=== PATIENT | male | born 1930 | race Caucasian/White ===

== ENCOUNTER 2017-05-14 19:33 | Inpatient (IN) | payer MEDICARE, MEDICAID, BC ==
[~2017-05-14] VITALS: Ht 185.4 cm; Wt 92.5 kg
[2017-05-14 19:35] VITALS: BP 112/64
[2017-05-14 20:52] LABS: MEAN CORPUSCULAR HEMOGLOBIN 31.6 PG (27.0-31.0); MEAN CORPUSCULAR HGB CONC 31.2 G/DL (32.0-36.0); MEAN CORPUSCULAR VOLUME 101 FL (80-99); MEAN PLATELET VOLUME 7.3 FL (6.5-10.1); PLATELET COUNT 164 K/UL (150-450); RED BLOOD COUNT 3.34 M/UL (4.70-6.10); RED CELL DISTRIBUTION WIDTH 13.7 % (11.6-14.8); WHITE BLOOD COUNT 14.2 K/UL (4.8-10.8)
[2017-05-14 21:07] LABS: ALANINE AMINOTRANSFERASE 5 U/L (3-41); ALBUMIN/GLOBULIN RATIO 0.8 (1.0-2.7); ANION GAP 12 (5-15); ASPARTATE AMINO TRANSFERASE 19 U/L (5-40); CALCIUM 9.2 mg/dL (8.6-10.2); CARBON DIOXIDE 26 mEQ/L (20-30); CHLORIDE 98 mEQ/L (98-107); CREATININE 0.9 mg/dL (0.7-1.2); HEMOLYSIS 47; POTASSIUM 4.9 mEQ/L (3.4-4.9); SODIUM 136 mEQ/L (135-145); TOTAL PROTEIN 7.5 g/dL (6.6-8.7); TROPONIN I < 0.30 ng/mL (<=0.30)
[2017-05-14 21:09] LABS: REFLEX LACTIC ACID YES OR NO YES
[2017-05-14 21:17] LABS: CKMB 1.7 ng/mL (< 6.7)
[2017-05-14 21:30] VITALS: BP 121/62
[2017-05-14] MEDS ORDERED: Azithromycin 500 MG in NS 275 ML IV ONE (21:30)
[2017-05-14] MEDS ORDERED: Piperacillin/Tazobactam 3.375 GM in NS 110 ML IVPB ONE (21:30)
[2017-05-14] MEDS ORDERED: Albuterol/Ipratropium 3ml neb HHN PRN (21:45)
[2017-05-14] MEDS ORDERED: Miralax 17gm pkt ORAL PRN (21:45)
[2017-05-14] MEDS ORDERED: Azithromycin 500mg Inj IV ONE (22:11)
[2017-05-14] MEDS ORDERED: Zosyn 3.375gm inj ONE (22:12)
[2017-05-14] MEDS ORDERED: NS 1000ml 3,300 ML IVLG ONE (22:15)
--- NOTE | 2017-05-14 22:15 | Emergency Room Report ---
History of Present Illness General Chief Complaint: Dyspnea/Respdistress Present Illness HPI 87-year-old male presents to ED for evaluation. Patient resides in intermediate. Is on ventilator with trach. Per EMS patient's more short of breath today. With retractions. Patient at bedside stating that patient was recently discharged from hospital for treatment of pneumonia. Patient is unable to put any additional history at this time. It is also concerned that patient appears more distended and abdomen usual. Patient has a J-G tube recently placed. Currently being used for feedings. No other aggravating relieving factors. No other associated symptom Allergies: Coded Allergies: CODEINE (Verified Allergy, Unknown, 05/14/17) Patient History Past Medical History: none Past Surgical History: none Pertinent Family History: none Social History: Denies: smoking, alcohol use, drug use Immunizations: UTD Reviewed Nursing Documentation: PMH: Agreed, PSxH: Agreed Nursing Documentation-PMH Hx Hypertension: Yes - heart failure Review of Systems All Other Systems: limited Physical Exam Vital Signs Date Time Temp Pulse Resp B/P (MAP) Pulse Ox O2 Delivery O2 Flow Rate FiO2 05/14/17 19:28 97.5 102 22 112/64 100 Mechanical Ventilator 05/14/17 19:54 40 Sp02 EP Interpretation: reviewed, normal General Appearance: other - nonresponsive Head: normocephalic, other Eyes: bilateral eye normal inspection, bilateral eye PERRL ENT: hearing grossly normal, normal pharynx, no angioedema, normal voice Neck: tracheotomy Respiratory: chest non-tender, lungs clear, normal breath sounds, speaking full sentences Cardiovascular #1: regular rate, rhythm, no edema Gastrointestinal: distended, other - Gtube Rectal: deferred Genitourinary: no CVA tenderness Musculoskeletal: normal inspection Neurologic: other - nonverbal Psychiatric: other - nonverbal Skin: normal inspection Lymphatic: normal inspection Medical Decision Making Diagnostic Impression: Primary Impression: Pneumonia Qualified Codes: J18.9 - Pneumonia, unspecified organism Additional Impressions: Respiratory distress Sepsis Qualified Codes: A41.9 - Sepsis, unspecified organism ER Course Hospital Course 87-year-old M presenting to ED with respiratory distress Differential diagnoses include: Pneumonia, CHF exacerbation, pneumothorax, fluid overload Clinical course Patient placed on stretcher. 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 Patient connected to a ventilator. After initial history and physical, I I ordered labs, IV fluids, EKG , chest x-ray, blood cultures, UA. Labs -leukocytosis noted, hemoglobin/hematocrit stable, electrolytes okay, lactate >2, troponins negative CXR - pneumonia EKG - NSR, no acute changes interpreted by me Family is concerned about distended abdomen. CT ordered Antibiotics given. 30 mL per KG fluid bolus given. Case discussed with Dr. Castillo and he agreed to the patient to his service for further care and support I feel this is a highly complex case requiring extensive working including EKG/ Rhythm strip, Xray/CT/US, Blood/urine lab work, repeat exams while in ED, and administration of strong opiates/narcotics for pain control, admission to hospital or close patient follow up. Diagnosis - pneumonia, resp distress, sepsis Patient admitted to [facility] in serious condition Labs Test 05/14/17 20:30 White Blood Count 14.2 K/UL (4.8-10.8) Red Blood Count 3.34 M/UL (4.70-6.10) Hemoglobin 10.5 G/DL (14.2-18.0) Hematocrit 33.7 % (42.0-52.0) Mean Corpuscular Volume 101 FL (80-99) Mean Corpuscular Hemoglobin 31.6 PG (27.0-31.0) Mean Corpuscular Hemoglobin Concent 31.2 G/DL (32.0-36.0) Red Cell Distribution Width 13.7 % (11.6-14.8) Platelet Count 164 K/UL (150-450) Mean Platelet Volume 7.3 FL (6.5-10.1) Neutrophils (%) (Auto) % (45.0-75.0) Lymphocytes (%) (Auto) % (20.0-45.0) Monocytes (%) (Auto) % (1.0-10.0) Eosinophils (%) (Auto) % (0.0-3.0) Basophils (%) (Auto) % (0.0-2.0) Sodium Level 136 mEQ/L (135-145) Potassium Level 4.9 mEQ/L (3.4-4.9) Chloride Level 98 mEQ/L (98-107) Carbon Dioxide Level 26 mEQ/L (20-30) Anion Gap 12 (5-15) Blood Urea Nitrogen 41 mg/dL (7-23) Creatinine 0.9 mg/dL (0.7-1.2) Estimat Glomerular Filtration Rate mL/min (>60) Glucose Level 111 mg/dL (74-106) Lactic Acid Level 2.20 mmol/L (0.66-2.22) Calcium Level 9.2 mg/dL (8.6-10.2) Total Bilirubin 0.5 mg/dL (0.0-1.2) Aspartate Amino Transf (AST/SGOT) 19 U/L (5-40) Alanine Aminotransferase (ALT/SGPT) 5 U/L (3-41) Alkaline Phosphatase 97 U/L (40-129) Total Creatine Kinase 49 U/L (38-174) Creatine Kinase MB 1.7 ng/mL (< 6.7) Creatine Kinase MB Relative Index 3.4 Troponin I < 0.30 ng/mL (<=0.30) Pro-B-Type Natriuretic Peptide 411 pg/mL (0-450) Total Protein 7.5 g/dL (6.6-8.7) Albumin 3.5 g/dL (3.5-5.2) Globulin 4.0 g/dL Albumin/Globulin Ratio 0.8 (1.0-2.7) EKG Diagnostic Results Rate: normal Rhythm: NSR ST Segments: no acute changes ASA given to the pt in ED: No Rhythm Strip Diag. Results EP Interpretation: yes Rhythm: NSR, no PVC's, no ectopy Chest X-Ray Diagnostic Results Chest X-Ray Diagnostic Results : Chest X-Ray Ordered: Yes # of Views/Limited/Complete: 1 View Indication: Shortness of Breath EP Interpretation: Yes Interpretation: no pneumothorax, no acute cardiopulmonary disease, other - pneumonii Impression: Other - pneumonia\ Electronically Signed by: Electronically signed by Jorge Thomas MD Last Vital Signs Date Time Temp Pulse Resp B/P (MAP) Pulse Ox O2 Delivery O2 Flow Rate FiO2 05/14/17 20:44 96 30 40 05/14/17 19:58 Mechanical Ventilator 05/14/17 19:28 97.5 112/64 100 Status: improved Disposition: ADMITTED INPATIENT Condition: Serious Referrals: YAJAIRA ASHLEY (PCP) JORGE THOMAS M.D. May 14, 2017 22:15
[2017-05-14 22:24] LABS: BAND NEUTROPHILS % (MANUAL) 2 % (0-8); EOSINOPHILS % (MANUAL) 2 % (0-3); LYMPHOCYTES % (MANUAL) 5 % (20-45); NEUTROPHILS % (MANUAL) 85 % (45-75); TOTAL CELLS COUNTED 100
[2017-05-14 22:25] LABS: ANISOCYTOSIS 1+; BASOPHILS % (MANUAL) 0 % (0-2); HYPOCHROMASIA 1+; PLATELET ESTIMATE ADEQUATE; PLATELET MORPHOLOGY NORMAL
[2017-05-14 23:30] VITALS: BP 125/72
[2017-05-15] MEDS ORDERED: AMLODIPINE BESY10 MG GT (00:30)
[2017-05-15] MEDS ORDERED: POLYVINYL ALCOH15 ML OP (00:30)
[2017-05-15] MEDS ORDERED: SENOKOT8.6 MG GT (00:30)
[2017-05-15] MEDS ORDERED: CATAPRES0.1 MG GT (00:30)
[2017-05-15] MEDS ORDERED: VITAMIN C500 M1 GT (00:30)
[2017-05-15] MEDS ORDERED: PEPCID AC20 M2 GT (00:30)
[2017-05-15] MEDS ORDERED: ALBUTEROL2.5 MG/3 M INH (00:30)
[2017-05-15] MEDS ORDERED: MIRALAX17 G2 GT (00:30)
[2017-05-15] MEDS ORDERED: SINEMET 25-1001 EAC1 GT (00:30)
[2017-05-15] MEDS ORDERED: LIQUITEARS15 ML OP ×2 (00:30→02:14)
[2017-05-15] MEDS ORDERED: ASPIR 8181 MG ORAL (00:30)
[2017-05-15] MEDS ORDERED: ROBINUL1 MG GT (00:30)
[2017-05-15] MEDS ORDERED: MULTIVITAMINS1 EAC2 GT (00:30)
[2017-05-15] MEDS ORDERED: FERROUS SU220 MG/53 GT (00:30)
[2017-05-15] MEDS ORDERED: COZAAR25 MG GT (00:30)
[2017-05-15] MEDS ORDERED: IPRATROPIU0.2 MG/1 M HHN ×3 (00:30→02:18)
[2017-05-15] MEDS ORDERED: CRANBERRY JUIC425 MG GT (00:30)
[2017-05-15 00:40] VITALS: BP 119/73
[2017-05-15] MEDS: Vancomycin 1500mg IVPB SCH ×2 (02:31→14:00)
[2017-05-15 04:00] VITALS: BP 124/64
[2017-05-15 05:38] LABS: BASOPHILS % (AUTO) 0.6 % (0.0-2.0); EOSINOPHILS % (AUTO) 0.7 % (0.0-3.0); LYMPHOCYTES % (AUTO) 7.3 % (20.0-45.0); MEAN CORPUSCULAR HEMOGLOBIN 31.8 PG (27.0-31.0); MEAN CORPUSCULAR HGB CONC 31.6 G/DL (32.0-36.0); MEAN CORPUSCULAR VOLUME 101 FL (80-99); MEAN PLATELET VOLUME 8.5 FL (6.5-10.1); MONOCYTES % (AUTO) 9.3 % (1.0-10.0); NEUTROPHILS % (AUTO) 82.2 % (45.0-75.0); PLATELET COUNT 157 K/UL (150-450); RED BLOOD COUNT 3.23 M/UL (4.70-6.10); RED CELL DISTRIBUTION WIDTH 13.7 % (11.6-14.8); WHITE BLOOD COUNT 13.5 K/UL (4.8-10.8)
[2017-05-15] MEDS ORDERED: Zosyn 3.375gm inj ONE (05:39)
[2017-05-15] MEDS: Piperacillin/Tazobactam 3.375 GM in NS 110 ML IVPB SCH ×3 (06:34→17:11)
[2017-05-15 07:06] LABS: ANION GAP 11 (5-15); CALCIUM 8.8 mg/dL (8.6-10.2); CARBON DIOXIDE 24 mEQ/L (20-30); CHLORIDE 103 mEQ/L (98-107); HEMOLYSIS 17; PHOSPHORUS 3.7 mg/dL (2.5-4.8); POTASSIUM 4.5 mEQ/L (3.4-4.9); SODIUM 138 mEQ/L (135-145)
[2017-05-15 08:00] VITALS: BP 117/58
[2017-05-15] MEDS: Heparin 5000 units/ml inj SUBQ SCH ×2 (08:37→21:26)
[2017-05-15] MEDS: Pantoprazole Inj IV SCH (08:37)
--- NOTE | 2017-05-15 08:38 | Diagnostic Imaging Report ---
Indication: Abdominal pain Technique: Continuous helical transaxial imaging of the abdomen and pelvis was obtained from the lung bases to the pubic symphysis during intravenous contrast administration. Coronal 2-D reformats were also obtained. Study obtained in a Siemens sensation [address] Total Dose length Product (DLP): [address] Dose Index Volume (CTDIvol): 19.28, 0.15 mGy Comparison: None Findings: There is a several centimeter long stent is noted within the distal esophagus. There is fluid and air within the stented segment. This is presumably for mass or stricture. The esophagus is not well violated on this examination. Reticular densities are present at both lung bases likely atelectasis or scarring. In addition there is streaky airspace opacification in the right infrahilar and right posterior basilar aspect of the lower lobe which may be due to pneumonia. Please correlate clinically. This there is a hiatal hernia. There is a GJ tube present. The tip of the catheter is within the proximal jejunum. The balloon is inflated within the stomach. There is breathing motion which limits evaluation. Gallbladder is grossly unremarkable. Suggestion of a few low density lesions within the liver. These are not evaluated well but probably cystic. Accessory spleen noted. Spleen size is normal. Parapelvic and cortical cysts are present within both kidneys. No obvious hydronephrosis demonstrated. Diverticula noted within the colon. There is moderate retention of fecal material within the rectum. There is a suprapubic catheter which appears to be in good position. Bilateral hernias containing fat demonstrated. Calcifications are present within the prostate gland. Bones are diffusely osteopenic. Compression fracture deformity of the L1 vertebra noted probably old. Loss of height of several thoracic vertebral also noted on this study. Impression: Distal esophageal stent presumably for esophageal CA or stricture. The esophagus is not evaluated well on this study. The EGD should be obtained as warranted clinically. Right basilar infiltrate may be present. Please correlate clinically for pneumonia. Multiple low-density lesions within the liver likely cysts. G-J tube. Tiny possible gallstone Bilateral renal cysts. Atherosclerotic vascular disease. Moderate fecal retention Bilateral inguinal hernias containing fat. West catheter in good position. Prostate hypertrophy and calcification. L1 vertebral compression fracture probably old. Osteoporosis. The CT scanner at [facility] is accredited by the [employer] [place] [employer] [employer] and the scans are performed using dose optimization techniques as appropriate to a performed exam including Automatic Exposure control.
--- NOTE | 2017-05-15 10:22 | Diagnostic Imaging Report ---
Indication: Dyspnea Comparison: None A single view chest radiograph was obtained. Findings: There is right basal atelectasis and volume loss. Hiatal hernia is present. Heart size is normal. Bones are osteopenic. Tracheostomy is present. Impression: Right basal atelectasis
[2017-05-15 12:00] VITALS: BP 126/75
--- NOTE | 2017-05-15 12:43 | Consultation ---
History of Present Illness General Date patient seen: May 15, 2017 Chief Complaint: Dyspnea/Respdistress Present Illness HPI 87-year-old male with chronic respiratory failure, vent, trach, peg, [facility] resident presented to ED for evaluation shortness of breath. Patient at bedside stating that patient was recently discharged from hospital for treatment of pneumonia. Patient's abdomen appeared more distended. Patient has a J-G tube recently placed. He was febrile in ER as well and admitted to [facility] for further treatment. Allergies: Coded Allergies: CODEINE (Verified Allergy, Unknown, 05/14/17) Medication History Scheduled Amlodipine Besylate* (Amlodipine Besylate*), 10 MG GT DAILY, (Reported) Ascorbic Acid* (Vitamin C*), 500 MG GT DAILY, (Reported) Aspirin* (Aspir 81*), 81 MG ORAL DAILY, (Reported) Carbidopa/Levodopa 25-100 Mg* (Sinemet 25-100 Mg Tablet*), 1 TAB GT BID, ( Reported) Cranberry Extract (Cranberry Juice Powder), 425 MG GT BID, (Reported) Famotidine (Pepcid Ac), 20 MG GT EVERY 12 HOURS, (Reported) Ferrous Sulfate (Ferrous Sulfate), 220 MG GT DAILY, (Reported) Glycopyrrolate (Robinul), 1 MG GT TID, (Reported) Ipratropium Douglas 0.5MG/2.5ML (Ipratropium Douglas 0.5MG/2.5ML), 0.5 MG HHN Q6H, (Reported) Losartan Potassium* (Cozaar*), 25 MG GT DAILY, (Reported) Multivitamins* (Multivitamins*), 1 TAB GT DAILY, (Reported) Polyethylene Glycol 3350* (Miralax*), 17 GM GT DAILY, (Reported) Polyvinyl Alcohol (Liquitears), 15 ML OP BID, (Reported) Sennosides (Senokot), 8.6 MG GT HS, (Reported) Scheduled PRN Albuterol Sulfate* (Albuterol Sulfate Hhn*), 3 ML INH EVERY 2 HOURS PRN for Bronchospasm, (Reported) Clonidine Hcl* (Catapres*), 0.1 MG GT EVERY 6 HOURS PRN for For High Blood Pressure, (Reported) Ipratropium Douglas 0.5MG/2.5ML (Ipratropium Douglas 0.5MG/2.5ML), 0.5 MG HHN EVERY 2 HOURS PRN for Shortness of Breath, (Reported) Ipratropium Douglas 0.5MG/2.5ML (Ipratropium Douglas 0.5MG/2.5ML), 0.5 MG HHN EVERY 2 HOURS PRN for Shortness of Breath, (Reported) Polyvinyl Alcohol (Liquitears), 1 DROP OP Q12HR PRN for Dry Eyes, (Reported) Patient History Healthcare decision maker ROSA COVINGTON Resuscitation status Full Code Advanced Directive on File No Past Medical/Surgical History Past Medical/Surgical History: (1) Tracheostomy care (2) Tracheostomy status (3) Feeding by G-tube Review of Systems All Other Systems: negative except mentioned in HPI Physical Exam General Appearance: WD/WN, no apparent distress Lines, tubes and drains: peripheral HEENT: normocephalic, atraumatic Neck: non-tender, normal alignment Respiratory/Chest: chest wall non-tender, lungs clear, normal breath sounds Cardiovascular/Chest: normal peripheral pulses, normal rate Abdomen: normal bowel sounds, non tender Genitourinary/Rectal: normal genital exam, normal rectal exam Extremities: normal range of motion, non-tender Skin Exam: normal pigmentation Last 24 Hour Vital Signs Date Time Temp Pulse Resp B/P (MAP) Pulse Ox O2 Delivery O2 Flow Rate FiO2 05/15/17 12:00 50 05/15/17 12:00 71 05/15/17 11:56 74 16 50 05/15/17 10:09 82 17 50 05/15/17 09:35 98.4 05/15/17 08:00 101.0 85 18 117/58 98 Mechanical Ventilator 50 05/15/17 08:00 50 05/15/17 08:00 83 05/15/17 07:30 79 16 50 05/15/17 05:30 85 16 50 05/15/17 04:00 98.1 79 16 124/64 99 Mechanical Ventilator 50 05/15/17 04:00 40 05/15/17 03:35 84 05/15/17 02:47 84 17 40 05/15/17 01:30 40 05/15/17 01:04 94 05/15/17 01:02 90 23 40 05/15/17 00:50 96 27 111/82 97 Mechanical Ventilator 05/15/17 00:40 93 21 119/73 99 Mechanical Ventilator 40 05/14/17 23:30 98.7 98 33 125/72 99 Mechanical Ventilator 40 05/14/17 22:34 103 35 40 05/14/17 21:30 98.7 89 20 121/62 99 Mechanical Ventilator 40 05/14/17 20:44 96 30 40 05/14/17 19:58 98 18 Mechanical Ventilator 40 05/14/17 19:54 98 29 40 05/14/17 19:35 102 22 Mechanical Ventilator 05/14/17 19:35 97.5 22 112/64 100 Mechanical Ventilator 05/14/17 19:28 97.5 102 22 112/64 100 Mechanical Ventilator Intake and Output 05/15/17 05/16/17 19:00 07:00 Intake Total 82.5 ml Balance 82.5 ml IV Total 82.5 ml Laboratory Tests Test 05/14/17 20:30 05/15/17 04:20 White Blood Count 14.2 K/UL (4.8-10.8) H 13.5 K/UL (4.8-10.8) H Red Blood Count 3.34 M/UL (4.70-6.10) L 3.23 M/UL (4.70-6.10) L Hemoglobin 10.5 G/DL (14.2-18.0) L 10.3 G/DL (14.2-18.0) L Hematocrit 33.7 % (42.0-52.0) L 32.5 % (42.0-52.0) L Mean Corpuscular Volume 101 FL (80-99) H 101 FL (80-99) H Mean Corpuscular Hemoglobin 31.6 PG (27.0-31.0) H 31.8 PG (27.0-31.0) H Mean Corpuscular Hemoglobin Concent 31.2 G/DL (32.0-36.0) L 31.6 G/DL (32.0-36.0) L Red Cell Distribution Width 13.7 % (11.6-14.8) 13.7 % (11.6-14.8) Platelet Count 164 K/UL (150-450) 157 K/UL (150-450) Mean Platelet Volume 7.3 FL (6.5-10.1) 8.5 FL (6.5-10.1) Neutrophils (%) (Auto) % (45.0-75.0) 82.2 % (45.0-75.0) H Lymphocytes (%) (Auto) % (20.0-45.0) 7.3 % (20.0-45.0) L Monocytes (%) (Auto) % (1.0-10.0) 9.3 % (1.0-10.0) Eosinophils (%) (Auto) % (0.0-3.0) 0.7 % (0.0-3.0) Basophils (%) (Auto) % (0.0-2.0) 0.6 % (0.0-2.0) Differential Total Cells Counted 100 Neutrophils % (Manual) 85 % (45-75) H Lymphocytes % (Manual) 5 % (20-45) L Monocytes % (Manual) 6 % (1-10) Eosinophils % (Manual) 2 % (0-3) Basophils % (Manual) 0 % (0-2) Band Neutrophils 2 % (0-8) Platelet Estimate Adequate Platelet Morphology Normal Hypochromasia 1+ Anisocytosis 1+ Sodium Level 136 mEQ/L (135-145) 138 mEQ/L (135-145) Potassium Level 4.9 mEQ/L (3.4-4.9) 4.5 mEQ/L (3.4-4.9) Chloride Level 98 mEQ/L (98-107) 103 mEQ/L (98-107) Carbon Dioxide Level 26 mEQ/L (20-30) 24 mEQ/L (20-30) Anion Gap 12 (5-15) 11 (5-15) Blood Urea Nitrogen 41 mg/dL (7-23) H 40 mg/dL (7-23) H Creatinine 0.9 mg/dL (0.7-1.2) 1.0 mg/dL (0.7-1.2) Estimat Glomerular Filtration Rate mL/min (>60) mL/min (>60) Glucose Level 111 mg/dL (74-106) H 139 mg/dL (74-106) H Lactic Acid Level 2.20 mmol/L (0.66-2.22) 2.00 mmol/L (0.66-2.22) Calcium Level 9.2 mg/dL (8.6-10.2) 8.8 mg/dL (8.6-10.2) Total Bilirubin 0.5 mg/dL (0.0-1.2) Aspartate Amino Transf (AST/SGOT) 19 U/L (5-40) Alanine Aminotransferase (ALT/SGPT) 5 U/L (3-41) Alkaline Phosphatase 97 U/L (40-129) Total Creatine Kinase 49 U/L (38-174) Creatine Kinase MB 1.7 ng/mL (< 6.7) Creatine Kinase MB Relative Index 3.4 Troponin I < 0.30 ng/mL (<=0.30) Pro-B-Type Natriuretic Peptide 411 pg/mL (0-450) Total Protein 7.5 g/dL (6.6-8.7) Albumin 3.5 g/dL (3.5-5.2) 3.0 g/dL (3.5-5.2) L Globulin 4.0 g/dL Albumin/Globulin Ratio 0.8 (1.0-2.7) L Phosphorus Level 3.7 mg/dL (2.5-4.8) Height (Feet): 6 Height (Inches): 1.00 Weight (Pounds): 204 Medications Current Medications Medications (Trade) Dose Ordered Sig/Polo Route PRN Reason Start Time Stop Time Status Last Admin Dose Admin Acetaminophen (Tylenol) 650 mg Q4H PRN ORAL FEVER 05/14/17 21:45 06/13/17 21:44 05/15/17 08:36 Albuterol/ Ipratropium (DuoNeb 0.5-3(2.5)mg/3ml) 3 ml EVERY 4 HOURS PRN HHN Shortness of Breath 05/14/17 21:45 05/19/17 21:44 Dextrose (Dextrose 50%) STAT PRN IV Hypoglycemia 05/14/17 21:45 06/13/17 21:44 Heparin Sodium (Porcine) (Heparin 5000 units/ml) 5,000 units EVERY 12 HOURS SUBQ 05/15/17 09:00 06/14/17 08:59 05/15/17 08:37 Lorazepam (Ativan 2mg/ml 1ml) 2 mg EVERY 2 HOURS PRN IV For Anxiety 05/14/17 21:45 05/21/17 21:44 Ondansetron HCl (Zofran) 4 mg Q6H PRN IVP Nausea & Vomiting 05/14/17 21:45 06/13/17 21:44 Pantoprazole (Protonix) 40 mg DAILY IV 05/15/17 09:00 06/14/17 08:59 05/15/17 08:37 Piperacillin Sod/ Tazobactam Sod 3.375 gm/Sodium Chloride 110 ml @ 27.5 mls/hr EVERY 6 HOURS IVPB 05/15/17 06:00 05/22/17 05:59 05/15/17 11:49 Polyethylene Glycol (Miralax) 17 gm DAILYPRN PRN ORAL Constipation 05/14/17 21:45 06/13/17 21:44 Vancomycin HCl/ Dextrose 250 ml @ 125 mls/hr Q12H IVPB 05/15/17 01:00 05/20/17 00:59 05/15/17 02:31 Assessment/Plan Problem List: (1) Respiratory distress ICD Codes: R06.00 - Dyspnea, unspecified SNOMED: 224353628 (2) Sepsis ICD Codes: A41.9 - Sepsis, unspecified organism SNOMED: 40012038 Qualifiers: Qualified Codes: A41.9 - Sepsis, unspecified organism (3) Pneumonia ICD Codes: J18.9 - Pneumonia, unspecified organism SNOMED: 892741187 Qualifiers: Qualified Codes: J18.9 - Pneumonia, unspecified organism (4) Tracheostomy status ICD Codes: Z93.0 - Tracheostomy status SNOMED: 19131245, 093863698 (5) Feeding by G-tube ICD Codes: Z93.1 - Gastrostomy status SNOMED: 593383770, 045578256 (6) Tracheostomy care ICD Codes: Z43.0 - Encounter for attention to tracheostomy SNOMED: 117143920 (7) Jejunostomy tube leak ICD Codes: K94.13 - Enterostomy malfunction SNOMED: 408040773 Respiratory: adjust tidal volume, monitor respiratory rate, adjust FIO2 Cardiac: continue to monitor HR/BP Renal: F/U I&O, keep IV fluid Infectious Disease: check cultures, continue antibiotics Gastrointestinal: hold feedings, other - GI to see the patient Endocrine: monitor blood sugar Hematologic: monitor H/H, transfuse if hgb<8.5 Neurologic: PRN Ativan, PRN Morphine, keep patient comfortable Affect: PRN ativan Notes Reviewed: sinker winder, cardio, renal Discussed with: nurses, consultants, embedded case manager TEMI MELENDEZ May 15, 2017 12:43
[2017-05-15 12:50] LABS: APPEARANCE,URINE CLEAR; KETONES,URINE NEGATIVE (NEGATIVE); LEUKOCYTE ESTERASE ,URINE 2+ (NEGATIVE); NITRITE,URINE NEGATIVE (NEGATIVE); PH,URINE 5 (4.5-8.0); PROTEIN,URINE 2+ (NEGATIVE); UROBILINOGEN,URINE NORMAL MG/DL (0.0-1.0)
[2017-05-15 12:59] LABS: RBC,URINE 0-2 /HPF (0 - 0)
[2017-05-15 13:00] LABS: BACTERIA,URINE FEW /HPF; SQUAMOUS EPITHELIAL CELL,UR OCCASIONAL /LPF (NONE/OCC); YEAST,URINE OCCASIONAL /HPF
[2017-05-15] MEDS: D5 1/2NS 1,000 ML IV SCH (13:12)
--- NOTE | 2017-05-15 13:39 | GI Initial Consult Note ---
Emma Ortiz N.PDavin 05/15/17 1339: History of Present Illness General Date patient seen: May 15, 2017 Time patient seen: 13:28 Reason for Hospitalization: Dyspnea/Respdistress Referring physician: TEMI SHERWOOD Reason for Consultation: ABDOMINAL DISTENTION Present Illness HPI 87-year-old male presents to ED for evaluation. Patient resides in half-way. Is on ventilator with trach. Per EMS patient's more short of breath today. With retractions. Patient at bedside stating that patient was recently discharged from hospital for treatment of pneumonia. Patient is unable to put any additional history at this time. It is also concerned that patient appears more distended and abdomen usual. Patient has a J-G tube recently placed. Currently being used for feedings. No other aggravating relieving factors. No other associated symptoms. GI consulted for abdominal distention. HPI as noted above. ROS limited, caregiver at bedside. Pt seen on floor, trach to vent NAD with no active s/sx of N/V/D. The patient recently had a GJ replaced at [facility] and discharged 2 weeks ago. Osmolite 1.5 was started and over the period of time, the patients abdomen became more and more distended. Abdominal distention noted , tympanic with active sounds all quad. Pt also has history of esophageal stricture with stent placement approximately one year ago. Labs show hyperchromic, macrocytic anemia, leukocytosis and hypoalbuminemia. Home Meds Reported Medications Ipratropium [place] 0.5MG/2.5ML (IPRATROPIUM BROMIDE 0.5MG/2.5ML) 0.2 Mg/1 Ml Solution, 0.5 MG HHN EVERY 2 HOURS Y for Shortness of Breath, #28 EA 05/15/17 Ipratropium [place] 0.5MG/2.5ML (IPRATROPIUM BROMIDE 0.5MG/2.5ML) 0.2 Mg/1 Ml Solution, 0.5 MG HHN Q6H, #28 EA 05/15/17 Polyvinyl Alcohol (LIQUITEARS) 15 Ml Drops, 1 DROP OP Q12HR Y for Dry Eyes, ML 05/15/17 Ascorbic Acid* (VITAMIN C*) 500 Mg Tablet, 500 MG GT DAILY, #30 TAB 0 Refills 05/15/17 Carbidopa/Levodopa 25-100 Mg* (SINEMET 25-100 MG TABLET*) 1 Each Tablet, 1 TAB GT BID, TAB 05/15/17 Sennosides (Senokot) 8.6 Mg Tablet, 8.6 MG GT HS, TAB 05/15/17 Glycopyrrolate (ROBINUL) 1 Mg Tablet, 1 MG GT TID, TAB 05/15/17 Famotidine (PEPCID AC) 20 Mg Tablet, 20 MG GT EVERY 12 HOURS, TAB 05/15/17 Multivitamins* (MULTIVITAMINS*) 1 Each Tablet, 1 TAB GT DAILY, TAB 0 Refills 05/15/17 Polyethylene Glycol 3350* (MIRALAX*) 17 Gm Powd.pack, 17 GM GT DAILY, PACKET 05/15/17 Polyvinyl Alcohol (LIQUITEARS) 15 Ml Drops, 15 ML OP BID, ML 05/15/17 Ipratropium [place] 0.5MG/2.5ML (IPRATROPIUM BROMIDE 0.5MG/2.5ML) 0.2 Mg/1 Ml Solution, 0.5 MG HHN EVERY 2 HOURS Y for Shortness of Breath, #28 EA 05/15/17 Ferrous Sulfate (Ferrous Sulfate) 220 Mg/5 Ml Elixir, 220 MG GT DAILY, ML 05/15/17 Cranberry Extract (CRANBERRY JUICE POWDER) 425 Mg Capsule, 425 MG GT BID, CAP 05/15/17 Losartan Potassium* (COZAAR*) 25 Mg Tablet, 25 MG GT DAILY, TAB 05/15/17 Clonidine Hcl* (CATAPRES*) 0.1 Mg Tablet, 0.1 MG GT EVERY 6 HOURS Y for For High Blood Pressure, TAB 05/15/17 Aspirin* (ASPIR 81*) 81 Mg Tablet.dr, 81 MG ORAL DAILY, TAB 05/15/17 Amlodipine Besylate* (AMLODIPINE BESYLATE*) 10 Mg Tablet, 10 MG GT DAILY, TAB 05/15/17 Albuterol Sulfate* (ALBUTEROL SULFATE HHN*) 2.5 Mg/3 Ml Vial.neb, 3 ML INH EVERY 2 HOURS Y for Bronchospasm, EA 05/15/17 Med list reviewed/reconciled: Yes Allergies: Coded Allergies: CODEINE (Verified Allergy, Unknown, 05/14/17) Patient History Limited by: medical condition History Provided By: Medical Record [facility] Narrative Past Medical History: none Past Surgical History: none Pertinent Family History: none Social History: Denies: smoking, alcohol use, drug use Immunizations: UTD Reviewed Nursing Documentation: PMH: Agreed, PSxH: Agreed Nursing Documentation-PMH Hx Hypertension: Yes - heart failure Review of Systems All Other Systems: limited Physical Exam Vital Signs Date Time Temp Pulse Resp B/P (MAP) Pulse Ox O2 Delivery O2 Flow Rate FiO2 05/14/17 19:28 97.5 102 22 112/64 100 Mechanical Ventilator 05/14/17 19:54 40 Sp02 EP Interpretation: reviewed Labs Laboratory Tests Test 05/14/17 20:30 05/15/17 04:20 05/15/17 12:18 White Blood Count 14.2 K/UL (4.8-10.8) H 13.5 K/UL (4.8-10.8) H Red Blood Count 3.34 M/UL (4.70-6.10) L 3.23 M/UL (4.70-6.10) L Hemoglobin 10.5 G/DL (14.2-18.0) L 10.3 G/DL (14.2-18.0) L Hematocrit 33.7 % (42.0-52.0) L 32.5 % (42.0-52.0) L Mean Corpuscular Volume 101 FL (80-99) H 101 FL (80-99) H Mean Corpuscular Hemoglobin 31.6 PG (27.0-31.0) H 31.8 PG (27.0-31.0) H Mean Corpuscular Hemoglobin Concent 31.2 G/DL (32.0-36.0) L 31.6 G/DL (32.0-36.0) L Red Cell Distribution Width 13.7 % (11.6-14.8) 13.7 % (11.6-14.8) Platelet Count 164 K/UL (150-450) 157 K/UL (150-450) Mean Platelet Volume 7.3 FL (6.5-10.1) 8.5 FL (6.5-10.1) Neutrophils (%) (Auto) % (45.0-75.0) 82.2 % (45.0-75.0) H Lymphocytes (%) (Auto) % (20.0-45.0) 7.3 % (20.0-45.0) L Monocytes (%) (Auto) % (1.0-10.0) 9.3 % (1.0-10.0) Eosinophils (%) (Auto) % (0.0-3.0) 0.7 % (0.0-3.0) Basophils (%) (Auto) % (0.0-2.0) 0.6 % (0.0-2.0) Differential Total Cells Counted 100 Neutrophils % (Manual) 85 % (45-75) H Lymphocytes % (Manual) 5 % (20-45) L Monocytes % (Manual) 6 % (1-10) Eosinophils % (Manual) 2 % (0-3) Basophils % (Manual) 0 % (0-2) Band Neutrophils 2 % (0-8) Platelet Estimate Adequate Platelet Morphology Normal Hypochromasia 1+ Anisocytosis 1+ Sodium Level 136 mEQ/L (135-145) 138 mEQ/L (135-145) Potassium Level 4.9 mEQ/L (3.4-4.9) 4.5 mEQ/L (3.4-4.9) Chloride Level 98 mEQ/L (98-107) 103 mEQ/L (98-107) Carbon Dioxide Level 26 mEQ/L (20-30) 24 mEQ/L (20-30) Anion Gap 12 (5-15) 11 (5-15) Blood Urea Nitrogen 41 mg/dL (7-23) H 40 mg/dL (7-23) H Creatinine 0.9 mg/dL (0.7-1.2) 1.0 mg/dL (0.7-1.2) Estimat Glomerular Filtration Rate mL/min (>60) mL/min (>60) Glucose Level 111 mg/dL (74-106) H 139 mg/dL (74-106) H Lactic Acid Level 2.20 mmol/L (0.66-2.22) 2.00 mmol/L (0.66-2.22) Calcium Level 9.2 mg/dL (8.6-10.2) 8.8 mg/dL (8.6-10.2) Total Bilirubin 0.5 mg/dL (0.0-1.2) Aspartate Amino Transf (AST/SGOT) 19 U/L (5-40) Alanine Aminotransferase (ALT/SGPT) 5 U/L (3-41) Alkaline Phosphatase 97 U/L (40-129) Total Creatine Kinase 49 U/L (38-174) Creatine Kinase MB 1.7 ng/mL (< 6.7) Creatine Kinase MB Relative Index 3.4 Troponin I < 0.30 ng/mL (<=0.30) Pro-B-Type Natriuretic Peptide 411 pg/mL (0-450) Total Protein 7.5 g/dL (6.6-8.7) Albumin 3.5 g/dL (3.5-5.2) 3.0 g/dL (3.5-5.2) L Globulin 4.0 g/dL Albumin/Globulin Ratio 0.8 (1.0-2.7) L Phosphorus Level 3.7 mg/dL (2.5-4.8) Urine Color Pale yellow Urine Appearance Clear Urine pH 5 (4.5-8.0) Urine Specific [place] 1.010 (1.005-1.035) Urine Protein 2+ (NEGATIVE) H Urine Glucose (UA) Negative (NEGATIVE) Urine Ketones Negative (NEGATIVE) Urine Occult Blood 1+ (NEGATIVE) H Urine Nitrite Negative (NEGATIVE) Urine Bilirubin Negative (NEGATIVE) Urine Urobilinogen Normal MG/DL (0.0-1.0) Urine Leukocyte Esterase 2+ (NEGATIVE) H Urine RBC 0-2 /HPF (0 - 0) H Urine WBC 5-10 /HPF (0 - 0) H Urine Squamous Epithelial Cells Occasional /LPF Urine Bacteria Few /HPF (NONE) Urine Yeast Occasional /HPF (NONE) H General Appearance: no apparent distress Head: normocephalic Neck: supple Respiratory: other - mech vent Cardiovascular: normal rate Gastrointestinal: gjt - c/d/i Rectal: deferred Genitourinary: no CVA tenderness Musculoskeletal: back normal Skin: no rash Lymphatic: normal inspection, no adenopathy Current Medications Current Medications Medications (Trade) Dose Ordered Sig/Polo Route PRN Reason Start Time Stop Time Status Last Admin Dose Admin Acetaminophen (Tylenol) 650 mg Q4H PRN ORAL FEVER 05/14/17 21:45 06/13/17 21:44 05/15/17 08:36 Albuterol/ Ipratropium (DuoNeb 0.5-3(2.5)mg/3ml) 3 ml EVERY 4 HOURS PRN HHN Shortness of Breath 05/14/17 21:45 05/19/17 21:44 Dextrose (Dextrose 50%) STAT PRN IV Hypoglycemia 05/14/17 21:45 06/13/17 21:44 Dextrose/Sodium Chloride 1,000 ml @ 50 mls/hr Q20H IV 05/15/17 13:00 06/14/17 12:59 05/15/17 13:12 Heparin Sodium (Porcine) (Heparin 5000 units/ml) 5,000 units EVERY 12 HOURS SUBQ 05/15/17 09:00 06/14/17 08:59 05/15/17 08:37 Lorazepam (Ativan 2mg/ml 1ml) 2 mg EVERY 2 HOURS PRN IV For Anxiety 05/14/17 21:45 05/21/17 21:44 Ondansetron HCl (Zofran) 4 mg Q6H PRN IVP Nausea & Vomiting 05/14/17 21:45 06/13/17 21:44 Pantoprazole (Protonix) 40 mg DAILY IV 05/15/17 09:00 06/14/17 08:59 05/15/17 08:37 Piperacillin Sod/ Tazobactam Sod 3.375 gm/Sodium Chloride 110 ml @ 27.5 mls/hr EVERY 6 HOURS IVPB 05/15/17 06:00 05/22/17 05:59 05/15/17 11:49 Polyethylene Glycol (Miralax) 17 gm DAILYPRN PRN ORAL Constipation 05/14/17 21:45 06/13/17 21:44 Vancomycin HCl/ Dextrose 250 ml @ 125 mls/hr Q12H IVPB 05/15/17 01:00 05/20/17 00:59 05/15/17 02:31 GI: Plan Problems: (1) Abdominal distension (gaseous) (2) Anemia (3) Fecal impaction (4) Hypoalbuminemia (5) Feeding by G-tube Plan CT AP reviewed >> see full report. 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 - Right basilar infiltrate may be present. Please correlate clinically for pneumonia. - Moderate fecal retention Macrocytic, Hyperchromic anemia >> fu B12/folate maintain NPO bowel decompression >> GT to LIS (not JT) turn q2 hours monitor H&H, prn transfusions IV hydration + electrolyte correction fleets x 1 repeat imaging studies prn ppi fu labs Discussed with Dr. Herbert. Thank you for this patient referral, we will follow. DAVION HERBERT 05/18/17 1100: History of Present Illness General Reason for Hospitalization: Dyspnea/Respdistress Present Illness Home Meds Reported Medications Ipratropium [place] 0.5MG/2.5ML (IPRATROPIUM BROMIDE 0.5MG/2.5ML) 0.2 Mg/1 Ml Solution, 0.5 MG HHN EVERY 2 HOURS Y for Shortness of Breath, #28 EA 05/15/17 Ipratropium [place] 0.5MG/2.5ML (IPRATROPIUM BROMIDE 0.5MG/2.5ML) 0.2 Mg/1 Ml Solution, 0.5 MG HHN Q6H, #28 EA 05/15/17 Polyvinyl Alcohol (LIQUITEARS) 15 Ml Drops, 1 DROP OP Q12HR Y for Dry Eyes, ML 05/15/17 Ascorbic Acid* (VITAMIN C*) 500 Mg Tablet, 500 MG GT DAILY, #30 TAB 0 Refills 05/15/17 Carbidopa/Levodopa 25-100 Mg* (SINEMET 25-100 MG TABLET*) 1 Each Tablet, 1 TAB GT BID, TAB 05/15/17 Sennosides (Senokot) 8.6 Mg Tablet, 8.6 MG GT HS, TAB 05/15/17 Glycopyrrolate (ROBINUL) 1 Mg Tablet, 1 MG GT TID, TAB 05/15/17 Famotidine (PEPCID AC) 20 Mg Tablet, 20 MG GT EVERY 12 HOURS, TAB 05/15/17 Multivitamins* (MULTIVITAMINS*) 1 Each Tablet, 1 TAB GT DAILY, TAB 0 Refills 05/15/17 Polyethylene Glycol 3350* (MIRALAX*) 17 Gm Powd.pack, 17 GM GT DAILY, PACKET 05/15/17 Polyvinyl Alcohol (LIQUITEARS) 15 Ml Drops, 15 ML OP BID, ML 05/15/17 Ipratropium [place] 0.5MG/2.5ML (IPRATROPIUM BROMIDE 0.5MG/2.5ML) 0.2 Mg/1 Ml Solution, 0.5 MG HHN EVERY 2 HOURS Y for Shortness of Breath, #28 EA 05/15/17 Ferrous Sulfate (Ferrous Sulfate) 220 Mg/5 Ml Elixir, 220 MG GT DAILY, ML 05/15/17 Cranberry Extract (CRANBERRY JUICE POWDER) 425 Mg Capsule, 425 MG GT BID, CAP 05/15/17 Losartan Potassium* (COZAAR*) 25 Mg Tablet, 25 MG GT DAILY, TAB 05/15/17 Clonidine Hcl* (CATAPRES*) 0.1 Mg Tablet, 0.1 MG GT EVERY 6 HOURS Y for For High Blood Pressure, TAB 05/15/17 Aspirin* (ASPIR 81*) 81 Mg Tablet.dr, 81 MG ORAL DAILY, TAB 05/15/17 Amlodipine Besylate* (AMLODIPINE BESYLATE*) 10 Mg Tablet, 10 MG GT DAILY, TAB 05/15/17 Albuterol Sulfate* (ALBUTEROL SULFATE HHN*) 2.5 Mg/3 Ml Vial.neb, 3 ML INH EVERY 2 HOURS Y for Bronchospasm, EA 05/15/17 Allergies: Coded Allergies: CODEINE (Verified Allergy, Unknown, 05/14/17) GI: Plan Plan The patient was seen and examined at bedside and all new and available data was reviewed in the patients chart. I agree with the above findings, impression and plan. (Patient seen earlier today. Signature stamp does not reflect patient encounter time.). -[facility]ion [facility] Vernon N.PDavin May 15, 2017 13:39 DAVION HERBERT May 18, 2017 11:00
[2017-05-15] MEDS ORDERED: Fleet's Enema 133ml RECTAL ONE (14:00)
[2017-05-15] MEDS ORDERED: Tubing IV Secondary IV ONE (14:09)
[2017-05-15] MEDS ORDERED: NS 275ml ONE (14:09)
[2017-05-15] MEDS ORDERED: Ipratropium 0.02% Inh Soln 2.5ml UD HHN PRN ×2 (15:45)
[2017-05-15] MEDS ORDERED: Albuterol ud Inhalation HHN PRN (15:45)
[2017-05-15] MEDS ORDERED: Artificial Tears 1.4% Op Soln BOTH EYES PRN (15:45)
[2017-05-15 16:00] VITALS: BP 133/59
[2017-05-15] MEDS ORDERED: Albuterol/Ipratropium 3ml neb HHN PRN (16:00)
[2017-05-15] MEDS ORDERED: Losartan 25mg tab GT SCH (16:00)
--- NOTE | 2017-05-15 16:09 | History & Physical ---
History and Physical History & Physicial Sunil Castillo MD May 15, 2017 16:09
[2017-05-15 16:42] LABS: PROTHROMBIN TIME 10.7 SEC (9.30-11.50)
[2017-05-15 17:06] LABS: BAND NEUTROPHILS % (MANUAL) 1 % (0-8); EOSINOPHILS % (MANUAL) 1 % (0-3); LYMPHOCYTES % (MANUAL) 9 % (20-45); NEUTROPHILS % (MANUAL) 79 % (45-75); NUCLEATED RED BLOOD CELLS 1 /100 WBC; TOTAL CELLS COUNTED 100
[2017-05-15 17:07] LABS: BASOPHILS % (MANUAL) 0 % (0-2); PLATELET ESTIMATE ADEQUATE; PLATELET MORPHOLOGY NORMAL
[2017-05-15 17:08] LABS: PATH BLOOD SMEAR/OMC SENT TO PATHOLOGIST
[2017-05-15] MEDS: Sinemet 25/100 tab GT SCH (17:11)
[2017-05-15 17:39] LABS: RETICULOCYTE COUNT 0.4 % (0.0-2.0)
--- NOTE | 2017-05-15 19:05 | Consultation ---
History of Present Illness General Date patient seen: May 15, 2017 Time patient seen: 20:40 Chief Complaint: Dyspnea/Respdistress Referring physician: TEMI SHERWOOD Reason for Consultation: ABDOMINAL DISTENTION Present Illness HPI 87 y/o M with hx of Chronic resp failure- vent/trach dependant, CHF, hx of esophageal stricture s/p sent placement ~1yr ago, s/p recent placement of [place] [facility] [place], snf resident presents to ED no 05/14 with SOB and abd distention Of note, Patient has recently been admitted to another facility because of PNA Febrile up to 101. Leukocytos to 14.2, now improving. CXR wiht R basal atelectasis. Started on IV Vanco and Zosyn. Allergies: Coded Allergies: CODEINE (Verified Allergy, Unknown, 05/14/17) Medication History Scheduled Amlodipine Besylate* (Amlodipine Besylate*), 10 MG GT DAILY, (Reported) Ascorbic Acid* (Vitamin C*), 500 MG GT DAILY, (Reported) Aspirin* (Aspir 81*), 81 MG ORAL DAILY, (Reported) Carbidopa/Levodopa 25-100 Mg* (Sinemet 25-100 Mg Tablet*), 1 TAB GT BID, ( Reported) Cranberry Extract (Cranberry Juice Powder), 425 MG GT BID, (Reported) Famotidine (Pepcid Ac), 20 MG GT EVERY 12 HOURS, (Reported) Ferrous Sulfate (Ferrous Sulfate), 220 MG GT DAILY, (Reported) Glycopyrrolate (Robinul), 1 MG GT TID, (Reported) Ipratropium [place] 0.5MG/2.5ML (Ipratropium [place] 0.5MG/2.5ML), 0.5 MG HHN Q6H, (Reported) Losartan Potassium* (Cozaar*), 25 MG GT DAILY, (Reported) Multivitamins* (Multivitamins*), 1 TAB GT DAILY, (Reported) Polyethylene Glycol 3350* (Miralax*), 17 GM GT DAILY, (Reported) Polyvinyl Alcohol (Liquitears), 15 ML OP BID, (Reported) Sennosides (Senokot), 8.6 MG GT HS, (Reported) Scheduled PRN Albuterol Sulfate* (Albuterol Sulfate Hhn*), 3 ML INH EVERY 2 HOURS PRN for Bronchospasm, (Reported) Clonidine Hcl* (Catapres*), 0.1 MG GT EVERY 6 HOURS PRN for For High Blood Pressure, (Reported) Ipratropium [place] 0.5MG/2.5ML (Ipratropium [place] 0.5MG/2.5ML), 0.5 MG HHN EVERY 2 HOURS PRN for Shortness of Breath, (Reported) Ipratropium [place] 0.5MG/2.5ML (Ipratropium [place] 0.5MG/2.5ML), 0.5 MG HHN EVERY 2 HOURS PRN for Shortness of Breath, (Reported) Polyvinyl Alcohol (Liquitears), 1 DROP OP Q12HR PRN for Dry Eyes, (Reported) Patient History Healthcare decision maker Y Resuscitation status Full Code Advanced Directive on File No Patient History Narrative PMHx: Above FHx: non pertinent from ID Social Hx: unable to obtain given dementia Review of Systems ROS Narrative unable to obtain given dementia Physical Exam Physical Exam Narrative General Appearance: other - nonresponsive HEENT: PERRL, no oral lesions Neck: tracheotomy with tick secretions Respiratory: chest non-tender,corase breath sounds Cardiovascular: regular rate, rhythm, no edema Gastrointestinal: distended, other - Gtube Musculoskeletal: normal inspection Neurologic: other - nonverbal Skin: normal inspection Last 24 Hour Vital Signs Date Time Temp Pulse Resp B/P (MAP) Pulse Ox O2 Delivery O2 Flow Rate FiO2 05/15/17 17:08 83 31 50 05/15/17 16:00 99.0 73 27 133/59 98 Mechanical Ventilator 50 05/15/17 16:00 73 05/15/17 16:00 50 05/15/17 15:04 68 16 50 05/15/17 13:01 63 15 50 05/15/17 12:00 99.4 74 17 126/75 99 Mechanical Ventilator 50 05/15/17 12:00 50 05/15/17 12:00 71 05/15/17 11:56 74 16 50 05/15/17 10:09 82 17 50 05/15/17 09:35 98.4 05/15/17 08:00 101.0 85 18 117/58 98 Mechanical Ventilator 50 05/15/17 08:00 50 05/15/17 08:00 83 05/15/17 07:30 79 16 50 05/15/17 05:30 85 16 50 05/15/17 04:00 98.1 79 16 124/64 99 Mechanical Ventilator 50 05/15/17 04:00 40 05/15/17 03:35 84 05/15/17 02:47 84 17 40 05/15/17 01:30 40 05/15/17 01:04 94 05/15/17 01:02 90 23 40 05/15/17 00:50 96 27 111/82 97 Mechanical Ventilator 05/15/17 00:40 93 21 119/73 99 Mechanical Ventilator 40 05/14/17 23:30 98.7 98 33 125/72 99 Mechanical Ventilator 40 05/14/17 22:34 103 35 40 05/14/17 21:30 98.7 89 20 121/62 99 Mechanical Ventilator 40 05/14/17 20:44 96 30 40 05/14/17 19:58 98 18 Mechanical Ventilator 40 05/14/17 19:54 98 29 40 05/14/17 19:35 102 22 Mechanical Ventilator 05/14/17 19:35 97.5 22 112/64 100 Mechanical Ventilator 05/14/17 19:28 97.5 102 22 112/64 100 Mechanical Ventilator Intake and Output 05/15/17 05/16/17 19:00 07:00 Intake Total 665.5 ml Output Total 450 ml Balance 215.5 ml Intake Oral 0 ml Free Water 30 ml IV Total 635.5 ml Output Urine Total 450 ml # Bowel Movements 2 Laboratory Tests Test 05/14/17 20:30 05/15/17 04:20 05/15/17 12:18 05/15/17 14:25 White Blood Count 14.2 K/UL (4.8-10.8) H 13.5 K/UL (4.8-10.8) H Red Blood Count 3.34 M/UL (4.70-6.10) L 3.23 M/UL (4.70-6.10) L Hemoglobin 10.5 G/DL (14.2-18.0) L 10.3 G/DL (14.2-18.0) L Hematocrit 33.7 % (42.0-52.0) L 32.5 % (42.0-52.0) L Mean Corpuscular Volume 101 FL (80-99) H 101 FL (80-99) H Mean Corpuscular Hemoglobin 31.6 PG (27.0-31.0) H 31.8 PG (27.0-31.0) H Mean Corpuscular Hemoglobin Concent 31.2 G/DL (32.0-36.0) L 31.6 G/DL (32.0-36.0) L Red Cell Distribution Width 13.7 % (11.6-14.8) 13.7 % (11.6-14.8) Platelet Count 164 K/UL (150-450) 157 K/UL (150-450) Mean Platelet Volume 7.3 FL (6.5-10.1) 8.5 FL (6.5-10.1) Neutrophils (%) (Auto) % (45.0-75.0) 82.2 % (45.0-75.0) H Lymphocytes (%) (Auto) % (20.0-45.0) 7.3 % (20.0-45.0) L Monocytes (%) (Auto) % (1.0-10.0) 9.3 % (1.0-10.0) Eosinophils (%) (Auto) % (0.0-3.0) 0.7 % (0.0-3.0) Basophils (%) (Auto) % (0.0-2.0) 0.6 % (0.0-2.0) Differential Total Cells Counted 100 100 Neutrophils % (Manual) 85 % (45-75) H 79 % (45-75) H Lymphocytes % (Manual) 5 % (20-45) L 9 % (20-45) L Monocytes % (Manual) 6 % (1-10) 10 % (1-10) Eosinophils % (Manual) 2 % (0-3) 1 % (0-3) Basophils % (Manual) 0 % (0-2) 0 % (0-2) Band Neutrophils 2 % (0-8) 1 % (0-8) Platelet Estimate Adequate Adequate Platelet Morphology Normal Normal Hypochromasia 1+ Anisocytosis 1+ Sodium Level 136 mEQ/L (135-145) 138 mEQ/L (135-145) Potassium Level 4.9 mEQ/L (3.4-4.9) 4.5 mEQ/L (3.4-4.9) Chloride Level 98 mEQ/L (98-107) 103 mEQ/L (98-107) Carbon Dioxide Level 26 mEQ/L (20-30) 24 mEQ/L (20-30) Anion Gap 12 (5-15) 11 (5-15) Blood Urea Nitrogen 41 mg/dL (7-23) H 40 mg/dL (7-23) H Creatinine 0.9 mg/dL (0.7-1.2) 1.0 mg/dL (0.7-1.2) Estimat Glomerular Filtration Rate mL/min (>60) mL/min (>60) Glucose Level 111 mg/dL (74-106) H 139 mg/dL (74-106) H Lactic Acid Level 2.20 mmol/L (0.66-2.22) 2.00 mmol/L (0.66-2.22) Calcium Level 9.2 mg/dL (8.6-10.2) 8.8 mg/dL (8.6-10.2) Total Bilirubin 0.5 mg/dL (0.0-1.2) Aspartate Amino Transf (AST/SGOT) 19 U/L (5-40) Alanine Aminotransferase (ALT/SGPT) 5 U/L (3-41) Alkaline Phosphatase 97 U/L (40-129) Total Creatine Kinase 49 U/L (38-174) Creatine Kinase MB 1.7 ng/mL (< 6.7) Creatine Kinase MB Relative Index 3.4 Troponin I < 0.30 ng/mL (<=0.30) Pro-B-Type Natriuretic Peptide 411 pg/mL (0-450) Total Protein 7.5 g/dL (6.6-8.7) Albumin 3.5 g/dL (3.5-5.2) 3.0 g/dL (3.5-5.2) L Globulin 4.0 g/dL Albumin/Globulin Ratio 0.8 (1.0-2.7) L Nucleated Red Blood Cells 1 /100 WBC Red Blood Cell Morphology Normal Phosphorus Level 3.7 mg/dL (2.5-4.8) Urine Color Pale yellow Urine Appearance Clear Urine pH 5 (4.5-8.0) Urine Specific [place] 1.010 (1.005-1.035) Urine Protein 2+ (NEGATIVE) H Urine Glucose (UA) Negative (NEGATIVE) Urine Ketones Negative (NEGATIVE) Urine Occult Blood 1+ (NEGATIVE) H Urine Nitrite Negative (NEGATIVE) Urine Bilirubin Negative (NEGATIVE) Urine Urobilinogen Normal MG/DL (0.0-1.0) Urine Leukocyte Esterase 2+ (NEGATIVE) H Urine RBC 0-2 /HPF (0 - 0) H Urine WBC 5-10 /HPF (0 - 0) H Urine Squamous Epithelial Cells Occasional /LPF Urine Bacteria Few /HPF (NONE) Urine Yeast Occasional /HPF (NONE) H Stool Occult Blood Pending Test 05/15/17 16:00 Erythrocyte Sedimentation Rate 118 MM/HR (0-30) H Reticulocyte Count 0.4 % (0.0-2.0) Prothrombin Time 10.7 SEC (9.30-11.50) Prothromb Time International Ratio 1.0 (0.9-1.1) Activated Partial Thromboplast Time 30 SEC (23-33) Iron Level 24 ug/dL (59-158) L Total Iron Binding Capacity 325 ug/dL (250-400) Percent Iron Saturation 7 % (15-50) L Unsaturated Iron Binding 301 ug/dL (112-346) Lactate Dehydrogenase 193 U/L (135-230) Carcinoembryonic Antigen 3.8 ng/mL H Vitamin B12 Level 471 pg/mL (211-946) Folate Pending Height (Feet): 6 Height (Inches): 1.00 Weight (Pounds): 204 Medications Current Medications Medications (Trade) Dose Ordered Sig/Polo Route PRN Reason Start Time Stop Time Status Last Admin Dose Admin Acetaminophen (Tylenol) 650 mg Q4H PRN ORAL FEVER 05/14/17 21:45 06/13/17 21:44 05/15/17 08:36 Albuterol/ Ipratropium (DuoNeb 0.5-3(2.5)mg/3ml) 3 ml Q2H PRN HHN Shortness of Breath 05/15/17 16:00 05/19/17 21:44 Artificial Tears ([place]-Tears) 1 drop Q12H PRN BOTH EYES Dry Eyes 05/15/17 15:45 06/14/17 15:44 Ascorbic Acid (Vitamin C) 500 mg DAILY GT 05/16/17 09:00 06/15/17 08:59 Aspirin (Ecotrin) 81 mg DAILY ORAL 05/16/17 09:00 06/15/17 08:59 Carbidopa/Levodopa (Sinemet 25/100) 1 ea BID GT 05/15/17 18:00 06/14/17 17:59 05/15/17 17:11 Clonidine HCl (Catapres) 0.1 mg Q6H PRN GT FOR SBP>160 05/15/17 21:45 06/14/17 21:44 Dextrose (Dextrose 50%) STAT PRN IV Hypoglycemia 05/14/17 21:45 06/13/17 21:44 Dextrose/Sodium Chloride 1,000 ml @ 50 mls/hr Q20H IV 05/15/17 13:00 06/14/17 12:59 05/15/17 13:12 Heparin Sodium (Porcine) (Heparin 5000 units/ml) 5,000 units EVERY 12 HOURS SUBQ 05/15/17 09:00 06/14/17 08:59 05/15/17 08:37 Ipratropium [place] (Atrovent) 500 mcg Q6HRT HHN 05/15/17 19:00 05/20/17 18:59 Lorazepam (Ativan 2mg/ml 1ml) 2 mg EVERY 2 HOURS PRN IV For Anxiety 05/14/17 21:45 05/21/17 21:44 Losartan Potassium (Cozaar) 25 mg DAILY GT 05/16/17 16:15 06/15/17 16:14 Multivitamins (Multivitamins) 1 tab DAILY ORAL 05/16/17 09:00 06/15/17 08:59 Ondansetron HCl (Zofran) 4 mg Q6H PRN IVP Nausea & Vomiting 05/14/17 21:45 06/13/17 21:44 Pantoprazole (Protonix) 40 mg DAILY IV 05/15/17 09:00 06/14/17 08:59 05/15/17 08:37 Piperacillin Sod/ Tazobactam Sod 3.375 gm/Sodium Chloride 110 ml @ 27.5 mls/hr EVERY 6 HOURS IVPB 05/15/17 06:00 05/22/17 05:59 05/15/17 17:11 Polyethylene Glycol (Miralax) 17 gm DAILY GT 05/16/17 09:00 06/15/17 08:59 Polyethylene Glycol (Miralax) 17 gm DAILYPRN PRN ORAL Constipation 05/14/17 21:45 06/13/17 21:44 Sennosides (Senokot) 8.6 mg QHS GT 05/15/17 21:00 06/14/17 20:59 Vancomycin HCl/ Dextrose 250 ml @ 125 mls/hr Q12H IVPB 05/15/17 01:00 05/20/17 00:59 05/15/17 14:00 Assessment/Plan Assessment/Plan Abx: IV Vanco 05/15- IV Zosyn 05/14- Azithromycin x1 05/14 Assesment: SOB- possible PNA (? R base infiltrate no CT abd/p) CXR: Right basal atelectasis -sp cx pending Fever/Leukocytosis -u/a WBC 5-10, nit neg, leuk +3, ucx pending -Bcx pending Abd distention -CT abd/p: Distal esophageal stent presumably for esophageal CA or stricture. The esophagus is not evaluated well on this study. Right basilar infiltrate may be present. Please correlate clinically for pneumonia. Multiple low-density lesions within the liver likely cysts. G-J tube. Tiny possible gallstone. Bilateral renal cysts. Atherosclerotic vascular disease. Moderate fecal retention. Bilateral inguinal hernias containing fat. Prostate hypertrophy and calcification.L1 vertebral compression fracture probably old. Osteoporosis. Recent G-J tube placement Chronic resp failure- vent/trach dependant CHF hx of esophageal stricture s/p sent placement ~1yr ago snf resident Plan: -Continue IV Vano and Zosyn pending cx -check Influenza a/b -f/u cx -Monitor CBC/BMP, temperatures Thank you for this consultation. Will continue to follow along with you. Discussed with Valery Brown M.D. May 15, 2017 19:05
[2017-05-15] MEDS: Ipratropium 0.02% Inh Soln 2.5ml UD HHN SCH (19:23)
[2017-05-15 20:00] VITALS: BP 122/86
[2017-05-15] MEDS: Sennosides 8.6mg GT SCH (21:25)
[2017-05-15] MEDS ORDERED: Vancomycin 1 GM in D5W 275 ML IV SCH (23:00)
[2017-05-16] VITALS: BP 149/60
[2017-05-16] MEDS: Piperacillin/Tazobactam 3.375 GM in NS 110 ML IVPB SCH ×4 (00:30→22:20)
[2017-05-16] MEDS: Ipratropium 0.02% Inh Soln 2.5ml UD HHN SCH ×4 (01:15→18:48)
[2017-05-16] MEDS: Vancomycin 1500mg IVPB SCH (01:42)
[2017-05-16 04:00] VITALS: BP 118/68
[2017-05-16 05:02] LABS: BASOPHILS % (AUTO) 0.5 % (0.0-2.0); EOSINOPHILS % (AUTO) 0.2 % (0.0-3.0); LYMPHOCYTES % (AUTO) 5.5 % (20.0-45.0); MEAN CORPUSCULAR HGB CONC 32.2 G/DL (32.0-36.0); MEAN CORPUSCULAR VOLUME 103 FL (80-99); MEAN PLATELET VOLUME 7.9 FL (6.5-10.1); MONOCYTES % (AUTO) 10.6 % (1.0-10.0); NEUTROPHILS % (AUTO) 83.2 % (45.0-75.0); PLATELET COUNT 123 K/UL (150-450); RED BLOOD COUNT 2.64 M/UL (4.70-6.10); RED CELL DISTRIBUTION WIDTH 13.5 % (11.6-14.8); WHITE BLOOD COUNT 13.1 K/UL (4.8-10.8)
[2017-05-16 05:29] LABS: MAGNESIUM 2.2 mg/dL (1.7-2.5); PHOSPHORUS 2.8 mg/dL (2.5-4.8)
[2017-05-16 05:34] LABS: ALANINE AMINOTRANSFERASE 5 U/L (3-41); ALBUMIN/GLOBULIN RATIO 0.8 (1.0-2.7); ANION GAP 15 (5-15); ASPARTATE AMINO TRANSFERASE 14 U/L (5-40); CALCIUM 8.3 mg/dL (8.6-10.2); CARBON DIOXIDE 22 mEQ/L (20-30); CHLORIDE 97 mEQ/L (98-107); CREATININE 0.9 mg/dL (0.7-1.2); HEMOLYSIS 1; POTASSIUM 3.5 mEQ/L (3.4-4.9); SODIUM 134 mEQ/L (135-145); TOTAL PROTEIN 6.4 g/dL (6.6-8.7)
[2017-05-16 08:00] VITALS: BP 108/43
[2017-05-16] MEDS: Miralax 17gm pkt GT SCH (08:08)
[2017-05-16] MEDS: Sinemet 25/100 tab GT SCH ×2 (08:08→17:04)
[2017-05-16] MEDS: Ascorbic Acid 500mg tab GT SCH (08:08)
[2017-05-16] MEDS: Heparin 5000 units/ml inj SUBQ SCH ×2 (08:09→21:21)
[2017-05-16] MEDS: Pantoprazole Inj IV SCH (08:09)
[2017-05-16] MEDS: D5 1/2NS 1,000 ML IV SCH (08:10)
[2017-05-16] MEDS ORDERED: Aspirin EC 81mg tab ORAL SCH (09:00)
--- NOTE | 2017-05-16 09:48 | Infectious Diseases Prog Note ---
Assessment/Plan Assessment/Plan Abx: IV Vanco 05/15- IV Zosyn 05/14- Azithromycin x1 05/14 Assesment: SOB- possible PNA (? R base infiltrate no CT abd/p) CXR: Right basal atelectasis -sp cx pending -influenza neg Fever/Leukocytosis- improving -u/a WBC 5-10, nit neg, leuk +3, ucx NTD -Bcx NTD Abd distention -CT abd/p: Distal esophageal stent presumably for esophageal CA or stricture. The esophagus is not evaluated well on this study. Right basilar infiltrate may be present. Please correlate clinically for pneumonia. Multiple low-density lesions within the liver likely cysts. G-J tube. Tiny possible gallstone. Bilateral renal cysts. Atherosclerotic vascular disease. Moderate fecal retention. Bilateral inguinal hernias containing fat. Prostate hypertrophy and calcification.L1 vertebral compression fracture probably old. Osteoporosis. Recent G-J tube placement Chronic resp failure- vent/trach dependant CHF hx of esophageal stricture s/p sent placement ~1yr ago [facility] Plan: -Continue IV Vanco #2 and Zosyn #3 pending cx -f/u cx -Monitor CBC/BMP, temperatures Thank you for this consultation. Will continue to follow along with you. Discussed with RN. Subjective Allergies: Coded Allergies: CODEINE (Verified Allergy, Unknown, 05/14/17) Subjective afebrile in 24hrs leukocytosis mildly improved Bcx NTD sp cx pending Objective Vital Signs Last 24 Hour Vital Signs Date Time Temp Pulse Resp B/P (MAP) Pulse Ox O2 Delivery O2 Flow Rate FiO2 05/16/17 08:00 40 05/16/17 08:00 98.9 71 17 108/43 98 Mechanical Ventilator 40 05/16/17 08:00 76 05/16/17 07:15 76 16 100 Mechanical Ventilator 50 05/16/17 07:10 50 05/16/17 07:10 70 17 Mechanical Ventilator 50 05/16/17 07:10 70 17 98 Mechanical Ventilator 50 05/16/17 07:10 70 17 50 05/16/17 07:03 98.9 05/16/17 04:59 87 32 50 05/16/17 04:00 99.9 84 27 118/68 98 Mechanical Ventilator 50 05/16/17 04:00 83 05/16/17 04:00 50 05/16/17 02:40 90 14 50 05/16/17 01:10 89 32 100 Mechanical Ventilator 50 05/16/17 01:00 50 05/16/17 01:00 86 16 50 05/16/17 01:00 87 16 Mechanical Ventilator 50 05/16/17 01:00 89 16 100 Mechanical Ventilator 50 05/16/17 00:00 98.2 84 27 149/60 98 Mechanical Ventilator 50 05/15/17 23:30 93 05/15/17 22:38 75 28 50 05/15/17 21:10 96 32 50 05/15/17 20:00 98.6 100 27 122/86 98 Mechanical Ventilator 50 05/15/17 20:00 94 05/15/17 20:00 50 05/15/17 19:29 50 05/15/17 19:29 93 28 98 Mechanical Ventilator 50 05/15/17 19:15 83 31 Mechanical Ventilator 50 05/15/17 19:15 91 34 100 Mechanical Ventilator 50 05/15/17 19:15 89 31 50 05/15/17 17:08 83 31 50 05/15/17 16:00 99.0 73 27 133/59 98 Mechanical Ventilator 50 05/15/17 16:00 73 05/15/17 16:00 50 05/15/17 15:04 68 16 50 05/15/17 13:01 63 15 50 05/15/17 12:00 99.4 74 17 126/75 99 Mechanical Ventilator 50 05/15/17 12:00 50 05/15/17 12:00 71 05/15/17 11:56 74 16 50 05/15/17 10:09 82 17 50 Height (Feet): 6 Height (Inches): 1.00 Weight (Pounds): 204 Microbiology Date/Time Source Procedure Growth Status 05/14/17 20:40 Blood Blood Culture - Preliminary NO GROWTH AFTER 24 HOURS Resulted 05/14/17 20:30 Blood Blood Culture - Preliminary NO GROWTH AFTER 24 HOURS Resulted 05/16/17 04:30 Nose Influenza Types A,B Antigen (UMESH) - Final Complete 05/15/17 05:30 Sputum Gram Stain - Final Resulted 05/15/17 05:30 Sputum Sputum Culture Pending Resulted 05/15/17 00:35 Nasal Nares MRSA Culture - Final NO METHICILLIN RESISTANT STAPH AUREUS... Complete 05/15/17 12:18 Urine,Clean Catch Urine Culture - Preliminary NO GROWTH AFTER 24 HOURS Resulted Laboratory Tests Test 05/15/17 12:18 05/15/17 14:25 05/15/17 16:00 05/16/17 04:05 Urine Color Pale yellow Urine Appearance Clear Urine pH 5 (4.5-8.0) Urine Specific [place] 1.010 (1.005-1.035) Urine Protein 2+ (NEGATIVE) H Urine Glucose (UA) Negative (NEGATIVE) Urine Ketones Negative (NEGATIVE) Urine Occult Blood 1+ (NEGATIVE) H Urine Nitrite Negative (NEGATIVE) Urine Bilirubin Negative (NEGATIVE) Urine Urobilinogen Normal MG/DL (0.0-1.0) Urine Leukocyte Esterase 2+ (NEGATIVE) H Urine RBC 0-2 /HPF (0 - 0) H Urine WBC 5-10 /HPF (0 - 0) H Urine Squamous Epithelial Cells Occasional /LPF Urine Bacteria Few /HPF (NONE) Urine Yeast Occasional /HPF (NONE) H Stool Occult Blood Pending Erythrocyte Sedimentation Rate 118 MM/HR (0-30) H Reticulocyte Count 0.4 % (0.0-2.0) Prothrombin Time 10.7 SEC (9.30-11.50) Prothromb Time International Ratio 1.0 (0.9-1.1) Activated Partial Thromboplast Time 30 SEC (23-33) Iron Level 24 ug/dL (59-158) L Total Iron Binding Capacity 325 ug/dL (250-400) Percent Iron Saturation 7 % (15-50) L Unsaturated Iron Binding 301 ug/dL (112-346) Lactate Dehydrogenase 193 U/L (135-230) Carcinoembryonic Antigen 3.8 ng/mL H Vitamin B12 Level 471 pg/mL (211-946) Folate Pending White Blood Count 13.1 K/UL (4.8-10.8) H Red Blood Count 2.64 M/UL (4.70-6.10) L Hemoglobin 8.7 G/DL (14.2-18.0) L Hematocrit 27.1 % (42.0-52.0) L Mean Corpuscular Volume 103 FL (80-99) H Mean Corpuscular Hemoglobin 33.0 PG (27.0-31.0) H Mean Corpuscular Hemoglobin Concent 32.2 G/DL (32.0-36.0) Red Cell Distribution Width 13.5 % (11.6-14.8) Platelet Count 123 K/UL (150-450) L Mean Platelet Volume 7.9 FL (6.5-10.1) Neutrophils (%) (Auto) 83.2 % (45.0-75.0) H Lymphocytes (%) (Auto) 5.5 % (20.0-45.0) L Monocytes (%) (Auto) 10.6 % (1.0-10.0) H Eosinophils (%) (Auto) 0.2 % (0.0-3.0) Basophils (%) (Auto) 0.5 % (0.0-2.0) Sodium Level 134 mEQ/L (135-145) L Potassium Level 3.5 mEQ/L (3.4-4.9) Chloride Level 97 mEQ/L (98-107) L Carbon Dioxide Level 22 mEQ/L (20-30) Anion Gap 15 (5-15) Blood Urea Nitrogen 35 mg/dL (7-23) H Creatinine 0.9 mg/dL (0.7-1.2) Estimat Glomerular Filtration Rate mL/min (>60) Glucose Level 392 mg/dL (74-106) #H Calcium Level 8.3 mg/dL (8.6-10.2) L Phosphorus Level 2.8 mg/dL (2.5-4.8) Magnesium Level 2.2 mg/dL (1.7-2.5) Total Bilirubin 0.9 mg/dL (0.0-1.2) Aspartate Amino Transf (AST/SGOT) 14 U/L (5-40) Alanine Aminotransferase (ALT/SGPT) 5 U/L (3-41) Alkaline Phosphatase 85 U/L (40-129) Pro-B-Type Natriuretic Peptide 542 pg/mL (0-450) H Total Protein 6.4 g/dL (6.6-8.7) L Albumin 2.9 g/dL (3.5-5.2) L Globulin 3.5 g/dL Albumin/Globulin Ratio 0.8 (1.0-2.7) L Current Medications Medications (Trade) Dose Ordered Sig/Polo Route PRN Reason Start Time Stop Time Status Last Admin Dose Admin Acetaminophen (Tylenol) 650 mg Q4H PRN ORAL FEVER 05/14/17 21:45 06/13/17 21:44 05/16/17 06:04 Albuterol/ Ipratropium (DuoNeb 0.5-3(2.5)mg/3ml) 3 ml Q2H PRN HHN Shortness of Breath 05/15/17 16:00 05/19/17 21:44 05/15/17 19:22 Artificial Tears (Akwa-Tears) 1 drop Q12H PRN BOTH EYES Dry Eyes 05/15/17 15:45 06/14/17 15:44 Ascorbic Acid (Vitamin C) 500 mg DAILY GT 05/16/17 09:00 06/15/17 08:59 05/16/17 08:08 Aspirin (Ecotrin) 81 mg DAILY ORAL 05/16/17 09:00 06/15/17 08:59 05/16/17 08:08 Carbidopa/Levodopa (Sinemet 25/100) 1 ea BID GT 05/15/17 18:00 06/14/17 17:59 05/16/17 08:08 Clonidine HCl (Catapres) 0.1 mg Q6H PRN GT FOR SBP>160 05/15/17 21:45 06/14/17 21:44 Dextrose (Dextrose 50%) STAT PRN IV Hypoglycemia 05/14/17 21:45 06/13/17 21:44 Dextrose/Sodium Chloride 1,000 ml @ 50 mls/hr Q20H IV 05/15/17 13:00 06/14/17 12:59 05/16/17 08:10 Heparin Sodium (Porcine) (Heparin 5000 units/ml) 5,000 units EVERY 12 HOURS SUBQ 05/15/17 09:00 06/14/17 08:59 05/15/17 21:26 Ipratropium [place] (Atrovent) 500 mcg Q6HRT HHN 05/15/17 19:00 05/20/17 18:59 05/16/17 07:23 Lorazepam (Ativan 2mg/ml 1ml) 2 mg EVERY 2 HOURS PRN IV For Anxiety 05/14/17 21:45 05/21/17 21:44 Losartan Potassium (Cozaar) 25 mg DAILY GT 05/16/17 16:15 06/15/17 16:14 Multivitamins (Multivitamins) 1 tab DAILY ORAL 05/16/17 09:00 06/15/17 08:59 05/16/17 08:08 Ondansetron HCl (Zofran) 4 mg Q6H PRN IVP Nausea & Vomiting 05/14/17 21:45 06/13/17 21:44 Pantoprazole (Protonix) 40 mg DAILY IV 05/15/17 09:00 06/14/17 08:59 05/16/17 08:09 Piperacillin Sod/ Tazobactam Sod 3.375 gm/Sodium Chloride 110 ml @ 27.5 mls/hr EVERY 6 HOURS IVPB 05/15/17 06:00 05/22/17 05:59 05/16/17 06:04 Polyethylene Glycol (Miralax) 17 gm DAILY GT 05/16/17 09:00 06/15/17 08:59 05/16/17 08:08 Polyethylene Glycol (Miralax) 17 gm DAILYPRN PRN ORAL Constipation 05/14/17 21:45 06/13/17 21:44 Sennosides (Senokot) 8.6 mg QHS GT 05/15/17 21:00 06/14/17 20:59 05/15/17 21:25 Vancomycin HCl/ Dextrose 250 ml @ 125 mls/hr Q12H IVPB 05/15/17 01:00 05/20/17 00:59 05/16/17 01:42 Valery Chang M.D. May 16, 2017 09:48
--- NOTE | 2017-05-16 11:15 | Diagnostic Imaging Report ---
Indication: Dyspnea Technique: XRAY CHEST 1 V Comparison: 05/14/17 Findings: Tracheostomy is present. The cardiomediastinal silhouette is stable. Atelectasis/infiltrates are again noted in the lung bases. Osseous structures are stable. Impression: Slightly increased atelectasis or infiltrates in the lung bases.
--- NOTE | 2017-05-16 11:15 | Diagnostic Imaging Report ---
Indication: Abdominal distention Technique: Supine views of the abdomen Comparison: CT abdomen and pelvis 05/14/17 Findings: Esophageal stent is again noted. Gastrojejunostomy is again noted. Bowel gas pattern is nonobstructive. Catheter is seen within the bladder. Degenerative changes of the spine are present. There is compression of L1. Impression: Nonobstructive bowel gas pattern.
--- NOTE | 2017-05-16 11:35 | Pulmonology Progress Note ---
Assessment/Plan Problems: (1) Respiratory distress (2) Sepsis (3) Pneumonia (4) Tracheostomy status (5) Feeding by G-tube (6) Tracheostomy care (7) Jejunostomy tube leak Respiratory: monitor respiratory rate, CXR Cardiac: start pressors, continue to monitor HR/BP Renal: F/U I&O, keep IV fluid, check electrolytes Infectious Disease: check cultures Gastrointestinal: continue feedings/current rate, hold feedings Endocrine: monitor blood sugar, check HgA1C, continue sliding scale insulin Hematologic: monitor H/H, transfuse if hgb<8.5 Neurologic: PRN Morphine, keep patient comfortable Affect: PRN ativan Prophylaxis: Protonix Subjective ROS Limited/Unobtainable: No Constitutional: Reports: no symptoms HEENT: Repors: no symptoms Respiratory: Reports: no symptoms Allergies: Coded Allergies: CODEINE (Verified Allergy, Unknown, 05/14/17) Objective Last 24 Hour Vital Signs Date Time Temp Pulse Resp B/P (MAP) Pulse Ox O2 Delivery O2 Flow Rate FiO2 05/16/17 08:00 40 05/16/17 08:00 98.9 71 17 108/43 98 Mechanical Ventilator 40 05/16/17 08:00 76 05/16/17 07:15 76 16 100 Mechanical Ventilator 50 05/16/17 07:10 50 05/16/17 07:10 70 17 Mechanical Ventilator 50 05/16/17 07:10 70 17 98 Mechanical Ventilator 50 05/16/17 07:10 70 17 50 05/16/17 07:03 98.9 05/16/17 04:59 87 32 50 05/16/17 04:00 99.9 84 27 118/68 98 Mechanical Ventilator 50 05/16/17 04:00 83 05/16/17 04:00 50 05/16/17 02:40 90 14 50 05/16/17 01:10 89 32 100 Mechanical Ventilator 50 05/16/17 01:00 50 05/16/17 01:00 86 16 50 05/16/17 01:00 87 16 Mechanical Ventilator 50 05/16/17 01:00 89 16 100 Mechanical Ventilator 50 05/16/17 00:00 98.2 84 27 149/60 98 Mechanical Ventilator 50 05/15/17 23:30 93 05/15/17 22:38 75 28 50 05/15/17 21:10 96 32 50 05/15/17 20:00 98.6 100 27 122/86 98 Mechanical Ventilator 50 05/15/17 20:00 94 05/15/17 20:00 50 05/15/17 19:29 50 05/15/17 19:29 93 28 98 Mechanical Ventilator 50 05/15/17 19:15 83 31 Mechanical Ventilator 50 05/15/17 19:15 91 34 100 Mechanical Ventilator 50 05/15/17 19:15 89 31 50 05/15/17 17:08 83 31 50 05/15/17 16:00 99.0 73 27 133/59 98 Mechanical Ventilator 50 05/15/17 16:00 73 05/15/17 16:00 50 05/15/17 15:04 68 16 50 05/15/17 13:01 63 15 50 05/15/17 12:00 99.4 74 17 126/75 99 Mechanical Ventilator 50 05/15/17 12:00 50 05/15/17 12:00 71 05/15/17 11:56 74 16 50 Intake and Output 05/16/17 05/17/17 19:00 07:00 Intake Total 210.0 ml Balance 210.0 ml IV Total 210.0 ml General Appearance: WD/WN HEENT: atraumatic Cardiovascular: normal peripheral pulses, normal rate Abdomen: soft, non tender, no scars Skin: no rash, no lesions Microbiology Date/Time Source Procedure Growth Status 05/14/17 20:40 Blood Blood Culture - Preliminary NO GROWTH AFTER 24 HOURS Resulted 05/14/17 20:30 Blood Blood Culture - Preliminary NO GROWTH AFTER 24 HOURS Resulted 05/16/17 04:30 Nose Influenza Types A,B Antigen (UMESH) - Final Complete 05/15/17 05:30 Sputum Gram Stain - Final Resulted 05/15/17 05:30 Sputum Sputum Culture Pending Resulted 05/15/17 00:35 Nasal Nares MRSA Culture - Final NO METHICILLIN RESISTANT STAPH AUREUS... Complete 05/15/17 12:18 Urine,Clean Catch Urine Culture - Preliminary NO GROWTH AFTER 24 HOURS Resulted Laboratory Tests 05/15/17 12:18: Urine Color Pale yellow, Urine Appearance Clear, Urine pH 5, Urine Specific [place] 1.010, Urine Protein 2+H, Urine Glucose (UA) Negative, Urine Ketones Negative, Urine Occult Blood 1+H, Urine Nitrite Negative, Urine Bilirubin Negative, Urine Urobilinogen Normal, Urine Leukocyte Esterase 2+H, Urine RBC 0- 2H, Urine WBC 5-10H, Urine Squamous Epithelial Cells Occasional, Urine Bacteria Few, Urine Yeast OccasionalH 05/15/17 14:25: Stool Occult Blood Negative 05/15/17 16:00: Erythrocyte Sedimentation Rate 118H, Reticulocyte Count 0.4, Prothrombin Time 10.7, Prothromb Time International Ratio 1.0, Activated Partial Thromboplast Time 30, Iron Level 24L, Total Iron Binding Capacity 325, Percent Iron Saturation 7L, Unsaturated Iron Binding 301, Lactate Dehydrogenase 193, Carcinoembryonic Antigen 3.8H, Vitamin B12 Level 471, Folate [Pending] 05/16/17 04:05: White Blood Count 13.1H, Red Blood Count 2.64L, Hemoglobin 8.7L, Hematocrit 27.1L, Mean Corpuscular Volume 103H, Mean Corpuscular Hemoglobin 33.0H, Mean Corpuscular Hemoglobin Concent 32.2, Red Cell Distribution Width 13.5, Platelet Count 123L, Mean Platelet Volume 7.9, Neutrophils (%) (Auto) 83.2H, Lymphocytes (%) (Auto) 5.5L, Monocytes (%) (Auto) 10.6H, Eosinophils (%) (Auto) 0.2, Basophils (%) (Auto) 0.5, Sodium Level 134L, Potassium Level 3.5, Chloride Level 97L, Carbon Dioxide Level 22, Anion Gap 15, Blood Urea Nitrogen 35H, Creatinine 0.9, Estimat Glomerular Filtration Rate , Glucose Level 392#H, Calcium Level 8.3L, Phosphorus Level 2.8, Magnesium Level 2.2, Total Bilirubin 0.9, Aspartate Amino Transf (AST/SGOT) 14, Alanine Aminotransferase (ALT/SGPT) 5 , Alkaline Phosphatase 85, Pro-B-Type Natriuretic Peptide 542H, Total Protein 6.4L, Albumin 2.9L, Globulin 3.5, Albumin/Globulin Ratio 0.8L Current Medications Medications (Trade) Dose Ordered Sig/Polo Route PRN Reason Start Time Stop Time Status Last Admin Dose Admin Acetaminophen (Tylenol) 650 mg Q4H PRN ORAL FEVER 05/14/17 21:45 06/13/17 21:44 05/16/17 06:04 Albuterol/ Ipratropium (DuoNeb 0.5-3(2.5)mg/3ml) 3 ml Q2H PRN HHN Shortness of Breath 05/15/17 16:00 05/19/17 21:44 05/15/17 19:22 Artificial Tears (Akwa-Tears) 1 drop Q12H PRN BOTH EYES Dry Eyes 05/15/17 15:45 06/14/17 15:44 Ascorbic Acid (Vitamin C) 500 mg DAILY GT 05/16/17 09:00 06/15/17 08:59 05/16/17 08:08 Aspirin (Ecotrin) 81 mg DAILY ORAL 05/16/17 09:00 06/15/17 08:59 05/16/17 08:08 Carbidopa/Levodopa (Sinemet 25/100) 1 ea BID GT 05/15/17 18:00 06/14/17 17:59 05/16/17 08:08 Clonidine HCl (Catapres) 0.1 mg Q6H PRN GT FOR SBP>160 05/15/17 21:45 06/14/17 21:44 Dextrose (Dextrose 50%) STAT PRN IV Hypoglycemia 05/14/17 21:45 06/13/17 21:44 Dextrose/Sodium Chloride 1,000 ml @ 50 mls/hr Q20H IV 05/15/17 13:00 06/14/17 12:59 05/16/17 08:10 Heparin Sodium (Porcine) (Heparin 5000 units/ml) 5,000 units EVERY 12 HOURS SUBQ 05/15/17 09:00 06/14/17 08:59 05/15/17 21:26 Ipratropium [place] (Atrovent) 500 mcg Q6HRT HHN 05/15/17 19:00 05/20/17 18:59 05/16/17 07:23 Lorazepam (Ativan 2mg/ml 1ml) 2 mg EVERY 2 HOURS PRN IV For Anxiety 05/14/17 21:45 05/21/17 21:44 Losartan Potassium (Cozaar) 25 mg DAILY GT 05/16/17 16:15 06/15/17 16:14 Multivitamins (Multivitamins) 1 tab DAILY ORAL 05/16/17 09:00 06/15/17 08:59 05/16/17 08:08 Ondansetron HCl (Zofran) 4 mg Q6H PRN IVP Nausea & Vomiting 10/5/17 21:45 06/13/17 21:44 Pantoprazole (Protonix) 40 mg DAILY IV 05/15/17 09:00 06/14/17 08:59 05/16/17 08:09 Piperacillin Sod/ Tazobactam Sod 3.375 gm/Sodium Chloride 110 ml @ 27.5 mls/hr EVERY 6 HOURS IVPB 05/15/17 06:00 05/22/17 05:59 05/16/17 06:04 Polyethylene Glycol (Miralax) 17 gm DAILY GT 05/16/17 09:00 06/15/17 08:59 05/16/17 08:08 Polyethylene Glycol (Miralax) 17 gm DAILYPRN PRN ORAL Constipation 05/14/17 21:45 06/13/17 21:44 Sennosides (Senokot) 8.6 mg QHS GT 05/15/17 21:00 06/14/17 20:59 05/15/17 21:25 Vancomycin HCl/ Dextrose 250 ml @ 125 mls/hr Q12H IVPB 05/15/17 01:00 05/20/17 00:59 05/16/17 01:42 TEMI MELENDEZ May 16, 2017 11:35
[2017-05-16 12:00] VITALS: BP 116/56
--- NOTE | 2017-05-16 12:19 | Internal Med Progress Note ---
Subjective Date of Service: May 16, 2017 Physician Name Chris Yadav Attending Physician Sunil Castillo MD Current Medications Medications (Trade) Dose Ordered Sig/Polo Route PRN Reason Start Time Stop Time Status Last Admin Dose Admin Acetaminophen (Tylenol) 650 mg Q4H PRN ORAL FEVER 05/14/17 21:45 06/13/17 21:44 05/16/17 06:04 Albuterol/ Ipratropium (DuoNeb 0.5-3(2.5)mg/3ml) 3 ml Q2H PRN HHN Shortness of Breath 05/15/17 16:00 05/19/17 21:44 05/15/17 19:22 Artificial Tears (Akwa-Tears) 1 drop Q12H PRN BOTH EYES Dry Eyes 05/15/17 15:45 06/14/17 15:44 Ascorbic Acid (Vitamin C) 500 mg DAILY GT 05/16/17 09:00 06/15/17 08:59 05/16/17 08:08 Aspirin (Ecotrin) 81 mg DAILY ORAL 05/16/17 09:00 06/15/17 08:59 05/16/17 08:08 Carbidopa/Levodopa (Sinemet 25/100) 1 ea BID GT 05/15/17 18:00 06/14/17 17:59 05/16/17 08:08 Clonidine HCl (Catapres) 0.1 mg Q6H PRN GT FOR SBP>160 05/15/17 21:45 06/14/17 21:44 Dextrose (Dextrose 50%) STAT PRN IV Hypoglycemia 05/14/17 21:45 06/13/17 21:44 Dextrose/Sodium Chloride 1,000 ml @ 50 mls/hr Q20H IV 05/15/17 13:00 06/14/17 12:59 05/16/17 08:10 Heparin Sodium (Porcine) (Heparin 5000 units/ml) 5,000 units EVERY 12 HOURS SUBQ 05/15/17 09:00 06/14/17 08:59 05/15/17 21:26 Ipratropium [place] (Atrovent) 500 mcg Q6HRT HHN 05/15/17 19:00 05/20/17 18:59 05/16/17 07:23 Lorazepam (Ativan 2mg/ml 1ml) 2 mg EVERY 2 HOURS PRN IV For Anxiety 05/14/17 21:45 05/21/17 21:44 Losartan Potassium (Cozaar) 25 mg DAILY GT 05/16/17 16:15 06/15/17 16:14 Multivitamins (Multivitamins) 1 tab DAILY ORAL 05/16/17 09:00 06/15/17 08:59 05/16/17 08:08 Ondansetron HCl (Zofran) 4 mg Q6H PRN IVP Nausea & Vomiting 05/14/17 21:45 06/13/17 21:44 Pantoprazole (Protonix) 40 mg DAILY IV 05/15/17 09:00 06/14/17 08:59 05/16/17 08:09 Piperacillin Sod/ Tazobactam Sod 3.375 gm/Sodium Chloride 110 ml @ 27.5 mls/hr EVERY 6 HOURS IVPB 05/15/17 06:00 05/22/17 05:59 05/16/17 06:04 Polyethylene Glycol (Miralax) 17 gm DAILY GT 05/16/17 09:00 06/15/17 08:59 05/16/17 08:08 Polyethylene Glycol (Miralax) 17 gm DAILYPRN PRN ORAL Constipation 05/14/17 21:45 06/13/17 21:44 Sennosides (Senokot) 8.6 mg QHS GT 05/15/17 21:00 06/14/17 20:59 05/15/17 21:25 Vancomycin HCl/ Dextrose 250 ml @ 125 mls/hr Q12H IVPB 05/15/17 01:00 05/20/17 00:59 05/16/17 01:42 Allergies: Coded Allergies: CODEINE (Verified Allergy, Unknown, 05/14/17) ROS Limited/Unobtainable: Yes Subjective 87 YO M admitted with respiratory failure. Cover for Int Dario-Dr Castillo. SHILPI. Objective Last Vital Signs Date Time Temp Pulse Resp B/P (MAP) Pulse Ox O2 Delivery O2 Flow Rate FiO2 05/16/17 11:10 68 16 40 05/16/17 08:00 98.9 108/43 98 Mechanical Ventilator General Appearance: WD/WN, moderate distress, lethargic EENT: normal ENT inspection Neck: non-tender, normal alignment, supple, other - tracheostomy Cardiovascular: normal peripheral pulses, normal rate, regular rhythm, no gallop/murmur, no JVD Respiratory/Chest: respiratory distress, crackles/rales, rhonchi - bilaterally , expiratory wheezing Abdomen: normal bowel sounds, non tender, soft, no organomegaly, no mass, distended Skin: normal pigmentation, warm/dry Laboratory Tests Test 05/15/17 12:18 05/15/17 14:25 05/15/17 16:00 05/16/17 04:05 Urine Color Pale yellow Urine Appearance Clear Urine pH 5 (4.5-8.0) Urine Specific [place] 1.010 (1.005-1.035) Urine Protein 2+ (NEGATIVE) H Urine Glucose (UA) Negative (NEGATIVE) Urine Ketones Negative (NEGATIVE) Urine Occult Blood 1+ (NEGATIVE) H Urine Nitrite Negative (NEGATIVE) Urine Bilirubin Negative (NEGATIVE) Urine Urobilinogen Normal MG/DL (0.0-1.0) Urine Leukocyte Esterase 2+ (NEGATIVE) H Urine RBC 0-2 /HPF (0 - 0) H Urine WBC 5-10 /HPF (0 - 0) H Urine Squamous Epithelial Cells Occasional /LPF Urine Bacteria Few /HPF (NONE) Urine Yeast Occasional /HPF (NONE) H Stool Occult Blood Negative (NEGATIVE) Erythrocyte Sedimentation Rate 118 MM/HR (0-30) H Reticulocyte Count 0.4 % (0.0-2.0) Prothrombin Time 10.7 SEC (9.30-11.50) Prothromb Time International Ratio 1.0 (0.9-1.1) Activated Partial Thromboplast Time 30 SEC (23-33) Iron Level 24 ug/dL (59-158) L Total Iron Binding Capacity 325 ug/dL (250-400) Percent Iron Saturation 7 % (15-50) L Unsaturated Iron Binding 301 ug/dL (112-346) Lactate Dehydrogenase 193 U/L (135-230) Carcinoembryonic Antigen 3.8 ng/mL H Vitamin B12 Level 471 pg/mL (211-946) Folate Pending White Blood Count 13.1 K/UL (4.8-10.8) H Red Blood Count 2.64 M/UL (4.70-6.10) L Hemoglobin 8.7 G/DL (14.2-18.0) L Hematocrit 27.1 % (42.0-52.0) L Mean Corpuscular Volume 103 FL (80-99) H Mean Corpuscular Hemoglobin 33.0 PG (27.0-31.0) H Mean Corpuscular Hemoglobin Concent 32.2 G/DL (32.0-36.0) Red Cell Distribution Width 13.5 % (11.6-14.8) Platelet Count 123 K/UL (150-450) L Mean Platelet Volume 7.9 FL (6.5-10.1) Neutrophils (%) (Auto) 83.2 % (45.0-75.0) H Lymphocytes (%) (Auto) 5.5 % (20.0-45.0) L Monocytes (%) (Auto) 10.6 % (1.0-10.0) H Eosinophils (%) (Auto) 0.2 % (0.0-3.0) Basophils (%) (Auto) 0.5 % (0.0-2.0) Sodium Level 134 mEQ/L (135-145) L Potassium Level 3.5 mEQ/L (3.4-4.9) Chloride Level 97 mEQ/L (98-107) L Carbon Dioxide Level 22 mEQ/L (20-30) Anion Gap 15 (5-15) Blood Urea Nitrogen 35 mg/dL (7-23) H Creatinine 0.9 mg/dL (0.7-1.2) Estimat Glomerular Filtration Rate mL/min (>60) Glucose Level 392 mg/dL (74-106) #H Calcium Level 8.3 mg/dL (8.6-10.2) L Phosphorus Level 2.8 mg/dL (2.5-4.8) Magnesium Level 2.2 mg/dL (1.7-2.5) Total Bilirubin 0.9 mg/dL (0.0-1.2) Aspartate Amino Transf (AST/SGOT) 14 U/L (5-40) Alanine Aminotransferase (ALT/SGPT) 5 U/L (3-41) Alkaline Phosphatase 85 U/L (40-129) Pro-B-Type Natriuretic Peptide 542 pg/mL (0-450) H Total Protein 6.4 g/dL (6.6-8.7) L Albumin 2.9 g/dL (3.5-5.2) L Globulin 3.5 g/dL Albumin/Globulin Ratio 0.8 (1.0-2.7) L Microbiology Date/Time Source Procedure Growth Status 05/14/17 20:40 Blood Blood Culture - Preliminary NO GROWTH AFTER 24 HOURS Resulted 05/14/17 20:30 Blood Blood Culture - Preliminary NO GROWTH AFTER 24 HOURS Resulted 05/16/17 04:30 Nose Influenza Types A,B Antigen (UMESH) - Final Complete 05/15/17 05:30 Sputum Gram Stain - Final Resulted 05/15/17 05:30 Sputum Sputum Culture Pending Resulted 05/15/17 00:35 Nasal Nares MRSA Culture - Final NO METHICILLIN RESISTANT STAPH AUREUS... Complete 05/15/17 12:18 Urine,Clean Catch Urine Culture - Preliminary NO GROWTH AFTER 24 HOURS Resulted Intake and Output 05/16/17 05/17/17 19:00 07:00 Intake Total 210.0 ml Balance 210.0 ml IV Total 210.0 ml Assessment/Plan Problem List: (1) Respiratory failure Assessment & Plan: See pulmonary note. Cont mech vent per pulmonary (2) CHF (congestive heart failure) (3) Esophageal stenosis Assessment & Plan: S/P stent. (4) Jejunostomy present Assessment & Plan: Continue tube feeds (5) Abdominal distension (gaseous) Assessment & Plan: CT=neg obstruction. (6) Tracheostomy care (7) Pneumonia Assessment & Plan: See ID note. Viral vs bacterial? Await cultures. See ID note. Continue zosyn and vanco for now. Status: not improved CHRIS YADAV May 16, 2017 12:19
[2017-05-16] MEDS ORDERED: Miralax 17gm pkt GT PRN (15:45)
[2017-05-16 16:00] VITALS: BP 136/70
[2017-05-16] MEDS: Losartan 25mg tab GT SCH (17:04)
[2017-05-16] MEDS ORDERED: NS 275ml ONE (18:09)
[2017-05-16] MEDS ORDERED: D5 1/2NS 1000ml IV ONE (18:09)
--- NOTE | 2017-05-16 19:44 | General Progress Note ---
Assessment/Plan Problem List: (1) Tracheostomy status ICD Codes: Z93.0 - Tracheostomy status SNOMED: 17314501, 091653203 (2) CHF (congestive heart failure) ICD Codes: I50.9 - Heart failure, unspecified SNOMED: 19856225 (3) Esophageal stenosis ICD Codes: K22.2 - Esophageal obstruction SNOMED: 88718104 (4) Abdominal distension (gaseous) ICD Codes: R14.0 - Abdominal distension (gaseous) SNOMED: 141587789 (5) Fecal impaction ICD Codes: K56.41 - Fecal impaction SNOMED: 88268678 (6) Anemia ICD Codes: D64.9 - Anemia, unspecified SNOMED: 425470647 (7) Feeding by G-tube ICD Codes: Z93.1 - Gastrostomy status SNOMED: 758389926, 865743133 Assessment/Plan start GTF add colace venofer repeat stool ob ppi BID DM control Subjective ROS Limited/Unobtainable: No Allergies: Coded Allergies: CODEINE (Verified Allergy, Unknown, 05/14/17) Objective Last 24 Hour Vital Signs Date Time Temp Pulse Resp B/P (MAP) Pulse Ox O2 Delivery O2 Flow Rate FiO2 05/16/17 18:57 81 28 99 Mechanical Ventilator 50 05/16/17 18:57 81 20 97 Mechanical Ventilator 40 05/16/17 18:57 50 05/16/17 18:51 81 20 40 05/16/17 17:04 136/70 05/16/17 17:02 60 16 40 05/16/17 16:00 40 05/16/17 16:00 98.7 73 18 136/70 98 Mechanical Ventilator 40 05/16/17 16:00 70 05/16/17 13:10 66 16 40 05/16/17 13:10 Mechanical Ventilator 40 05/16/17 13:10 Mechanical Ventilator 40 05/16/17 12:00 40 05/16/17 12:00 73 05/16/17 12:00 97.1 72 18 116/56 100 Mechanical Ventilator 40 05/16/17 11:10 68 16 40 05/16/17 08:00 40 05/16/17 08:00 98.9 71 17 108/43 98 Mechanical Ventilator 40 05/16/17 08:00 76 05/16/17 07:15 76 16 100 Mechanical Ventilator 50 05/16/17 07:10 50 05/16/17 07:10 70 17 Mechanical Ventilator 50 05/16/17 07:10 70 17 98 Mechanical Ventilator 50 05/16/17 07:10 70 17 50 05/16/17 07:03 98.9 05/16/17 04:59 87 32 50 05/16/17 04:00 99.9 84 27 118/68 98 Mechanical Ventilator 50 05/16/17 04:00 83 05/16/17 04:00 50 05/16/17 02:40 90 14 50 05/16/17 01:10 89 32 100 Mechanical Ventilator 50 05/16/17 01:00 50 05/16/17 01:00 86 16 50 05/16/17 01:00 87 16 Mechanical Ventilator 50 05/16/17 01:00 89 16 100 Mechanical Ventilator 50 05/16/17 00:00 98.2 84 27 149/60 98 Mechanical Ventilator 50 05/15/17 23:30 93 05/15/17 22:38 75 28 50 05/15/17 21:10 96 32 50 05/15/17 20:00 98.6 100 27 122/86 98 Mechanical Ventilator 50 05/15/17 20:00 94 05/15/17 20:00 50 Intake and Output 05/16/17 05/17/17 19:00 07:00 Intake Total 870.0 ml Output Total 550 ml Balance 320.0 ml Free Water 100 ml IV Total 770.0 ml Output Urine Total 550 ml # Bowel Movements 1 Laboratory Tests 05/16/17 04:05: White Blood Count 13.1H, Red Blood Count 2.64L, Hemoglobin 8.7L, Hematocrit 27.1L, Mean Corpuscular Volume 103H, Mean Corpuscular Hemoglobin 33.0H, Mean Corpuscular Hemoglobin Concent 32.2, Red Cell Distribution Width 13.5, Platelet Count 123L, Mean Platelet Volume 7.9, Neutrophils (%) (Auto) 83.2H, Lymphocytes (%) (Auto) 5.5L, Monocytes (%) (Auto) 10.6H, Eosinophils (%) (Auto) 0.2, Basophils (%) (Auto) 0.5, Sodium Level 134L, Potassium Level 3.5, Chloride Level 97L, Carbon Dioxide Level 22, Anion Gap 15, Blood Urea Nitrogen 35H, Creatinine 0.9, Estimat Glomerular Filtration Rate , Glucose Level 392#H, Calcium Level 8.3L, Phosphorus Level 2.8, Magnesium Level 2.2, Total Bilirubin 0.9, Aspartate Amino Transf (AST/SGOT) 14, Alanine Aminotransferase (ALT/SGPT) 5 , Alkaline Phosphatase 85, Pro-B-Type Natriuretic Peptide 542H, Total Protein 6.4L, Albumin 2.9L, Globulin 3.5, Albumin/Globulin Ratio 0.8L 05/16/17 12:30: Vancomycin Level Trough 27.6H Height (Feet): 6 Height (Inches): 1.00 Weight (Pounds): 204 General Appearance: no apparent distress EENT: normal ENT inspection Neck: supple Cardiovascular: normal rate Respiratory/Chest: decreased breath sounds Abdomen: soft, decreased bowel sounds, distended Extremities: non-tender MALOU CASTANO May 16, 2017 19:44
[2017-05-16] MEDS ORDERED: KCl 10% 20 mEq/15ml liquid NG ONE (19:45)
[2017-05-16 20:00] VITALS: BP 138/114
[2017-05-16] MEDS: Iron Sucrose 100 MG in NS 55 ML IVPB SCH (21:20)
[2017-05-16] MEDS: Sennosides 8.6mg GT SCH (21:21)
[2017-05-17] VITALS: BP 143/85
[2017-05-17] MEDS: LORazepam Inj 2mg/ml 1ml IV PRN (01:00)
[2017-05-17] MEDS: Ipratropium 0.02% Inh Soln 2.5ml UD HHN SCH ×4 (01:12→19:32)
[2017-05-17] MEDS: D5 1/2NS 1,000 ML IV SCH (02:40)
[2017-05-17 04:00] VITALS: BP 134/95
[2017-05-17 05:41] LABS: ALANINE AMINOTRANSFERASE 6 U/L (3-41); ALBUMIN/GLOBULIN RATIO 0.5 (1.0-2.7); ANION GAP 18 (5-15); ASPARTATE AMINO TRANSFERASE 17 U/L (5-40); CALCIUM 8.6 mg/dL (8.6-10.2); CARBON DIOXIDE 20 mEQ/L (20-30); CHLORIDE 101 mEQ/L (98-107); HEMOLYSIS 12; POTASSIUM 3.7 mEQ/L (3.4-4.9); SODIUM 139 mEQ/L (135-145); TOTAL PROTEIN 8.3 g/dL (6.6-8.7)
[2017-05-17 06:30] LABS: BASOPHILS % (AUTO) 0.8 % (0.0-2.0); EOSINOPHILS % (AUTO) 0.9 % (0.0-3.0); LYMPHOCYTES % (AUTO) 11.8 % (20.0-45.0); MEAN CORPUSCULAR HEMOGLOBIN 32.9 PG (27.0-31.0); MEAN CORPUSCULAR HGB CONC 32.8 G/DL (32.0-36.0); MEAN CORPUSCULAR VOLUME 100 FL (80-99); MEAN PLATELET VOLUME 7.9 FL (6.5-10.1); MONOCYTES % (AUTO) 11.6 % (1.0-10.0); PLATELET COUNT 137 K/UL (150-450); RED BLOOD COUNT 2.87 M/UL (4.70-6.10); RED CELL DISTRIBUTION WIDTH 12.8 % (11.6-14.8); WHITE BLOOD COUNT 8.8 K/UL (4.8-10.8)
[2017-05-17] MEDS: Piperacillin/Tazobactam 3.375 GM in NS 110 ML IVPB SCH ×3 (06:47→21:35)
[2017-05-17 08:00] VITALS: BP 116/58
[2017-05-17] MEDS: Heparin 5000 units/ml inj SUBQ SCH ×2 (09:00→20:38)
[2017-05-17] MEDS: Sinemet 25/100 tab GT SCH ×2 (09:14→17:55)
[2017-05-17] MEDS: Losartan 25mg tab GT SCH (09:15)
[2017-05-17] MEDS: Ascorbic Acid 500mg tab GT SCH (09:15)
[2017-05-17] MEDS: Pantoprazole Inj IV SCH (09:15)
[2017-05-17] MEDS: Miralax 17gm pkt GT SCH (09:15)
[2017-05-17] MEDS: Docusate 100mg/10ml Liq NG SCH ×2 (09:15→17:55)
[2017-05-17] MEDS: Aspirin Baby 81mg GT SCH (09:15)
--- NOTE | 2017-05-17 09:48 | Infectious Diseases Prog Note ---
Assessment/Plan Assessment/Plan A; Pneumonia VRE colonization VDRF Anemia Esophageal stenosis P; Continue Zosyn Discontinue Vancomycin Subjective ROS Limited/Unobtainable: Yes Allergies: Coded Allergies: CODEINE (Verified Allergy, Unknown, 05/14/17) Objective Vital Signs Last 24 Hour Vital Signs Date Time Temp Pulse Resp B/P (MAP) Pulse Ox O2 Delivery O2 Flow Rate FiO2 05/17/17 09:20 87 25 40 05/17/17 09:15 116/58 05/17/17 08:00 40 05/17/17 08:00 98.2 102 17 116/58 98 Mechanical Ventilator 40 05/17/17 06:50 107 12 98 Mechanical Ventilator 40 05/17/17 06:46 119 17 40 05/17/17 06:45 106 17 96 Mechanical Ventilator 40 05/17/17 06:45 50 05/17/17 06:38 99.1 05/17/17 05:13 113 20 40 05/17/17 04:00 115 05/17/17 04:00 40 05/17/17 04:00 99.6 105 22 134/95 97 Mechanical Ventilator 40 05/17/17 03:29 93 20 40 05/17/17 01:20 86 20 96 Mechanical Ventilator 40 05/17/17 01:20 81 16 99 Mechanical Ventilator 50 05/17/17 01:20 50 05/17/17 01:13 88 20 40 05/17/17 00:00 99.0 87 26 143/85 98 Room Air 05/17/17 00:00 40 05/17/17 00:00 86 05/16/17 22:44 86 20 40 05/16/17 20:55 83 20 40 05/16/17 20:00 40 05/16/17 20:00 98.2 80 26 138/114 97 Room Air 05/16/17 18:57 81 28 99 Mechanical Ventilator 50 05/16/17 18:57 81 20 97 Mechanical Ventilator 40 05/16/17 18:57 50 05/16/17 18:51 81 20 40 05/16/17 17:04 136/70 05/16/17 17:02 60 16 40 05/16/17 16:00 40 05/16/17 16:00 98.7 73 18 136/70 98 Mechanical Ventilator 40 05/16/17 16:00 70 05/16/17 13:10 66 16 40 05/16/17 13:10 Mechanical Ventilator 40 05/16/17 13:10 Mechanical Ventilator 40 05/16/17 12:00 40 05/16/17 12:00 73 05/16/17 12:00 97.1 72 18 116/56 100 Mechanical Ventilator 40 05/16/17 11:10 68 16 40 Height (Feet): 6 Height (Inches): 1.00 Weight (Pounds): 204 General Appearance: no acute distress HEENT: status post trach Respiratory/Chest: lungs clear, other - on ventilator Cardiovascular: normal rate Abdomen: soft, non tender, other - GT feeding Extremities: no edema Neurologic/Psychiatric: unresponsiveness Microbiology Date/Time Source Procedure Growth Status 05/14/17 20:40 Blood Blood Culture - Preliminary NO GROWTH AFTER 48 HOURS Resulted 05/14/17 20:30 Blood Blood Culture - Preliminary NO GROWTH AFTER 48 HOURS Resulted 05/16/17 04:30 Nose Influenza Types A,B Antigen (UMESH) - Final Complete 05/15/17 05:30 Sputum Gram Stain - Final Complete 05/15/17 05:30 Sputum Sputum Culture - Final NORMAL UPPER RESPIRATORY WILD PRESENT Complete 05/15/17 00:35 Nasal Nares MRSA Culture - Final NO METHICILLIN RESISTANT STAPH AUREUS... Complete 05/15/17 12:18 Urine,Clean Catch Urine Culture - Preliminary YEAST Resulted 05/15/17 00:35 Rectum VRE Culture - Final Enterococcus Faecalis - Vre Complete Laboratory Tests Test 05/16/17 12:30 05/17/17 03:30 05/17/17 05:50 Vancomycin Level Trough 27.6 ug/mL (5.0-12.0) H Sodium Level 139 mEQ/L (135-145) Potassium Level 3.7 mEQ/L (3.4-4.9) Chloride Level 101 mEQ/L (98-107) Carbon Dioxide Level 20 mEQ/L (20-30) Anion Gap 18 (5-15) H Blood Urea Nitrogen 28 mg/dL (7-23) H Creatinine 1.0 mg/dL (0.7-1.2) Estimat Glomerular Filtration Rate mL/min (>60) Glucose Level 227 mg/dL (74-106) #H Calcium Level 8.6 mg/dL (8.6-10.2) Total Bilirubin 0.9 mg/dL (0.0-1.2) Aspartate Amino Transf (AST/SGOT) 17 U/L (5-40) Alanine Aminotransferase (ALT/SGPT) 6 U/L (3-41) Alkaline Phosphatase 79 U/L (40-129) Total Protein 8.3 g/dL (6.6-8.7) Albumin 2.8 g/dL (3.5-5.2) L Globulin 5.5 g/dL Albumin/Globulin Ratio 0.5 (1.0-2.7) L White Blood Count 8.8 K/UL (4.8-10.8) Red Blood Count 2.87 M/UL (4.70-6.10) L Hemoglobin 9.4 G/DL (14.2-18.0) L Hematocrit 28.8 % (42.0-52.0) L Mean Corpuscular Volume 100 FL (80-99) H Mean Corpuscular Hemoglobin 32.9 PG (27.0-31.0) H Mean Corpuscular Hemoglobin Concent 32.8 G/DL (32.0-36.0) Red Cell Distribution Width 12.8 % (11.6-14.8) Platelet Count 137 K/UL (150-450) L Mean Platelet Volume 7.9 FL (6.5-10.1) Neutrophils (%) (Auto) 75.0 % (45.0-75.0) Lymphocytes (%) (Auto) 11.8 % (20.0-45.0) L Monocytes (%) (Auto) 11.6 % (1.0-10.0) H Eosinophils (%) (Auto) 0.9 % (0.0-3.0) Basophils (%) (Auto) 0.8 % (0.0-2.0) Current Medications Medications (Trade) Dose Ordered Sig/Polo Route PRN Reason Start Time Stop Time Status Last Admin Dose Admin Acetaminophen (Tylenol) 650 mg Q4H PRN ORAL FEVER 05/14/17 21:45 06/13/17 21:44 05/17/17 05:39 Albuterol/ Ipratropium (DuoNeb 0.5-3(2.5)mg/3ml) 3 ml Q2H PRN HHN Shortness of Breath 05/15/17 16:00 05/19/17 21:44 05/15/17 19:22 Artificial Tears (Akwa-Tears) 1 drop Q12H PRN BOTH EYES Dry Eyes 05/15/17 15:45 06/14/17 15:44 Ascorbic Acid (Vitamin C) 500 mg DAILY GT 05/16/17 09:00 06/15/17 08:59 05/17/17 09:15 Aspirin (ASA) 81 mg DAILY GT 05/17/17 09:00 06/16/17 08:59 05/17/17 09:15 Carbidopa/Levodopa (Sinemet 25/100) 1 ea BID GT 05/15/17 18:00 06/14/17 17:59 05/17/17 09:14 Clonidine HCl (Catapres) 0.1 mg Q6H PRN GT FOR SBP>160 05/15/17 21:45 06/14/17 21:44 Dextrose (Dextrose 50%) STAT PRN IV Hypoglycemia 05/14/17 21:45 06/13/17 21:44 Docusate Sodium (Colace) 100 mg TWICE A DAY NG 05/17/17 09:00 06/16/17 08:59 05/17/17 09:15 Heparin Sodium (Porcine) (Heparin 5000 units/ml) 5,000 units EVERY 12 HOURS SUBQ 05/15/17 09:00 06/14/17 08:59 05/16/17 21:21 Ipratropium [place] (Atrovent) 500 mcg Q6HRT HHN 05/15/17 19:00 05/20/17 18:59 05/17/17 06:45 Iron Sucrose 100 mg/Sodium Chloride 60 ml @ 240 mls/hr BEDTIME IVPB 05/16/17 21:00 05/20/17 21:14 05/16/17 21:20 Lorazepam (Ativan 2mg/ml 1ml) 2 mg EVERY 2 HOURS PRN IV For Anxiety 05/14/17 21:45 05/21/17 21:44 05/17/17 01:00 Losartan Potassium (Cozaar) 25 mg DAILY GT 05/16/17 16:15 06/15/17 16:14 05/17/17 09:15 Multivitamins (Multivitamins) 1 tab DAILY ORAL 05/16/17 09:00 06/15/17 08:59 05/17/17 09:14 Ondansetron HCl (Zofran) 4 mg Q6H PRN IVP Nausea & Vomiting 05/14/17 21:45 06/13/17 21:44 Pantoprazole (Protonix) 40 mg DAILY IV 05/15/17 09:00 06/14/17 08:59 05/17/17 09:15 Piperacillin Sod/ Tazobactam Sod 3.375 gm/Sodium Chloride 110 ml @ 27.5 mls/hr Q8HR IVPB 05/16/17 22:00 05/23/17 21:59 05/17/17 06:47 Polyethylene Glycol (Miralax) 17 gm DAILY GT 05/16/17 09:00 06/15/17 08:59 05/17/17 09:15 Polyethylene Glycol (Miralax) 17 gm DAILYPRN PRN GT Constipation 05/16/17 15:45 06/13/17 21:44 Sennosides (Senokot) 8.6 mg QHS GT 05/15/17 21:00 06/14/17 20:59 05/16/17 21:21 Vancomycin HCl (Vanco rx to dose) 1 ea DAILY PRN MISC PRN RX PROTOCOL 05/16/17 15:45 06/15/17 15:44 CLAUDIA BARBOUR May 17, 2017 09:48
--- NOTE | 2017-05-17 11:00 | Pulmonology Progress Note ---
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, 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 Discussed with: nurses, consultants, case specialist Subjective Constitutional: Reports: no symptoms HEENT: Repors: no symptoms Respiratory: Reports: no symptoms Allergies: Coded Allergies: CODEINE (Verified Allergy, Unknown, 05/14/17) Objective Last 24 Hour Vital Signs Date Time Temp Pulse Resp B/P (MAP) Pulse Ox O2 Delivery O2 Flow Rate FiO2 05/17/17 09:20 87 25 40 05/17/17 09:15 116/58 05/17/17 08:00 93 05/17/17 08:00 40 05/17/17 08:00 98.2 102 17 116/58 98 Mechanical Ventilator 40 05/17/17 06:50 107 12 98 Mechanical Ventilator 40 05/17/17 06:46 119 17 40 05/17/17 06:45 106 17 96 Mechanical Ventilator 40 05/17/17 06:45 50 05/17/17 06:38 99.1 05/17/17 05:13 113 20 40 05/17/17 04:00 115 05/17/17 04:00 40 05/17/17 04:00 99.6 105 22 134/95 97 Mechanical Ventilator 40 05/17/17 03:29 93 20 40 05/17/17 01:20 86 20 96 Mechanical Ventilator 40 05/17/17 01:20 81 16 99 Mechanical Ventilator 50 05/17/17 01:20 50 05/17/17 01:13 88 20 40 05/17/17 00:00 99.0 87 26 143/85 98 Room Air 05/17/17 00:00 40 05/17/17 00:00 86 05/16/17 22:44 86 20 40 05/16/17 20:55 83 20 40 05/16/17 20:00 40 05/16/17 20:00 98.2 80 26 138/114 97 Room Air 05/16/17 18:57 81 28 99 Mechanical Ventilator 50 05/16/17 18:57 81 20 97 Mechanical Ventilator 40 05/16/17 18:57 50 05/16/17 18:51 81 20 40 05/16/17 17:04 136/70 05/16/17 17:02 60 16 40 05/16/17 16:00 40 05/16/17 16:00 98.7 73 18 136/70 98 Mechanical Ventilator 40 05/16/17 16:00 70 05/16/17 13:10 66 16 40 05/16/17 13:10 Mechanical Ventilator 40 05/16/17 13:10 Mechanical Ventilator 40 05/16/17 12:00 40 05/16/17 12:00 73 05/16/17 12:00 97.1 72 18 116/56 100 Mechanical Ventilator 40 05/16/17 11:10 68 16 40 General Appearance: WD/WN Respiratory/Chest: chest wall non-tender, decreased breath sounds, crackles/ rales Cardiovascular: normal peripheral pulses, normal rate Abdomen: normal bowel sounds, no organomegaly Genitourinary: normal external genitalia Extremities: no clubbing Skin: no lesions Microbiology Date/Time Source Procedure Growth Status 05/14/17 20:40 Blood Blood Culture - Preliminary NO GROWTH AFTER 48 HOURS Resulted 05/14/17 20:30 Blood Blood Culture - Preliminary NO GROWTH AFTER 48 HOURS Resulted 05/16/17 04:30 Nose Influenza Types A,B Antigen (UMESH) - Final Complete 05/15/17 05:30 Sputum Gram Stain - Final Complete 05/15/17 05:30 Sputum Sputum Culture - Final NORMAL UPPER RESPIRATORY WILD PRESENT Complete 05/15/17 00:35 Nasal Nares MRSA Culture - Final NO METHICILLIN RESISTANT STAPH AUREUS... Complete 05/15/17 12:18 Urine,Clean Catch Urine Culture - Preliminary YEAST Resulted 05/15/17 00:35 Rectum VRE Culture - Final Enterococcus Faecalis - Vre Complete Laboratory Tests 05/16/17 12:30: Vancomycin Level Trough 27.6H 05/17/17 03:30: Sodium Level 139, Potassium Level 3.7, Chloride Level 101, Carbon Dioxide Level 20, Anion Gap 18H, Blood Urea Nitrogen 28H, Creatinine 1.0, Estimat Glomerular Filtration Rate , Glucose Level 227#H, Calcium Level 8.6, Total Bilirubin 0.9, Aspartate Amino Transf (AST/SGOT) 17, Alanine Aminotransferase (ALT/SGPT) 6, Alkaline Phosphatase 79, Total Protein 8.3, Albumin 2.8L, Globulin 5.5, Albumin/ Globulin Ratio 0.5L 05/17/17 05:50: White Blood Count 8.8, Red Blood Count 2.87L, Hemoglobin 9.4L, Hematocrit 28.8L , Mean Corpuscular Volume 100H, Mean Corpuscular Hemoglobin 32.9H, Mean Corpuscular Hemoglobin Concent 32.8, Red Cell Distribution Width 12.8, Platelet Count 137L, Mean Platelet Volume 7.9, Neutrophils (%) (Auto) 75.0, Lymphocytes ( %) (Auto) 11.8L, Monocytes (%) (Auto) 11.6H, Eosinophils (%) (Auto) 0.9, Basophils (%) (Auto) 0.8 Current Medications Medications (Trade) Dose Ordered Sig/Polo Route PRN Reason Start Time Stop Time Status Last Admin Dose Admin Acetaminophen (Tylenol) 650 mg Q4H PRN ORAL FEVER 05/14/17 21:45 06/13/17 21:44 05/17/17 05:39 Albuterol/ Ipratropium (DuoNeb 0.5-3(2.5)mg/3ml) 3 ml Q2H PRN HHN Shortness of Breath 05/15/17 16:00 05/19/17 21:44 05/15/17 19:22 Artificial Tears (Akwa-Tears) 1 drop Q12H PRN BOTH EYES Dry Eyes 05/15/17 15:45 06/14/17 15:44 Ascorbic Acid (Vitamin C) 500 mg DAILY GT 05/16/17 09:00 06/15/17 08:59 05/17/17 09:15 Aspirin (ASA) 81 mg DAILY GT 05/17/17 09:00 06/16/17 08:59 05/17/17 09:15 Carbidopa/Levodopa (Sinemet 25/100) 1 ea BID GT 05/15/17 18:00 06/14/17 17:59 05/17/17 09:14 Clonidine HCl (Catapres) 0.1 mg Q6H PRN GT FOR SBP>160 05/15/17 21:45 06/14/17 21:44 Dextrose (Dextrose 50%) STAT PRN IV Hypoglycemia 05/14/17 21:45 06/13/17 21:44 Docusate Sodium (Colace) 100 mg TWICE A DAY NG 05/17/17 09:00 06/16/17 08:59 05/17/17 09:15 Heparin Sodium (Porcine) (Heparin 5000 units/ml) 5,000 units EVERY 12 HOURS SUBQ 05/15/17 09:00 06/14/17 08:59 05/16/17 21:21 Ipratropium [place] (Atrovent) 500 mcg Q6HRT HHN 05/15/17 19:00 05/20/17 18:59 05/17/17 06:45 Iron Sucrose 100 mg/Sodium Chloride 60 ml @ 240 mls/hr BEDTIME IVPB 05/16/17 21:00 05/20/17 21:14 05/16/17 21:20 Lorazepam (Ativan 2mg/ml 1ml) 2 mg EVERY 2 HOURS PRN IV For Anxiety 05/14/17 21:45 05/21/17 21:44 05/17/17 01:00 Losartan Potassium (Cozaar) 25 mg DAILY GT 05/16/17 16:15 06/15/17 16:14 05/17/17 09:15 Multivitamins (Multivitamins) 1 tab DAILY ORAL 05/16/17 09:00 06/15/17 08:59 05/17/17 09:14 Ondansetron HCl (Zofran) 4 mg Q6H PRN IVP Nausea & Vomiting 05/14/17 21:45 06/13/17 21:44 Pantoprazole (Protonix) 40 mg DAILY IV 05/15/17 09:00 06/14/17 08:59 05/17/17 09:15 Piperacillin Sod/ Tazobactam Sod 3.375 gm/Sodium Chloride 110 ml @ 27.5 mls/hr Q8HR IVPB 05/16/17 22:00 05/23/17 21:59 05/17/17 06:47 Polyethylene Glycol (Miralax) 17 gm DAILY GT 05/16/17 09:00 06/15/17 08:59 05/17/17 09:15 Polyethylene Glycol (Miralax) 17 gm DAILYPRN PRN GT Constipation 05/16/17 15:45 06/13/17 21:44 Sennosides (Senokot) 8.6 mg QHS GT 05/15/17 21:00 06/14/17 20:59 05/16/17 21:21 TEMI MELENDEZ May 17, 2017 11:00
[2017-05-17 12:00] VITALS: BP 131/77
--- NOTE | 2017-05-17 13:27 | General Progress Note ---
Assessment/Plan Problem List: (1) Tracheostomy status ICD Codes: Z93.0 - Tracheostomy status SNOMED: 59085606, 292704766 (2) CHF (congestive heart failure) ICD Codes: I50.9 - Heart failure, unspecified SNOMED: 07913676 (3) Esophageal stenosis ICD Codes: K22.2 - Esophageal obstruction SNOMED: 16758921 (4) Abdominal distension (gaseous) ICD Codes: R14.0 - Abdominal distension (gaseous) SNOMED: 235911632 (5) Fecal impaction ICD Codes: K56.41 - Fecal impaction SNOMED: 54039726 (6) Anemia ICD Codes: D64.9 - Anemia, unspecified SNOMED: 858258886 (7) Feeding by G-tube ICD Codes: Z93.1 - Gastrostomy status SNOMED: 105298897, 518149857 Assessment/Plan GTF colace venofer repeat stool ob ppi BID DM control Subjective ROS Limited/Unobtainable: No Allergies: Coded Allergies: CODEINE (Verified Allergy, Unknown, 05/14/17) Objective Last 24 Hour Vital Signs Date Time Temp Pulse Resp B/P (MAP) Pulse Ox O2 Delivery O2 Flow Rate FiO2 05/17/17 12:54 88 21 98 Mechanical Ventilator 40 05/17/17 12:54 40 05/17/17 12:52 79 21 97 Mechanical Ventilator 40 05/17/17 12:52 79 21 40 05/17/17 12:00 40 05/17/17 11:00 82 18 40 05/17/17 09:20 87 25 40 05/17/17 09:15 116/58 05/17/17 08:00 93 05/17/17 08:00 40 05/17/17 08:00 98.2 102 17 116/58 98 Mechanical Ventilator 40 05/17/17 06:50 107 12 98 Mechanical Ventilator 40 05/17/17 06:46 119 17 40 05/17/17 06:45 106 17 96 Mechanical Ventilator 40 05/17/17 06:45 50 05/17/17 06:38 99.1 05/17/17 05:13 113 20 40 05/17/17 04:00 115 05/17/17 04:00 40 05/17/17 04:00 99.6 105 22 134/95 97 Mechanical Ventilator 40 05/17/17 03:29 93 20 40 05/17/17 01:20 86 20 96 Mechanical Ventilator 40 05/17/17 01:20 81 16 99 Mechanical Ventilator 50 05/17/17 01:20 50 05/17/17 01:13 88 20 40 05/17/17 00:00 99.0 87 26 143/85 98 Room Air 05/17/17 00:00 40 05/17/17 00:00 86 05/16/17 22:44 86 20 40 05/16/17 20:55 83 20 40 05/16/17 20:00 40 05/16/17 20:00 98.2 80 26 138/114 97 Room Air 05/16/17 18:57 81 28 99 Mechanical Ventilator 50 05/16/17 18:57 81 20 97 Mechanical Ventilator 40 05/16/17 18:57 50 05/16/17 18:51 81 20 40 05/16/17 17:04 136/70 05/16/17 17:02 60 16 40 05/16/17 16:00 40 05/16/17 16:00 98.7 73 18 136/70 98 Mechanical Ventilator 40 05/16/17 16:00 70 Laboratory Tests 05/17/17 03:30: Sodium Level 139, Potassium Level 3.7, Chloride Level 101, Carbon Dioxide Level 20, Anion Gap 18H, Blood Urea Nitrogen 28H, Creatinine 1.0, Estimat Glomerular Filtration Rate , Glucose Level 227#H, Calcium Level 8.6, Total Bilirubin 0.9, Aspartate Amino Transf (AST/SGOT) 17, Alanine Aminotransferase (ALT/SGPT) 6, Alkaline Phosphatase 79, Total Protein 8.3, Albumin 2.8L, Globulin 5.5, Albumin/ Globulin Ratio 0.5L 05/17/17 05:50: White Blood Count 8.8, Red Blood Count 2.87L, Hemoglobin 9.4L, Hematocrit 28.8L , Mean Corpuscular Volume 100H, Mean Corpuscular Hemoglobin 32.9H, Mean Corpuscular Hemoglobin Concent 32.8, Red Cell Distribution Width 12.8, Platelet Count 137L, Mean Platelet Volume 7.9, Neutrophils (%) (Auto) 75.0, Lymphocytes ( %) (Auto) 11.8L, Monocytes (%) (Auto) 11.6H, Eosinophils (%) (Auto) 0.9, Basophils (%) (Auto) 0.8 Height (Feet): 6 Height (Inches): 1.00 Weight (Pounds): 204 General Appearance: no apparent distress EENT: normal ENT inspection Neck: supple Cardiovascular: normal rate Respiratory/Chest: decreased breath sounds Abdomen: soft, decreased bowel sounds, distended Extremities: non-tender MALOU CASTANO May 17, 2017 13:27
--- NOTE | 2017-05-17 14:02 | Internal Med Progress Note ---
Subjective Physician Name SandeeChris Attending Physician Sunil Castillo MD Current Medications Medications (Trade) Dose Ordered Sig/Polo Route PRN Reason Start Time Stop Time Status Last Admin Dose Admin Acetaminophen (Tylenol) 650 mg Q4H PRN ORAL FEVER 05/14/17 21:45 06/13/17 21:44 05/17/17 05:39 Albuterol/ Ipratropium (DuoNeb 0.5-3(2.5)mg/3ml) 3 ml Q2H PRN HHN Shortness of Breath 05/15/17 16:00 05/19/17 21:44 05/15/17 19:22 Artificial Tears (Akwa-Tears) 1 drop Q12H PRN BOTH EYES Dry Eyes 05/15/17 15:45 06/14/17 15:44 Ascorbic Acid (Vitamin C) 500 mg DAILY GT 05/16/17 09:00 06/15/17 08:59 05/17/17 09:15 Aspirin (ASA) 81 mg DAILY GT 05/17/17 09:00 06/16/17 08:59 05/17/17 09:15 Carbidopa/Levodopa (Sinemet 25/100) 1 ea BID GT 05/15/17 18:00 06/14/17 17:59 05/17/17 09:14 Clonidine HCl (Catapres) 0.1 mg Q6H PRN GT FOR SBP>160 05/15/17 21:45 06/14/17 21:44 Dextrose (Dextrose 50%) STAT PRN IV Hypoglycemia 05/14/17 21:45 06/13/17 21:44 Docusate Sodium (Colace) 100 mg TWICE A DAY NG 05/17/17 09:00 06/16/17 08:59 05/17/17 09:15 Heparin Sodium (Porcine) (Heparin 5000 units/ml) 5,000 units EVERY 12 HOURS SUBQ 05/15/17 09:00 06/14/17 08:59 05/16/17 21:21 Ipratropium [place] (Atrovent) 500 mcg Q6HRT HHN 05/15/17 19:00 05/20/17 18:59 05/17/17 12:52 Iron Sucrose 100 mg/Sodium Chloride 60 ml @ 240 mls/hr BEDTIME IVPB 05/16/17 21:00 05/20/17 21:14 05/16/17 21:20 Lorazepam (Ativan 2mg/ml 1ml) 2 mg EVERY 2 HOURS PRN IV For Anxiety 05/14/17 21:45 05/21/17 21:44 05/17/17 01:00 Losartan Potassium (Cozaar) 25 mg DAILY GT 05/16/17 16:15 06/15/17 16:14 05/17/17 09:15 Multivitamins (Multivitamins) 1 tab DAILY ORAL 05/16/17 09:00 06/15/17 08:59 05/17/17 09:14 Ondansetron HCl (Zofran) 4 mg Q6H PRN IVP Nausea & Vomiting 05/14/17 21:45 06/13/17 21:44 Pantoprazole (Protonix) 40 mg DAILY IV 05/15/17 09:00 06/14/17 08:59 05/17/17 09:15 Piperacillin Sod/ Tazobactam Sod 3.375 gm/Sodium Chloride 110 ml @ 27.5 mls/hr Q8HR IVPB 05/16/17 22:00 05/23/17 21:59 05/17/17 06:47 Polyethylene Glycol (Miralax) 17 gm DAILY GT 05/16/17 09:00 06/15/17 08:59 05/17/17 09:15 Polyethylene Glycol (Miralax) 17 gm DAILYPRN PRN GT Constipation 05/16/17 15:45 06/13/17 21:44 Sennosides (Senokot) 8.6 mg QHS GT 05/15/17 21:00 06/14/17 20:59 05/16/17 21:21 Allergies: Coded Allergies: CODEINE (Verified Allergy, Unknown, 05/14/17) ROS Limited/Unobtainable: Yes Subjective 87 YO M admitted with respiratory failure. Cover for Int Med-Dr Castillo. SHILPI. Objective Last Vital Signs Date Time Temp Pulse Resp B/P (MAP) Pulse Ox O2 Delivery O2 Flow Rate FiO2 05/17/17 12:54 88 21 98 Mechanical Ventilator 40 05/17/17 12:00 98.7 131/77 40.0 Laboratory Tests Test 05/17/17 03:30 05/17/17 05:50 Sodium Level 139 mEQ/L (135-145) Potassium Level 3.7 mEQ/L (3.4-4.9) Chloride Level 101 mEQ/L (98-107) Carbon Dioxide Level 20 mEQ/L (20-30) Anion Gap 18 (5-15) H Blood Urea Nitrogen 28 mg/dL (7-23) H Creatinine 1.0 mg/dL (0.7-1.2) Estimat Glomerular Filtration Rate mL/min (>60) Glucose Level 227 mg/dL (74-106) #H Calcium Level 8.6 mg/dL (8.6-10.2) Total Bilirubin 0.9 mg/dL (0.0-1.2) Aspartate Amino Transf (AST/SGOT) 17 U/L (5-40) Alanine Aminotransferase (ALT/SGPT) 6 U/L (3-41) Alkaline Phosphatase 79 U/L (40-129) Total Protein 8.3 g/dL (6.6-8.7) Albumin 2.8 g/dL (3.5-5.2) L Globulin 5.5 g/dL Albumin/Globulin Ratio 0.5 (1.0-2.7) L White Blood Count 8.8 K/UL (4.8-10.8) Red Blood Count 2.87 M/UL (4.70-6.10) L Hemoglobin 9.4 G/DL (14.2-18.0) L Hematocrit 28.8 % (42.0-52.0) L Mean Corpuscular Volume 100 FL (80-99) H Mean Corpuscular Hemoglobin 32.9 PG (27.0-31.0) H Mean Corpuscular Hemoglobin Concent 32.8 G/DL (32.0-36.0) Red Cell Distribution Width 12.8 % (11.6-14.8) Platelet Count 137 K/UL (150-450) L Mean Platelet Volume 7.9 FL (6.5-10.1) Neutrophils (%) (Auto) 75.0 % (45.0-75.0) Lymphocytes (%) (Auto) 11.8 % (20.0-45.0) L Monocytes (%) (Auto) 11.6 % (1.0-10.0) H Eosinophils (%) (Auto) 0.9 % (0.0-3.0) Basophils (%) (Auto) 0.8 % (0.0-2.0) Microbiology Date/Time Source Procedure Growth Status 05/14/17 20:40 Blood Blood Culture - Preliminary NO GROWTH AFTER 48 HOURS Resulted 05/14/17 20:30 Blood Blood Culture - Preliminary NO GROWTH AFTER 48 HOURS Resulted 05/16/17 04:30 Nose Influenza Types A,B Antigen (UMESH) - Final Complete 05/15/17 05:30 Sputum Gram Stain - Final Complete 05/15/17 05:30 Sputum Sputum Culture - Final NORMAL UPPER RESPIRATORY WILD PRESENT Complete 05/15/17 00:35 Nasal Nares MRSA Culture - Final NO METHICILLIN RESISTANT STAPH AUREUS... Complete 05/15/17 12:18 Urine,Clean Catch Urine Culture - Preliminary YEAST Resulted 05/15/17 00:35 Rectum VRE Culture - Final Enterococcus Faecalis - Vre Complete Objective General Appearance: WD/WN, moderate distress, lethargic EENT: normal ENT inspection Neck: non-tender, normal alignment, supple, other - tracheostomy Cardiovascular: normal peripheral pulses, normal rate, regular rhythm, no gallop/murmur, no JVD Respiratory/Chest: Mech vent; respiratory distress, crackles/rales, rhonchi - bilaterally, expiratory wheezing Abdomen: normal bowel sounds, non tender, soft, no organomegaly, no mass, distended Skin: normal pigmentation, warm/dry Assessment/Plan Problem List: (1) Respiratory failure Assessment & Plan: See pulmonary note. Cont mech vent per pulmonary (2) CHF (congestive heart failure) (3) Esophageal stenosis Assessment & Plan: S/P stent. (4) Jejunostomy present Assessment & Plan: Continue tube feeds (5) Abdominal distension (gaseous) Assessment & Plan: CT=neg obstruction. (6) Tracheostomy care (7) Pneumonia Assessment & Plan: See ID note. Influenza neg. Await cultures. See ID note. Continue zosyn and vanco for now. Status: not improved CHIRS YADAV May 17, 2017 14:01
[2017-05-17 16:00] VITALS: BP 130/95
[2017-05-17] MEDS ORDERED: D5 1/2NS 1000ml IV ONE (16:15)
[2017-05-17 20:00] VITALS: BP 113/67
[2017-05-17] MEDS: Sennosides 8.6mg GT SCH (20:36)
[2017-05-17] MEDS: Iron Sucrose 100 MG in NS 55 ML IVPB SCH (20:37)
[2017-05-18] VITALS: BP 121/62
[2017-05-18] MEDS: Ipratropium 0.02% Inh Soln 2.5ml UD HHN SCH ×4 (01:21→20:05)
[2017-05-18 04:00] VITALS: BP 155/86
[2017-05-18] MEDS: Piperacillin/Tazobactam 3.375 GM in NS 110 ML IVPB SCH (06:30)
[2017-05-18 08:00] VITALS: BP 114/71
--- NOTE | 2017-05-18 09:01 | History and Physical Report ---
DATE OF ADMISSION: 05/14/2017 CHIEF COMPLAINT: Shortness of breath and respiratory distress. HISTORY OF PRESENT ILLNESS: This is an 87-year-old gentleman with past medical history significant for atrial fibrillation with rapid ventricular rate; history of bladder stone in 2010; BPH; dysphagia; status post GJ tube placement; history of esophageal stricture, status post stent placement in September 2016 at [facility]; history of suprapubic catheter placement; hypertension; hiatal hernia; pneumonia; hydronephrosis; history of Parkinson disease; and tracheostomy, who was presented to the hospital from nursing facility, [place], after he was noted to have respiratory distress. The patient is on a chronic vent and EMS was called due to the shortness of breath and progressive worsening with a retraction. The patient's at the bedside stated that the patient was recently discharged from the [facility] due to the GJ tube malfunctioning as well as pneumonia. The patient recently had GJ tube replaced and shortly after initial evaluation in the emergency room, the patient was admitted to the hospital with abdominal distention, possible fecal impaction, as well as nosocomial pneumonia. PAST MEDICAL HISTORY/PAST SURGICAL HISTORY: As above. History of chronic vent-dependent respiratory failure; history of atrial fibrillation with rapid ventricular rate; bladder stone; BPH; dysphagia, status post GJ tube placement; history of ear lobe laceration; hematuria; hiatal hernia; hospital-acquired pneumonia; hydronephrosis; bilateral mildly enlarged prostate; hypertension; MRSA nasal colonization; Parkinson disease; the patient is status post PEJ placement in September 2016; suprapubic catheter; UTI; VRE carrier; status post cataract surgery; bladder stone removal in October 2010; and status post TURP. The patient has a history of esophageal stent placement due to the esophageal stricture. MEDICATIONS: Medications at the nursing facility is significant for DuoNeb, Mucinex, , aspirin, metoprolol, zinc, Colace, Sinemet, iron sulfate, , and Norvasc. ALLERGIES: Codeine. SOCIAL HISTORY: No smoking, alcohol, or drugs at this time. The patient is residing in a nursing facility, very supportive at the bedside. FAMILY HISTORY: Noncontributory. REVIEW OF SYSTEMS: Very limited secondary to the patient's status. No fever or chills. No nausea or vomiting. Positive constipation. Denies any hemoptysis or hematochezia. Denies any suicidal or homicidal ideation. The patient's baseline is a vent dependent and bed dependent. PHYSICAL EXAMINATION: VITAL SIGNS: Significant for temperature of 99.4, pulse of 71, respirations 17, and blood pressure 126/75. GENERAL: The patient is awake, opening his eyes, and unable to respond to questions or follow commands. HEAD AND NECK: Pupils are equal and reactive to light. Anicteric. Trach site is clean. Neck was supple. No JVD. LUNGS: Good air entry. Occasional crackles in the bases. Ventilation breathing sound was noted. No wheezes. HEART: S1 and S2. Distant heart sounds. No murmur or gallop. ABDOMEN: Soft. Positive distention and G-tube site is clean and no rebound tenderness. No fluid shift. EXTREMITIES: The patient has a suprapubic catheter that was noted in the pelvic area. EXTREMITIES: No cyanosis, clubbing, or edema. NEUROLOGIC: The patient opened his eyes, cannot follow commands, unable to move the upper extremity, contracted, as well as lower extremity. Gait was not assessed due to the patient's status. LABORATORY DATA: On admission, WBC of 14, hemoglobin 10.5, hematocrit 33, and platelets are 164. Sodium 136, potassium 4.9, chloride 98, bicarbonate 26, BUN of 41, creatinine 0.9, glucose 111, lactic acid 2.20, and calcium is 9.2. AST of 19, ALT of 5. Troponin less than 0.30. Albumin is 3.5. Urinalysis is +2 protein, +1 occult blood, +2 leukocytes, occasionally yeast, few bacteria. Chest x-ray shows right basilar atelectasis. CT of the abdomen and pelvis was obtained, which noted to have distal esophageal stent presumably for esophageal stricture. Esophagus is not evaluated. EGD should be obtained if warranted clinically. Right basal infiltrate may be present; multiple low-density lesions within the liver, likely cysts; GJ tube was identified; tiny possible gallstones; bilateral renal cysts; atherosclerotic vascular disease; moderate fecal retention; bilateral inguinal hernia, containing fat; West catheter in good position; BPH with a calcification; left vertebral compression fracture, probably old; and osteoporosis. ASSESSMENT: 1. Acute on chronic respiratory failure, required ventilation, possible due to the pneumonia. 2. Nosocomial pneumonia. 3. Fecal impaction. 4. Distal esophageal stricture, status post stent placement. 5. Parkinson disease. 6. Hypertension. 7. Dysphagia/GJ tube placement. 8. Status post tracheostomy. 9. Morbid obesity. 10. Benign prostatic hypertrophy, status post suprapubic catheter placement. PLAN: Discussed with the patient's extensively as well as the caregiver at the bedside. Broad-spectrum antibiotic with Zosyn. Reviewed the records from the [facility]. Record was obtained and placed in the chart. Discussed with Dr. Shah from Pulmonary Critical Care and Dr. Herbert from Gastroenterology. We will monitor laboratory closely as well as cultures, resume residential medications, and follow up with enemas as well as medications for the constipation, and we will follow up with the cultures in the morning. At this time, code status is DNR as per POLST and DVT prophylaxis with heparin subcutaneous. Sunil Castillo M.D. DR: RICK JOB#: [id number] CC:
[2017-05-18] MEDS: Miralax 17gm pkt GT SCH (09:33)
[2017-05-18] MEDS: Aspirin Baby 81mg GT SCH (09:33)
[2017-05-18] MEDS: Sinemet 25/100 tab GT SCH ×2 (09:35→17:27)
[2017-05-18] MEDS: Losartan 25mg tab GT SCH (09:35)
[2017-05-18] MEDS: Docusate 100mg/10ml Liq NG SCH ×2 (09:35→17:27)
[2017-05-18] MEDS: Ascorbic Acid 500mg tab GT SCH (09:35)
[2017-05-18] MEDS: Pantoprazole Inj IV SCH (09:35)
[2017-05-18] MEDS: Heparin 5000 units/ml inj SUBQ SCH ×2 (09:40→21:16)
--- NOTE | 2017-05-18 10:19 | Infectious Diseases Prog Note ---
Assessment/Plan Assessment/Plan Abx: IV Vanco 10/6-05/17 IV Zosyn 05/14- Azithromycin x1 05/14 Assesment: RLL PNA; improving -CT abd/p: Right basilar infiltrate CXR: Right basal atelectasis -sp cx normal lawrence -influenza neg Fever/Leukocytosis- resolved -u/a WBC 5-10, nit neg, leuk +3, ucx C. albicans (colonizer) -Bcx NTD Abd distention -CT abd/p: Distal esophageal stent presumably for esophageal CA or stricture. The esophagus is not evaluated well on this study. Right basilar infiltrate may be present. Please correlate clinically for pneumonia.Multiple low-density lesions within the liver likely cysts. G-J tube. Tiny possible gallstone. Bilateral renal cysts. Atherosclerotic vascular disease. Moderate fecal retention. Bilateral inguinal hernias containing fat. Prostate hypertrophy and calcification.L1 vertebral compression fracture probably old. Osteoporosis. Recent G-J tube placement Chronic resp failure- vent/trach dependant VRE colonized CHF hx of esophageal stricture s/p sent placement ~1yr ago half-way resident Plan: -On IV Zosyn #5/7; will transition to IV Ceftriaxone 1g qd given no isolation of resistant organisms -s/p 3d IV Vanco 05/17 -f/u cx -Monitor CBC/BMP, temperatures Thank you for this consultation. Will continue to follow along with you. Discussed with RN and Dr Ignacio. Subjective Allergies: Coded Allergies: CODEINE (Verified Allergy, Unknown, 05/14/17) Subjective afebrile in 24hrs leukocytosis mildly improved Bcx NTD sp cx pending Objective Vital Signs Last 24 Hour Vital Signs Date Time Temp Pulse Resp B/P (MAP) Pulse Ox O2 Delivery O2 Flow Rate FiO2 05/18/17 09:35 155/86 05/18/17 09:00 100 18 40 05/18/17 08:00 40 05/18/17 06:57 92 22 99 Mechanical Ventilator 40 05/18/17 06:52 64 22 97 Mechanical Ventilator 40 05/18/17 06:52 40 05/18/17 06:51 64 22 40 05/18/17 05:11 92 27 40 05/18/17 04:00 99.3 110 19 155/86 100 Mechanical Ventilator 40.0 05/18/17 04:00 40 05/18/17 04:00 105 05/18/17 03:22 108 21 40 05/18/17 01:29 40 05/18/17 01:29 100 30 99 Mechanical Ventilator 40 05/18/17 01:21 98 22 97 Mechanical Ventilator 40 05/18/17 01:19 97 22 40 05/18/17 00:00 105 05/18/17 00:00 98.0 102 19 121/62 100 Mechanical Ventilator 40.0 05/17/17 23:27 85 25 40 05/17/17 21:50 86 21 Mechanical Ventilator 40 05/17/17 21:05 86 22 40 05/17/17 20:00 98.1 107 20 113/67 100 Mechanical Ventilator 40.0 05/17/17 20:00 40 05/17/17 19:48 40 05/17/17 19:48 92 26 99 Mechanical Ventilator 40 05/17/17 19:33 83 26 97 Mechanical Ventilator 40 05/17/17 19:32 83 25 40 05/17/17 17:00 87 24 40 05/17/17 16:00 121 05/17/17 16:00 40 05/17/17 16:00 98.1 109 20 130/95 100 Mechanical Ventilator 40.0 05/17/17 14:40 118 24 40 05/17/17 12:54 88 21 98 Mechanical Ventilator 40 05/17/17 12:54 40 05/17/17 12:52 79 21 97 Mechanical Ventilator 40 05/17/17 12:52 79 21 40 05/17/17 12:00 98.7 119 20 131/77 99 Mechanical Ventilator 40.0 05/17/17 12:00 40 05/17/17 12:00 102 05/17/17 11:00 82 18 40 Height (Feet): 6 Height (Inches): 1.00 Weight (Pounds): 204 Microbiology Date/Time Source Procedure Growth Status 05/16/17 04:30 Nose Influenza Types A,B Antigen (UMESH) - Final Complete 05/15/17 12:18 Urine,Clean Catch Urine Culture - Final Yamileth Albicans Complete Laboratory Tests Test 05/17/17 15:30 Stool Occult Blood Negative (NEGATIVE) Current Medications Medications (Trade) Dose Ordered Sig/Polo Route PRN Reason Start Time Stop Time Status Last Admin Dose Admin Acetaminophen (Tylenol) 650 mg Q4H PRN ORAL FEVER 05/14/17 21:45 06/13/17 21:44 10/8/17 05:39 Albuterol/ Ipratropium (DuoNeb 0.5-3(2.5)mg/3ml) 3 ml Q2H PRN HHN Shortness of Breath 05/15/17 16:00 05/19/17 21:44 05/15/17 19:22 Artificial Tears (Akwa-Tears) 1 drop Q12H PRN BOTH EYES Dry Eyes 05/15/17 15:45 06/14/17 15:44 Ascorbic Acid (Vitamin C) 500 mg DAILY GT 05/16/17 09:00 06/15/17 08:59 05/18/17 09:35 Aspirin (ASA) 81 mg DAILY GT 05/17/17 09:00 06/16/17 08:59 05/18/17 09:33 Carbidopa/Levodopa (Sinemet 25/100) 1 ea BID GT 05/15/17 18:00 06/14/17 17:59 05/18/17 09:35 Clonidine HCl (Catapres) 0.1 mg Q6H PRN GT FOR SBP>160 05/15/17 21:45 06/14/17 21:44 Dextrose (Dextrose 50%) STAT PRN IV Hypoglycemia 05/14/17 21:45 06/13/17 21:44 Docusate Sodium (Colace) 100 mg TWICE A DAY NG 05/17/17 09:00 06/16/17 08:59 05/18/17 09:35 Heparin Sodium (Porcine) (Heparin 5000 units/ml) 5,000 units EVERY 12 HOURS SUBQ 05/15/17 09:00 06/14/17 08:59 05/18/17 09:40 Ipratropium [place] (Atrovent) 500 mcg Q6HRT HHN 05/15/17 19:00 05/20/17 18:59 05/18/17 06:51 Iron Sucrose 100 mg/Sodium Chloride 60 ml @ 240 mls/hr BEDTIME IVPB 05/16/17 21:00 05/20/17 21:14 05/17/17 20:37 Lorazepam (Ativan 2mg/ml 1ml) 2 mg EVERY 2 HOURS PRN IV For Anxiety 05/14/17 21:45 05/21/17 21:44 05/17/17 01:00 Losartan Potassium (Cozaar) 25 mg DAILY GT 05/16/17 16:15 06/15/17 16:14 05/18/17 09:35 Multivitamins (Multivitamins) 1 tab DAILY ORAL 05/16/17 09:00 06/15/17 08:59 05/18/17 09:35 Ondansetron HCl (Zofran) 4 mg Q6H PRN IVP Nausea & Vomiting 05/14/17 21:45 06/13/17 21:44 Pantoprazole (Protonix) 40 mg DAILY IV 05/15/17 09:00 06/14/17 08:59 05/18/17 09:35 Piperacillin Sod/ Tazobactam Sod 3.375 gm/Sodium Chloride 110 ml @ 27.5 mls/hr Q8HR IVPB 05/16/17 22:00 05/23/17 21:59 05/18/17 06:30 Polyethylene Glycol (Miralax) 17 gm DAILY GT 05/16/17 09:00 06/15/17 08:59 05/18/17 09:33 Polyethylene Glycol (Miralax) 17 gm DAILYPRN PRN GT Constipation 05/16/17 15:45 06/13/17 21:44 Sennosides (Senokot) 8.6 mg QHS GT 05/15/17 21:00 06/14/17 20:59 05/17/17 20:36 Valery Chang M.D. May 18, 2017 10:19
--- NOTE | 2017-05-18 10:56 | Internal Med Progress Note ---
Subjective Date of Service: May 18, 2017 Physician Name Chris Yadav Attending Physician Sunil Castillo MD Current Medications Medications (Trade) Dose Ordered Sig/Polo Route PRN Reason Start Time Stop Time Status Last Admin Dose Admin Acetaminophen (Tylenol) 650 mg Q4H PRN ORAL FEVER 05/14/17 21:45 06/13/17 21:44 05/17/17 05:39 Albuterol/ Ipratropium (DuoNeb 0.5-3(2.5)mg/3ml) 3 ml Q2H PRN HHN Shortness of Breath 05/15/17 16:00 05/19/17 21:44 05/15/17 19:22 Artificial Tears (Akwa-Tears) 1 drop Q12H PRN BOTH EYES Dry Eyes 05/15/17 15:45 06/14/17 15:44 Ascorbic Acid (Vitamin C) 500 mg DAILY GT 05/16/17 09:00 06/15/17 08:59 05/18/17 09:35 Aspirin (ASA) 81 mg DAILY GT 05/17/17 09:00 06/16/17 08:59 05/18/17 09:33 Carbidopa/Levodopa (Sinemet 25/100) 1 ea BID GT 05/15/17 18:00 06/14/17 17:59 05/18/17 09:35 Clonidine HCl (Catapres) 0.1 mg Q6H PRN GT FOR SBP>160 05/15/17 21:45 06/14/17 21:44 Dextrose (Dextrose 50%) STAT PRN IV Hypoglycemia 05/14/17 21:45 06/13/17 21:44 Docusate Sodium (Colace) 100 mg TWICE A DAY NG 05/17/17 09:00 06/16/17 08:59 05/18/17 09:35 Heparin Sodium (Porcine) (Heparin 5000 units/ml) 5,000 units EVERY 12 HOURS SUBQ 05/15/17 09:00 06/14/17 08:59 05/18/17 09:40 Ipratropium [place] (Atrovent) 500 mcg Q6HRT HHN 05/15/17 19:00 05/20/17 18:59 05/18/17 06:51 Iron Sucrose 100 mg/Sodium Chloride 60 ml @ 240 mls/hr BEDTIME IVPB 05/16/17 21:00 05/20/17 21:14 05/17/17 20:37 Lorazepam (Ativan 2mg/ml 1ml) 2 mg EVERY 2 HOURS PRN IV For Anxiety 05/14/17 21:45 05/21/17 21:44 05/17/17 01:00 Losartan Potassium (Cozaar) 25 mg DAILY GT 05/16/17 16:15 06/15/17 16:14 05/18/17 09:35 Multivitamins (Multivitamins) 1 tab DAILY ORAL 05/16/17 09:00 06/15/17 08:59 05/18/17 09:35 Ondansetron HCl (Zofran) 4 mg Q6H PRN IVP Nausea & Vomiting 05/14/17 21:45 06/13/17 21:44 Pantoprazole (Protonix) 40 mg DAILY IV 05/15/17 09:00 06/14/17 08:59 05/18/17 09:35 Piperacillin Sod/ Tazobactam Sod 3.375 gm/Sodium Chloride 110 ml @ 27.5 mls/hr Q8HR IVPB 05/16/17 22:00 05/23/17 21:59 05/18/17 06:30 Polyethylene Glycol (Miralax) 17 gm DAILY GT 05/16/17 09:00 06/15/17 08:59 05/18/17 09:33 Polyethylene Glycol (Miralax) 17 gm DAILYPRN PRN GT Constipation 05/16/17 15:45 06/13/17 21:44 Sennosides (Senokot) 8.6 mg QHS GT 05/15/17 21:00 06/14/17 20:59 05/17/17 20:36 Allergies: Coded Allergies: CODEINE (Verified Allergy, Unknown, 05/14/17) ROS Limited/Unobtainable: Yes Subjective 87 YO M admitted with respiratory failure. Cover for Int Med-Dr Castillo. SHILPI. Objective Last Vital Signs Date Time Temp Pulse Resp B/P (MAP) Pulse Ox O2 Delivery O2 Flow Rate FiO2 05/18/17 09:35 155/86 05/18/17 09:00 100 18 40 05/18/17 06:57 99 Mechanical Ventilator 05/18/17 04:00 99.3 40.0 Laboratory Tests Test 05/17/17 15:30 Stool Occult Blood Negative (NEGATIVE) Microbiology Date/Time Source Procedure Growth Status 05/16/17 04:30 Nose Influenza Types A,B Antigen (UMESH) - Final Complete 05/15/17 12:18 Urine,Clean Catch Urine Culture - Final Yamileth Albicans Complete Intake and Output 05/18/17 05/19/17 19:00 07:00 Intake Total 115.0 ml Balance 115.0 ml IV Total 55.0 ml Tube Feeding 60 ml Objective General Appearance: WD/WN, moderate distress, lethargic EENT: normal ENT inspection Neck: non-tender, normal alignment, supple, other - tracheostomy Cardiovascular: normal peripheral pulses, normal rate, regular rhythm, no gallop/murmur, no JVD Respiratory/Chest: Mech vent; respiratory distress, crackles/rales, rhonchi - bilaterally, expiratory wheezing Abdomen: normal bowel sounds, non tender, soft, no organomegaly, no mass, distended Skin: normal pigmentation, warm/dry Assessment/Plan Problem List: (1) Respiratory failure Assessment & Plan: See pulmonary note. Cont mech vent per pulmonary (2) CHF (congestive heart failure) (3) Esophageal stenosis Assessment & Plan: S/P stent. (4) Jejunostomy present Assessment & Plan: Continue tube feeds (5) Abdominal distension (gaseous) Assessment & Plan: CT=neg obstruction. (6) Tracheostomy care (7) Pneumonia Assessment & Plan: See ID note. Influenza neg. Await cultures. See ID note. Continue zosyn and vanco for now. Status: not improved CHRIS YADAV May 18, 2017 10:56
--- NOTE | 2017-05-18 11:03 | Diagnostic Imaging Report ---
APPROVED REPORT CPT Code: 62320 Present Symptoms Shortness of breath BILATERAL: Imaging reveals a patent deep venous system bilaterally. There is no evidence of thrombus within the femoral, popliteal or tibial segments. The greater saphenous veins are also within normal limits. Doppler indicates normal spontaneous flow within these segments.
--- NOTE | 2017-05-18 11:26 | GI Progress Note ---
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 SNOMED: 211572703, 430314920 (2) Abdominal distension (gaseous) ICD Codes: R14.0 - Abdominal distension (gaseous) SNOMED: 521728912 (3) Hypoalbuminemia ICD Codes: E88.09 - Other disorders of plasma-protein metabolism, not elsewhere classified SNOMED: 079140440 (4) Fecal impaction ICD Codes: K56.41 - Fecal impaction SNOMED: 51232063 (5) Jejunostomy present ICD Codes: Z93.4 - Other artificial openings of gastrointestinal tract status SNOMED: 296342255 (6) Respiratory failure ICD Codes: J96.90 - Respiratory failure, unspecified, unspecified whether with hypoxia or hypercapnia SNOMED: 620944463 (7) Anemia ICD Codes: D64.9 - Anemia, unspecified SNOMED: 743660861 Status: stable Status Narrative Discussed with Dr. Herbert. Assessment/Plan CT AP reviewed >> see full report. 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 - Right basilar infiltrate may be present. Please correlate clinically for pneumonia. - Moderate fecal retention Macrocytic, Hyperchromic anemia OB stool negative abdominal distention >> improved GTFs per dietary colace iron deficient >> venofer turn q 2-4 hours repeat stool ob ppi BID DM control The patient was seen and examined at bedside and all new and available data was reviewed in the patients chart. I agree with the above findings, impression and plan. (Patient seen earlier today. Signature stamp does not reflect patient encounter time.). - Holly Herbert MD Subjective Subjective limited Objective Last 24 Hour Vital Signs Date Time Temp Pulse Resp B/P (MAP) Pulse Ox O2 Delivery O2 Flow Rate FiO2 05/18/17 11:10 102 26 40 05/18/17 09:35 155/86 05/18/17 09:00 100 18 40 05/18/17 08:00 40 05/18/17 08:00 98.3 104 24 114/71 97 Mechanical Ventilator 40 05/18/17 06:57 92 22 99 Mechanical Ventilator 40 05/18/17 06:52 64 22 97 Mechanical Ventilator 40 05/18/17 06:52 40 05/18/17 06:51 64 22 40 05/18/17 05:11 92 27 40 05/18/17 04:00 99.3 110 19 155/86 100 Mechanical Ventilator 40.0 05/18/17 04:00 40 05/18/17 04:00 105 05/18/17 03:22 108 21 40 05/18/17 01:29 40 05/18/17 01:29 100 30 99 Mechanical Ventilator 40 05/18/17 01:21 98 22 97 Mechanical Ventilator 40 05/18/17 01:19 97 22 40 05/18/17 00:00 105 05/18/17 00:00 98.0 102 19 121/62 100 Mechanical Ventilator 40.0 05/17/17 23:27 85 25 40 05/17/17 21:50 86 21 Mechanical Ventilator 40 05/17/17 21:05 86 22 40 05/17/17 20:00 98.1 107 20 113/67 100 Mechanical Ventilator 40.0 05/17/17 20:00 40 05/17/17 19:48 40 05/17/17 19:48 92 26 99 Mechanical Ventilator 40 05/17/17 19:33 83 26 97 Mechanical Ventilator 40 05/17/17 19:32 83 25 40 05/17/17 17:00 87 24 40 05/17/17 16:00 121 05/17/17 16:00 40 05/17/17 16:00 98.1 109 20 130/95 100 Mechanical Ventilator 40.0 05/17/17 14:40 118 24 40 05/17/17 12:54 88 21 98 Mechanical Ventilator 40 05/17/17 12:54 40 05/17/17 12:52 79 21 97 Mechanical Ventilator 40 05/17/17 12:52 79 21 40 05/17/17 12:00 98.7 119 20 131/77 99 Mechanical Ventilator 40.0 05/17/17 12:00 40 05/17/17 12:00 102 Intake and Output 05/18/17 05/19/17 19:00 07:00 Intake Total 115.0 ml Balance 115.0 ml IV Total 55.0 ml Tube Feeding 60 ml Laboratory Tests Test 05/17/17 15:30 Stool Occult Blood Negative (NEGATIVE) Height (Feet): 6 Height (Inches): 1.00 Weight (Pounds): 204 General Appearance: no apparent distress Cardiovascular: normal rate Respiratory/Chest: other - mech vent Abdominal Exam: other - GJ tube Ortiz,Emma Vernon N.P. May 18, 2017 11:26 MALOU HERBERT May 22, 2017 09:07
--- NOTE | 2017-05-18 11:48 | Pulmonology Progress Note ---
Assessment/Plan Problems: (1) Respiratory distress (2) Sepsis (3) Pneumonia (4) Tracheostomy status (5) Feeding by G-tube (6) Tracheostomy care (7) Jejunostomy tube leak Respiratory: monitor respiratory rate, adjust FIO2 Cardiac: continue pressors, continue to monitor HR/BP Renal: F/U I&O, keep IV fluid Infectious Disease: check cultures Gastrointestinal: continue feedings/current rate, hold feedings Endocrine: monitor blood sugar, check TSH, check HgA1C, continue sliding scale insulin Hematologic: monitor H/H, transfuse if hgb<8.5 Neurologic: PRN Ativan, keep patient comfortable Affect: PRN ativan Prophylaxis: Protonix 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, 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 Discussed with: nurses, consultants, caser up Subjective ROS Limited/Unobtainable: Yes Constitutional: Reports: no symptoms Respiratory: Reports: no symptoms Cardiovascular: Reports: no symptoms Gastrointestinal/Abdominal: Reports: no symptoms Genitourinary: Reports: no symptoms Allergies: Coded Allergies: CODEINE (Verified Allergy, Unknown, 05/14/17) Objective Last 24 Hour Vital Signs Date Time Temp Pulse Resp B/P (MAP) Pulse Ox O2 Delivery O2 Flow Rate FiO2 05/18/17 11:10 102 26 40 05/18/17 09:35 155/86 05/18/17 09:00 100 18 40 05/18/17 08:00 40 05/18/17 08:00 98.3 104 24 114/71 97 Mechanical Ventilator 40 05/18/17 06:57 92 22 99 Mechanical Ventilator 40 05/18/17 06:52 64 22 97 Mechanical Ventilator 40 05/18/17 06:52 40 05/18/17 06:51 64 22 40 05/18/17 05:11 92 27 40 05/18/17 04:00 99.3 110 19 155/86 100 Mechanical Ventilator 40.0 05/18/17 04:00 40 05/18/17 04:00 105 05/18/17 03:22 108 21 40 05/18/17 01:29 40 05/18/17 01:29 100 30 99 Mechanical Ventilator 40 05/18/17 01:21 98 22 97 Mechanical Ventilator 40 05/18/17 01:19 97 22 40 05/18/17 00:00 105 05/18/17 00:00 98.0 102 19 121/62 100 Mechanical Ventilator 40.0 05/17/17 23:27 85 25 40 05/17/17 21:50 86 21 Mechanical Ventilator 40 05/17/17 21:05 86 22 40 05/17/17 20:00 98.1 107 20 113/67 100 Mechanical Ventilator 40.0 05/17/17 20:00 40 05/17/17 19:48 40 05/17/17 19:48 92 26 99 Mechanical Ventilator 40 05/17/17 19:33 83 26 97 Mechanical Ventilator 40 05/17/17 19:32 83 25 40 05/17/17 17:00 87 24 40 05/17/17 16:00 121 05/17/17 16:00 40 05/17/17 16:00 98.1 109 20 130/95 100 Mechanical Ventilator 40.0 05/17/17 14:40 118 24 40 05/17/17 12:54 88 21 98 Mechanical Ventilator 40 05/17/17 12:54 40 05/17/17 12:52 79 21 97 Mechanical Ventilator 40 05/17/17 12:52 79 21 40 05/17/17 12:00 98.7 119 20 131/77 99 Mechanical Ventilator 40.0 05/17/17 12:00 40 05/17/17 12:00 102 Intake and Output 05/18/17 05/19/17 19:00 07:00 Intake Total 115.0 ml Balance 115.0 ml IV Total 55.0 ml Tube Feeding 60 ml General Appearance: WD/WN HEENT: normocephalic, atraumatic Respiratory/Chest: chest wall non-tender, lungs clear Cardiovascular: normal peripheral pulses, regular rhythm Abdomen: normal bowel sounds, soft, non tender Extremities: no cyanosis, no clubbing Neurologic/Psychiatric: no motor/sensory deficits, abnormal gait Lymphatic: no neck adenopathy Microbiology Date/Time Source Procedure Growth Status 05/16/17 04:30 Nose Influenza Types A,B Antigen (UMESH) - Final Complete 05/15/17 12:18 Urine,Clean Catch Urine Culture - Final [place] Albicans Complete Laboratory Tests 05/17/17 15:30: Stool Occult Blood Negative Current Medications Medications (Trade) Dose Ordered Sig/Polo Route PRN Reason Start Time Stop Time Status Last Admin Dose Admin Acetaminophen (Tylenol) 650 mg Q4H PRN ORAL FEVER 05/14/17 21:45 06/13/17 21:44 05/17/17 05:39 Albuterol/ Ipratropium (DuoNeb 0.5-3(2.5)mg/3ml) 3 ml Q2H PRN HHN Shortness of Breath 05/15/17 16:00 05/19/17 21:44 05/15/17 19:22 Artificial Tears (Akwa-Tears) 1 drop Q12H PRN BOTH EYES Dry Eyes 05/15/17 15:45 06/14/17 15:44 Ascorbic Acid (Vitamin C) 500 mg DAILY GT 05/16/17 09:00 06/15/17 08:59 05/18/17 09:35 Aspirin (ASA) 81 mg DAILY GT 05/17/17 09:00 06/16/17 08:59 05/18/17 09:33 Carbidopa/Levodopa (Sinemet 25/100) 1 ea BID GT 05/15/17 18:00 06/14/17 17:59 05/18/17 09:35 Clonidine HCl (Catapres) 0.1 mg Q6H PRN GT FOR SBP>160 05/15/17 21:45 06/14/17 21:44 Dextrose (Dextrose 50%) STAT PRN IV Hypoglycemia 05/18/17 11:00 06/17/17 10:59 Docusate Sodium (Colace) 100 mg TWICE A DAY NG 05/17/17 09:00 06/16/17 08:59 05/18/17 09:35 Heparin Sodium (Porcine) (Heparin 5000 units/ml) 5,000 units EVERY 12 HOURS SUBQ 05/15/17 09:00 06/14/17 08:59 05/18/17 09:40 Insulin Aspart (NovoLOG) BEFORE MEALS AND HS SUBQ 05/18/17 11:30 06/17/17 11:29 Ipratropium [place] (Atrovent) 500 mcg Q6HRT HHN 05/15/17 19:00 05/20/17 18:59 05/18/17 06:51 Iron Sucrose 100 mg/Sodium Chloride 60 ml @ 240 mls/hr BEDTIME IVPB 05/16/17 21:00 05/20/17 21:14 05/17/17 20:37 Lorazepam (Ativan 2mg/ml 1ml) 2 mg EVERY 2 HOURS PRN IV For Anxiety 05/14/17 21:45 05/21/17 21:44 05/17/17 01:00 Losartan Potassium (Cozaar) 25 mg DAILY GT 05/16/17 16:15 06/15/17 16:14 05/18/17 09:35 Multivitamins (Multivitamins) 1 tab DAILY ORAL 05/16/17 09:00 06/15/17 08:59 05/18/17 09:35 Ondansetron HCl (Zofran) 4 mg Q6H PRN IVP Nausea & Vomiting 05/14/17 21:45 06/13/17 21:44 Pantoprazole (Protonix) 40 mg DAILY IV 05/15/17 09:00 06/14/17 08:59 05/18/17 09:35 Piperacillin Sod/ Tazobactam Sod 3.375 gm/Sodium Chloride 110 ml @ 27.5 mls/hr Q8HR IVPB 05/16/17 22:00 05/23/17 21:59 05/18/17 06:30 Polyethylene Glycol (Miralax) 17 gm DAILY GT 05/16/17 09:00 06/15/17 08:59 05/18/17 09:33 Polyethylene Glycol (Miralax) 17 gm DAILYPRN PRN GT Constipation 05/16/17 15:45 06/13/17 21:44 Sennosides (Senokot) 8.6 mg QHS GT 05/15/17 21:00 06/14/17 20:59 05/17/17 20:36 TEMI MELENDEZ May 18, 2017 11:48
[2017-05-18 12:00] VITALS: BP 110/73
[2017-05-18] MEDS: NovoLOG Insulin Flexpen SUBQ SCH ×3 (12:44→23:37)
[2017-05-18 12:49] LABS: BASOPHILS % (AUTO) 0.8 % (0.0-2.0); EOSINOPHILS % (AUTO) 2.2 % (0.0-3.0); LYMPHOCYTES % (AUTO) 17.3 % (20.0-45.0); MEAN CORPUSCULAR HEMOGLOBIN 32.8 PG (27.0-31.0); MEAN CORPUSCULAR HGB CONC 32.6 G/DL (32.0-36.0); MEAN CORPUSCULAR VOLUME 101 FL (80-99); MEAN PLATELET VOLUME 7.4 FL (6.5-10.1); NEUTROPHILS % (AUTO) 68.6 % (45.0-75.0); PLATELET COUNT 168 K/UL (150-450); RED CELL DISTRIBUTION WIDTH 13.5 % (11.6-14.8); WHITE BLOOD COUNT 7.2 K/UL (4.8-10.8)
[2017-05-18 13:14] LABS: ANION GAP 8 (5-15); CALCIUM 8.9 MG/DL (8.5-10.1); CARBON DIOXIDE 25 MMOL/L (21-32); CHLORIDE 108 MMOL/L (98-107); CREATININE 0.9 MG/DL (0.55-1.30); POTASSIUM 3.4 MMOL/L (3.5-5.1); SODIUM 141 MMOL/L (136-145)
[2017-05-18] MEDS ORDERED: KCl 10% 20 mEq/15ml liquid NG ONE (14:00)
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
[2017-05-18] MEDS: cefTRIAXone 1 GM in D5W 55 ML IVPB SCH (15:24)
[2017-05-18 16:00] VITALS: BP 119/58
[2017-05-18 20:00] VITALS: BP 115/82
[2017-05-18] MEDS: Iron Sucrose 100 MG in NS 55 ML IVPB SCH (21:15)
[2017-05-18] MEDS: Sennosides 8.6mg GT SCH (21:15)
[2017-05-19] VITALS: BP 121/74
[2017-05-19] MEDS: Ipratropium 0.02% Inh Soln 2.5ml UD HHN SCH ×4 (01:41→17:49)
[2017-05-19 04:00] VITALS: BP 118/78
[2017-05-19] MEDS: NovoLOG Insulin Flexpen SUBQ SCH ×4 (05:39→23:55)
[2017-05-19] MEDS: LORazepam Inj 2mg/ml 1ml IV PRN (05:41)
[2017-05-19 06:21] LABS: BASOPHILS % (AUTO) 0.6 % (0.0-2.0); EOSINOPHILS % (AUTO) 1.5 % (0.0-3.0); LYMPHOCYTES % (AUTO) 11.4 % (20.0-45.0); MEAN CORPUSCULAR HEMOGLOBIN 33.9 PG (27.0-31.0); MEAN CORPUSCULAR HGB CONC 33.4 G/DL (32.0-36.0); MEAN CORPUSCULAR VOLUME 101 FL (80-99); MEAN PLATELET VOLUME 8.1 FL (6.5-10.1); MONOCYTES % (AUTO) 11.3 % (1.0-10.0); NEUTROPHILS % (AUTO) 75.2 % (45.0-75.0); PLATELET COUNT 169 K/UL (150-450); RED BLOOD COUNT 3.01 M/UL (4.70-6.10); RED CELL DISTRIBUTION WIDTH 13.4 % (11.6-14.8); WHITE BLOOD COUNT 9.3 K/UL (4.8-10.8)
[2017-05-19 06:37] LABS: PHOSPHORUS 2.6 MG/DL (2.5-4.9)
[2017-05-19 06:51] LABS: ALANINE AMINOTRANSFERASE 12 U/L (12-78); ALBUMIN/GLOBULIN RATIO 0.4 (1.0-2.7); ANION GAP 9 (5-15); ASPARTATE AMINO TRANSFERASE 15 U/L (15-37); CALCIUM 9.1 MG/DL (8.5-10.1); CARBON DIOXIDE 25 MMOL/L (21-32); CHLORIDE 113 MMOL/L (98-107); CREATININE 0.9 MG/DL (0.55-1.30); POTASSIUM 4.1 MMOL/L (3.5-5.1); SODIUM 147 MMOL/L (136-145); TOTAL PROTEIN 7.1 G/DL (6.4-8.2)
[2017-05-19 08:00] VITALS: BP 134/65
[2017-05-19] MEDS: Losartan 25mg tab GT SCH (08:54)
[2017-05-19] MEDS: Heparin 5000 units/ml inj SUBQ SCH ×2 (08:55→20:39)
[2017-05-19] MEDS: Miralax 17gm pkt GT SCH (08:56)
[2017-05-19] MEDS: Aspirin Baby 81mg GT SCH (08:56)
[2017-05-19] MEDS: Sinemet 25/100 tab GT SCH ×2 (08:56→18:19)
[2017-05-19] MEDS: Docusate 100mg/10ml Liq NG SCH ×2 (08:56→18:00)
[2017-05-19] MEDS: Ascorbic Acid 500mg tab GT SCH (08:56)
[2017-05-19] MEDS: Pantoprazole Inj IV SCH (08:56)
--- NOTE | 2017-05-19 10:13 | Pulmonology Progress Note ---
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, 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 Discussed with: nurses, consultants Subjective ROS Limited/Unobtainable: No Constitutional: Reports: no symptoms HEENT: Repors: no symptoms Respiratory: Reports: no symptoms Allergies: Coded Allergies: CODEINE (Verified Allergy, Unknown, 05/14/17) Objective Last 24 Hour Vital Signs Date Time Temp Pulse Resp B/P (MAP) Pulse Ox O2 Delivery O2 Flow Rate FiO2 05/19/17 08:54 134/65 05/19/17 08:45 116 30 40 05/19/17 08:00 98.3 116 27 134/65 97 Mechanical Ventilator 40 05/19/17 08:00 40 05/19/17 08:00 128 05/19/17 06:40 112 22 40 05/19/17 06:40 112 20 99 Mechanical Ventilator 40 05/19/17 06:30 91 20 99 Mechanical Ventilator 40 05/19/17 06:30 40 05/19/17 05:20 87 24 40 05/19/17 04:00 98.1 107 20 118/78 100 Mechanical Ventilator 40 05/19/17 04:00 40 05/19/17 04:00 120 05/19/17 03:47 89 18 40 05/19/17 01:51 85 18 99 Mechanical Ventilator 40 05/19/17 01:41 92 18 99 Mechanical Ventilator 40 05/19/17 01:41 40 05/19/17 01:40 85 18 40 05/19/17 00:00 40 05/19/17 00:00 119 05/19/17 00:00 98.4 119 22 121/74 100 Mechanical Ventilator 40 05/18/17 23:44 81 18 40 05/18/17 21:00 40 05/18/17 20:36 85 18 40 05/18/17 20:16 91 18 99 Mechanical Ventilator 40 05/18/17 20:06 112 18 99 Mechanical Ventilator 40 05/18/17 20:06 40 05/18/17 20:05 112 14 40 05/18/17 20:00 112 05/18/17 20:00 98.1 110 24 115/82 100 Mechanical Ventilator 40 05/18/17 17:10 90 23 40 05/18/17 16:11 127 05/18/17 16:00 97.9 103 30 119/58 98 Mechanical Ventilator 40 05/18/17 16:00 40 05/18/17 14:31 86 20 40 05/18/17 13:23 80 12 99 Mechanical Ventilator 40 05/18/17 13:20 40 05/18/17 13:20 81 18 98 Mechanical Ventilator 40 05/18/17 13:20 81 18 40 05/18/17 12:00 97.7 80 20 110/73 97 Mechanical Ventilator 40 05/18/17 12:00 40 05/18/17 11:52 107 05/18/17 11:10 102 26 40 Intake and Output 05/19/17 05/20/17 19:00 07:00 Intake Total 230 ml Balance 230 ml Free Water 50 ml Tube Feeding 180 ml General Appearance: WD/WN HEENT: normocephalic, atraumatic Respiratory/Chest: chest wall non-tender, lungs clear Cardiovascular: normal peripheral pulses, normal rate Abdomen: normal bowel sounds, soft, non tender Genitourinary: normal external genitalia Extremities: no cyanosis Skin: no rash 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 Lymphatic: no neck adenopathy Laboratory Tests 05/18/17 12:30: White Blood Count 7.2, Red Blood Count 3.20L, Hemoglobin 10.5L, Hematocrit 32.3L , Mean Corpuscular Volume 101H, Mean Corpuscular Hemoglobin 32.8H, Mean Corpuscular Hemoglobin Concent 32.6, Red Cell Distribution Width 13.5, Platelet Count 168, Mean Platelet Volume 7.4, Neutrophils (%) (Auto) 68.6, Lymphocytes (% ) (Auto) 17.3L, Monocytes (%) (Auto) 11.0H, Eosinophils (%) (Auto) 2.2, Basophils (%) (Auto) 0.8, Sodium Level 141, Potassium Level 3.4L, Chloride Level 108H, Carbon Dioxide Level 25, Anion Gap 8, Blood Urea Nitrogen 22H, Creatinine 0.9, Estimat Glomerular Filtration Rate , Glucose Level 119H, Hemoglobin A1c 6.3H, Calcium Level 8.9 05/19/17 04:00: White Blood Count 9.3, Red Blood Count 3.01L, Hemoglobin 10.2L, Hematocrit 30.5L , Mean Corpuscular Volume 101H, Mean Corpuscular Hemoglobin 33.9H, Mean Corpuscular Hemoglobin Concent 33.4, Red Cell Distribution Width 13.4, Platelet Count 169, Mean Platelet Volume 8.1, Neutrophils (%) (Auto) 75.2H, Lymphocytes ( %) (Auto) 11.4L, Monocytes (%) (Auto) 11.3H, Eosinophils (%) (Auto) 1.5, Basophils (%) (Auto) 0.6, Sodium Level 147H, Potassium Level 4.1, Chloride Level 113H, Carbon Dioxide Level 25, Anion Gap 9, Blood Urea Nitrogen 23H, Creatinine 0.9, Estimat Glomerular Filtration Rate , Glucose Level 130H, Calcium Level 9.1, Phosphorus Level 2.6, Magnesium Level 2.0, Total Bilirubin 0.3, Aspartate Amino Transf (AST/SGOT) 15, Alanine Aminotransferase (ALT/SGPT) 12, Alkaline Phosphatase 99, Total Protein 7.1, Albumin 2.2L, Globulin 4.9, Albumin/Globulin Ratio 0.4L Current Medications Medications (Trade) Dose Ordered Sig/Polo Route PRN Reason Start Time Stop Time Status Last Admin Dose Admin Acetaminophen (Tylenol) 650 mg Q4H PRN ORAL FEVER 05/14/17 21:45 06/13/17 21:44 05/17/17 05:39 Albuterol/ Ipratropium (DuoNeb 0.5-3(2.5)mg/3ml) 3 ml Q2H PRN HHN Shortness of Breath 05/15/17 16:00 05/19/17 21:44 05/15/17 19:22 Artificial Tears (Akwa-Tears) 1 drop Q12H PRN BOTH EYES Dry Eyes 05/15/17 15:45 06/14/17 15:44 Ascorbic Acid (Vitamin C) 500 mg DAILY GT 05/16/17 09:00 06/15/17 08:59 05/19/17 08:56 Aspirin (ASA) 81 mg DAILY GT 05/17/17 09:00 06/16/17 08:59 05/19/17 08:56 Carbidopa/Levodopa (Sinemet 25/100) 1 ea BID GT 05/15/17 18:00 06/14/17 17:59 05/19/17 08:56 Ceftriaxone Sodium 1 gm/ Dextrose 55 ml @ 110 mls/hr Q24H IVPB 05/18/17 14:00 05/25/17 13:59 05/18/17 15:24 Clonidine HCl (Catapres) 0.1 mg Q6H PRN GT FOR SBP>160 05/15/17 21:45 06/14/17 21:44 Dextrose (Dextrose 50%) STAT PRN IV Hypoglycemia 05/18/17 11:00 06/17/17 10:59 Docusate Sodium (Colace) 100 mg TWICE A DAY NG 05/17/17 09:00 06/16/17 08:59 05/18/17 09:35 Heparin Sodium (Porcine) (Heparin 5000 units/ml) 5,000 units EVERY 12 HOURS SUBQ 05/15/17 09:00 06/14/17 08:59 05/19/17 08:55 Insulin Aspart (NovoLOG) EVERY 6 HOURS SUBQ 05/19/17 00:00 06/17/17 11:29 05/19/17 05:39 Ipratropium [place] (Atrovent) 500 mcg Q6HRT HHN 05/15/17 19:00 05/20/17 18:59 05/19/17 06:51 Iron Sucrose 100 mg/Sodium Chloride 60 ml @ 240 mls/hr BEDTIME IVPB 05/16/17 21:00 05/20/17 21:14 05/18/17 21:15 Lorazepam (Ativan 2mg/ml 1ml) 2 mg EVERY 2 HOURS PRN IV For Anxiety 05/14/17 21:45 05/21/17 21:44 05/19/17 05:41 Losartan Potassium (Cozaar) 25 mg DAILY GT 05/16/17 16:15 06/15/17 16:14 05/19/17 08:54 Multivitamins (Multivitamins) 1 tab DAILY ORAL 05/16/17 09:00 06/15/17 08:59 05/19/17 08:55 Ondansetron HCl (Zofran) 4 mg Q6H PRN IVP Nausea & Vomiting 05/14/17 21:45 06/13/17 21:44 Pantoprazole (Protonix) 40 mg DAILY IV 05/15/17 09:00 06/14/17 08:59 05/19/17 08:56 Polyethylene Glycol (Miralax) 17 gm DAILY GT 05/16/17 09:00 06/15/17 08:59 05/19/17 08:56 Polyethylene Glycol (Miralax) 17 gm DAILYPRN PRN GT Constipation 05/16/17 15:45 06/13/17 21:44 Sennosides (Senokot) 8.6 mg QHS GT 05/15/17 21:00 06/14/17 20:59 05/18/17 21:15 TEMI MELENDEZ May 19, 2017 10:13
[2017-05-19 12:00] VITALS: BP 133/65
[2017-05-19] MEDS: cefTRIAXone 1 GM in D5W 55 ML IVPB SCH (14:10)
[2017-05-19] MEDS ORDERED: Sterile Water Irrig 1000ml IRRIG ONE (14:44)
[2017-05-19] MEDS ORDERED: NS 275ml ONE (14:44)
--- NOTE | 2017-05-19 15:03 | GI Progress Note ---
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 SNOMED: 520311781, 906839518 (2) Abdominal distension (gaseous) ICD Codes: R14.0 - Abdominal distension (gaseous) SNOMED: 801893944 (3) Hypoalbuminemia ICD Codes: E88.09 - Other disorders of plasma-protein metabolism, not elsewhere classified SNOMED: 270063024 (4) Fecal impaction ICD Codes: K56.41 - Fecal impaction SNOMED: 75416827 (5) Jejunostomy present ICD Codes: Z93.4 - Other artificial openings of gastrointestinal tract status SNOMED: 204056063 (6) Respiratory failure ICD Codes: J96.90 - Respiratory failure, unspecified, unspecified whether with hypoxia or hypercapnia SNOMED: 603998255 (7) Anemia ICD Codes: D64.9 - Anemia, unspecified SNOMED: 115756602 Status: stable, unchanged Status Narrative Discussed with Dr. Herbert. Assessment/Plan CT AP reviewed >> see full report. 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 - Right basilar infiltrate may be present. Please correlate clinically for pneumonia. - Moderate fecal retention Macrocytic, Hyperchromic anemia OB stool negative abdominal distention >> improved GTFs per dietary colace iron deficient >> venofer turn q 2-4 hours repeat stool ob ppi BID >> daily DM control Subjective Subjective limited Objective Last 24 Hour Vital Signs Date Time Temp Pulse Resp B/P (MAP) Pulse Ox O2 Delivery O2 Flow Rate FiO2 05/19/17 13:10 115 22 99 Mechanical Ventilator 40 05/19/17 13:10 115 21 40 05/19/17 13:00 94 22 99 Mechanical Ventilator 40 05/19/17 13:00 40 05/19/17 12:06 125 05/19/17 12:00 40 05/19/17 12:00 98.2 116 26 133/65 98 Mechanical Ventilator 40 05/19/17 10:43 112 26 40 05/19/17 08:54 134/65 05/19/17 08:45 116 30 40 05/19/17 08:00 98.3 116 27 134/65 97 Mechanical Ventilator 40 05/19/17 08:00 40 05/19/17 08:00 128 05/19/17 06:40 112 22 40 05/19/17 06:40 112 20 99 Mechanical Ventilator 40 05/19/17 06:30 91 20 99 Mechanical Ventilator 40 05/19/17 06:30 40 05/19/17 05:20 87 24 40 05/19/17 04:00 98.1 107 20 118/78 100 Mechanical Ventilator 40 05/19/17 04:00 40 05/19/17 04:00 120 05/19/17 03:47 89 18 40 05/19/17 01:51 85 18 99 Mechanical Ventilator 40 05/19/17 01:41 92 18 99 Mechanical Ventilator 40 05/19/17 01:41 40 05/19/17 01:40 85 18 40 05/19/17 00:00 40 05/19/17 00:00 119 05/19/17 00:00 98.4 119 22 121/74 100 Mechanical Ventilator 40 05/18/17 23:44 81 18 40 05/18/17 21:00 40 05/18/17 20:36 85 18 40 05/18/17 20:16 91 18 99 Mechanical Ventilator 40 05/18/17 20:06 112 18 99 Mechanical Ventilator 40 05/18/17 20:06 40 05/18/17 20:05 112 14 40 05/18/17 20:00 112 05/18/17 20:00 98.1 110 24 115/82 100 Mechanical Ventilator 40 05/18/17 17:10 90 23 40 05/18/17 16:11 127 05/18/17 16:00 97.9 103 30 119/58 98 Mechanical Ventilator 40 05/18/17 16:00 40 Intake and Output 05/19/17 05/20/17 19:00 07:00 Intake Total 520 ml Balance 520 ml Free Water 100 ml Tube Feeding 420 ml Laboratory Tests Test 05/19/17 04:00 White Blood Count 9.3 K/UL (4.8-10.8) Red Blood Count 3.01 M/UL (4.70-6.10) L Hemoglobin 10.2 G/DL (14.2-18.0) L Hematocrit 30.5 % (42.0-52.0) L Mean Corpuscular Volume 101 FL (80-99) H Mean Corpuscular Hemoglobin 33.9 PG (27.0-31.0) H Mean Corpuscular Hemoglobin Concent 33.4 G/DL (32.0-36.0) Red Cell Distribution Width 13.4 % (11.6-14.8) Platelet Count 169 K/UL (150-450) Mean Platelet Volume 8.1 FL (6.5-10.1) Neutrophils (%) (Auto) 75.2 % (45.0-75.0) H Lymphocytes (%) (Auto) 11.4 % (20.0-45.0) L Monocytes (%) (Auto) 11.3 % (1.0-10.0) H Eosinophils (%) (Auto) 1.5 % (0.0-3.0) Basophils (%) (Auto) 0.6 % (0.0-2.0) Sodium Level 147 MMOL/L (136-145) H Potassium Level 4.1 MMOL/L (3.5-5.1) Chloride Level 113 MMOL/L (98-107) H Carbon Dioxide Level 25 MMOL/L (21-32) Anion Gap 9 (5-15) Blood Urea Nitrogen 23 mg/dL (7-18) H Creatinine 0.9 MG/DL (0.55-1.30) Estimat Glomerular Filtration Rate mL/min (>60) Glucose Level 130 MG/DL (74-106) H Calcium Level 9.1 MG/DL (8.5-10.1) Phosphorus Level 2.6 MG/DL (2.5-4.9) Magnesium Level 2.0 MG/DL (1.8-2.4) Total Bilirubin 0.3 MG/DL (0.2-1.0) Aspartate Amino Transf (AST/SGOT) 15 U/L (15-37) Alanine Aminotransferase (ALT/SGPT) 12 U/L (12-78) Alkaline Phosphatase 99 U/L (46-116) Total Protein 7.1 G/DL (6.4-8.2) Albumin 2.2 G/DL (3.4-5.0) L Globulin 4.9 g/dL Albumin/Globulin Ratio 0.4 (1.0-2.7) L Height (Feet): 6 Height (Inches): 1.00 Weight (Pounds): 204 General Appearance: no apparent distress, alert Cardiovascular: normal rate Respiratory/Chest: normal breath sounds, no respiratory distress, other - mech vent Abdominal Exam: soft Ortiz,Emma Vernon N.P. May 19, 2017 15:03
--- NOTE | 2017-05-19 15:45 | Internal Med Progress Note ---
Subjective Date of Service: May 19, 2017 Physician Name Chris Yadav Attending Physician Sunil Castillo MD Current Medications Medications (Trade) Dose Ordered Sig/Polo Route PRN Reason Start Time Stop Time Status Last Admin Dose Admin Acetaminophen (Tylenol) 650 mg Q4H PRN ORAL FEVER 05/14/17 21:45 06/13/17 21:44 05/17/17 05:39 Albuterol/ Ipratropium (DuoNeb 0.5-3(2.5)mg/3ml) 3 ml Q2H PRN HHN Shortness of Breath 05/15/17 16:00 05/19/17 21:44 05/15/17 19:22 Artificial Tears (Akwa-Tears) 1 drop Q12H PRN BOTH EYES Dry Eyes 05/15/17 15:45 06/14/17 15:44 Ascorbic Acid (Vitamin C) 500 mg DAILY GT 05/16/17 09:00 06/15/17 08:59 05/19/17 08:56 Aspirin (ASA) 81 mg DAILY GT 05/17/17 09:00 06/16/17 08:59 05/19/17 08:56 Carbidopa/Levodopa (Sinemet 25/100) 1 ea BID GT 05/15/17 18:00 06/14/17 17:59 05/19/17 08:56 Ceftriaxone Sodium 1 gm/ Dextrose 55 ml @ 110 mls/hr Q24H IVPB 05/18/17 14:00 05/25/17 13:59 05/19/17 14:10 Clonidine HCl (Catapres) 0.1 mg Q6H PRN GT FOR SBP>160 05/15/17 21:45 06/14/17 21:44 Dextrose (Dextrose 50%) STAT PRN IV Hypoglycemia 05/18/17 11:00 06/17/17 10:59 Docusate Sodium (Colace) 100 mg TWICE A DAY NG 05/17/17 09:00 06/16/17 08:59 05/18/17 09:35 Heparin Sodium (Porcine) (Heparin 5000 units/ml) 5,000 units EVERY 12 HOURS SUBQ 05/15/17 09:00 06/14/17 08:59 05/19/17 08:55 Insulin Aspart (NovoLOG) EVERY 6 HOURS SUBQ 05/19/17 00:00 06/17/17 11:29 05/19/17 11:59 Ipratropium [place] (Atrovent) 500 mcg Q6HRT HHN 05/15/17 19:00 05/20/17 18:59 05/19/17 13:21 Iron Sucrose 100 mg/Sodium Chloride 60 ml @ 240 mls/hr BEDTIME IVPB 05/16/17 21:00 05/20/17 21:14 05/18/17 21:15 Lorazepam (Ativan 2mg/ml 1ml) 2 mg EVERY 2 HOURS PRN IV For Anxiety 05/14/17 21:45 05/21/17 21:44 05/19/17 05:41 Losartan Potassium (Cozaar) 25 mg DAILY GT 05/16/17 16:15 06/15/17 16:14 05/19/17 08:54 Multivitamins (Multivitamins) 1 tab DAILY ORAL 05/16/17 09:00 06/15/17 08:59 05/19/17 08:55 Ondansetron HCl (Zofran) 4 mg Q6H PRN IVP Nausea & Vomiting 05/14/17 21:45 06/13/17 21:44 Pantoprazole (Protonix) 40 mg DAILY IV 05/15/17 09:00 06/14/17 08:59 05/19/17 08:56 Polyethylene Glycol (Miralax) 17 gm DAILY GT 05/16/17 09:00 06/15/17 08:59 05/19/17 08:56 Polyethylene Glycol (Miralax) 17 gm DAILYPRN PRN GT Constipation 05/16/17 15:45 06/13/17 21:44 Sennosides (Senokot) 8.6 mg QHS GT 05/15/17 21:00 06/14/17 20:59 05/18/17 21:15 Allergies: Coded Allergies: CODEINE (Verified Allergy, Unknown, 05/14/17) ROS Limited/Unobtainable: Yes Subjective 87 YO M admitted with respiratory failure. Cover for Int Med-Dr Castillo. SHILPI. Objective Last Vital Signs Date Time Temp Pulse Resp B/P (MAP) Pulse Ox O2 Delivery O2 Flow Rate FiO2 05/19/17 15:14 119 20 40 05/19/17 13:10 99 Mechanical Ventilator 05/19/17 12:00 98.2 133/65 05/18/17 04:00 40.0 Laboratory Tests Test 05/19/17 04:00 White Blood Count 9.3 K/UL (4.8-10.8) Red Blood Count 3.01 M/UL (4.70-6.10) L Hemoglobin 10.2 G/DL (14.2-18.0) L Hematocrit 30.5 % (42.0-52.0) L Mean Corpuscular Volume 101 FL (80-99) H Mean Corpuscular Hemoglobin 33.9 PG (27.0-31.0) H Mean Corpuscular Hemoglobin Concent 33.4 G/DL (32.0-36.0) Red Cell Distribution Width 13.4 % (11.6-14.8) Platelet Count 169 K/UL (150-450) Mean Platelet Volume 8.1 FL (6.5-10.1) Neutrophils (%) (Auto) 75.2 % (45.0-75.0) H Lymphocytes (%) (Auto) 11.4 % (20.0-45.0) L Monocytes (%) (Auto) 11.3 % (1.0-10.0) H Eosinophils (%) (Auto) 1.5 % (0.0-3.0) Basophils (%) (Auto) 0.6 % (0.0-2.0) Sodium Level 147 MMOL/L (136-145) H Potassium Level 4.1 MMOL/L (3.5-5.1) Chloride Level 113 MMOL/L (98-107) H Carbon Dioxide Level 25 MMOL/L (21-32) Anion Gap 9 (5-15) Blood Urea Nitrogen 23 mg/dL (7-18) H Creatinine 0.9 MG/DL (0.55-1.30) Estimat Glomerular Filtration Rate mL/min (>60) Glucose Level 130 MG/DL (74-106) H Calcium Level 9.1 MG/DL (8.5-10.1) Phosphorus Level 2.6 MG/DL (2.5-4.9) Magnesium Level 2.0 MG/DL (1.8-2.4) Total Bilirubin 0.3 MG/DL (0.2-1.0) Aspartate Amino Transf (AST/SGOT) 15 U/L (15-37) Alanine Aminotransferase (ALT/SGPT) 12 U/L (12-78) Alkaline Phosphatase 99 U/L (46-116) Total Protein 7.1 G/DL (6.4-8.2) Albumin 2.2 G/DL (3.4-5.0) L Globulin 4.9 g/dL Albumin/Globulin Ratio 0.4 (1.0-2.7) L Intake and Output 05/19/17 05/20/17 19:00 07:00 Intake Total 520 ml Balance 520 ml Free Water 100 ml Tube Feeding 420 ml Objective General Appearance: WD/WN, moderate distress, lethargic EENT: normal ENT inspection Neck: non-tender, normal alignment, supple, other - tracheostomy Cardiovascular: normal peripheral pulses, normal rate, regular rhythm, no gallop/murmur, no JVD Respiratory/Chest: Mech vent; respiratory distress, crackles/rales, rhonchi - bilaterally, expiratory wheezing Abdomen: normal bowel sounds, non tender, soft, no organomegaly, no mass, distended Skin: normal pigmentation, warm/dry Assessment/Plan Problem List: (1) Respiratory failure Assessment & Plan: See pulmonary note. Cont mech vent per pulmonary (2) CHF (congestive heart failure) (3) Esophageal stenosis Assessment & Plan: S/P stent. (4) Jejunostomy present Assessment & Plan: Continue tube feeds (5) Abdominal distension (gaseous) Assessment & Plan: CT=neg obstruction. (6) Tracheostomy care (7) Pneumonia Assessment & Plan: See ID note. Influenza neg. Await cultures. See ID note. Continue zosyn. (8) Abdominal distention Assessment & Plan: CT abdomen=no obstruction; constipation vs impaction. See GI note. (9) Constipation Status: not improved Assessment/Plan Discharge planning: [facility] CHRIS YADAV May 19, 2017 15:45
[2017-05-19 16:00] VITALS: BP 128/83
--- NOTE | 2017-05-19 16:44 | Infectious Diseases Prog Note ---
Assessment/Plan Assessment/Plan Abx: IV Vanco 05/15-05/17 IV Zosyn 05/14-05/18 Azithromycin x1 05/14 CEftriaxone 05/18- Assesment: RLL PNA; improving -CT abd/p: Right basilar infiltrate CXR: Right basal atelectasis -sp cx normal [place] -influenza neg Fever/Leukocytosis- resolved -u/a WBC 5-10, nit neg, leuk +3, ucx C. albicans (colonizer) -Bcx NTD Abd distention -CT abd/p: Distal esophageal stent presumably for esophageal CA or stricture. The esophagus is not evaluated well on this study. Right basilar infiltrate may be present. Please correlate clinically for pneumonia.Multiple low-density lesions within the liver likely cysts. G-J tube. Tiny possible gallstone. Bilateral renal cysts. Atherosclerotic vascular disease. Moderate fecal retention. Bilateral inguinal hernias containing fat. Prostate hypertrophy and calcification.L1 vertebral compression fracture probably old. Osteoporosis. 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 Will continue to follow along with you. Discussed with RN. Subjective Allergies: Coded Allergies: CODEINE (Verified Allergy, Unknown, 05/14/17) Subjective afebrile Bcx NTD Objective Vital Signs Last 24 Hour Vital Signs Date Time Temp Pulse Resp B/P (MAP) Pulse Ox O2 Delivery O2 Flow Rate FiO2 05/19/17 15:14 119 20 40 05/19/17 13:10 115 22 99 Mechanical Ventilator 40 05/19/17 13:10 115 21 40 05/19/17 13:00 94 22 99 Mechanical Ventilator 40 05/19/17 13:00 40 05/19/17 12:06 125 05/19/17 12:00 40 05/19/17 12:00 98.2 116 26 133/65 98 Mechanical Ventilator 40 05/19/17 10:43 112 26 40 05/19/17 08:54 134/65 05/19/17 08:45 116 30 40 05/19/17 08:00 98.3 116 27 134/65 97 Mechanical Ventilator 40 05/19/17 08:00 40 05/19/17 08:00 128 05/19/17 06:40 112 22 40 05/19/17 06:40 112 20 99 Mechanical Ventilator 40 05/19/17 06:30 91 20 99 Mechanical Ventilator 40 05/19/17 06:30 40 05/19/17 05:20 87 24 40 05/19/17 04:00 98.1 107 20 118/78 100 Mechanical Ventilator 40 05/19/17 04:00 40 05/19/17 04:00 120 05/19/17 03:47 89 18 40 05/19/17 01:51 85 18 99 Mechanical Ventilator 40 05/19/17 01:41 92 18 99 Mechanical Ventilator 40 05/19/17 01:41 40 05/19/17 01:40 85 18 40 05/19/17 00:00 40 05/19/17 00:00 119 05/19/17 00:00 98.4 119 22 121/74 100 Mechanical Ventilator 40 05/18/17 23:44 81 18 40 05/18/17 21:00 40 05/18/17 20:36 85 18 40 05/18/17 20:16 91 18 99 Mechanical Ventilator 40 05/18/17 20:06 112 18 99 Mechanical Ventilator 40 05/18/17 20:06 40 05/18/17 20:05 112 14 40 05/18/17 20:00 112 05/18/17 20:00 98.1 110 24 115/82 100 Mechanical Ventilator 40 05/18/17 17:10 90 23 40 Height (Feet): 6 Height (Inches): 1.00 Weight (Pounds): 204 Laboratory Tests Test 05/19/17 04:00 White Blood Count 9.3 K/UL (4.8-10.8) Red Blood Count 3.01 M/UL (4.70-6.10) L Hemoglobin 10.2 G/DL (14.2-18.0) L Hematocrit 30.5 % (42.0-52.0) L Mean Corpuscular Volume 101 FL (80-99) H Mean Corpuscular Hemoglobin 33.9 PG (27.0-31.0) H Mean Corpuscular Hemoglobin Concent 33.4 G/DL (32.0-36.0) Red Cell Distribution Width 13.4 % (11.6-14.8) Platelet Count 169 K/UL (150-450) Mean Platelet Volume 8.1 FL (6.5-10.1) Neutrophils (%) (Auto) 75.2 % (45.0-75.0) H Lymphocytes (%) (Auto) 11.4 % (20.0-45.0) L Monocytes (%) (Auto) 11.3 % (1.0-10.0) H Eosinophils (%) (Auto) 1.5 % (0.0-3.0) Basophils (%) (Auto) 0.6 % (0.0-2.0) Sodium Level 147 MMOL/L (136-145) H Potassium Level 4.1 MMOL/L (3.5-5.1) Chloride Level 113 MMOL/L (98-107) H Carbon Dioxide Level 25 MMOL/L (21-32) Anion Gap 9 (5-15) Blood Urea Nitrogen 23 mg/dL (7-18) H Creatinine 0.9 MG/DL (0.55-1.30) Estimat Glomerular Filtration Rate mL/min (>60) Glucose Level 130 MG/DL (74-106) H Calcium Level 9.1 MG/DL (8.5-10.1) Phosphorus Level 2.6 MG/DL (2.5-4.9) Magnesium Level 2.0 MG/DL (1.8-2.4) Total Bilirubin 0.3 MG/DL (0.2-1.0) Aspartate Amino Transf (AST/SGOT) 15 U/L (15-37) Alanine Aminotransferase (ALT/SGPT) 12 U/L (12-78) Alkaline Phosphatase 99 U/L (46-116) Total Protein 7.1 G/DL (6.4-8.2) Albumin 2.2 G/DL (3.4-5.0) L Globulin 4.9 g/dL Albumin/Globulin Ratio 0.4 (1.0-2.7) L Current Medications Medications (Trade) Dose Ordered Sig/Polo Route PRN Reason Start Time Stop Time Status Last Admin Dose Admin Acetaminophen (Tylenol) 650 mg Q4H PRN ORAL FEVER 05/14/17 21:45 06/13/17 21:44 05/17/17 05:39 Albuterol/ Ipratropium (DuoNeb 0.5-3(2.5)mg/3ml) 3 ml Q2H PRN HHN Shortness of Breath 05/15/17 16:00 05/19/17 21:44 05/15/17 19:22 Artificial Tears (Akwa-Tears) 1 drop Q12H PRN BOTH EYES Dry Eyes 05/15/17 15:45 06/14/17 15:44 Ascorbic Acid (Vitamin C) 500 mg DAILY GT 05/16/17 09:00 06/15/17 08:59 05/19/17 08:56 Aspirin (ASA) 81 mg DAILY GT 05/17/17 09:00 06/16/17 08:59 05/19/17 08:56 Carbidopa/Levodopa (Sinemet 25/100) 1 ea BID GT 05/15/17 18:00 06/14/17 17:59 05/19/17 08:56 Ceftriaxone Sodium 1 gm/ Dextrose 55 ml @ 110 mls/hr Q24H IVPB 05/18/17 14:00 05/25/17 13:59 05/19/17 14:10 Clonidine HCl (Catapres) 0.1 mg Q6H PRN GT FOR SBP>160 05/15/17 21:45 06/14/17 21:44 Dextrose (Dextrose 50%) STAT PRN IV Hypoglycemia 05/18/17 11:00 06/17/17 10:59 Docusate Sodium (Colace) 100 mg TWICE A DAY NG 05/17/17 09:00 06/16/17 08:59 05/18/17 09:35 Heparin Sodium (Porcine) (Heparin 5000 units/ml) 5,000 units EVERY 12 HOURS SUBQ 05/15/17 09:00 06/14/17 08:59 05/19/17 08:55 Insulin Aspart (NovoLOG) EVERY 6 HOURS SUBQ 05/19/17 00:00 06/17/17 11:29 05/19/17 11:59 Ipratropium [place] (Atrovent) 500 mcg Q6HRT HHN 05/15/17 19:00 05/20/17 18:59 05/19/17 13:21 Iron Sucrose 100 mg/Sodium Chloride 60 ml @ 240 mls/hr BEDTIME IVPB 05/16/17 21:00 05/20/17 21:14 05/18/17 21:15 Lorazepam (Ativan 2mg/ml 1ml) 2 mg EVERY 2 HOURS PRN IV For Anxiety 05/14/17 21:45 05/21/17 21:44 05/19/17 05:41 Losartan Potassium (Cozaar) 25 mg DAILY GT 05/16/17 16:15 06/15/17 16:14 05/19/17 08:54 Multivitamins (Multivitamins) 1 tab DAILY ORAL 05/16/17 09:00 06/15/17 08:59 05/19/17 08:55 Ondansetron HCl (Zofran) 4 mg Q6H PRN IVP Nausea & Vomiting 05/14/17 21:45 06/13/17 21:44 Pantoprazole (Protonix) 40 mg DAILY IV 05/15/17 09:00 06/14/17 08:59 05/19/17 08:56 Polyethylene Glycol (Miralax) 17 gm DAILY GT 05/16/17 09:00 06/15/17 08:59 05/19/17 08:56 Polyethylene Glycol (Miralax) 17 gm DAILYPRN PRN GT Constipation 05/16/17 15:45 06/13/17 21:44 Sennosides (Senokot) 8.6 mg QHS GT 05/15/17 21:00 06/14/17 20:59 05/18/17 21:15 Valery Chang M.D. May 19, 2017 16:44
[2017-05-19 20:00] VITALS: BP 126/88
[2017-05-19] MEDS: Iron Sucrose 100 MG in NS 55 ML IVPB SCH (20:39)
[2017-05-19] MEDS: Sennosides 8.6mg GT SCH (20:39)
[2017-05-20] VITALS: BP 120/80
[2017-05-20] MEDS: Ipratropium 0.02% Inh Soln 2.5ml UD HHN SCH ×3 (00:58→12:50)
[2017-05-20 04:00] VITALS: BP 100/61
[2017-05-20 04:41] LABS: BASOPHILS % (AUTO) 0.9 % (0.0-2.0); LYMPHOCYTES % (AUTO) 10.7 % (20.0-45.0); MEAN CORPUSCULAR HEMOGLOBIN 33.7 PG (27.0-31.0); MEAN CORPUSCULAR HGB CONC 33.1 G/DL (32.0-36.0); MEAN CORPUSCULAR VOLUME 102 FL (80-99); MONOCYTES % (AUTO) 9.9 % (1.0-10.0); NEUTROPHILS % (AUTO) 77.5 % (45.0-75.0); PLATELET COUNT 188 K/UL (150-450); RED BLOOD COUNT 2.89 M/UL (4.70-6.10); RED CELL DISTRIBUTION WIDTH 13.1 % (11.6-14.8); WHITE BLOOD COUNT 10.5 K/UL (4.8-10.8)
[2017-05-20] MEDS: NovoLOG Insulin Flexpen SUBQ SCH ×4 (05:24→23:49)
[2017-05-20 05:41] LABS: ANION GAP 9 (5-15); CARBON DIOXIDE 25 MMOL/L (21-32); CHLORIDE 108 MMOL/L (98-107); CREATININE 0.9 MG/DL (0.55-1.30); POTASSIUM 3.8 MMOL/L (3.5-5.1); SODIUM 141 MMOL/L (136-145)
[2017-05-20 06:11] LABS: CALCIUM 8.2 MG/DL (8.5-10.1)
[2017-05-20 08:00] VITALS: BP 120/64
[2017-05-20] MEDS ORDERED: Tubing IV Secondary IV ONE (08:00)
[2017-05-20] MEDS ORDERED: NS 275ml ONE (08:00)
[2017-05-20] MEDS: Docusate 100mg/10ml Liq NG SCH ×2 (08:53→17:44)
[2017-05-20] MEDS: Ascorbic Acid 500mg tab GT SCH (08:54)
[2017-05-20] MEDS: Sinemet 25/100 tab GT SCH ×2 (08:54→17:44)
[2017-05-20] MEDS: Losartan 25mg tab GT SCH (08:55)
[2017-05-20] MEDS: Heparin 5000 units/ml inj SUBQ SCH ×2 (08:56→20:04)
[2017-05-20] MEDS: Pantoprazole Inj IV SCH (08:58)
[2017-05-20] MEDS: Aspirin Baby 81mg GT SCH (08:58)
[2017-05-20] MEDS: Miralax 17gm pkt GT SCH (08:58)
--- NOTE | 2017-05-20 10:39 | Infectious Diseases Prog Note ---
Assessment/Plan Assessment/Plan Abx: IV Vanco 05/15-05/17 IV Zosyn 05/14-05/18 Azithromycin x1 05/14 CEftriaxone 05/18- Assesment: RLL PNA; improving -CT abd/p: Right basilar infiltrate CXR: Right basal atelectasis -sp cx normal [place] -influenza neg Fever/Leukocytosis- resolved -u/a WBC 5-10, nit neg, leuk +3, ucx C. albicans (colonizer) -Bcx Neg Abd distention -CT abd/p: Distal esophageal stent presumably for esophageal CA or stricture. The esophagus is not evaluated well on this study. Right basilar infiltrate may be present. Please correlate clinically for pneumonia.Multiple low-density lesions within the liver likely cysts. G-J tube. Tiny possible gallstone. Bilateral renal cysts. Atherosclerotic vascular disease. Moderate fecal retention. Bilateral inguinal hernias containing fat. Prostate hypertrophy and calcification.L1 vertebral compression fracture probably old. Osteoporosis. 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 Will continue to follow along with you. Discussed with RN. Subjective Allergies: Coded Allergies: CODEINE (Verified Allergy, Unknown, 05/14/17) Subjective afebrile Bcx Neg no leukocytosis Objective Vital Signs Last 24 Hour Vital Signs Date Time Temp Pulse Resp B/P (MAP) Pulse Ox O2 Delivery O2 Flow Rate FiO2 05/20/17 09:08 115 21 40 05/20/17 08:55 120/64 05/20/17 08:00 98.5 104 21 120/64 99 Mechanical Ventilator 40 05/20/17 08:00 40 05/20/17 08:00 112 05/20/17 06:40 108 25 99 Mechanical Ventilator 40 05/20/17 06:40 118 25 40 05/20/17 06:30 105 26 98 Mechanical Ventilator 40 05/20/17 06:30 40 05/20/17 04:45 110 24 40 05/20/17 04:00 40 05/20/17 04:00 130 05/20/17 04:00 98.0 114 25 100/61 100 Mechanical Ventilator 40 05/20/17 02:47 108 24 40 05/20/17 01:04 108 16 99 Mechanical Ventilator 40 05/20/17 01:04 112 22 99 Mechanical Ventilator 40 05/20/17 01:04 40 05/20/17 01:02 108 22 40 05/20/17 00:00 98.0 110 25 120/80 98 Mechanical Ventilator 40 05/20/17 00:00 127 05/20/17 00:00 40 05/19/17 23:06 112 22 40 05/19/17 21:05 120 22 40 05/19/17 20:00 40 05/19/17 20:00 98.2 118 27 126/88 100 Mechanical Ventilator 40 05/19/17 20:00 115 05/19/17 18:44 105 22 40 05/19/17 17:54 102 22 99 Mechanical Ventilator 40 05/19/17 17:45 90 12 99 Mechanical Ventilator 40 05/19/17 17:45 40 05/19/17 17:06 105 22 40 05/19/17 16:00 40 05/19/17 16:00 122 05/19/17 16:00 98.2 103 23 128/83 100 Mechanical Ventilator 40 05/19/17 15:14 119 20 40 05/19/17 13:10 115 22 99 Mechanical Ventilator 40 05/19/17 13:10 115 21 40 05/19/17 13:00 94 22 99 Mechanical Ventilator 40 05/19/17 13:00 40 05/19/17 12:06 125 05/19/17 12:00 40 05/19/17 12:00 98.2 116 26 133/65 98 Mechanical Ventilator 40 05/19/17 10:43 112 26 40 Height (Feet): 6 Height (Inches): 1.00 Weight (Pounds): 204 Laboratory Tests Test 05/20/17 02:50 White Blood Count 10.5 K/UL (4.8-10.8) Red Blood Count 2.89 M/UL (4.70-6.10) L Hemoglobin 9.7 G/DL (14.2-18.0) L Hematocrit 29.5 % (42.0-52.0) L Mean Corpuscular Volume 102 FL (80-99) H Mean Corpuscular Hemoglobin 33.7 PG (27.0-31.0) H Mean Corpuscular Hemoglobin Concent 33.1 G/DL (32.0-36.0) Red Cell Distribution Width 13.1 % (11.6-14.8) Platelet Count 188 K/UL (150-450) Mean Platelet Volume 8.0 FL (6.5-10.1) Neutrophils (%) (Auto) 77.5 % (45.0-75.0) H Lymphocytes (%) (Auto) 10.7 % (20.0-45.0) L Monocytes (%) (Auto) 9.9 % (1.0-10.0) Eosinophils (%) (Auto) 1.0 % (0.0-3.0) Basophils (%) (Auto) 0.9 % (0.0-2.0) Sodium Level 141 MMOL/L (136-145) Potassium Level 3.8 MMOL/L (3.5-5.1) Chloride Level 108 MMOL/L (98-107) H Carbon Dioxide Level 25 MMOL/L (21-32) Anion Gap 9 (5-15) Blood Urea Nitrogen 10 mg/dL (7-18) Creatinine 0.9 MG/DL (0.55-1.30) Estimat Glomerular Filtration Rate mL/min (>60) Glucose Level 129 MG/DL (74-106) H Calcium Level 8.2 MG/DL (8.5-10.1) L Current Medications Medications (Trade) Dose Ordered Sig/Polo Route PRN Reason Start Time Stop Time Status Last Admin Dose Admin Acetaminophen (Tylenol) 650 mg Q4H PRN ORAL FEVER 05/14/17 21:45 06/13/17 21:44 05/17/17 05:39 Artificial Tears (Akwa-Tears) 1 drop Q12H PRN BOTH EYES Dry Eyes 05/15/17 15:45 06/14/17 15:44 Ascorbic Acid (Vitamin C) 500 mg DAILY GT 05/16/17 09:00 06/15/17 08:59 05/20/17 08:54 Aspirin (ASA) 81 mg DAILY GT 05/17/17 09:00 06/16/17 08:59 05/20/17 08:58 Carbidopa/Levodopa (Sinemet 25/100) 1 ea BID GT 05/15/17 18:00 06/14/17 17:59 05/20/17 08:54 Ceftriaxone Sodium 1 gm/ Dextrose 55 ml @ 110 mls/hr Q24H IVPB 05/18/17 14:00 05/25/17 13:59 05/19/17 14:10 Clonidine HCl (Catapres) 0.1 mg Q6H PRN GT FOR SBP>160 05/15/17 21:45 06/14/17 21:44 Dextrose (Dextrose 50%) STAT PRN IV Hypoglycemia 05/18/17 11:00 06/17/17 10:59 Docusate Sodium (Colace) 100 mg TWICE A DAY NG 05/17/17 09:00 06/16/17 08:59 05/20/17 08:53 Heparin Sodium (Porcine) (Heparin 5000 units/ml) 5,000 units EVERY 12 HOURS SUBQ 05/15/17 09:00 06/14/17 08:59 05/20/17 08:56 Insulin Aspart (NovoLOG) EVERY 6 HOURS SUBQ 05/19/17 00:00 06/17/17 11:29 05/20/17 05:24 Ipratropium [place] (Atrovent) 500 mcg Q6HRT HHN 05/15/17 19:00 05/20/17 18:59 05/20/17 06:40 Iron Sucrose 100 mg/Sodium Chloride 60 ml @ 240 mls/hr BEDTIME IVPB 05/16/17 21:00 05/20/17 21:14 05/19/17 20:39 Lorazepam (Ativan 2mg/ml 1ml) 2 mg EVERY 2 HOURS PRN IV For Anxiety 05/14/17 21:45 05/21/17 21:44 05/19/17 05:41 Losartan Potassium (Cozaar) 25 mg DAILY GT 05/16/17 16:15 06/15/17 16:14 05/20/17 08:55 Multivitamins (Multivitamins) 1 tab DAILY ORAL 05/16/17 09:00 06/15/17 08:59 05/20/17 08:54 Ondansetron HCl (Zofran) 4 mg Q6H PRN IVP Nausea & Vomiting 05/14/17 21:45 06/13/17 21:44 Pantoprazole (Protonix) 40 mg DAILY IV 05/15/17 09:00 06/14/17 08:59 05/20/17 08:58 Polyethylene Glycol (Miralax) 17 gm DAILY GT 05/16/17 09:00 06/15/17 08:59 05/20/17 08:58 Polyethylene Glycol (Miralax) 17 gm DAILYPRN PRN GT Constipation 05/16/17 15:45 06/13/17 21:44 Sennosides (Senokot) 8.6 mg QHS GT 05/15/17 21:00 06/14/17 20:59 05/19/17 20:39 Valery Chang M.D. May 20, 2017 10:39
--- NOTE | 2017-05-20 11:51 | Internal Med Progress Note ---
Subjective Date of Service: May 20, 2017 Physician Name Chris Yadav Attending Physician Sunil Castillo MD Current Medications Medications (Trade) Dose Ordered Sig/Polo Route PRN Reason Start Time Stop Time Status Last Admin Dose Admin Acetaminophen (Tylenol) 650 mg Q4H PRN ORAL FEVER 05/14/17 21:45 06/13/17 21:44 05/17/17 05:39 Artificial Tears (Akwa-Tears) 1 drop Q12H PRN BOTH EYES Dry Eyes 05/15/17 15:45 06/14/17 15:44 Ascorbic Acid (Vitamin C) 500 mg DAILY GT 05/16/17 09:00 06/15/17 08:59 05/20/17 08:54 Aspirin (ASA) 81 mg DAILY GT 05/17/17 09:00 06/16/17 08:59 05/20/17 08:58 Carbidopa/Levodopa (Sinemet 25/100) 1 ea BID GT 05/15/17 18:00 06/14/17 17:59 05/20/17 08:54 Ceftriaxone Sodium 1 gm/ Dextrose 55 ml @ 110 mls/hr Q24H IVPB 05/18/17 14:00 05/25/17 13:59 05/19/17 14:10 Clonidine HCl (Catapres) 0.1 mg Q6H PRN GT FOR SBP>160 05/15/17 21:45 06/14/17 21:44 Dextrose (Dextrose 50%) STAT PRN IV Hypoglycemia 05/18/17 11:00 06/17/17 10:59 Docusate Sodium (Colace) 100 mg TWICE A DAY NG 05/17/17 09:00 06/16/17 08:59 05/20/17 08:53 Heparin Sodium (Porcine) (Heparin 5000 units/ml) 5,000 units EVERY 12 HOURS SUBQ 05/15/17 09:00 06/14/17 08:59 05/20/17 08:56 Insulin Aspart (NovoLOG) EVERY 6 HOURS SUBQ 05/19/17 00:00 06/17/17 11:29 05/20/17 05:24 Ipratropium [place] (Atrovent) 500 mcg Q6HRT HHN 05/15/17 19:00 05/20/17 18:59 05/20/17 06:40 Iron Sucrose 100 mg/Sodium Chloride 60 ml @ 240 mls/hr BEDTIME IVPB 05/16/17 21:00 05/20/17 21:14 05/19/17 20:39 Lorazepam (Ativan 2mg/ml 1ml) 2 mg EVERY 2 HOURS PRN IV For Anxiety 05/14/17 21:45 05/21/17 21:44 05/19/17 05:41 Losartan Potassium (Cozaar) 25 mg DAILY GT 05/16/17 16:15 06/15/17 16:14 05/20/17 08:55 Multivitamins (Multivitamins) 1 tab DAILY ORAL 05/16/17 09:00 06/15/17 08:59 05/20/17 08:54 Ondansetron HCl (Zofran) 4 mg Q6H PRN IVP Nausea & Vomiting 05/14/17 21:45 06/13/17 21:44 Pantoprazole (Protonix) 40 mg DAILY IV 05/15/17 09:00 06/14/17 08:59 05/20/17 08:58 Polyethylene Glycol (Miralax) 17 gm DAILY GT 05/16/17 09:00 06/15/17 08:59 05/20/17 08:58 Polyethylene Glycol (Miralax) 17 gm DAILYPRN PRN GT Constipation 05/16/17 15:45 06/13/17 21:44 Sennosides (Senokot) 8.6 mg QHS GT 05/15/17 21:00 06/14/17 20:59 05/19/17 20:39 Allergies: Coded Allergies: CODEINE (Verified Allergy, Unknown, 05/14/17) ROS Limited/Unobtainable: Yes Subjective 87 YO M admitted with respiratory failure. Cover for Int Med-Dr Castillo. SHILPI. Objective Last Vital Signs Date Time Temp Pulse Resp B/P (MAP) Pulse Ox O2 Delivery O2 Flow Rate FiO2 05/20/17 11:25 105 25 40 05/20/17 08:55 120/64 05/20/17 08:00 98.5 99 Mechanical Ventilator 05/18/17 04:00 40.0 Laboratory Tests Test 05/20/17 02:50 White Blood Count 10.5 K/UL (4.8-10.8) Red Blood Count 2.89 M/UL (4.70-6.10) L Hemoglobin 9.7 G/DL (14.2-18.0) L Hematocrit 29.5 % (42.0-52.0) L Mean Corpuscular Volume 102 FL (80-99) H Mean Corpuscular Hemoglobin 33.7 PG (27.0-31.0) H Mean Corpuscular Hemoglobin Concent 33.1 G/DL (32.0-36.0) Red Cell Distribution Width 13.1 % (11.6-14.8) Platelet Count 188 K/UL (150-450) Mean Platelet Volume 8.0 FL (6.5-10.1) Neutrophils (%) (Auto) 77.5 % (45.0-75.0) H Lymphocytes (%) (Auto) 10.7 % (20.0-45.0) L Monocytes (%) (Auto) 9.9 % (1.0-10.0) Eosinophils (%) (Auto) 1.0 % (0.0-3.0) Basophils (%) (Auto) 0.9 % (0.0-2.0) Sodium Level 141 MMOL/L (136-145) Potassium Level 3.8 MMOL/L (3.5-5.1) Chloride Level 108 MMOL/L (98-107) H Carbon Dioxide Level 25 MMOL/L (21-32) Anion Gap 9 (5-15) Blood Urea Nitrogen 10 mg/dL (7-18) Creatinine 0.9 MG/DL (0.55-1.30) Estimat Glomerular Filtration Rate mL/min (>60) Glucose Level 129 MG/DL (74-106) H Calcium Level 8.2 MG/DL (8.5-10.1) L Objective General Appearance: WD/WN, moderate distress, lethargic EENT: normal ENT inspection Neck: non-tender, normal alignment, supple, other - tracheostomy Cardiovascular: normal peripheral pulses, normal rate, regular rhythm, no gallop/murmur, no JVD Respiratory/Chest: Mech vent; respiratory distress, crackles/rales, rhonchi - bilaterally, expiratory wheezing Abdomen: normal bowel sounds, non tender, soft, no organomegaly, no mass, distended Skin: normal pigmentation, warm/dry Assessment/Plan Problem List: (1) Respiratory failure Assessment & Plan: See pulmonary note. Cont mech vent per pulmonary (2) CHF (congestive heart failure) (3) Esophageal stenosis Assessment & Plan: S/P stent. (4) Jejunostomy present Assessment & Plan: Continue tube feeds (5) Abdominal distension (gaseous) Assessment & Plan: CT=neg obstruction. (6) Tracheostomy care (7) Pneumonia Assessment & Plan: See ID note. Influenza neg. Await cultures. See ID note. Continue zosyn. (8) Abdominal distention Assessment & Plan: CT abdomen=no obstruction; constipation vs impaction. See GI note. (9) Constipation Status: progressing Assessment/Plan Discharge planning: [facility] intermediate fac CHRIS YADAV May 20, 2017 11:51
[2017-05-20 12:00] VITALS: BP 138/73
[2017-05-20 13:34] LABS: OTHERS PATHOLOGIST COMMENT
[2017-05-20] MEDS: cefTRIAXone 1 GM in D5W 55 ML IVPB SCH (14:18)
--- NOTE | 2017-05-20 15:57 | GI Progress Note ---
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 SNOMED: 193626115, 509477095 (2) Abdominal distension (gaseous) ICD Codes: R14.0 - Abdominal distension (gaseous) SNOMED: 240850899 (3) Hypoalbuminemia ICD Codes: E88.09 - Other disorders of plasma-protein metabolism, not elsewhere classified SNOMED: 892263769 (4) Fecal impaction ICD Codes: K56.41 - Fecal impaction SNOMED: 64259636 (5) Jejunostomy present ICD Codes: Z93.4 - Other artificial openings of gastrointestinal tract status SNOMED: 680915379 (6) Respiratory failure ICD Codes: J96.90 - Respiratory failure, unspecified, unspecified whether with hypoxia or hypercapnia SNOMED: 694433915 (7) Anemia ICD Codes: D64.9 - Anemia, unspecified SNOMED: 433118134 Status: stable Status Narrative Discussed with Dr. Herbert. Assessment/Plan CT AP reviewed >> see full report. 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 - Right basilar infiltrate may be present. Please correlate clinically for pneumonia. - Moderate fecal retention Macrocytic, Hyperchromic anemia OB stool negative abdominal distention >> improved ok for DC per GI standpoint GTFs per dietary colace iron deficient >> venofer must turn q 2-4 hours to promote GI motility repeat stool ob ppi daily DM control Subjective Subjective limited Objective Last 24 Hour Vital Signs Date Time Temp Pulse Resp B/P (MAP) Pulse Ox O2 Delivery O2 Flow Rate FiO2 05/20/17 15:10 115 23 40 05/20/17 12:50 110 20 40 05/20/17 12:50 110 20 99 Mechanical Ventilator 40 05/20/17 12:48 114 05/20/17 12:40 112 21 98 Mechanical Ventilator 40 05/20/17 12:40 40 05/20/17 12:00 40 05/20/17 12:00 99.2 111 24 138/73 99 Mechanical Ventilator 40 05/20/17 11:25 105 25 40 05/20/17 09:08 115 21 40 05/20/17 08:55 120/64 05/20/17 08:00 98.5 104 21 120/64 99 Mechanical Ventilator 40 05/20/17 08:00 40 05/20/17 08:00 112 05/20/17 06:40 108 25 99 Mechanical Ventilator 40 05/20/17 06:40 118 25 40 05/20/17 06:30 105 26 98 Mechanical Ventilator 40 05/20/17 06:30 40 05/20/17 04:45 110 24 40 05/20/17 04:00 40 05/20/17 04:00 130 05/20/17 04:00 98.0 114 25 100/61 100 Mechanical Ventilator 40 05/20/17 02:47 108 24 40 05/20/17 01:04 108 16 99 Mechanical Ventilator 40 05/20/17 01:04 112 22 99 Mechanical Ventilator 40 05/20/17 01:04 40 05/20/17 01:02 108 22 40 05/20/17 00:00 98.0 110 25 120/80 98 Mechanical Ventilator 40 05/20/17 00:00 127 05/20/17 00:00 40 05/19/17 23:06 112 22 40 05/19/17 21:05 120 22 40 05/19/17 20:00 40 05/19/17 20:00 98.2 118 27 126/88 100 Mechanical Ventilator 40 05/19/17 20:00 115 05/19/17 18:44 105 22 40 05/19/17 17:54 102 22 99 Mechanical Ventilator 40 05/19/17 17:45 90 12 99 Mechanical Ventilator 40 05/19/17 17:45 40 05/19/17 17:06 105 22 40 05/19/17 16:00 40 05/19/17 16:00 122 05/19/17 16:00 98.2 103 23 128/83 100 Mechanical Ventilator 40 Intake and Output 05/20/17 05/21/17 19:00 07:00 Intake Total 520 ml Balance 520 ml Free Water 100 ml Tube Feeding 420 ml Laboratory Tests Test 05/20/17 02:50 White Blood Count 10.5 K/UL (4.8-10.8) Red Blood Count 2.89 M/UL (4.70-6.10) L Hemoglobin 9.7 G/DL (14.2-18.0) L Hematocrit 29.5 % (42.0-52.0) L Mean Corpuscular Volume 102 FL (80-99) H Mean Corpuscular Hemoglobin 33.7 PG (27.0-31.0) H Mean Corpuscular Hemoglobin Concent 33.1 G/DL (32.0-36.0) Red Cell Distribution Width 13.1 % (11.6-14.8) Platelet Count 188 K/UL (150-450) Mean Platelet Volume 8.0 FL (6.5-10.1) Neutrophils (%) (Auto) 77.5 % (45.0-75.0) H Lymphocytes (%) (Auto) 10.7 % (20.0-45.0) L Monocytes (%) (Auto) 9.9 % (1.0-10.0) Eosinophils (%) (Auto) 1.0 % (0.0-3.0) Basophils (%) (Auto) 0.9 % (0.0-2.0) Sodium Level 141 MMOL/L (136-145) Potassium Level 3.8 MMOL/L (3.5-5.1) Chloride Level 108 MMOL/L (98-107) H Carbon Dioxide Level 25 MMOL/L (21-32) Anion Gap 9 (5-15) Blood Urea Nitrogen 10 mg/dL (7-18) Creatinine 0.9 MG/DL (0.55-1.30) Estimat Glomerular Filtration Rate mL/min (>60) Glucose Level 129 MG/DL (74-106) H Calcium Level 8.2 MG/DL (8.5-10.1) L Height (Feet): 6 Height (Inches): 1.00 Weight (Pounds): 204 General Appearance: no apparent distress Cardiovascular: normal rate Respiratory/Chest: other - mech vent Abdominal Exam: distended - soft Emma Ortiz N.P. May 20, 2017 15:57
[2017-05-20 16:00] VITALS: BP 126/76
[2017-05-20 20:00] VITALS: BP 123/68
[2017-05-20] MEDS: Iron Sucrose 100 MG in NS 55 ML IVPB SCH (20:03)
[2017-05-20] MEDS: Sennosides 8.6mg GT SCH (20:04)
[2017-05-21] VITALS: BP 136/64
[2017-05-21 04:00] VITALS: BP 136/64
[2017-05-21] MEDS: NovoLOG Insulin Flexpen SUBQ SCH ×4 (05:08→23:40)
[2017-05-21 07:05] LABS: ANION GAP 7 (5-15); CARBON DIOXIDE 27 MMOL/L (21-32); CHLORIDE 108 MMOL/L (98-107); CREATININE 0.9 MG/DL (0.55-1.30); POTASSIUM 4.1 MMOL/L (3.5-5.1); SODIUM 142 MMOL/L (136-145)
[2017-05-21 07:06] LABS: BASOPHILS % (AUTO) 0.9 % (0.0-2.0); EOSINOPHILS % (AUTO) 5.3 % (0.0-3.0); LYMPHOCYTES % (AUTO) 20.9 % (20.0-45.0); MEAN CORPUSCULAR HEMOGLOBIN 32.9 PG (27.0-31.0); MEAN CORPUSCULAR HGB CONC 32.1 G/DL (32.0-36.0); MEAN CORPUSCULAR VOLUME 103 FL (80-99); MEAN PLATELET VOLUME 7.7 FL (6.5-10.1); MONOCYTES % (AUTO) 9.6 % (1.0-10.0); NEUTROPHILS % (AUTO) 63.3 % (45.0-75.0); PLATELET COUNT 182 K/UL (150-450); RED BLOOD COUNT 3.03 M/UL (4.70-6.10); RED CELL DISTRIBUTION WIDTH 13.7 % (11.6-14.8); WHITE BLOOD COUNT 7.8 K/UL (4.8-10.8)
[2017-05-21 08:00] VITALS: BP 114/73
[2017-05-21] MEDS: Miralax 17gm pkt GT SCH (09:09)
[2017-05-21] MEDS: Pantoprazole Inj IV SCH (09:09)
[2017-05-21] MEDS: Ascorbic Acid 500mg tab GT SCH (09:10)
[2017-05-21] MEDS: Docusate 100mg/10ml Liq NG SCH ×2 (09:10→18:00)
[2017-05-21] MEDS: Losartan 25mg tab GT SCH (09:10)
[2017-05-21] MEDS: Aspirin Baby 81mg GT SCH (09:10)
[2017-05-21] MEDS: Sinemet 25/100 tab GT SCH ×2 (09:10→18:39)
[2017-05-21] MEDS: Heparin 5000 units/ml inj SUBQ SCH ×2 (09:11→20:22)
[2017-05-21 12:00] VITALS: BP 103/71
--- NOTE | 2017-05-21 12:20 | GI Progress Note ---
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 SNOMED: 293308861, 542130523 (2) Abdominal distension (gaseous) ICD Codes: R14.0 - Abdominal distension (gaseous) SNOMED: 964009624 (3) Hypoalbuminemia ICD Codes: E88.09 - Other disorders of plasma-protein metabolism, not elsewhere classified SNOMED: 590823122 (4) Fecal impaction ICD Codes: K56.41 - Fecal impaction SNOMED: 05830560 (5) Jejunostomy present ICD Codes: Z93.4 - Other artificial openings of gastrointestinal tract status SNOMED: 558656521 (6) Respiratory failure ICD Codes: J96.90 - Respiratory failure, unspecified, unspecified whether with hypoxia or hypercapnia SNOMED: 444167801 (7) Anemia ICD Codes: D64.9 - Anemia, unspecified SNOMED: 220608513 Status: stable Status Narrative Discussed with Dr. Herbert. Assessment/Plan CT AP reviewed >> see full report. 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 - Right basilar infiltrate may be present. Please correlate clinically for pneumonia. - Moderate fecal retention Macrocytic, Hyperchromic anemia OB stool negative x 2 abdominal distention >> improved ok for DC per GI standpoint GTFs per dietary colace iron deficient >> venofer must turn q 2-4 hours to promote GI motility ppi daily DM control Subjective Subjective limited Objective Last 24 Hour Vital Signs Date Time Temp Pulse Resp B/P (MAP) Pulse Ox O2 Delivery O2 Flow Rate FiO2 05/21/17 11:14 102 27 40 05/21/17 09:13 98 23 40 05/21/17 09:10 114/73 05/21/17 08:00 97.5 98 16 114/73 99 Mechanical Ventilator 40 05/21/17 08:00 111 05/21/17 07:55 107 05/21/17 07:55 40 05/21/17 07:18 92 18 40 05/21/17 05:18 117 19 40 05/21/17 04:00 111 05/21/17 04:00 97.9 99 16 136/64 99 Mechanical Ventilator 40 05/21/17 04:00 40 05/21/17 03:00 110 23 40 05/21/17 01:40 114 18 40 05/21/17 00:18 115 31 40 05/21/17 00:00 40 05/21/17 00:00 99 05/21/17 00:00 97.7 72 18 136/64 99 Mechanical Ventilator 40 05/20/17 21:00 108 20 40 05/20/17 20:52 86 21 Mechanical Ventilator 40 05/20/17 20:00 40 05/20/17 20:00 97.3 71 20 123/68 100 Mechanical Ventilator 40 05/20/17 20:00 126 05/20/17 19:15 110 21 40 05/20/17 17:01 112 19 40 05/20/17 16:00 40 05/20/17 16:00 97.7 92 28 126/76 99 Mechanical Ventilator 40 05/20/17 16:00 122 05/20/17 15:10 115 23 40 05/20/17 12:50 110 20 40 05/20/17 12:50 110 20 99 Mechanical Ventilator 40 05/20/17 12:48 114 05/20/17 12:40 112 21 98 Mechanical Ventilator 40 05/20/17 12:40 40 Laboratory Tests Test 05/21/17 03:20 White Blood Count 7.8 K/UL (4.8-10.8) Red Blood Count 3.03 M/UL (4.70-6.10) L Hemoglobin 10.0 G/DL (14.2-18.0) L Hematocrit 31.1 % (42.0-52.0) L Mean Corpuscular Volume 103 FL (80-99) H Mean Corpuscular Hemoglobin 32.9 PG (27.0-31.0) H Mean Corpuscular Hemoglobin Concent 32.1 G/DL (32.0-36.0) Red Cell Distribution Width 13.7 % (11.6-14.8) Platelet Count 182 K/UL (150-450) Mean Platelet Volume 7.7 FL (6.5-10.1) Neutrophils (%) (Auto) 63.3 % (45.0-75.0) Lymphocytes (%) (Auto) 20.9 % (20.0-45.0) Monocytes (%) (Auto) 9.6 % (1.0-10.0) Eosinophils (%) (Auto) 5.3 % (0.0-3.0) H Basophils (%) (Auto) 0.9 % (0.0-2.0) Sodium Level 142 MMOL/L (136-145) Potassium Level 4.1 MMOL/L (3.5-5.1) Chloride Level 108 MMOL/L (98-107) H Carbon Dioxide Level 27 MMOL/L (21-32) Anion Gap 7 (5-15) Blood Urea Nitrogen 25 mg/dL (7-18) H Creatinine 0.9 MG/DL (0.55-1.30) Estimat Glomerular Filtration Rate mL/min (>60) Glucose Level 102 MG/DL (74-106) Calcium Level 9.0 MG/DL (8.5-10.1) Height (Feet): 6 Height (Inches): 1.00 Weight (Pounds): 204 General Appearance: no apparent distress, alert Cardiovascular: normal rate Respiratory/Chest: normal breath sounds, no respiratory distress Abdominal Exam: normal bowel sounds, non tender, soft, distended Emma Ortiz N.P. May 21, 2017 12:20
--- NOTE | 2017-05-21 13:47 | Pulmonology Progress Note ---
Assessment/Plan Problems: (1) Respiratory distress (2) Sepsis (3) Pneumonia (4) Tracheostomy status (5) Feeding by G-tube (6) Tracheostomy care (7) Jejunostomy tube leak Respiratory: monitor respiratory rate, adjust FIO2 Cardiac: continue to monitor HR/BP Renal: check electrolytes Infectious Disease: check cultures, continue antibiotics Gastrointestinal: hold feedings Endocrine: monitor blood sugar, check HgA1C, continue sliding scale insulin Hematologic: monitor H/H, transfuse if hgb<8.5 Neurologic: PRN Ativan, PRN Morphine, keep patient comfortable Affect: PRN ativan Time Spent (Minutes): 40 Notes Reviewed: cardio Discussed with: nurses, consultants, case therapist Subjective ROS Limited/Unobtainable: No Constitutional: Reports: no symptoms HEENT: Repors: no symptoms Respiratory: Reports: no symptoms Allergies: Coded Allergies: CODEINE (Verified Allergy, Unknown, 05/14/17) Objective Last 24 Hour Vital Signs Date Time Temp Pulse Resp B/P (MAP) Pulse Ox O2 Delivery O2 Flow Rate FiO2 05/21/17 12:00 40 05/21/17 12:00 97.5 102 17 103/71 99 Mechanical Ventilator 40 05/21/17 12:00 98 05/21/17 11:14 102 27 40 05/21/17 09:13 98 23 40 05/21/17 09:10 114/73 05/21/17 08:00 97.5 98 16 114/73 99 Mechanical Ventilator 40 05/21/17 08:00 111 05/21/17 07:55 107 05/21/17 07:55 40 05/21/17 07:18 92 18 40 05/21/17 05:18 117 19 40 05/21/17 04:00 111 05/21/17 04:00 97.9 99 16 136/64 99 Mechanical Ventilator 40 05/21/17 04:00 40 05/21/17 03:00 110 23 40 05/21/17 01:40 114 18 40 05/21/17 00:18 115 31 40 05/21/17 00:00 40 05/21/17 00:00 99 05/21/17 00:00 97.7 72 18 136/64 99 Mechanical Ventilator 40 05/20/17 21:00 108 20 40 05/20/17 20:52 86 21 Mechanical Ventilator 40 05/20/17 20:00 40 05/20/17 20:00 97.3 71 20 123/68 100 Mechanical Ventilator 40 05/20/17 20:00 126 05/20/17 19:15 110 21 40 05/20/17 17:01 112 19 40 05/20/17 16:00 40 05/20/17 16:00 97.7 92 28 126/76 99 Mechanical Ventilator 40 05/20/17 16:00 122 05/20/17 15:10 115 23 40 General Appearance: WD/WN, no acute distress HEENT: normocephalic Respiratory/Chest: chest wall non-tender, lungs clear Cardiovascular: normal peripheral pulses, normal rate Abdomen: normal bowel sounds, soft, non tender Genitourinary: normal external genitalia Extremities: no cyanosis Skin: no ulcers Neurologic/Psychiatric: 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 grossly normal, no motor/sensory deficits Lymphatic: no neck adenopathy Laboratory Tests 05/21/17 03:20: White Blood Count 7.8, Red Blood Count 3.03L, Hemoglobin 10.0L, Hematocrit 31.1L , Mean Corpuscular Volume 103H, Mean Corpuscular Hemoglobin 32.9H, Mean Corpuscular Hemoglobin Concent 32.1, Red Cell Distribution Width 13.7, Platelet Count 182, Mean Platelet Volume 7.7, Neutrophils (%) (Auto) 63.3, Lymphocytes (% ) (Auto) 20.9, Monocytes (%) (Auto) 9.6, Eosinophils (%) (Auto) 5.3H, Basophils (%) (Auto) 0.9, Sodium Level 142, Potassium Level 4.1, Chloride Level 108H, Carbon Dioxide Level 27, Anion Gap 7, Blood Urea Nitrogen 25H, Creatinine 0.9, Estimat Glomerular Filtration Rate , Glucose Level 102, Calcium Level 9.0 Current Medications Medications (Trade) Dose Ordered Sig/Polo Route PRN Reason Start Time Stop Time Status Last Admin Dose Admin Acetaminophen (Tylenol) 650 mg Q4H PRN ORAL FEVER 05/14/17 21:45 06/13/17 21:44 05/17/17 05:39 Artificial Tears (Akwa-Tears) 1 drop Q12H PRN BOTH EYES Dry Eyes 05/15/17 15:45 06/14/17 15:44 Ascorbic Acid (Vitamin C) 500 mg DAILY GT 05/16/17 09:00 06/15/17 08:59 05/21/17 09:10 Aspirin (ASA) 81 mg DAILY GT 05/17/17 09:00 06/16/17 08:59 05/21/17 09:10 Carbidopa/Levodopa (Sinemet 25/100) 1 ea BID GT 05/15/17 18:00 06/14/17 17:59 05/21/17 09:10 Ceftriaxone Sodium 1 gm/ Dextrose 55 ml @ 110 mls/hr Q24H IVPB 05/18/17 14:00 05/25/17 13:59 05/20/17 14:18 Clonidine HCl (Catapres) 0.1 mg Q6H PRN GT FOR SBP>160 05/15/17 21:45 06/14/17 21:44 Dextrose (Dextrose 50%) STAT PRN IV Hypoglycemia 05/18/17 11:00 06/17/17 10:59 Docusate Sodium (Colace) 100 mg TWICE A DAY NG 05/17/17 09:00 06/16/17 08:59 05/21/17 09:10 Heparin Sodium (Porcine) (Heparin 5000 units/ml) 5,000 units EVERY 12 HOURS SUBQ 05/15/17 09:00 06/14/17 08:59 05/21/17 09:11 Insulin Aspart (NovoLOG) EVERY 6 HOURS SUBQ 05/19/17 00:00 06/17/17 11:29 05/21/17 05:08 Lorazepam (Ativan 2mg/ml 1ml) 2 mg EVERY 2 HOURS PRN IV For Anxiety 05/14/17 21:45 05/21/17 21:44 05/19/17 05:41 Losartan Potassium (Cozaar) 25 mg DAILY GT 05/16/17 16:15 06/15/17 16:14 05/21/17 09:10 Multivitamins (Multivitamins) 1 tab DAILY ORAL 05/16/17 09:00 06/15/17 08:59 05/21/17 09:10 Ondansetron HCl (Zofran) 4 mg Q6H PRN IVP Nausea & Vomiting 05/14/17 21:45 06/13/17 21:44 Pantoprazole (Protonix) 40 mg DAILY IV 05/15/17 09:00 06/14/17 08:59 05/21/17 09:09 Polyethylene Glycol (Miralax) 17 gm DAILY GT 05/16/17 09:00 06/15/17 08:59 05/21/17 09:09 Polyethylene Glycol (Miralax) 17 gm DAILYPRN PRN GT Constipation 05/16/17 15:45 06/13/17 21:44 Sennosides (Senokot) 8.6 mg QHS GT 05/15/17 21:00 06/14/17 20:59 05/20/17 20:04 TEMI MELENDEZ May 21, 2017 13:47
[2017-05-21 16:00] VITALS: BP 123/71
--- NOTE | 2017-05-21 16:19 | Internal Med Progress Note ---
Subjective Physician Name SandeeChris Attending Physician Sunil Castillo MD Current Medications Medications (Trade) Dose Ordered Sig/Polo Route PRN Reason Start Time Stop Time Status Last Admin Dose Admin Acetaminophen (Tylenol) 650 mg Q4H PRN ORAL FEVER 05/14/17 21:45 06/13/17 21:44 05/17/17 05:39 Artificial Tears (Akwa-Tears) 1 drop Q12H PRN BOTH EYES Dry Eyes 05/15/17 15:45 06/14/17 15:44 Ascorbic Acid (Vitamin C) 500 mg DAILY GT 05/16/17 09:00 06/15/17 08:59 05/21/17 09:10 Aspirin (ASA) 81 mg DAILY GT 05/17/17 09:00 06/16/17 08:59 05/21/17 09:10 Carbidopa/Levodopa (Sinemet 25/100) 1 ea BID GT 05/15/17 18:00 06/14/17 17:59 05/21/17 09:10 Ceftriaxone Sodium 1 gm/ Dextrose 55 ml @ 110 mls/hr Q24H IVPB 05/18/17 14:00 05/25/17 13:59 05/20/17 14:18 Clonidine HCl (Catapres) 0.1 mg Q6H PRN GT FOR SBP>160 05/15/17 21:45 06/14/17 21:44 Dextrose (Dextrose 50%) STAT PRN IV Hypoglycemia 05/18/17 11:00 06/17/17 10:59 Docusate Sodium (Colace) 100 mg TWICE A DAY NG 05/17/17 09:00 06/16/17 08:59 05/21/17 09:10 Heparin Sodium (Porcine) (Heparin 5000 units/ml) 5,000 units EVERY 12 HOURS SUBQ 05/15/17 09:00 06/14/17 08:59 05/21/17 09:11 Insulin Aspart (NovoLOG) EVERY 6 HOURS SUBQ 05/19/17 00:00 06/17/17 11:29 05/21/17 05:08 Lorazepam (Ativan 2mg/ml 1ml) 2 mg EVERY 2 HOURS PRN IV For Anxiety 05/14/17 21:45 05/21/17 21:44 05/19/17 05:41 Losartan Potassium (Cozaar) 25 mg DAILY GT 05/16/17 16:15 06/15/17 16:14 05/21/17 09:10 Multivitamins (Multivitamins) 1 tab DAILY ORAL 05/16/17 09:00 06/15/17 08:59 05/21/17 09:10 Ondansetron HCl (Zofran) 4 mg Q6H PRN IVP Nausea & Vomiting 05/14/17 21:45 06/13/17 21:44 Pantoprazole (Protonix) 40 mg DAILY IV 05/15/17 09:00 06/14/17 08:59 05/21/17 09:09 Polyethylene Glycol (Miralax) 17 gm DAILY GT 05/16/17 09:00 06/15/17 08:59 05/21/17 09:09 Polyethylene Glycol (Miralax) 17 gm DAILYPRN PRN GT Constipation 05/16/17 15:45 06/13/17 21:44 Sennosides (Senokot) 8.6 mg QHS GT 05/15/17 21:00 06/14/17 20:59 05/20/17 20:04 Allergies: Coded Allergies: CODEINE (Verified Allergy, Unknown, 05/14/17) Subjective 87 YO M admitted with respiratory failure. Cover for Int Med-Dr Castillo. SHILPI. Objective Last Vital Signs Date Time Temp Pulse Resp B/P (MAP) Pulse Ox O2 Delivery O2 Flow Rate FiO2 05/21/17 15:05 94 27 40 05/21/17 12:00 97.5 103/71 99 Mechanical Ventilator 05/18/17 04:00 40.0 Laboratory Tests Test 05/21/17 03:20 White Blood Count 7.8 K/UL (4.8-10.8) Red Blood Count 3.03 M/UL (4.70-6.10) L Hemoglobin 10.0 G/DL (14.2-18.0) L Hematocrit 31.1 % (42.0-52.0) L Mean Corpuscular Volume 103 FL (80-99) H Mean Corpuscular Hemoglobin 32.9 PG (27.0-31.0) H Mean Corpuscular Hemoglobin Concent 32.1 G/DL (32.0-36.0) Red Cell Distribution Width 13.7 % (11.6-14.8) Platelet Count 182 K/UL (150-450) Mean Platelet Volume 7.7 FL (6.5-10.1) Neutrophils (%) (Auto) 63.3 % (45.0-75.0) Lymphocytes (%) (Auto) 20.9 % (20.0-45.0) Monocytes (%) (Auto) 9.6 % (1.0-10.0) Eosinophils (%) (Auto) 5.3 % (0.0-3.0) H Basophils (%) (Auto) 0.9 % (0.0-2.0) Sodium Level 142 MMOL/L (136-145) Potassium Level 4.1 MMOL/L (3.5-5.1) Chloride Level 108 MMOL/L (98-107) H Carbon Dioxide Level 27 MMOL/L (21-32) Anion Gap 7 (5-15) Blood Urea Nitrogen 25 mg/dL (7-18) H Creatinine 0.9 MG/DL (0.55-1.30) Estimat Glomerular Filtration Rate mL/min (>60) Glucose Level 102 MG/DL (74-106) Calcium Level 9.0 MG/DL (8.5-10.1) Objective General Appearance: WD/WN, moderate distress, lethargic EENT: normal ENT inspection Neck: non-tender, normal alignment, supple, other - tracheostomy Cardiovascular: normal peripheral pulses, normal rate, regular rhythm, no gallop/murmur, no JVD Respiratory/Chest: Mech vent; respiratory distress, crackles/rales, rhonchi - bilaterally, expiratory wheezing Abdomen: normal bowel sounds, non tender, soft, no organomegaly, no mass, distended Skin: normal pigmentation, warm/dry Assessment/Plan Problem List: (1) Respiratory failure Assessment & Plan: See pulmonary note. Cont mech vent per pulmonary (2) CHF (congestive heart failure) (3) Esophageal stenosis Assessment & Plan: S/P stent. (4) Jejunostomy present Assessment & Plan: Continue tube feeds (5) Abdominal distension (gaseous) Assessment & Plan: CT=neg obstruction. (6) Tracheostomy care (7) Pneumonia Assessment & Plan: See ID note. Influenza neg. Await cultures. See ID note. D/C ceftriaxone. (8) Abdominal distention Assessment & Plan: CT abdomen=no obstruction; constipation vs impaction. See GI note. (9) Constipation Status: stable Assessment/Plan Discharge planning: [facility] nursing [facility] 05/22/17 CHRIS YADAV May 21, 2017 16:19
[2017-05-21] MEDS: cefTRIAXone 1 GM in D5W 55 ML IVPB SCH (16:50)
--- NOTE | 2017-05-21 17:27 | Infectious Diseases Prog Note ---
Assessment/Plan Assessment/Plan Abx: IV Vanco /-05/17 IV Zosyn 05/14-05/18 Azithromycin x1 05/14 CEftriaxone 05/18- Assesment: RLL PNA; improving; s/p RX -CT abd/p: Right basilar infiltrate CXR: Right basal atelectasis -sp cx normal lawrence -influenza neg Fever/Leukocytosis- resolved -u/a WBC 5-10, nit neg, leuk +3, ucx C. albicans (colonizer) -Bcx Neg Abd distention -CT abd/p: Distal esophageal stent presumably for esophageal CA or stricture. The esophagus is not evaluated well on this study. Right basilar infiltrate may be present. Please correlate clinically for pneumonia.Multiple low-density lesions within the liver likely cysts. G-J tube. Tiny possible gallstone. Bilateral renal cysts. Atherosclerotic vascular disease. Moderate fecal retention. Bilateral inguinal hernias containing fat. Prostate hypertrophy and calcification.L1 vertebral compression fracture probably old. Osteoporosis. 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 Will continue to follow along with you. Discussed with RN. Subjective Allergies: Coded Allergies: CODEINE (Verified Allergy, Unknown, 05/14/17) Subjective afebrile Bcx Neg no leukocytosis Objective Vital Signs Last 24 Hour Vital Signs Date Time Temp Pulse Resp B/P (MAP) Pulse Ox O2 Delivery O2 Flow Rate FiO2 05/21/17 16:00 97.7 115 19 123/71 100 Mechanical Ventilator 40 05/21/17 16:00 120 05/21/17 16:00 40 05/21/17 15:05 94 27 40 05/21/17 13:06 98 26 40 05/21/17 12:00 40 05/21/17 12:00 97.5 102 17 103/71 99 Mechanical Ventilator 40 05/21/17 12:00 98 05/21/17 11:14 102 27 40 05/21/17 09:13 98 23 40 05/21/17 09:10 114/73 05/21/17 08:00 97.5 98 16 114/73 99 Mechanical Ventilator 40 05/21/17 08:00 111 05/21/17 07:55 107 05/21/17 07:55 40 05/21/17 07:18 92 18 40 05/21/17 05:18 117 19 40 05/21/17 04:00 111 05/21/17 04:00 97.9 99 16 136/64 99 Mechanical Ventilator 40 05/21/17 04:00 40 05/21/17 03:00 110 23 40 05/21/17 01:40 114 18 40 05/21/17 00:18 115 31 40 05/21/17 00:00 40 05/21/17 00:00 99 05/21/17 00:00 97.7 72 18 136/64 99 Mechanical Ventilator 40 05/20/17 21:00 108 20 40 05/20/17 20:52 86 21 Mechanical Ventilator 40 05/20/17 20:00 40 05/20/17 20:00 97.3 71 20 123/68 100 Mechanical Ventilator 40 05/20/17 20:00 126 05/20/17 19:15 110 21 40 Height (Feet): 6 Height (Inches): 1.00 Weight (Pounds): 204 Laboratory Tests Test 05/21/17 03:20 White Blood Count 7.8 K/UL (4.8-10.8) Red Blood Count 3.03 M/UL (4.70-6.10) L Hemoglobin 10.0 G/DL (14.2-18.0) L Hematocrit 31.1 % (42.0-52.0) L Mean Corpuscular Volume 103 FL (80-99) H Mean Corpuscular Hemoglobin 32.9 PG (27.0-31.0) H Mean Corpuscular Hemoglobin Concent 32.1 G/DL (32.0-36.0) Red Cell Distribution Width 13.7 % (11.6-14.8) Platelet Count 182 K/UL (150-450) Mean Platelet Volume 7.7 FL (6.5-10.1) Neutrophils (%) (Auto) 63.3 % (45.0-75.0) Lymphocytes (%) (Auto) 20.9 % (20.0-45.0) Monocytes (%) (Auto) 9.6 % (1.0-10.0) Eosinophils (%) (Auto) 5.3 % (0.0-3.0) H Basophils (%) (Auto) 0.9 % (0.0-2.0) Sodium Level 142 MMOL/L (136-145) Potassium Level 4.1 MMOL/L (3.5-5.1) Chloride Level 108 MMOL/L (98-107) H Carbon Dioxide Level 27 MMOL/L (21-32) Anion Gap 7 (5-15) Blood Urea Nitrogen 25 mg/dL (7-18) H Creatinine 0.9 MG/DL (0.55-1.30) Estimat Glomerular Filtration Rate mL/min (>60) Glucose Level 102 MG/DL (74-106) Calcium Level 9.0 MG/DL (8.5-10.1) Current Medications Medications (Trade) Dose Ordered Sig/Polo Route PRN Reason Start Time Stop Time Status Last Admin Dose Admin Acetaminophen (Tylenol) 650 mg Q4H PRN ORAL FEVER 05/14/17 21:45 06/13/17 21:44 05/17/17 05:39 Artificial Tears (Akwa-Tears) 1 drop Q12H PRN BOTH EYES Dry Eyes 05/15/17 15:45 06/14/17 15:44 Ascorbic Acid (Vitamin C) 500 mg DAILY GT 05/16/17 09:00 06/15/17 08:59 05/21/17 09:10 Aspirin (ASA) 81 mg DAILY GT 05/17/17 09:00 06/16/17 08:59 05/21/17 09:10 Carbidopa/Levodopa (Sinemet 25/100) 1 ea BID GT 05/15/17 18:00 06/14/17 17:59 05/21/17 09:10 Ceftriaxone Sodium 1 gm/ Dextrose 55 ml @ 110 mls/hr Q24H IVPB 05/18/17 14:00 05/25/17 13:59 05/21/17 16:50 Clonidine HCl (Catapres) 0.1 mg Q6H PRN GT FOR SBP>160 05/15/17 21:45 06/14/17 21:44 Dextrose (Dextrose 50%) STAT PRN IV Hypoglycemia 05/18/17 11:00 06/17/17 10:59 Docusate Sodium (Colace) 100 mg TWICE A DAY NG 05/17/17 09:00 06/16/17 08:59 05/21/17 09:10 Heparin Sodium (Porcine) (Heparin 5000 units/ml) 5,000 units EVERY 12 HOURS SUBQ 05/15/17 09:00 06/14/17 08:59 05/21/17 09:11 Insulin Aspart (NovoLOG) EVERY 6 HOURS SUBQ 05/19/17 00:00 06/17/17 11:29 05/21/17 05:08 Lorazepam (Ativan 2mg/ml 1ml) 2 mg EVERY 2 HOURS PRN IV For Anxiety 05/14/17 21:45 05/21/17 21:44 05/19/17 05:41 Losartan Potassium (Cozaar) 25 mg DAILY GT 05/16/17 16:15 06/15/17 16:14 05/21/17 09:10 Multivitamins (Multivitamins) 1 tab DAILY ORAL 05/16/17 09:00 06/15/17 08:59 05/21/17 09:10 Ondansetron HCl (Zofran) 4 mg Q6H PRN IVP Nausea & Vomiting 05/14/17 21:45 06/13/17 21:44 Pantoprazole (Protonix) 40 mg DAILY IV 05/15/17 09:00 06/14/17 08:59 05/21/17 09:09 Polyethylene Glycol (Miralax) 17 gm DAILY GT 05/16/17 09:00 06/15/17 08:59 05/21/17 09:09 Polyethylene Glycol (Miralax) 17 gm DAILYPRN PRN GT Constipation 05/16/17 15:45 06/13/17 21:44 Sennosides (Senokot) 8.6 mg QHS GT 05/15/17 21:00 06/14/17 20:59 05/20/17 20:04 Valery Chang M.D. May 21, 2017 17:27
[2017-05-21 20:00] VITALS: BP 122/68
[2017-05-21] MEDS: Sennosides 8.6mg GT SCH (20:20)
--- NOTE | 2017-05-21 23:26 | Cardiology Report ---
APPROVED REPORT EKG Measurement Heart [id number] Normal sinus rhythm Normal ECG
[2017-05-22] VITALS (7 sets, daily range): BP systolic 116–148; BP diastolic 71–88
[2017-05-22] MEDS: NovoLOG Insulin Flexpen SUBQ SCH ×4 (05:01→23:10)
[2017-05-22 06:13] LABS: BASOPHILS % (AUTO) 0.7 % (0.0-2.0); EOSINOPHILS % (AUTO) 3.4 % (0.0-3.0); LYMPHOCYTES % (AUTO) 12.9 % (20.0-45.0); MEAN CORPUSCULAR HEMOGLOBIN 33.2 PG (27.0-31.0); MEAN CORPUSCULAR HGB CONC 32.3 G/DL (32.0-36.0); MEAN CORPUSCULAR VOLUME 103 FL (80-99); MEAN PLATELET VOLUME 8.6 FL (6.5-10.1); MONOCYTES % (AUTO) 7.2 % (1.0-10.0); NEUTROPHILS % (AUTO) 75.8 % (45.0-75.0); PLATELET COUNT 223 K/UL (150-450); RED BLOOD COUNT 2.94 M/UL (4.70-6.10); RED CELL DISTRIBUTION WIDTH 13.4 % (11.6-14.8); WHITE BLOOD COUNT 12.1 K/UL (4.8-10.8)
[2017-05-22 06:29] LABS: ALANINE AMINOTRANSFERASE 18 U/L (12-78); ALBUMIN/GLOBULIN RATIO 0.4 (1.0-2.7); ANION GAP 6 (5-15); ASPARTATE AMINO TRANSFERASE 16 U/L (15-37); CALCIUM 9.1 MG/DL (8.5-10.1); CARBON DIOXIDE 26 MMOL/L (21-32); CHLORIDE 114 MMOL/L (98-107); POTASSIUM 4.4 MMOL/L (3.5-5.1); SODIUM 146 MMOL/L (136-145)
[2017-05-22 06:55] LABS: MAGNESIUM 2.2 MG/DL (1.8-2.4); PHOSPHORUS 3.2 MG/DL (2.5-4.9)
[2017-05-22] MEDS: Pantoprazole Inj IV SCH (09:00)
[2017-05-22] MEDS: Aspirin Baby 81mg GT SCH (09:00)
[2017-05-22] MEDS: Ascorbic Acid 500mg tab GT SCH (09:59)
[2017-05-22] MEDS: Sinemet 25/100 tab GT SCH ×2 (09:59→18:23)
[2017-05-22] MEDS: Miralax 17gm pkt GT SCH (09:59)
[2017-05-22] MEDS: Docusate 100mg/10ml Liq NG SCH ×2 (09:59→18:23)
[2017-05-22] MEDS: Losartan 25mg tab GT SCH (10:00)
[2017-05-22] MEDS: Heparin 5000 units/ml inj SUBQ SCH ×2 (10:02→20:29)
--- NOTE | 2017-05-22 11:30 | Pulmonology Progress Note ---
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, 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 Discussed with: nurses, rn case management Subjective ROS Limited/Unobtainable: No Constitutional: Reports: no symptoms HEENT: Repors: no symptoms Respiratory: Reports: no symptoms Allergies: Coded Allergies: CODEINE (Verified Allergy, Unknown, 05/14/17) Objective Last 24 Hour Vital Signs Date Time Temp Pulse Resp B/P (MAP) Pulse Ox O2 Delivery O2 Flow Rate FiO2 05/22/17 10:00 116/71 05/22/17 08:50 112 21 40 05/22/17 08:15 98.1 110 19 116/71 97 Mechanical Ventilator 40 05/22/17 08:00 40 05/22/17 08:00 124 05/22/17 07:25 100 22 40 05/22/17 05:12 96 22 40 05/22/17 04:00 97.8 78 18 126/75 99 Mechanical Ventilator 40 05/22/17 04:00 113 05/22/17 04:00 40 05/22/17 02:44 91 22 40 05/22/17 00:49 90 22 40 05/22/17 00:00 98.6 88 18 118/75 100 Mechanical Ventilator 40 05/22/17 00:00 132 05/22/17 00:00 40 05/21/17 22:37 89 22 40 05/21/17 20:41 85 22 40 05/21/17 20:00 98.2 98 18 122/68 100 Mechanical Ventilator 40 05/21/17 20:00 40 05/21/17 20:00 127 05/21/17 18:32 81 22 40 05/21/17 16:30 89 24 40 05/21/17 16:00 97.7 115 19 123/71 100 Mechanical Ventilator 40 05/21/17 16:00 120 05/21/17 16:00 40 05/21/17 15:05 94 27 40 05/21/17 13:06 98 26 40 05/21/17 12:00 40 05/21/17 12:00 97.5 102 17 103/71 99 Mechanical Ventilator 40 05/21/17 12:00 98 General Appearance: WD/WN Respiratory/Chest: chest wall non-tender, lungs clear Cardiovascular: normal peripheral pulses, normal rate Abdomen: normal bowel sounds, soft, non tender Genitourinary: normal external genitalia Extremities: no cyanosis Skin: no rash 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 grossly normal, abnormal gait Lymphatic: no neck adenopathy Laboratory Tests 05/22/17 04:00: White Blood Count 12.1#H, Red Blood Count 2.94L, Hemoglobin 9.7L, Hematocrit 30.2L, Mean Corpuscular Volume 103H, Mean Corpuscular Hemoglobin 33.2H, Mean Corpuscular Hemoglobin Concent 32.3, Red Cell Distribution Width 13.4, Platelet Count 223, Mean Platelet Volume 8.6, Neutrophils (%) (Auto) 75.8H, Lymphocytes ( %) (Auto) 12.9L, Monocytes (%) (Auto) 7.2, Eosinophils (%) (Auto) 3.4H, Basophils (%) (Auto) 0.7 05/22/17 04:45: Sodium Level 146H, Potassium Level 4.4, Chloride Level 114H, Carbon Dioxide Level 26, Anion Gap 6, Blood Urea Nitrogen 25H, Creatinine 1.0, Estimat Glomerular Filtration Rate , Glucose Level 119H, Calcium Level 9.1, Phosphorus Level 3.2, Magnesium Level 2.2, Total Bilirubin 0.2, Aspartate Amino Transf (AST /SGOT) 16, Alanine Aminotransferase (ALT/SGPT) 18, Alkaline Phosphatase 87, Total Protein 7.0, Albumin 2.1L, Globulin 4.9, Albumin/Globulin Ratio 0.4L Current Medications Medications (Trade) Dose Ordered Sig/Polo Route PRN Reason Start Time Stop Time Status Last Admin Dose Admin Acetaminophen (Tylenol) 650 mg Q4H PRN ORAL FEVER 05/14/17 21:45 06/13/17 21:44 05/17/17 05:39 Artificial Tears (Akwa-Tears) 1 drop Q12H PRN BOTH EYES Dry Eyes 05/15/17 15:45 06/14/17 15:44 Ascorbic Acid (Vitamin C) 500 mg DAILY GT 05/16/17 09:00 06/15/17 08:59 05/22/17 09:59 Aspirin (ASA) 81 mg DAILY GT 05/17/17 09:00 06/16/17 08:59 05/22/17 09:00 Carbidopa/Levodopa (Sinemet 25/100) 1 ea BID GT 05/15/17 18:00 06/14/17 17:59 05/22/17 09:59 Clonidine HCl (Catapres) 0.1 mg Q6H PRN GT FOR SBP>160 05/15/17 21:45 06/14/17 21:44 Dextrose (Dextrose 50%) STAT PRN IV Hypoglycemia 05/18/17 11:00 06/17/17 10:59 Docusate Sodium (Colace) 100 mg TWICE A DAY NG 05/17/17 09:00 06/16/17 08:59 05/22/17 09:59 Heparin Sodium (Porcine) (Heparin 5000 units/ml) 5,000 units EVERY 12 HOURS SUBQ 05/15/17 09:00 06/14/17 08:59 05/22/17 10:02 Insulin Aspart (NovoLOG) EVERY 6 HOURS SUBQ 05/19/17 00:00 06/17/17 11:29 05/22/17 05:01 Losartan Potassium (Cozaar) 25 mg DAILY GT 05/16/17 16:15 06/15/17 16:14 05/22/17 10:00 Multivitamins (Multivitamins) 1 tab DAILY ORAL 05/16/17 09:00 06/15/17 08:59 05/22/17 09:59 Ondansetron HCl (Zofran) 4 mg Q6H PRN IVP Nausea & Vomiting 05/14/17 21:45 06/13/17 21:44 Pantoprazole (Protonix) 40 mg DAILY IV 05/15/17 09:00 06/14/17 08:59 05/22/17 09:00 Polyethylene Glycol (Miralax) 17 gm DAILY GT 05/16/17 09:00 06/15/17 08:59 05/22/17 09:59 Polyethylene Glycol (Miralax) 17 gm DAILYPRN PRN GT Constipation 05/16/17 15:45 06/13/17 21:44 Sennosides (Senokot) 8.6 mg QHS GT 05/15/17 21:00 06/14/17 20:59 05/21/17 20:20 TEMI MELENDEZ May 22, 2017 11:30
--- NOTE | 2017-05-22 12:16 | GI Progress Note ---
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 SNOMED: 956074428, 816516119 (2) Abdominal distension (gaseous) ICD Codes: R14.0 - Abdominal distension (gaseous) SNOMED: 322228765 (3) Hypoalbuminemia ICD Codes: E88.09 - Other disorders of plasma-protein metabolism, not elsewhere classified SNOMED: 961003658 (4) Fecal impaction ICD Codes: K56.41 - Fecal impaction SNOMED: 80231352 (5) Jejunostomy present ICD Codes: Z93.4 - Other artificial openings of gastrointestinal tract status SNOMED: 474174368 (6) Respiratory failure ICD Codes: J96.90 - Respiratory failure, unspecified, unspecified whether with hypoxia or hypercapnia SNOMED: 907260098 (7) Anemia ICD Codes: D64.9 - Anemia, unspecified SNOMED: 685208658 Status: stable Status Narrative Discussed with Dr. Herbert. Assessment/Plan CT AP reviewed >> see full report. 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 - Right basilar infiltrate may be present. Please correlate clinically for pneumonia. - Moderate fecal retention Macrocytic, Hyperchromic anemia OB stool negative x 2 abdominal distention >> improved ok for DC per GI standpoint GTFs per dietary colace iron deficient >> venofer must turn q 2-4 hours to promote GI motility ppi daily DM control Subjective Subjective limited Objective Last 24 Hour Vital Signs Date Time Temp Pulse Resp B/P (MAP) Pulse Ox O2 Delivery O2 Flow Rate FiO2 05/22/17 10:00 116/71 05/22/17 08:50 112 21 40 05/22/17 08:15 98.1 110 19 116/71 97 Mechanical Ventilator 40 05/22/17 08:00 40 05/22/17 08:00 124 05/22/17 07:25 100 22 40 05/22/17 05:12 96 22 40 05/22/17 04:00 97.8 78 18 126/75 99 Mechanical Ventilator 40 05/22/17 04:00 113 05/22/17 04:00 40 05/22/17 02:44 91 22 40 05/22/17 00:49 90 22 40 05/22/17 00:00 98.6 88 18 118/75 100 Mechanical Ventilator 40 05/22/17 00:00 132 05/22/17 00:00 40 05/21/17 22:37 89 22 40 05/21/17 20:41 85 22 40 05/21/17 20:00 98.2 98 18 122/68 100 Mechanical Ventilator 40 05/21/17 20:00 40 05/21/17 20:00 127 05/21/17 18:32 81 22 40 05/21/17 16:30 89 24 40 05/21/17 16:00 97.7 115 19 123/71 100 Mechanical Ventilator 40 05/21/17 16:00 120 05/21/17 16:00 40 05/21/17 15:05 94 27 40 05/21/17 13:06 98 26 40 Laboratory Tests Test 05/22/17 04:00 05/22/17 04:45 White Blood Count 12.1 K/UL (4.8-10.8) #H Red Blood Count 2.94 M/UL (4.70-6.10) L Hemoglobin 9.7 G/DL (14.2-18.0) L Hematocrit 30.2 % (42.0-52.0) L Mean Corpuscular Volume 103 FL (80-99) H Mean Corpuscular Hemoglobin 33.2 PG (27.0-31.0) H Mean Corpuscular Hemoglobin Concent 32.3 G/DL (32.0-36.0) Red Cell Distribution Width 13.4 % (11.6-14.8) Platelet Count 223 K/UL (150-450) Mean Platelet Volume 8.6 FL (6.5-10.1) Neutrophils (%) (Auto) 75.8 % (45.0-75.0) H Lymphocytes (%) (Auto) 12.9 % (20.0-45.0) L Monocytes (%) (Auto) 7.2 % (1.0-10.0) Eosinophils (%) (Auto) 3.4 % (0.0-3.0) H Basophils (%) (Auto) 0.7 % (0.0-2.0) Sodium Level 146 MMOL/L (136-145) H Potassium Level 4.4 MMOL/L (3.5-5.1) Chloride Level 114 MMOL/L (98-107) H Carbon Dioxide Level 26 MMOL/L (21-32) Anion Gap 6 (5-15) Blood Urea Nitrogen 25 mg/dL (7-18) H Creatinine 1.0 MG/DL (0.55-1.30) Estimat Glomerular Filtration Rate mL/min (>60) Glucose Level 119 MG/DL (74-106) H Calcium Level 9.1 MG/DL (8.5-10.1) Phosphorus Level 3.2 MG/DL (2.5-4.9) Magnesium Level 2.2 MG/DL (1.8-2.4) Total Bilirubin 0.2 MG/DL (0.2-1.0) Aspartate Amino Transf (AST/SGOT) 16 U/L (15-37) Alanine Aminotransferase (ALT/SGPT) 18 U/L (12-78) Alkaline Phosphatase 87 U/L (46-116) Total Protein 7.0 G/DL (6.4-8.2) Albumin 2.1 G/DL (3.4-5.0) L Globulin 4.9 g/dL Albumin/Globulin Ratio 0.4 (1.0-2.7) L Height (Feet): 6 Height (Inches): 1.00 Weight (Pounds): 204 General Appearance: no apparent distress, alert Cardiovascular: normal rate Respiratory/Chest: other - [facility] Abdominal Exam: normal bowel sounds, non tender, soft Emma Ortiz N.PDavin May 22, 2017 12:16
--- NOTE | 2017-05-22 15:54 | Infectious Diseases Prog Note ---
Assessment/Plan Assessment/Plan Abx: IV Vanco 05/15-05/17 IV Zosyn 05/14-05/18 Azithromycin x1 05/14 CEftriaxone 05/18- Assesment: RLL PNA; improving; s/p RX -CT abd/p: Right basilar infiltrate CXR: Right basal atelectasis -sp cx normal lawrence -influenza neg Fever/Leukocytosis- mild leukocytosis today (05/22) to 12- clinically unchanged , however -u/a WBC 5-10, nit neg, leuk +3, ucx C. albicans (colonizer) -Bcx Neg Abd distention, improving -CT abd/p: Distal esophageal stent presumably for esophageal CA or stricture. The esophagus is not evaluated well on this study. Right basilar infiltrate may be present. Please correlate clinically for pneumonia.Multiple low-density lesions within the liver likely cysts. G-J tube. Tiny possible gallstone. Bilateral renal cysts. Atherosclerotic vascular disease. Moderate fecal retention. Bilateral inguinal hernias containing fat. Prostate hypertrophy and calcification.L1 vertebral compression fracture probably old. Osteoporosis. Recent G-J tube placement Chronic resp failure- vent/trach dependant VRE colonized CHF hx of esophageal stricture s/p sent placement ~1yr ago [facility] resident Plan: -Continue to monitor off abx -s/p 8d Ceftriaxone 05/21 -s/p 3d IV Vanco 05/17 -Monitor CBC/BMP, temperatures; Trend WBC -Aspiration precautions -trach care Thank you for this consultation. Will continue to follow along with you. Discussed with RN and family at bedside. Subjective Allergies: Coded Allergies: CODEINE (Verified Allergy, Unknown, 05/14/17) Subjective afebrile off abx mild leukocytosis today to 12 clinically unchanged Objective Vital Signs Last 24 Hour Vital Signs Date Time Temp Pulse Resp B/P (MAP) Pulse Ox O2 Delivery O2 Flow Rate FiO2 05/22/17 12:50 89 24 40 05/22/17 12:00 98.1 118 24 126/73 98 Mechanical Ventilator 40 05/22/17 12:00 125 05/22/17 12:00 40 05/22/17 11:00 86 26 40 05/22/17 10:00 116/71 05/22/17 08:50 112 21 40 05/22/17 08:15 98.1 110 19 116/71 97 Mechanical Ventilator 40 05/22/17 08:00 40 05/22/17 08:00 124 05/22/17 07:25 100 22 40 05/22/17 05:12 96 22 40 05/22/17 04:00 97.8 78 18 126/75 99 Mechanical Ventilator 40 05/22/17 04:00 113 05/22/17 04:00 40 05/22/17 02:44 91 22 40 05/22/17 00:49 90 22 40 05/22/17 00:00 98.6 88 18 118/75 100 Mechanical Ventilator 40 05/22/17 00:00 132 05/22/17 00:00 40 05/21/17 22:37 89 22 40 05/21/17 20:41 85 22 40 05/21/17 20:00 98.2 98 18 122/68 100 Mechanical Ventilator 40 05/21/17 20:00 40 05/21/17 20:00 127 05/21/17 18:32 81 22 40 05/21/17 16:30 89 24 40 05/21/17 16:00 97.7 115 19 123/71 100 Mechanical Ventilator 40 05/21/17 16:00 120 05/21/17 16:00 40 Height (Feet): 6 Height (Inches): 1.00 Weight (Pounds): 204 Objective General Appearance: other - nonresponsive HEENT: PERRL, no oral lesions Neck: tracheotomy with tick secretions Respiratory: chest non-tender,corase breath sounds Cardiovascular: regular rate, rhythm, no edema Gastrointestinal: distended, other - Gtube Musculoskeletal: normal inspection Neurologic: other - nonverbal Skin: normal inspection reviewed Laboratory Tests Test 05/22/17 04:00 05/22/17 04:45 White Blood Count 12.1 K/UL (4.8-10.8) #H Red Blood Count 2.94 M/UL (4.70-6.10) L Hemoglobin 9.7 G/DL (14.2-18.0) L Hematocrit 30.2 % (42.0-52.0) L Mean Corpuscular Volume 103 FL (80-99) H Mean Corpuscular Hemoglobin 33.2 PG (27.0-31.0) H Mean Corpuscular Hemoglobin Concent 32.3 G/DL (32.0-36.0) Red Cell Distribution Width 13.4 % (11.6-14.8) Platelet Count 223 K/UL (150-450) Mean Platelet Volume 8.6 FL (6.5-10.1) Neutrophils (%) (Auto) 75.8 % (45.0-75.0) H Lymphocytes (%) (Auto) 12.9 % (20.0-45.0) L Monocytes (%) (Auto) 7.2 % (1.0-10.0) Eosinophils (%) (Auto) 3.4 % (0.0-3.0) H Basophils (%) (Auto) 0.7 % (0.0-2.0) Sodium Level 146 MMOL/L (136-145) H Potassium Level 4.4 MMOL/L (3.5-5.1) Chloride Level 114 MMOL/L (98-107) H Carbon Dioxide Level 26 MMOL/L (21-32) Anion Gap 6 (5-15) Blood Urea Nitrogen 25 mg/dL (7-18) H Creatinine 1.0 MG/DL (0.55-1.30) Estimat Glomerular Filtration Rate mL/min (>60) Glucose Level 119 MG/DL (74-106) H Calcium Level 9.1 MG/DL (8.5-10.1) Phosphorus Level 3.2 MG/DL (2.5-4.9) Magnesium Level 2.2 MG/DL (1.8-2.4) Total Bilirubin 0.2 MG/DL (0.2-1.0) Aspartate Amino Transf (AST/SGOT) 16 U/L (15-37) Alanine Aminotransferase (ALT/SGPT) 18 U/L (12-78) Alkaline Phosphatase 87 U/L (46-116) Total Protein 7.0 G/DL (6.4-8.2) Albumin 2.1 G/DL (3.4-5.0) L Globulin 4.9 g/dL Albumin/Globulin Ratio 0.4 (1.0-2.7) L Current Medications Medications (Trade) Dose Ordered Sig/Polo Route PRN Reason Start Time Stop Time Status Last Admin Dose Admin Acetaminophen (Tylenol) 650 mg Q4H PRN ORAL FEVER 05/14/17 21:45 06/13/17 21:44 05/17/17 05:39 Artificial Tears (Akwa-Tears) 1 drop Q12H PRN BOTH EYES Dry Eyes 05/15/17 15:45 06/14/17 15:44 Ascorbic Acid (Vitamin C) 500 mg DAILY GT 05/16/17 09:00 06/15/17 08:59 05/22/17 09:59 Aspirin (ASA) 81 mg DAILY GT 05/17/17 09:00 06/16/17 08:59 05/22/17 09:00 Carbidopa/Levodopa (Sinemet 25/100) 1 ea BID GT 05/15/17 18:00 06/14/17 17:59 05/22/17 09:59 Clonidine HCl (Catapres) 0.1 mg Q6H PRN GT FOR SBP>160 05/15/17 21:45 06/14/17 21:44 Dextrose (Dextrose 50%) STAT PRN IV Hypoglycemia 05/18/17 11:00 06/17/17 10:59 Docusate Sodium (Colace) 100 mg TWICE A DAY NG 05/17/17 09:00 06/16/17 08:59 05/22/17 09:59 Heparin Sodium (Porcine) (Heparin 5000 units/ml) 5,000 units EVERY 12 HOURS SUBQ 05/15/17 09:00 06/14/17 08:59 05/22/17 10:02 Insulin Aspart (NovoLOG) EVERY 6 HOURS SUBQ 05/19/17 00:00 06/17/17 11:29 05/22/17 12:22 Losartan Potassium (Cozaar) 25 mg DAILY GT 05/16/17 16:15 06/15/17 16:14 05/22/17 10:00 Multivitamins (Multivitamins) 1 tab DAILY ORAL 05/16/17 09:00 06/15/17 08:59 05/22/17 09:59 Ondansetron HCl (Zofran) 4 mg Q6H PRN IVP Nausea & Vomiting 05/14/17 21:45 06/13/17 21:44 Pantoprazole (Protonix) 40 mg DAILY IV 05/15/17 09:00 06/14/17 08:59 05/22/17 09:00 Polyethylene Glycol (Miralax) 17 gm DAILY GT 05/16/17 09:00 06/15/17 08:59 05/22/17 09:59 Polyethylene Glycol (Miralax) 17 gm DAILYPRN PRN GT Constipation 05/16/17 15:45 06/13/17 21:44 Sennosides (Senokot) 8.6 mg QHS GT 05/15/17 21:00 06/14/17 20:59 05/21/17 20:20 Valery Chang M.D. May 22, 2017 15:54
--- NOTE | 2017-05-22 18:13 | Internal Med Progress Note ---
Subjective Physician Name Sunil Castillo Attending Physician Sunil Castillo MD Current Medications Medications (Trade) Dose Ordered Sig/Polo Route PRN Reason Start Time Stop Time Status Last Admin Dose Admin Acetaminophen (Tylenol) 650 mg Q4H PRN ORAL FEVER 05/14/17 21:45 06/13/17 21:44 05/17/17 05:39 Artificial Tears (Akwa-Tears) 1 drop Q12H PRN BOTH EYES Dry Eyes 05/15/17 15:45 06/14/17 15:44 Ascorbic Acid (Vitamin C) 500 mg DAILY GT 05/16/17 09:00 06/15/17 08:59 05/22/17 09:59 Aspirin (ASA) 81 mg DAILY GT 05/17/17 09:00 06/16/17 08:59 05/22/17 09:00 Carbidopa/Levodopa (Sinemet 25/100) 1 ea BID GT 05/15/17 18:00 06/14/17 17:59 05/22/17 09:59 Clonidine HCl (Catapres) 0.1 mg Q6H PRN GT FOR SBP>160 05/15/17 21:45 06/14/17 21:44 Dextrose (Dextrose 50%) STAT PRN IV Hypoglycemia 05/18/17 11:00 06/17/17 10:59 Docusate Sodium (Colace) 100 mg TWICE A DAY NG 05/17/17 09:00 06/16/17 08:59 05/22/17 09:59 Heparin Sodium (Porcine) (Heparin 5000 units/ml) 5,000 units EVERY 12 HOURS SUBQ 05/15/17 09:00 06/14/17 08:59 05/22/17 10:02 Insulin Aspart (NovoLOG) EVERY 6 HOURS SUBQ 05/19/17 00:00 06/17/17 11:29 05/22/17 12:22 Losartan Potassium (Cozaar) 25 mg DAILY GT 05/16/17 16:15 06/15/17 16:14 05/22/17 10:00 Multivitamins (Multivitamins) 1 tab DAILY ORAL 05/16/17 09:00 06/15/17 08:59 05/22/17 09:59 Ondansetron HCl (Zofran) 4 mg Q6H PRN IVP Nausea & Vomiting 05/14/17 21:45 06/13/17 21:44 Pantoprazole (Protonix) 40 mg DAILY IV 05/15/17 09:00 06/14/17 08:59 05/22/17 09:00 Polyethylene Glycol (Miralax) 17 gm DAILY GT 05/16/17 09:00 06/15/17 08:59 05/22/17 09:59 Polyethylene Glycol (Miralax) 17 gm DAILYPRN PRN GT Constipation 05/16/17 15:45 06/13/17 21:44 Sennosides (Senokot) 8.6 mg QHS GT 05/15/17 21:00 06/14/17 20:59 05/21/17 20:20 Allergies: Coded Allergies: CODEINE (Verified Allergy, Unknown, 05/14/17) Subjective awake, responsive with open eyes, on Vent, caregiver at bedside. WBC raised to 12.1 Objective Last Vital Signs Date Time Temp Pulse Resp B/P (MAP) Pulse Ox O2 Delivery O2 Flow Rate FiO2 05/22/17 17:35 97.8 85 27 148/88 100 Mechanical Ventilator 05/22/17 17:06 40 05/18/17 04:00 40.0 Laboratory Tests Test 05/22/17 04:00 05/22/17 04:45 White Blood Count 12.1 K/UL (4.8-10.8) #H Red Blood Count 2.94 M/UL (4.70-6.10) L Hemoglobin 9.7 G/DL (14.2-18.0) L Hematocrit 30.2 % (42.0-52.0) L Mean Corpuscular Volume 103 FL (80-99) H Mean Corpuscular Hemoglobin 33.2 PG (27.0-31.0) H Mean Corpuscular Hemoglobin Concent 32.3 G/DL (32.0-36.0) Red Cell Distribution Width 13.4 % (11.6-14.8) Platelet Count 223 K/UL (150-450) Mean Platelet Volume 8.6 FL (6.5-10.1) Neutrophils (%) (Auto) 75.8 % (45.0-75.0) H Lymphocytes (%) (Auto) 12.9 % (20.0-45.0) L Monocytes (%) (Auto) 7.2 % (1.0-10.0) Eosinophils (%) (Auto) 3.4 % (0.0-3.0) H Basophils (%) (Auto) 0.7 % (0.0-2.0) Sodium Level 146 MMOL/L (136-145) H Potassium Level 4.4 MMOL/L (3.5-5.1) Chloride Level 114 MMOL/L (98-107) H Carbon Dioxide Level 26 MMOL/L (21-32) Anion Gap 6 (5-15) Blood Urea Nitrogen 25 mg/dL (7-18) H Creatinine 1.0 MG/DL (0.55-1.30) Estimat Glomerular Filtration Rate mL/min (>60) Glucose Level 119 MG/DL (74-106) H Calcium Level 9.1 MG/DL (8.5-10.1) Phosphorus Level 3.2 MG/DL (2.5-4.9) Magnesium Level 2.2 MG/DL (1.8-2.4) Total Bilirubin 0.2 MG/DL (0.2-1.0) Aspartate Amino Transf (AST/SGOT) 16 U/L (15-37) Alanine Aminotransferase (ALT/SGPT) 18 U/L (12-78) Alkaline Phosphatase 87 U/L (46-116) Total Protein 7.0 G/DL (6.4-8.2) Albumin 2.1 G/DL (3.4-5.0) L Globulin 4.9 g/dL Albumin/Globulin Ratio 0.4 (1.0-2.7) L Intake and Output 05/22/17 05/23/17 19:00 07:00 Intake Total 700 ml Output Total 655 ml Balance 45 ml Free Water 100 ml Tube Feeding 600 ml Output Urine Total 455 ml Stool Total 200 ml # Bowel Movements 2 Objective GENERAL: awake, opening his eyes, and unable follow commands. HEAD AND NECK: Pupils are equal and reactive to light. Anicteric. Trach site is clean. Neck was supple. No JVD. LUNGS: decrease air entry at bases. Ventilation breathing sound was noted. No wheezes. HEART: S1 and S2. Distant heart sounds. No murmur. ABDOMEN: Soft. Positive distention and G-tube site is clean and no rebound tenderness. No fluid shift. Pelvic:suprapubic catheter intact. EXTREMITIES: No cyanosis, clubbing, or edema. NEUROLOGIC: The patient opened his eyes, cannot follow commands, unable to move the upper extremity, contracted, as well as lower extremity. Gait was not assessed due to the patient's status. Assessment/Plan Assessment/Plan ASSESSMENT: 1. Acute on chronic respiratory failure, required ventilation, possible due to RLL pneumonia. 2. Nosocomial pneumonia. 3. Fecal impaction. 4. Distal esophageal stricture, status post stent placement. 5. Parkinson disease. 6. Hypertension. 7. Dysphagia/GJ tube placement. 8. Status post tracheostomy. 9. Morbid obesity. 10. Benign prostatic hypertrophy, status post suprapubic catheter placement. PLAN: Off Abx Urologist consult for exchange suprapubic cath Monitor labs and cultures discuss with over the phone and caregiver at bedside F/U with Dr. Shah recommendations Tube feeding @ 60 cc/hr. Sunil Castillo MD May 22, 2017 18:13
[2017-05-22] MEDS: Sennosides 8.6mg GT SCH (20:28)
[2017-05-23] VITALS (7 sets, daily range): BP systolic 105–156; BP diastolic 61–86
[2017-05-23] MEDS: NovoLOG Insulin Flexpen SUBQ SCH ×3 (05:23→18:25)
[2017-05-23 06:31] LABS: BASOPHILS % (AUTO) 0.5 % (0.0-2.0); EOSINOPHILS % (AUTO) 6.3 % (0.0-3.0); LYMPHOCYTES % (AUTO) 16.9 % (20.0-45.0); MEAN CORPUSCULAR HGB CONC 32.4 G/DL (32.0-36.0); MEAN CORPUSCULAR VOLUME 102 FL (80-99); MEAN PLATELET VOLUME 8.1 FL (6.5-10.1); MONOCYTES % (AUTO) 7.3 % (1.0-10.0); PLATELET COUNT 225 K/UL (150-450); RED CELL DISTRIBUTION WIDTH 13.6 % (11.6-14.8); WHITE BLOOD COUNT 8.4 K/UL (4.8-10.8)
[2017-05-23 07:15] LABS: ALANINE AMINOTRANSFERASE 18 U/L (12-78); ALBUMIN/GLOBULIN RATIO 0.5 (1.0-2.7); ANION GAP 6 (5-15); ASPARTATE AMINO TRANSFERASE 13 U/L (15-37); CALCIUM 9.1 MG/DL (8.5-10.1); CARBON DIOXIDE 27 MMOL/L (21-32); CHLORIDE 109 MMOL/L (98-107); CREATININE 0.9 MG/DL (0.55-1.30); POTASSIUM 4.2 MMOL/L (3.5-5.1); SODIUM 142 MMOL/L (136-145)
[2017-05-23] MEDS: Sinemet 25/100 tab GT SCH ×2 (08:46→18:24)
[2017-05-23] MEDS: Ascorbic Acid 500mg tab GT SCH (08:47)
[2017-05-23] MEDS: Losartan 25mg tab GT SCH (08:49)
[2017-05-23] MEDS: Docusate 100mg/10ml Liq NG SCH ×2 (08:52→18:24)
[2017-05-23] MEDS: Pantoprazole Inj IV SCH (08:52)
[2017-05-23] MEDS: Aspirin Baby 81mg GT SCH (08:53)
[2017-05-23] MEDS: Heparin 5000 units/ml inj SUBQ SCH ×2 (08:54→20:40)
[2017-05-23] MEDS: Miralax 17gm pkt GT SCH (08:56)
--- NOTE | 2017-05-23 10:07 | Diagnostic Imaging Report ---
Indication: Dyspnea Technique: XRAY CHEST 1 V Comparison: 05/16/2013 Findings: Tracheostomy is present. The cardiac size remains unchanged. Bilateral congestive changes persist. Since prior exam, there is interval worsening of bibasilar densities likely indicating worsening atelectasis/infiltrate and/or pleural effusions. Impression: Slight interval worsening of bibasilar atelectasis/infiltrate and or pleural effusions. Cardiomegaly with bilateral congestive changes, unchanged.
--- NOTE | 2017-05-23 10:31 | Infectious Diseases Prog Note ---
Assessment/Plan Assessment/Plan Abx: IV Vanco 05/15-05/17 IV Zosyn 05/14-05/18 Azithromycin x1 05/14 CEftriaxone 05/18- Assesment: RLL PNA; improving; s/p RX -CXR 05/23: Slight interval worsening of bibasilar atelectasis/infiltrate and or pleural effusions. Cardiomegaly with bilateral congestive changes, unchanged. -CT abd/p: Right basilar infiltrate CXR: Right basal atelectasis -sp cx normal lawrence -influenza neg Fever/Leukocytosis- mild leukocytosis(05/22) to 12, now resolved- clinically unchanged, however -u/a WBC 5-10, nit neg, leuk +3, ucx C. albicans (colonizer) -Bcx Neg Abd distention, improving -CT abd/p: Distal esophageal stent presumably for esophageal CA or stricture. The esophagus is not evaluated well on this study. Right basilar infiltrate may be present. Please correlate clinically for pneumonia.Multiple low-density lesions within the liver likely cysts. G-J tube. Tiny possible gallstone. Bilateral renal cysts. Atherosclerotic vascular disease. Moderate fecal retention. Bilateral inguinal hernias containing fat. Prostate hypertrophy and calcification.L1 vertebral compression fracture probably old. Osteoporosis. Recent G-J tube placement Chronic resp failure- vent/trach dependant VRE colonized CHF hx of esophageal stricture s/p sent placement ~1yr ago residential resident Plan: -Ok to discharge to SNF off abx -s/p 8d Ceftriaxone 05/21 -s/p 3d IV Vanco 05/17 -Monitor CBC/BMP, temperatures -Aspiration precautions -trach care Thank you for this consultation. Will continue to follow along with you. Discussed with RN and at bedside. Subjective Allergies: Coded Allergies: CODEINE (Verified Allergy, Unknown, 05/14/17) Subjective afebrile off abx leukocytosis resolved Objective Vital Signs Last 24 Hour Vital Signs Date Time Temp Pulse Resp B/P (MAP) Pulse Ox O2 Delivery O2 Flow Rate FiO2 05/23/17 10:06 98.8 78 20 149/73 13 Mechanical Ventilator 40 05/23/17 09:26 71 19 40 05/23/17 08:49 143/73 05/23/17 08:00 40 05/23/17 08:00 71 14 149/79 99 Mechanical Ventilator 40 05/23/17 07:10 70 15 40 05/23/17 04:55 73 16 40 05/23/17 04:00 75 05/23/17 04:00 98.4 72 15 152/61 100 Mechanical Ventilator 40 05/23/17 04:00 40 05/23/17 03:30 77 14 40 05/23/17 01:03 80 16 40 05/23/17 01:00 98.9 05/23/17 00:48 99.4 82 24 156/86 100 Mechanical Ventilator 40 05/23/17 00:00 40 05/23/17 00:00 78 05/22/17 23:17 79 17 40 05/22/17 21:23 81 19 40 05/22/17 20:00 82 05/22/17 20:00 40 05/22/17 20:00 97.5 88 20 132/78 100 Mechanical Ventilator 05/22/17 19:05 86 18 40 05/22/17 17:35 97.8 85 27 148/88 100 Mechanical Ventilator 05/22/17 17:06 79 16 40 05/22/17 16:00 78 05/22/17 16:00 40 05/22/17 16:00 97.8 85 27 148/88 100 Mechanical Ventilator 40 05/22/17 15:20 78 17 40 05/22/17 12:50 89 24 40 05/22/17 12:00 98.1 118 24 126/73 98 Mechanical Ventilator 40 05/22/17 12:00 125 05/22/17 12:00 40 05/22/17 11:00 86 26 40 Height (Feet): 6 Height (Inches): 1.00 Weight (Pounds): 204 Objective General Appearance: chronically ill, not in distress HEENT: PERRL, no oral lesions Neck: tracheotomy with tick secretions Respiratory: chest non-tender,corase breath sounds Cardiovascular: regular rate, rhythm, no edema Gastrointestinal: distended, other - Gtube Musculoskeletal: normal inspection Neurologic: other - nonverbal Skin: normal inspection reviewed Laboratory Tests Test 05/23/17 05:55 White Blood Count 8.4 K/UL (4.8-10.8) Red Blood Count 2.90 M/UL (4.70-6.10) L Hemoglobin 9.6 G/DL (14.2-18.0) L Hematocrit 29.6 % (42.0-52.0) L Mean Corpuscular Volume 102 FL (80-99) H Mean Corpuscular Hemoglobin 33.0 PG (27.0-31.0) H Mean Corpuscular Hemoglobin Concent 32.4 G/DL (32.0-36.0) Red Cell Distribution Width 13.6 % (11.6-14.8) Platelet Count 225 K/UL (150-450) Mean Platelet Volume 8.1 FL (6.5-10.1) Neutrophils (%) (Auto) 69.0 % (45.0-75.0) Lymphocytes (%) (Auto) 16.9 % (20.0-45.0) L Monocytes (%) (Auto) 7.3 % (1.0-10.0) Eosinophils (%) (Auto) 6.3 % (0.0-3.0) H Basophils (%) (Auto) 0.5 % (0.0-2.0) Sodium Level 142 MMOL/L (136-145) Potassium Level 4.2 MMOL/L (3.5-5.1) Chloride Level 109 MMOL/L (98-107) H Carbon Dioxide Level 27 MMOL/L (21-32) Anion Gap 6 (5-15) Blood Urea Nitrogen 25 mg/dL (7-18) H Creatinine 0.9 MG/DL (0.55-1.30) Estimat Glomerular Filtration Rate mL/min (>60) Glucose Level 111 MG/DL (74-106) H Calcium Level 9.1 MG/DL (8.5-10.1) Total Bilirubin 0.2 MG/DL (0.2-1.0) Aspartate Amino Transf (AST/SGOT) 13 U/L (15-37) L Alanine Aminotransferase (ALT/SGPT) 18 U/L (12-78) Alkaline Phosphatase 91 U/L (46-116) Pro-B-Type Natriuretic Peptide 1739 (0-125) H Total Protein 7.0 G/DL (6.4-8.2) Albumin 2.2 G/DL (3.4-5.0) L Globulin 4.8 g/dL Albumin/Globulin Ratio 0.5 (1.0-2.7) L Current Medications Medications (Trade) Dose Ordered Sig/Polo Route PRN Reason Start Time Stop Time Status Last Admin Dose Admin Acetaminophen (Tylenol) 650 mg Q4H PRN ORAL FEVER 05/14/17 21:45 06/13/17 21:44 05/17/17 05:39 Artificial Tears (Akwa-Tears) 1 drop Q12H PRN BOTH EYES Dry Eyes 05/15/17 15:45 06/14/17 15:44 Ascorbic Acid (Vitamin C) 500 mg DAILY GT 05/16/17 09:00 06/15/17 08:59 05/23/17 08:47 Aspirin (ASA) 81 mg DAILY GT 05/17/17 09:00 06/16/17 08:59 05/23/17 08:53 Carbidopa/Levodopa (Sinemet 25/100) 1 ea BID GT 05/15/17 18:00 06/14/17 17:59 05/23/17 08:46 Clonidine HCl (Catapres) 0.1 mg Q6H PRN GT FOR SBP>160 05/15/17 21:45 06/14/17 21:44 Dextrose (Dextrose 50%) STAT PRN IV Hypoglycemia 05/18/17 11:00 06/17/17 10:59 Docusate Sodium (Colace) 100 mg TWICE A DAY NG 05/17/17 09:00 06/16/17 08:59 05/23/17 08:52 Heparin Sodium (Porcine) (Heparin 5000 units/ml) 5,000 units EVERY 12 HOURS SUBQ 05/15/17 09:00 06/14/17 08:59 05/23/17 08:54 Insulin Aspart (NovoLOG) EVERY 6 HOURS SUBQ 05/19/17 00:00 06/17/17 11:29 05/23/17 05:23 Losartan Potassium (Cozaar) 25 mg DAILY GT 05/16/17 16:15 06/15/17 16:14 05/23/17 08:49 Multivitamins (Multivitamins) 1 tab DAILY ORAL 05/16/17 09:00 06/15/17 08:59 05/23/17 08:46 Ondansetron HCl (Zofran) 4 mg Q6H PRN IVP Nausea & Vomiting 05/14/17 21:45 06/13/17 21:44 Pantoprazole (Protonix) 40 mg DAILY IV 05/15/17 09:00 06/14/17 08:59 05/23/17 08:52 Polyethylene Glycol (Miralax) 17 gm DAILY GT 05/16/17 09:00 06/15/17 08:59 05/23/17 08:56 Polyethylene Glycol (Miralax) 17 gm DAILYPRN PRN GT Constipation 05/16/17 15:45 06/13/17 21:44 Sennosides (Senokot) 8.6 mg QHS GT 05/15/17 21:00 06/14/17 20:59 05/22/17 20:28 Valery Chang M.D. May 23, 2017 10:31
--- NOTE | 2017-05-23 11:03 | General Progress Note ---
Assessment/Plan Problem List: (1) Tracheostomy status ICD Codes: Z93.0 - Tracheostomy status SNOMED: 94812815, 262642089 (2) CHF (congestive heart failure) ICD Codes: I50.9 - Heart failure, unspecified SNOMED: 54483685 (3) Esophageal stenosis ICD Codes: K22.2 - Esophageal obstruction SNOMED: 27668706 (4) Abdominal distension (gaseous) ICD Codes: R14.0 - Abdominal distension (gaseous) SNOMED: 566208190 (5) Fecal impaction ICD Codes: K56.41 - Fecal impaction SNOMED: 04248339 (6) Anemia ICD Codes: D64.9 - Anemia, unspecified SNOMED: 127568878 (7) Feeding by G-tube ICD Codes: Z93.1 - Gastrostomy status SNOMED: 672984416, 325013907 Assessment/Plan GT clogged>>> will try cranberry juice if failed will change the tube colace venofer repeat stool ob ppi BID DM control Subjective ROS Limited/Unobtainable: No Allergies: Coded Allergies: CODEINE (Verified Allergy, Unknown, 05/14/17) Objective Last 24 Hour Vital Signs Date Time Temp Pulse Resp B/P (MAP) Pulse Ox O2 Delivery O2 Flow Rate FiO2 05/23/17 10:06 98.8 78 20 149/73 13 Mechanical Ventilator 40 05/23/17 09:26 71 19 40 05/23/17 08:49 143/73 05/23/17 08:00 40 05/23/17 08:00 71 14 149/79 99 Mechanical Ventilator 40 05/23/17 07:10 70 15 40 05/23/17 04:55 73 16 40 05/23/17 04:00 75 05/23/17 04:00 98.4 72 15 152/61 100 Mechanical Ventilator 40 05/23/17 04:00 40 05/23/17 03:30 77 14 40 05/23/17 01:03 80 16 40 05/23/17 01:00 98.9 05/23/17 00:48 99.4 82 24 156/86 100 Mechanical Ventilator 40 05/23/17 00:00 40 05/23/17 00:00 78 05/22/17 23:17 79 17 40 05/22/17 21:23 81 19 40 05/22/17 20:00 82 05/22/17 20:00 40 05/22/17 20:00 97.5 88 20 132/78 100 Mechanical Ventilator 05/22/17 19:05 86 18 40 05/22/17 17:35 97.8 85 27 148/88 100 Mechanical Ventilator 05/22/17 17:06 79 16 40 05/22/17 16:00 78 05/22/17 16:00 40 05/22/17 16:00 97.8 85 27 148/88 100 Mechanical Ventilator 40 05/22/17 15:20 78 17 40 05/22/17 12:50 89 24 40 05/22/17 12:00 98.1 118 24 126/73 98 Mechanical Ventilator 40 05/22/17 12:00 125 05/22/17 12:00 40 Laboratory Tests 05/23/17 05:55: White Blood Count 8.4, Red Blood Count 2.90L, Hemoglobin 9.6L, Hematocrit 29.6L , Mean Corpuscular Volume 102H, Mean Corpuscular Hemoglobin 33.0H, Mean Corpuscular Hemoglobin Concent 32.4, Red Cell Distribution Width 13.6, Platelet Count 225, Mean Platelet Volume 8.1, Neutrophils (%) (Auto) 69.0, Lymphocytes (% ) (Auto) 16.9L, Monocytes (%) (Auto) 7.3, Eosinophils (%) (Auto) 6.3H, Basophils (%) (Auto) 0.5, Sodium Level 142, Potassium Level 4.2, Chloride Level 109H, Carbon Dioxide Level 27, Anion Gap 6, Blood Urea Nitrogen 25H, Creatinine 0.9, Estimat Glomerular Filtration Rate , Glucose Level 111H, Calcium Level 9.1 , Total Bilirubin 0.2, Aspartate Amino Transf (AST/SGOT) 13L, Alanine Aminotransferase (ALT/SGPT) 18, Alkaline Phosphatase 91, Pro-B-Type Natriuretic Peptide 1739H, Total Protein 7.0, Albumin 2.2L, Globulin 4.8, Albumin/Globulin Ratio 0.5L Height (Feet): 6 Height (Inches): 1.00 Weight (Pounds): 204 General Appearance: no apparent distress EENT: normal ENT inspection Neck: supple Cardiovascular: normal rate Respiratory/Chest: decreased breath sounds Abdomen: normal bowel sounds, non tender, soft Extremities: non-tender VOSOGHI,MALOU May 23, 2017 11:03
--- NOTE | 2017-05-23 15:00 | Internal Med Progress Note ---
Subjective Date of Service: May 23, 2017 Physician Name Chris Yadav Attending Physician Sunil Castillo MD Current Medications Medications (Trade) Dose Ordered Sig/Polo Route PRN Reason Start Time Stop Time Status Last Admin Dose Admin Acetaminophen (Tylenol) 650 mg Q4H PRN ORAL FEVER 05/14/17 21:45 06/13/17 21:44 05/17/17 05:39 Artificial Tears (Akwa-Tears) 1 drop Q12H PRN BOTH EYES Dry Eyes 05/15/17 15:45 06/14/17 15:44 Ascorbic Acid (Vitamin C) 500 mg DAILY GT 05/16/17 09:00 06/15/17 08:59 05/23/17 08:47 Aspirin (ASA) 81 mg DAILY GT 05/17/17 09:00 06/16/17 08:59 05/23/17 08:53 Carbidopa/Levodopa (Sinemet 25/100) 1 ea BID GT 05/15/17 18:00 06/14/17 17:59 05/23/17 08:46 Clonidine HCl (Catapres) 0.1 mg Q6H PRN GT FOR SBP>160 05/15/17 21:45 06/14/17 21:44 Dextrose (Dextrose 50%) STAT PRN IV Hypoglycemia 05/18/17 11:00 06/17/17 10:59 Docusate Sodium (Colace) 100 mg TWICE A DAY NG 05/17/17 09:00 06/16/17 08:59 05/23/17 08:52 Heparin Sodium (Porcine) (Heparin 5000 units/ml) 5,000 units EVERY 12 HOURS SUBQ 05/15/17 09:00 06/14/17 08:59 05/23/17 08:54 Insulin Aspart (NovoLOG) EVERY 6 HOURS SUBQ 05/19/17 00:00 06/17/17 11:29 05/23/17 05:23 Losartan Potassium (Cozaar) 25 mg DAILY GT 05/16/17 16:15 06/15/17 16:14 05/23/17 08:49 Multivitamins (Multivitamins) 1 tab DAILY ORAL 05/16/17 09:00 06/15/17 08:59 05/23/17 08:46 Ondansetron HCl (Zofran) 4 mg Q6H PRN IVP Nausea & Vomiting 05/14/17 21:45 11/4/17 21:44 Pantoprazole (Protonix) 40 mg DAILY IV 05/15/17 09:00 06/14/17 08:59 05/23/17 08:52 Polyethylene Glycol (Miralax) 17 gm DAILY GT 05/16/17 09:00 06/15/17 08:59 05/23/17 08:56 Polyethylene Glycol (Miralax) 17 gm DAILYPRN PRN GT Constipation 05/16/17 15:45 06/13/17 21:44 Sennosides (Senokot) 8.6 mg QHS GT 05/15/17 21:00 06/14/17 20:59 05/22/17 20:28 Allergies: Coded Allergies: CODEINE (Verified Allergy, Unknown, 05/14/17) ROS Limited/Unobtainable: Yes Subjective 87 YO M admitted with respiratory failure. Cover for Int Med-Dr Castillo. SHILPI. Objective Last Vital Signs Date Time Temp Pulse Resp B/P (MAP) Pulse Ox O2 Delivery O2 Flow Rate FiO2 05/23/17 13:19 68 15 40 05/23/17 10:06 98.8 149/73 13 Mechanical Ventilator 05/18/17 04:00 40.0 Laboratory Tests Test 05/23/17 05:55 White Blood Count 8.4 K/UL (4.8-10.8) Red Blood Count 2.90 M/UL (4.70-6.10) L Hemoglobin 9.6 G/DL (14.2-18.0) L Hematocrit 29.6 % (42.0-52.0) L Mean Corpuscular Volume 102 FL (80-99) H Mean Corpuscular Hemoglobin 33.0 PG (27.0-31.0) H Mean Corpuscular Hemoglobin Concent 32.4 G/DL (32.0-36.0) Red Cell Distribution Width 13.6 % (11.6-14.8) Platelet Count 225 K/UL (150-450) Mean Platelet Volume 8.1 FL (6.5-10.1) Neutrophils (%) (Auto) 69.0 % (45.0-75.0) Lymphocytes (%) (Auto) 16.9 % (20.0-45.0) L Monocytes (%) (Auto) 7.3 % (1.0-10.0) Eosinophils (%) (Auto) 6.3 % (0.0-3.0) H Basophils (%) (Auto) 0.5 % (0.0-2.0) Sodium Level 142 MMOL/L (136-145) Potassium Level 4.2 MMOL/L (3.5-5.1) Chloride Level 109 MMOL/L (98-107) H Carbon Dioxide Level 27 MMOL/L (21-32) Anion Gap 6 (5-15) Blood Urea Nitrogen 25 mg/dL (7-18) H Creatinine 0.9 MG/DL (0.55-1.30) Estimat Glomerular Filtration Rate mL/min (>60) Glucose Level 111 MG/DL (74-106) H Calcium Level 9.1 MG/DL (8.5-10.1) Total Bilirubin 0.2 MG/DL (0.2-1.0) Aspartate Amino Transf (AST/SGOT) 13 U/L (15-37) L Alanine Aminotransferase (ALT/SGPT) 18 U/L (12-78) Alkaline Phosphatase 91 U/L (46-116) Pro-B-Type Natriuretic Peptide 1739 (0-125) H Total Protein 7.0 G/DL (6.4-8.2) Albumin 2.2 G/DL (3.4-5.0) L Globulin 4.8 g/dL Albumin/Globulin Ratio 0.5 (1.0-2.7) L Objective General Appearance: WD/WN, moderate distress, lethargic EENT: normal ENT inspection Neck: non-tender, normal alignment, supple, other - tracheostomy Cardiovascular: normal peripheral pulses, normal rate, regular rhythm, no gallop/murmur, no JVD Respiratory/Chest: Mech vent; respiratory distress, crackles/rales, rhonchi - bilaterally, expiratory wheezing Abdomen: normal bowel sounds, non tender, soft, no organomegaly, no mass, distended Skin: normal pigmentation, warm/dry Assessment/Plan Problem List: (1) Respiratory failure Assessment & Plan: See pulmonary note. Cont mech vent per pulmonary (2) CHF (congestive heart failure) (3) Esophageal stenosis Assessment & Plan: S/P stent. (4) Jejunostomy present Assessment & Plan: Continue tube feeds (5) Abdominal distension (gaseous) Assessment & Plan: CT=neg obstruction. (6) Tracheostomy care (7) Pneumonia Assessment & Plan: See ID note. Influenza neg. Await cultures. See ID note. D/C ceftriaxone. (8) Abdominal distention Assessment & Plan: CT abdomen=no obstruction; constipation vs impaction. See GI note. (9) Constipation Status: stable Assessment/Plan Discharge planning: [facility] 05/25/17 CHRIS YADAV May 23, 2017 15:00
[2017-05-23] MEDS ORDERED: NS 275ml ONE (16:18)
--- NOTE | 2017-05-23 17:50 | Pulmonology Progress Note ---
Assessment/Plan Assessment/Plan ASSESSMENT sepsis acute on chronic respiratory failure ( likely due to pneumonia) VDRF/trach RLL HCAP, s/p rx dysphagia, G-J tube ( s/p recent replacement) HTN Parkinson disease fecal impaction anemia distal esophageal stricture, s/p stent placement BPH, s/p s/p catheter placement DM PLAN OF CARE SHILPI vent/trach care pulmonary toilet s/p Rx of PNA blood cx negative, sputum cx negative, influenza screen negative ID follows off abx, observe aspiration precautions, tube feeding, monitor tolerance site care CT A/P noted GI follows bowel regimen Venous Duplex BLE negative BP management with ARB BS management with SS of insulin, HgA1c at goal-6.3 dehydration resolved with IV fluids continue Sinemet DVT GI prophylaxis monitor HH. transfuse prn anemia w/up noted, stool OB - x 2 on Venofer DNR status ID cleared for dc of abx dc plan for am case discussed and evaluated by supervising physician Subjective Allergies: Coded Allergies: CODEINE (Verified Allergy, Unknown, 05/14/17) Subjective leukocytosis resolved, afebrile no signs of respiratory distress on current settings Objective Last 24 Hour Vital Signs Date Time Temp Pulse Resp B/P (MAP) Pulse Ox O2 Delivery O2 Flow Rate FiO2 05/23/17 17:12 76 21 40 05/23/17 15:17 79 22 40 05/23/17 13:19 68 15 40 05/23/17 12:00 97.8 70 12 105/66 98 Mechanical Ventilator 40 05/23/17 12:00 40 05/23/17 11:51 67 05/23/17 11:27 68 12 40 05/23/17 10:06 98.8 78 20 149/73 13 Mechanical Ventilator 40 05/23/17 09:26 71 19 40 05/23/17 08:49 143/73 05/23/17 08:00 40 05/23/17 08:00 71 14 149/79 99 Mechanical Ventilator 40 05/23/17 07:10 70 15 40 05/23/17 04:55 73 16 40 05/23/17 04:00 75 05/23/17 04:00 98.4 72 15 152/61 100 Mechanical Ventilator 40 05/23/17 04:00 40 05/23/17 03:30 77 14 40 05/23/17 01:03 80 16 40 05/23/17 01:00 98.9 05/23/17 00:48 99.4 82 24 156/86 100 Mechanical Ventilator 40 05/23/17 00:00 40 05/23/17 00:00 78 05/22/17 23:17 79 17 40 05/22/17 21:23 81 19 40 05/22/17 20:00 82 05/22/17 20:00 40 05/22/17 20:00 97.5 88 20 132/78 100 Mechanical Ventilator 05/22/17 19:05 86 18 40 General Appearance: no acute distress, other - bedridden elderly male HEENT: normocephalic, atraumatic, status post trach - Portex#6, secretions moderate, white, thick Respiratory/Chest: lungs clear, no respiratory distress Cardiovascular: normal rate, regular rhythm Abdomen: soft, non tender, non distended, other - G-J tube Extremities: no edema, pedal pulses normal Neurologic/Psychiatric: abnormal gait - bedridden, other - not responsive, open eyes spontaneously spastic LE Musculoskeletal: atrophy - BLE Laboratory Tests 05/23/17 05:55: White Blood Count 8.4, Red Blood Count 2.90L, Hemoglobin 9.6L, Hematocrit 29.6L , Mean Corpuscular Volume 102H, Mean Corpuscular Hemoglobin 33.0H, Mean Corpuscular Hemoglobin Concent 32.4, Red Cell Distribution Width 13.6, Platelet Count 225, Mean Platelet Volume 8.1, Neutrophils (%) (Auto) 69.0, Lymphocytes (% ) (Auto) 16.9L, Monocytes (%) (Auto) 7.3, Eosinophils (%) (Auto) 6.3H, Basophils (%) (Auto) 0.5, Sodium Level 142, Potassium Level 4.2, Chloride Level 109H, Carbon Dioxide Level 27, Anion Gap 6, Blood Urea Nitrogen 25H, Creatinine 0.9, Estimat Glomerular Filtration Rate , Glucose Level 111H, Calcium Level 9.1 , Total Bilirubin 0.2, Aspartate Amino Transf (AST/SGOT) 13L, Alanine Aminotransferase (ALT/SGPT) 18, Alkaline Phosphatase 91, Pro-B-Type Natriuretic Peptide 1739H, Total Protein 7.0, Albumin 2.2L, Globulin 4.8, Albumin/Globulin Ratio 0.5L Current Medications Medications (Trade) Dose Ordered Sig/Polo Route PRN Reason Start Time Stop Time Status Last Admin Dose Admin Acetaminophen (Tylenol) 650 mg Q4H PRN ORAL FEVER 05/14/17 21:45 06/13/17 21:44 05/17/17 05:39 Artificial Tears (Akwa-Tears) 1 drop Q12H PRN BOTH EYES Dry Eyes 05/15/17 15:45 06/14/17 15:44 Ascorbic Acid (Vitamin C) 500 mg DAILY GT 05/16/17 09:00 06/15/17 08:59 05/23/17 08:47 Aspirin (ASA) 81 mg DAILY GT 05/17/17 09:00 06/16/17 08:59 05/23/17 08:53 Carbidopa/Levodopa (Sinemet 25/100) 1 ea BID GT 05/15/17 18:00 06/14/17 17:59 05/23/17 08:46 Clonidine HCl (Catapres) 0.1 mg Q6H PRN GT FOR SBP>160 05/15/17 21:45 06/14/17 21:44 Dextrose (Dextrose 50%) STAT PRN IV Hypoglycemia 05/18/17 11:00 06/17/17 10:59 Docusate Sodium (Colace) 100 mg TWICE A DAY NG 05/17/17 09:00 06/16/17 08:59 05/23/17 08:52 Heparin Sodium (Porcine) (Heparin 5000 units/ml) 5,000 units EVERY 12 HOURS SUBQ 05/15/17 09:00 06/14/17 08:59 05/23/17 08:54 Insulin Aspart (NovoLOG) EVERY 6 HOURS SUBQ 05/19/17 00:00 06/17/17 11:29 05/23/17 05:23 Losartan Potassium (Cozaar) 25 mg DAILY GT 05/16/17 16:15 06/15/17 16:14 05/23/17 08:49 Multivitamins (Multivitamins) 1 tab DAILY ORAL 05/16/17 09:00 06/15/17 08:59 05/23/17 08:46 Ondansetron HCl (Zofran) 4 mg Q6H PRN IVP Nausea & Vomiting 05/14/17 21:45 06/13/17 21:44 Pantoprazole (Protonix) 40 mg DAILY IV 05/15/17 09:00 06/14/17 08:59 05/23/17 08:52 Polyethylene Glycol (Miralax) 17 gm DAILY GT 05/16/17 09:00 06/15/17 08:59 05/23/17 08:56 Polyethylene Glycol (Miralax) 17 gm DAILYPRN PRN GT Constipation 05/16/17 15:45 06/13/17 21:44 Sennosides (Senokot) 8.6 mg QHS GT 05/15/17 21:00 06/14/17 20:59 05/22/17 20:28 [facility] May 23, 2017 17:50
[2017-05-23] MEDS: Sennosides 8.6mg GT SCH (20:40)
[2017-05-24] VITALS: BP 121/74
[2017-05-24] MEDS: NovoLOG Insulin Flexpen SUBQ SCH ×3 (00:51→11:56)
[2017-05-24 04:00] VITALS: BP 137/72
[2017-05-24 08:00] VITALS: BP 143/69
--- NOTE | 2017-05-24 08:20 | Infectious Diseases Prog Note ---
Assessment/Plan Assessment/Plan A; Pneumonia s/p Rx VRE colonization VDRF Anemia Esophageal stenosis P; Observe off antibiotic Subjective ROS Limited/Unobtainable: Yes Allergies: Coded Allergies: CODEINE (Verified Allergy, Unknown, 05/14/17) Objective Vital Signs Last 24 Hour Vital Signs Date Time Temp Pulse Resp B/P (MAP) Pulse Ox O2 Delivery O2 Flow Rate FiO2 05/24/17 08:14 94 05/24/17 08:12 40 05/24/17 06:52 78 18 40 05/24/17 05:09 79 18 40 05/24/17 04:00 79 05/24/17 04:00 99.0 74 24 137/72 98 Mechanical Ventilator 40 05/24/17 04:00 40 05/24/17 02:55 73 19 40 05/24/17 00:57 75 21 40 05/24/17 00:00 40 05/24/17 00:00 79 05/24/17 00:00 99.1 78 22 121/74 98 Mechanical Ventilator 40 05/23/17 22:58 80 22 40 05/23/17 20:52 79 21 40 05/23/17 20:00 98.7 75 23 139/77 98 Mechanical Ventilator 40 05/23/17 20:00 40 05/23/17 18:55 77 21 Mechanical Ventilator 40 05/23/17 18:55 77 21 40 05/23/17 17:12 76 21 40 05/23/17 16:00 40 05/23/17 16:00 80 05/23/17 16:00 98.1 77 20 140/72 98 Mechanical Ventilator 40 05/23/17 15:17 79 22 40 05/23/17 13:19 68 15 40 05/23/17 12:00 97.8 70 12 105/66 98 Mechanical Ventilator 40 05/23/17 12:00 40 05/23/17 11:51 67 05/23/17 11:27 68 12 40 05/23/17 10:06 98.8 78 20 149/73 13 Mechanical Ventilator 40 05/23/17 09:26 71 19 40 05/23/17 08:49 143/73 Height (Feet): 6 Height (Inches): 1.00 Weight (Pounds): 204 General Appearance: no acute distress HEENT: status post trach Respiratory/Chest: lungs clear, other - on ventilator Cardiovascular: normal rate Abdomen: soft, non tender, other - GT feeding Extremities: no edema Neurologic/Psychiatric: unresponsiveness Current Medications Medications (Trade) Dose Ordered Sig/Polo Route PRN Reason Start Time Stop Time Status Last Admin Dose Admin Acetaminophen (Tylenol) 650 mg Q4H PRN ORAL FEVER 05/14/17 21:45 06/13/17 21:44 05/17/17 05:39 Artificial Tears (Akwa-Tears) 1 drop Q12H PRN BOTH EYES Dry Eyes 05/15/17 15:45 06/14/17 15:44 Ascorbic Acid (Vitamin C) 500 mg DAILY GT 05/16/17 09:00 06/15/17 08:59 05/23/17 08:47 Aspirin (ASA) 81 mg DAILY GT 05/17/17 09:00 06/16/17 08:59 05/23/17 08:53 Carbidopa/Levodopa (Sinemet 25/100) 1 ea BID GT 05/15/17 18:00 06/14/17 17:59 05/23/17 18:24 Clonidine HCl (Catapres) 0.1 mg Q6H PRN GT FOR SBP>160 05/15/17 21:45 06/14/17 21:44 Dextrose (Dextrose 50%) STAT PRN IV Hypoglycemia 05/18/17 11:00 06/17/17 10:59 Docusate Sodium (Colace) 100 mg TWICE A DAY NG 05/17/17 09:00 06/16/17 08:59 05/23/17 18:24 Heparin Sodium (Porcine) (Heparin 5000 units/ml) 5,000 units EVERY 12 HOURS SUBQ 05/15/17 09:00 06/14/17 08:59 05/23/17 20:40 Insulin Aspart (NovoLOG) EVERY 6 HOURS SUBQ 05/19/17 00:00 06/17/17 11:29 05/24/17 05:02 Losartan Potassium (Cozaar) 25 mg DAILY GT 05/16/17 16:15 06/15/17 16:14 05/23/17 08:49 Multivitamins (Multivitamins) 1 tab DAILY ORAL 05/16/17 09:00 06/15/17 08:59 05/23/17 08:46 Ondansetron HCl (Zofran) 4 mg Q6H PRN IVP Nausea & Vomiting 05/14/17 21:45 06/13/17 21:44 Pantoprazole (Protonix) 40 mg DAILY IV 05/15/17 09:00 06/14/17 08:59 05/23/17 08:52 Polyethylene Glycol (Miralax) 17 gm DAILY GT 05/16/17 09:00 06/15/17 08:59 05/23/17 08:56 Polyethylene Glycol (Miralax) 17 gm DAILYPRN PRN GT Constipation 05/16/17 15:45 06/13/17 21:44 Sennosides (Senokot) 8.6 mg QHS GT 05/15/17 21:00 06/14/17 20:59 05/23/17 20:40 CLAUDIA BARBOUR May 24, 2017 08:20
[2017-05-24] MEDS: Ascorbic Acid 500mg tab GT SCH (09:50)
[2017-05-24] MEDS: Pantoprazole Inj IV SCH (09:50)
[2017-05-24] MEDS: Aspirin Baby 81mg GT SCH (09:50)
[2017-05-24] MEDS: Docusate 100mg/10ml Liq NG SCH (09:50)
[2017-05-24] MEDS: Sinemet 25/100 tab GT SCH (09:51)
[2017-05-24] MEDS: Losartan 25mg tab GT SCH (09:52)
[2017-05-24] MEDS: Miralax 17gm pkt GT SCH (09:52)
[2017-05-24] MEDS: Heparin 5000 units/ml inj SUBQ SCH (09:54)
[2017-05-24 12:00] VITALS: BP 147/74
--- NOTE | 2017-05-24 12:15 | Internal Med Progress Note ---
Subjective Date of Service: May 24, 2017 Physician Name Chris Yadav Attending Physician Sunil Castillo MD Current Medications Medications (Trade) Dose Ordered Sig/Polo Route PRN Reason Start Time Stop Time Status Last Admin Dose Admin Acetaminophen (Tylenol) 650 mg Q4H PRN ORAL FEVER 05/14/17 21:45 06/13/17 21:44 05/17/17 05:39 Artificial Tears (Akwa-Tears) 1 drop Q12H PRN BOTH EYES Dry Eyes 05/15/17 15:45 06/14/17 15:44 Ascorbic Acid (Vitamin C) 500 mg DAILY GT 05/16/17 09:00 06/15/17 08:59 05/24/17 09:50 Aspirin (ASA) 81 mg DAILY GT 05/17/17 09:00 06/16/17 08:59 05/24/17 09:50 Carbidopa/Levodopa (Sinemet 25/100) 1 ea BID GT 05/15/17 18:00 06/14/17 17:59 05/24/17 09:51 Clonidine HCl (Catapres) 0.1 mg Q6H PRN GT FOR SBP>160 05/15/17 21:45 06/14/17 21:44 Dextrose (Dextrose 50%) STAT PRN IV Hypoglycemia 05/18/17 11:00 06/17/17 10:59 Docusate Sodium (Colace) 100 mg TWICE A DAY NG 05/17/17 09:00 06/16/17 08:59 05/24/17 09:50 Heparin Sodium (Porcine) (Heparin 5000 units/ml) 5,000 units EVERY 12 HOURS SUBQ 05/15/17 09:00 06/14/17 08:59 05/24/17 09:54 Insulin Aspart (NovoLOG) EVERY 6 HOURS SUBQ 05/19/17 00:00 06/17/17 11:29 05/24/17 11:56 Losartan Potassium (Cozaar) 25 mg DAILY GT 05/16/17 16:15 06/15/17 16:14 05/24/17 09:52 Multivitamins (Multivitamins) 1 tab DAILY ORAL 05/16/17 09:00 06/15/17 08:59 05/24/17 09:50 Ondansetron HCl (Zofran) 4 mg Q6H PRN IVP Nausea & Vomiting 05/14/17 21:45 11/4/17 21:44 Pantoprazole (Protonix) 40 mg DAILY IV 05/15/17 09:00 06/14/17 08:59 05/24/17 09:50 Polyethylene Glycol (Miralax) 17 gm DAILY GT 05/16/17 09:00 06/15/17 08:59 05/24/17 09:52 Polyethylene Glycol (Miralax) 17 gm DAILYPRN PRN GT Constipation 05/16/17 15:45 06/13/17 21:44 Sennosides (Senokot) 8.6 mg QHS GT 05/15/17 21:00 06/14/17 20:59 05/23/17 20:40 Allergies: Coded Allergies: CODEINE (Verified Allergy, Unknown, 05/14/17) ROS Limited/Unobtainable: Yes Subjective 87 YO M admitted with respiratory failure. Cover for Int Med-Dr Castillo. [facility]. Objective Last Vital Signs Date Time Temp Pulse Resp B/P (MAP) Pulse Ox O2 Delivery O2 Flow Rate FiO2 05/24/17 11:02 76 18 40 05/24/17 09:52 137/72 05/24/17 08:00 97.8 98 Mechanical Ventilator 05/18/17 04:00 40.0 Objective General Appearance: WD/WN, moderate distress, lethargic EENT: normal ENT inspection Neck: non-tender, normal alignment, supple, other - tracheostomy Cardiovascular: normal peripheral pulses, normal rate, regular rhythm, no gallop/murmur, no JVD Respiratory/Chest: Mech vent; respiratory distress, crackles/rales, rhonchi - bilaterally, expiratory wheezing Abdomen: normal bowel sounds, non tender, soft, no organomegaly, no mass, distended Skin: normal pigmentation, warm/dry Assessment/Plan Problem List: (1) Respiratory failure Assessment & Plan: See pulmonary note. Cont mech vent per pulmonary (2) CHF (congestive heart failure) (3) Esophageal stenosis Assessment & Plan: S/P stent. (4) Jejunostomy present Assessment & Plan: Continue tube feeds (5) Abdominal distension (gaseous) Assessment & Plan: CT=neg obstruction. (6) Tracheostomy care (7) Pneumonia Assessment & Plan: See ID note. Influenza neg. See ID note-Observe off antibiotics (8) Abdominal distention Assessment & Plan: CT abdomen=no obstruction; constipation vs impaction. See GI note. (9) Constipation Status: stable Assessment/Plan Discharge planning: [facility] 05/25/17 CHRIS YADAV May 24, 2017 12:15
--- NOTE | 2017-05-24 12:15 | Pulmonology Progress Note ---
Assessment/Plan Assessment/Plan ASSESSMENT sepsis acute on chronic respiratory failure ( likely due to pneumonia) VDRF/trach RLL HCAP, s/p rx dysphagia, G-J tube ( s/p recent replacement) HTN Parkinson disease fecal impaction anemia distal esophageal stricture, s/p stent placement BPH, s/p s/p catheter placement DM PLAN OF CARE [facility] vent/trach care pulmonary toilet s/p Rx of PNA blood cx negative, sputum cx negative, influenza screen negative ID follows off abx, observe aspiration precautions, tube feeding, monitor tolerance site care CT A/P noted GI follows bowel regimen Venous Duplex BLE negative BP management with ARB BS management with SS of insulin, HgA1c at goal-6.3 dehydration resolved with IV fluids continue Sinemet DVT GI prophylaxis monitor HH. transfuse prn anemia w/up noted, stool OB - x 2 on Venofer DNR status ID cleared for dc of abx stable for dc from pulmonary standpoint dc plan case discussed and evaluated by supervising physician Subjective Allergies: Coded Allergies: CODEINE (Verified Allergy, Unknown, 05/14/17) Subjective leukocytosis resolved, afebrile no signs of respiratory distress on current settings Objective Last 24 Hour Vital Signs Date Time Temp Pulse Resp B/P (MAP) Pulse Ox O2 Delivery O2 Flow Rate FiO2 05/24/17 11:02 76 18 40 05/24/17 09:52 137/72 05/24/17 08:32 74 18 40 05/24/17 08:14 94 05/24/17 08:12 40 05/24/17 08:00 97.8 77 22 143/69 98 Mechanical Ventilator 05/24/17 06:52 78 18 40 05/24/17 05:09 79 18 40 05/24/17 04:00 79 05/24/17 04:00 99.0 74 24 137/72 98 Mechanical Ventilator 40 05/24/17 04:00 40 05/24/17 02:55 73 19 40 05/24/17 00:57 75 21 40 05/24/17 00:00 40 05/24/17 00:00 79 05/24/17 00:00 99.1 78 22 121/74 98 Mechanical Ventilator 40 05/23/17 22:58 80 22 40 05/23/17 20:52 79 21 40 05/23/17 20:00 98.7 75 23 139/77 98 Mechanical Ventilator 40 05/23/17 20:00 40 05/23/17 18:55 77 21 Mechanical Ventilator 40 05/23/17 18:55 77 21 40 05/23/17 17:12 76 21 40 05/23/17 16:00 40 05/23/17 16:00 80 05/23/17 16:00 98.1 77 20 140/72 98 Mechanical Ventilator 40 05/23/17 15:17 79 22 40 05/23/17 13:19 68 15 40 Objective General Appearance: no acute distress, bedridden elderly male HEENT: normocephalic, atraumatic, status post trach - Portex#6, secretions moderate, white, thick Respiratory/Chest: lungs clear, no respiratory distress Cardiovascular: normal rate, regular rhythm Abdomen: soft, non tender, non distended, G-J tube Extremities: no edema, pedal pulses normal Neurologic/Psychiatric: abnormal gait - bedridden, not responsive, open eyes spontaneously, spastic LE Musculoskeletal: atrophy - BLE Current Medications Medications (Trade) Dose Ordered Sig/Polo Route PRN Reason Start Time Stop Time Status Last Admin Dose Admin Acetaminophen (Tylenol) 650 mg Q4H PRN ORAL FEVER 05/14/17 21:45 06/13/17 21:44 05/17/17 05:39 Artificial Tears (Akwa-Tears) 1 drop Q12H PRN BOTH EYES Dry Eyes 05/15/17 15:45 06/14/17 15:44 Ascorbic Acid (Vitamin C) 500 mg DAILY GT 05/16/17 09:00 06/15/17 08:59 05/24/17 09:50 Aspirin (ASA) 81 mg DAILY GT 05/17/17 09:00 06/16/17 08:59 05/24/17 09:50 Carbidopa/Levodopa (Sinemet 25/100) 1 ea BID GT 05/15/17 18:00 06/14/17 17:59 05/24/17 09:51 Clonidine HCl (Catapres) 0.1 mg Q6H PRN GT FOR SBP>160 05/15/17 21:45 06/14/17 21:44 Dextrose (Dextrose 50%) STAT PRN IV Hypoglycemia 05/18/17 11:00 06/17/17 10:59 Docusate Sodium (Colace) 100 mg TWICE A DAY NG 05/17/17 09:00 06/16/17 08:59 05/24/17 09:50 Heparin Sodium (Porcine) (Heparin 5000 units/ml) 5,000 units EVERY 12 HOURS SUBQ 05/15/17 09:00 06/14/17 08:59 05/24/17 09:54 Insulin Aspart (NovoLOG) EVERY 6 HOURS SUBQ 05/19/17 00:00 06/17/17 11:29 05/24/17 11:56 Losartan Potassium (Cozaar) 25 mg DAILY GT 05/16/17 16:15 06/15/17 16:14 05/24/17 09:52 Multivitamins (Multivitamins) 1 tab DAILY ORAL 05/16/17 09:00 06/15/17 08:59 05/24/17 09:50 Ondansetron HCl (Zofran) 4 mg Q6H PRN IVP Nausea & Vomiting 05/14/17 21:45 06/13/17 21:44 Pantoprazole (Protonix) 40 mg DAILY IV 05/15/17 09:00 06/14/17 08:59 05/24/17 09:50 Polyethylene Glycol (Miralax) 17 gm DAILY GT 05/16/17 09:00 06/15/17 08:59 05/24/17 09:52 Polyethylene Glycol (Miralax) 17 gm DAILYPRN PRN GT Constipation 05/16/17 15:45 06/13/17 21:44 Sennosides (Senokot) 8.6 mg QHS GT 05/15/17 21:00 06/14/17 20:59 05/23/17 20:40 Na Espinal NP (Vanchtein) May 24, 2017 12:15
[2017-05-24 16:18] VITALS: BP 147/74
--- NOTE | 2017-05-26 08:39 | Discharge Summary ---
Discharge Summary Hospital Course Date of Admission May 14, 2017 at 21:15 Date of Discharge May 24, 2017 at 17:39 Admitting Diagnosis shortness of breath HPI Nick Liu is a 87 year old male who was admitted on May 14, 2017 at 21:15 for Shortness Of Breath Hospital Course dc summary #[id number] Discharge Medications Continued Medications: Amlodipine Besylate* (Amlodipine Besylate*) 10 Mg Tablet 10 MG GT DAILY, TAB Ascorbic Acid* (Vitamin C*) 500 Mg Tablet 500 MG GT DAILY, #30 TAB 0 Refills Aspirin* (Aspir 81*) 81 Mg Tablet.dr 81 MG ORAL DAILY, TAB Carbidopa/Levodopa 25-100 Mg* (Sinemet 25-100 Mg Tablet*) 1 Each Tablet 1 TAB GT BID, TAB Clonidine Hcl* (Catapres*) 0.1 Mg Tablet 0.1 MG GT EVERY 6 HOURS PRN for For High Blood Pressure, TAB Cranberry Extract (Cranberry Juice Powder) 425 Mg Capsule 425 MG GT BID, CAP Famotidine (Pepcid Ac) 20 Mg Tablet 20 MG GT EVERY 12 HOURS, TAB Ferrous Sulfate (Ferrous Sulfate) 220 Mg/5 Ml Elixir 220 MG GT DAILY, ML Glycopyrrolate (Robinul) 1 Mg Tablet 1 MG GT TID, TAB Ipratropium [place] 0.5MG/2.5ML (Ipratropium [place] 0.5MG/2.5ML) 0.2 Mg/1 Ml Solution 0.5 MG HHN Q6H, #28 EA Losartan Potassium* (Cozaar*) 25 Mg Tablet 25 MG GT DAILY, TAB Multivitamins* (Multivitamins*) 1 Each Tablet 1 TAB GT DAILY, TAB 0 Refills Polyethylene Glycol 3350* (Miralax*) 17 Gm Powd.pack 17 GM GT DAILY, PACKET Polyvinyl Alcohol (Liquitears) 15 Ml Drops 1 DROP OP Q12HR PRN for Dry Eyes, ML Sennosides (Senokot) 8.6 Mg Tablet 8.6 MG GT HS, TAB Discharge Condition Upon Discharge: stable Discharge Disposition Patient was discharged to SNF/Subacute Facility(03) Discharge Diagnoses: Espinal (Vanchtein),Na ZAMUDIO May 26, 2017 08:39
--- NOTE | 2017-05-27 01:00 | Discharge Summary 2 SIG ---
DATE OF ADMISSION: 05/14/2017 DATE OF DISCHARGE: 05/24/2017 REASON FOR ADMISSION: 87-year-old male with a history of ventilator-dependent respiratory failure, tracheostomy, atrial fibrillation with rapid ventricular response, BPH, diabetes, GJ-tube placement, esophageal stricture, status post stent, suprapubic catheter, hypertension, hiatal hernia, and Parkinson disease, DNR/DNI status, was sent from the custodial facility for evaluation since he noted to have a respiratory distress. Upon evaluation in the emergency department, the patient was found to have leukocytosis, WBC -14.2. Chest x-ray with evidence of possible pneumonia. The patient also had evidence of abdominal distention. Abdominal and pelvic CT revealed right base infiltrate, distal esophageal stent, and moderate fecal impaction. The patient was admitted with sepsis, nosocomial pneumonia, respiratory distress, abdominal distention, and fecal impaction. HOSPITAL STAY: The patient was admitted to [facility]. Ventilator support provided. Tracheostomy care provided. Pulmonary toilet provided in the form of handheld nebulizing and CPT. Settings were titrated as needed. No signs of respiratory distress on current settings prior to discharge. The patient was started on empiric antibiotics. ID closely followed. Influenza screen was negative. Blood culture were negative. Sputum culture was negative. The patient status post treatment for healthcare-associated pneumonia. ID recommended to observe off antibiotics. Leukocytosis resolved. Afebrile. Strict aspiration precautions were maintained. Tube feeding was started. GI closely followed. Bowel regimen was instituted. The patient was on PPI. Stool OB x2 was negative. Hemoglobin and hematocrit were closely monitored and remained at the baseline. Anemia workup was done. The patient was on Venofer. Tolerated tube feeding. Status post recent replacement from G-tube to J-tube. Sinemet was continued. DVT and GI prophylaxes provided. Venous duplex of bilateral lower extremities was negative. Blood pressure was managed with ARB and was stable. Blood sugar was managed with sliding scale of insulin. Hemoglobin A1c at goal- 6.3. Initial dehydration resolved with IV fluids. ID cleared for discharge off antibiotics and observe clinically. cardiovascular disease specialist cleared for discharge. The patient was stable for discharge back to the custodial facility. Follow up with medical doctor and manager of photography at the facility. DISCHARGE DIAGNOSES: 1. Sepsis. 2. Acute on chronic respiratory failure, likely due to pneumonia. 3. Right lower lobe healthcare-associated pneumonia, status post treatment. 4. Ventilator-dependent respiratory failure with tracheostomy status. 5. Dysphagia. 6. Gastrojejunostomy-tube (status post recent replacement from gastrostomy-tube to jejunostomy-tube). 7. Hypertension. 8. Parkinson disease. 9. Fecal impaction, resolved. 10. Anemia. 11. Distal esophageal stricture, status post stent placement. 12. Benign prostatic hypertrophy status post suprapubic catheter placement. 13. Diabetes mellitus. DISCHARGE MEDICATIONS: See medication reconciliation list. DISCHARGE INSTRUCTIONS: The patient was discharged to subacute custodial facility. Follow up with medical doctor and manager of photography at the facility. Sunil Castillo M.D. Na SharmaLenox Hill HospitalLuis N.PDavin DR: BRENDA JOB#: [id number] CC: EMMANUEL
== END 2017-05-24 17:39 | DRG 870 ==
LOC: EDBD 19:33 → EMR 21:13 → 2W 21:15 → EDBEDREQ 21:24
PROC: 5A1955Z Respiratory Ventilation, Greater than 96 Consecutive Hours (ICD-10-PCS; principal; 2017-05-14)
DX: A41.9 Sepsis, unspecified organism (principal); J96.20 Acute and chronic respiratory failure, unspecified whether with hypoxia or hypercapnia; J18.9 Pneumonia, unspecified organism; Z99.11 Dependence on respirator [ventilator] status; Z93.0 Tracheostomy status; K94.13 Enterostomy malfunction; I11.0 Hypertensive heart disease with heart failure; I50.9 Heart failure, unspecified; Z93.1 Gastrostomy status; K56.41 Fecal impaction; Z66 Do not resuscitate; N40.0 Benign prostatic hyperplasia without lower urinary tract symptoms; I48.91 Unspecified atrial fibrillation; G20 Parkinson's disease; R13.10 Dysphagia, unspecified; K22.2 Esophageal obstruction; K44.9 Diaphragmatic hernia without obstruction or gangrene; D64.9 Anemia, unspecified; E11.9 Type 2 diabetes mellitus without complications
CPT/HCPCS: 36415; 71010; 74000; 74177; 80048; 80053; 80069; 80202; 81003; 82270; 82378; 82550; 82553; 82607; 82746; 82962; 83036; 83540; 83550; 83605; 83615; 83735; 83880; 84100; 84484; 85007; 85025; 85044; 85060; 85610; 85651; 85730; 86710; 87040; 87070; 87081; 87086; 87205; 93005; 93970; 94002; 94003; 94640; 94664; 99285; J1815; J7620

== ENCOUNTER 2017-09-07 10:37 | Inpatient (IN) | payer MEDICARE, BC, MEDICAID ==
[~2017-09-07] VITALS: Ht 185.4 cm; Wt 89.9 kg
[~2017-09-07 10:37] MED LIST: ALBUTEROL2.5 MG/3 M INH; AMLODIPINE BESY10 MG GT; ASPIR 8181 MG ORAL; CATAPRES0.1 MG GT; COZAAR25 MG GT; CRANBERRY JUIC425 MG GT; FERROUS SU220 MG/53 GT; IPRATROPIU0.2 MG/1 M HHN; LIQUITEARS15 ML OP; MIRALAX17 G2 GT; MULTIVITAMINS1 EAC2 GT; PEPCID AC20 M2 GT; POLYVINYL ALCOH15 ML OP; ROBINUL1 MG GT; SENOKOT8.6 MG GT; SINEMET 25-1001 EAC1 GT; VITAMIN C500 M1 GT
[2017-09-07] MEDS ORDERED: ALBUTEROL2.5 MG/3 M INH (10:46)
[2017-09-07] MEDS ORDERED: TYLENOL650 MG/20. ORAL (10:46)
--- NOTE | 2017-09-07 11:12 | Emergency Room Report ---
History of Present Illness General Chief Complaint: Dyspnea/Respdistress Source: Patient Present Illness HPI 87-year-old male, coming from alf, DO NOT RESUSCITATE, tracheostomy to ventilator, presenting with hypoxia. EMS states that alf found him to have difficulty breathing, he had a low oxygen saturation, when EMS arrived he was suctioned, saturation is initially 80 then 100. however family still wanted patient to be transferred to the emergency room. No other history is able to be obtained Allergies: Coded Allergies: CODEINE (Verified Allergy, Unknown, 05/14/17) Patient History Past Medical History: see triage record Past Surgical History: none Pertinent Family History: none Reviewed Nursing Documentation: PMH: Agreed, PSxH: Agreed Nursing Documentation-PMH Hx Cardiac Problems: Yes Hx Hypertension: Yes - heart failure Hx Asthma: Yes Hx COPD: Yes Hx Cancer: No Hx Gastrointestinal Problems: Yes - dysphagia Hx Neurological Problems: Yes - Hx Parkinson's Disease: Yes Hx Tremors: Yes - parkinsons Hx Dysphasia: Yes Review of Systems All Other Systems: limited - nonverbal Physical Exam Vital Signs Date Time Temp Pulse Resp B/P (MAP) Pulse Ox O2 Delivery O2 Flow Rate FiO2 09/07/17 10:30 107 20 113/57 96 Ambu-Bag Sp02 EP Interpretation: abnormal General Appearance: mild distress, lethargic, Chronically Ill Head: normocephalic, atraumatic Eyes: bilateral eye normal inspection, bilateral eye PERRL, bilateral eye EOMI ENT: other - +trach Neck: normal inspection, full range of motion, supple Respiratory: other - +mechanical ventsounds bl Cardiovascular #1: normal inspection, regular rate, rhythm, normal capillary refill Cardiovascular #2: 2+ radial (R), 2+ radial (L) Gastrointestinal: other - peg tube in place Musculoskeletal: other - normal passive ROM Neurologic: other - nonverbal not ff commands Psychiatric: other - not verbal Skin: normal inspection, normal color, no rash, warm/dry, well hydrated, normal turgor Procedures Critical Care Time Critical Care Time 40 minutes of CC time 87-year-old male, tracheostomy dependent, hypoxic VS: hypoxic, tachypneic, tachycardic PLAN: IV access, labs, lactate, troponin, Blood/Urine Cx, Abx, IVF Anticipate admission to Tele vs. CIRO CC time also includes review of labs, review of EMR, discussion with family and paperwork from SNF, d/w hospitalist CC could include dosing of pressors, additional Abx CC time does not include procedures Medical Decision Making Diagnostic Impression: Primary Impression: UTI (urinary tract infection) Additional Impressions: Hypoxia Tracheostomy dependence Respiratory failure DNR (do not resuscitate) Severe sepsis ER Course 87-year-old male, with trach, hypoxic Was likely secondary to mucous plug since now after being suctioned patient is satting 100% and is at his baseline DDX: Rule out Pneumonia, viral illness, CHF/effusion, ACS Plan: Obtain labs, ua, EKG, CXR ER course: Patient has been monitored during ED stay, HD stable Placed on a vent, has been saturating 100% on 50 fi02 +uti and possible PNA - given broad spec abx only 1L ns given unknown pts heart function Sepsis Re-examination Time: 12pm VS: Temp 98 HR 92 BP 130/63 RR 20 CVS: RRR Respiratory: mech b/s bilaterally Peripheral pulses: 2+ radial Capillary refill: <2 seconds Skin exam: warm, dry, no rash, not mottled Disposition: Patient is to be admitted to [facility] D/W hospitalist Dr Castillo Please note that this Emergency Department Report was dictated using [employer] plant operator technology software, occasionally this can lead to erroneous entry secondary to interpretation by the dictation equipment. EKG Diagnostic Results EP Interpretation: Yes Rate: normal Rhythm: NSR ST Segments: No acute changes ASA given to patient: No Rhythm Strip EP Interpretation: Yes Rate: 96 Rhythm: NSR, no PVCs, no ectopy Chest X-ray CXR: Ordered: Yes 1 view Indication: Shortness of breath EP interpretation: Yes Interpretation: Limited secondary to poor inspiratory effort, however no consolidation noted Impression: See above Electronically signed by Della Carballo MD Laboratory Tests Test 09/07/17 10:50 09/07/17 11:10 09/07/17 11:40 White Blood Count 15.9 K/UL (4.8-10.8) H Red Blood Count 3.27 M/UL (4.70-6.10) L Hemoglobin 10.3 G/DL (14.2-18.0) L Hematocrit 33.1 % (42.0-52.0) L Mean Corpuscular Volume 101 FL (80-99) H Mean Corpuscular Hemoglobin 31.5 PG (27.0-31.0) H Mean Corpuscular Hemoglobin Concent 31.2 G/DL (32.0-36.0) L Red Cell Distribution Width 14.1 % (11.6-14.8) Platelet Count 232 K/UL (150-450) Mean Platelet Volume 7.1 FL (6.5-10.1) Neutrophils (%) (Auto) 81.9 % (45.0-75.0) H Lymphocytes (%) (Auto) 8.5 % (20.0-45.0) L Monocytes (%) (Auto) 6.8 % (1.0-10.0) Eosinophils (%) (Auto) 2.4 % (0.0-3.0) Basophils (%) (Auto) 0.4 % (0.0-2.0) Sodium Level 146 MMOL/L (136-145) H Potassium Level 4.5 MMOL/L (3.5-5.1) Chloride Level 111 MMOL/L (98-107) H Carbon Dioxide Level 27 MMOL/L (21-32) Anion Gap 8 mmol/L (5-15) Blood Urea Nitrogen 29 mg/dL (7-18) H Creatinine 0.9 MG/DL (0.55-1.30) Estimate Glomerular Filtration Rate mL/min (>60) Glucose Level 137 MG/DL (74-106) H Lactic Acid Level 2.90 mmol/L (0.66-2.22) H Pending Calcium Level 9.0 MG/DL (8.5-10.1) Total Bilirubin 0.3 MG/DL (0.2-1.0) Aspartate Amino Transferase (AST) 14 U/L (15-37) L Alanine Aminotransferase (ALT) 10 U/L (12-78) L Alkaline Phosphatase 152 U/L (46-116) H Troponin I 0.000 ng/mL (0.000-0.056) Pro-B-Type Natriuretic Peptide 238 pg/mL (0-125) H Total Protein 7.3 G/DL (6.4-8.2) Albumin 2.8 G/DL (3.4-5.0) L Globulin 4.5 g/dL Albumin/Globulin Ratio 0.6 (1.0-2.7) L Urine Color Pale yellow Urine Appearance Slightly cloudy Urine pH 7 (4.5-8.0) Urine Specific [place] 1.010 (1.005-1.035) Urine Protein 2+ (NEGATIVE) H Urine Glucose (UA) Negative (NEGATIVE) Urine Ketones Negative (NEGATIVE) Urine Occult Blood 5+ (NEGATIVE) H Urine Nitrite Negative (NEGATIVE) Urine Bilirubin Negative (NEGATIVE) Urine Urobilinogen Normal MG/DL (0.0-1.0) Urine Leukocyte Esterase 3+ (NEGATIVE) H Urine RBC 15-20 /HPF (0 - 0) H Urine WBC Tntc /HPF (0 - 0) H Urine Squamous Epithelial Cells Occasional /LPF Urine Amorphous Sediment Few /LPF (NONE) H Urine Bacteria Moderate /HPF (NONE) H Last Vital Signs Date Time Temp Pulse Resp B/P (MAP) Pulse Ox O2 Delivery O2 Flow Rate FiO2 09/07/17 10:30 107 20 113/57 96 Ambu-Bag Disposition: ADMITTED INPATIENT Condition: Serious Della Carballo M.D. Sep 07, 2017 11:12
[2017-09-07 11:15] LABS: BASOPHILS % (AUTO) 0.4 % (0.0-2.0); EOSINOPHILS % (AUTO) 2.4 % (0.0-3.0); HEMATOCRIT 33.1 % (42.0-52.0); HEMOGLOBIN 10.3 G/DL (14.2-18.0); LYMPHOCYTES % (AUTO) 8.5 % (20.0-45.0); MEAN CORPUSCULAR VOLUME 101 FL (80-99); MONOCYTES % (AUTO) 6.8 % (1.0-10.0); NEUTROPHILS % (AUTO) 81.9 % (45.0-75.0); PLATELET COUNT 232 K/UL (150-450); RED BLOOD COUNT 3.27 M/UL (4.70-6.10); RED CELL DISTRIBUTION WIDTH 14.1 % (11.6-14.8); WHITE BLOOD COUNT 15.9 K/UL (4.8-10.8)
--- NOTE | 2017-09-07 11:20 | Diagnostic Imaging Report ---
Indication: Shortness of breath Technique: One view of the chest Comparison: 05/23/2017 Findings: There are atelectatic changes and associated volume loss of the right middle lower lung. There is generalized mild chronic appearing interstitial prominence. Previously demonstrated left pleural effusion and hazy parenchymal opacity has resolved. The heart size is normal. Tracheostomy again demonstrated Impression: Right basilar atelectasis and volume loss. Generalized mild interstitial prominence, suspect chronic but acute edema possible Tracheostomy
[2017-09-07 11:29] LABS: ANION GAP 8 mmol/L (5-15); BLOOD UREA NITROGEN 29 mg/dL (7-18); CARBON DIOXIDE 27 MMOL/L (21-32); CHLORIDE 111 MMOL/L (98-107); CREATININE 0.9 MG/DL (0.55-1.30); POTASSIUM 4.5 MMOL/L (3.5-5.1); SODIUM 146 MMOL/L (136-145)
[2017-09-07] MEDS ORDERED: Piperacillin/Tazobactam 3.375 GM in NS 110 ML IVPB ONE (11:30)
[2017-09-07] MEDS ORDERED: Vancomycin 1.5gm/D5W 250ml 250 ML IVPB ONE (11:30)
[2017-09-07 11:39] LABS: ALANINE AMINOTRANSFERASE 10 U/L (12-78); ALBUMIN 2.8 G/DL (3.4-5.0); ALBUMIN/GLOBULIN RATIO 0.6 (1.0-2.7); ALKALINE PHOSPHATASE 152 U/L (46-116); ASPARTATE AMINO TRANSFERASE 14 U/L (15-37); BILIRUBIN,TOTAL 0.3 MG/DL (0.2-1.0)
[2017-09-07 12:05] LABS: APPEARANCE,URINE SLIGHTLY CLOUDY; BILIRUBIN, URINE NEGATIVE (NEGATIVE); COLOR,URINE PALE YELLOW; GLUCOSE, URINE (UA) NEGATIVE (NEGATIVE); KETONES,URINE NEGATIVE (NEGATIVE); LEUKOCYTE ESTERASE ,URINE 3+ (NEGATIVE); NITRITE,URINE NEGATIVE (NEGATIVE); PH,URINE 7 (4.5-8.0); PROTEIN,URINE 2+ (NEGATIVE); UROBILINOGEN,URINE NORMAL MG/DL (0.0-1.0)
[2017-09-07 12:31] VITALS: BP 134/59
[2017-09-07] MEDS ORDERED: Miralax 17gm pkt ORAL PRN (13:00)
[2017-09-07] MEDS ORDERED: LORazepam Inj 2mg/ml 1ml IV PRN (13:00)
[2017-09-07] MEDS ORDERED: Zosyn 3.375gm inj ONE (16:36)
[2017-09-07] MEDS: Levodopa/Carbidopa 25/100 tab GT SCH (17:55)
--- NOTE | 2017-09-07 18:51 | Consultation ---
History of Present Illness General Date patient seen: Sep 07, 2017 Chief Complaint: Dyspnea/Respdistress Referring physician: Juan Jose Reason for Consultation: respiratory failure Present Illness HPI 87-year-old male, coming from [facility], DO NOT RESUSCITATE, tracheostomy to ventilator, presenting with hypoxia. EMS states that [facility] found him to have difficulty breathing, he had a low oxygen saturation, when EMS arrived he was suctioned, saturation is initially 80 then 100. On initial evaluation he had atelectasis on CXR and pyuria and leukocytosis. He is admitted to [facility] for further evaluation. Allergies: Coded Allergies: CODEINE (Verified Allergy, Unknown, 05/14/17) Medication History Scheduled Amlodipine Besylate* (Amlodipine Besylate*), 10 MG GT DAILY, (Reported) Ascorbic Acid* (Vitamin C*), 500 MG GT DAILY, (Reported) Aspirin* (Aspir 81*), 81 MG ORAL DAILY, (Reported) Carbidopa/Levodopa 25-100 Mg* (Sinemet 25-100 Mg Tablet*), 1 TAB GT BID, ( Reported) Cranberry Extract (Cranberry Juice Powder), 425 MG GT BID, (Reported) Famotidine (Pepcid Ac), 20 MG GT EVERY 12 HOURS, (Reported) Ferrous Sulfate (Ferrous Sulfate), 220 MG GT DAILY, (Reported) Glycopyrrolate (Robinul), 1 MG GT TID, (Reported) Ipratropium [place] 0.5MG/2.5ML (Ipratropium [place] 0.5MG/2.5ML), 0.5 MG HHN Q6H, (Reported) Losartan Potassium* (Cozaar*), 25 MG GT DAILY, (Reported) Multivitamins* (Multivitamins*), 1 TAB GT DAILY, (Reported) Polyethylene Glycol 3350* (Miralax*), 17 GM GT DAILY, (Reported) Sennosides (Senokot), 8.6 MG GT HS, (Reported) Scheduled PRN Acetaminophen (Acetaminophen), 650 MG ORAL Q8H PRN for Prn Headache/Temp > 101, (Reported) Albuterol Sulfate* (Albuterol Sulfate Hhn*), 3 ML INH Q3HR PRN for Shortness of Breath, (Reported) Clonidine Hcl* (Catapres*), 0.1 MG GT EVERY 6 HOURS PRN for For High Blood Pressure, (Reported) Polyvinyl Alcohol (Liquitears), 1 DROP OP Q12HR PRN for Dry Eyes, (Reported) Patient History Healthcare decision maker ROSA COVINGTON Resuscitation status Advanced Directive on File No Past Medical/Surgical History Past Medical/Surgical History: (1) Tracheostomy dependence (2) DNR (do not resuscitate) (3) Feeding by G-tube Review of Systems All Other Systems: negative except mentioned in HPI Physical Exam General Appearance: cachetic Lines, tubes and drains: peripheral HEENT: normocephalic, atraumatic Neck: non-tender, normal alignment Respiratory/Chest: chest wall non-tender, normal breath sounds Breasts: no masses Cardiovascular/Chest: normal peripheral pulses Abdomen: normal bowel sounds Genitourinary/Rectal: normal genital exam Extremities: normal range of motion Skin Exam: normal pigmentation Last 24 Hour Vital Signs Date Time Temp Pulse Resp B/P (MAP) Pulse Ox O2 Delivery O2 Flow Rate FiO2 09/07/17 17:15 81 22 55 09/07/17 16:00 35 09/07/17 15:35 90 09/07/17 15:22 90 23 35 09/07/17 14:45 88 09/07/17 13:01 20 143/68 Mechanical Ventilator 09/07/17 12:45 93 30 50 09/07/17 12:36 94 16 Mechanical Ventilator 50 09/07/17 12:31 98.3 93 23 134/59 Mechanical Ventilator 09/07/17 10:45 77 31 50 09/07/17 10:45 50 09/07/17 10:30 107 20 113/57 96 Ambu-Bag Laboratory Tests Test 09/07/17 10:50 09/07/17 11:10 09/07/17 11:40 White Blood Count 15.9 K/UL (4.8-10.8) H Red Blood Count 3.27 M/UL (4.70-6.10) L Hemoglobin 10.3 G/DL (14.2-18.0) L Hematocrit 33.1 % (42.0-52.0) L Mean Corpuscular Volume 101 FL (80-99) H Mean Corpuscular Hemoglobin 31.5 PG (27.0-31.0) H Mean Corpuscular Hemoglobin Concent 31.2 G/DL (32.0-36.0) L Red Cell Distribution Width 14.1 % (11.6-14.8) Platelet Count 232 K/UL (150-450) Mean Platelet Volume 7.1 FL (6.5-10.1) Neutrophils (%) (Auto) 81.9 % (45.0-75.0) H Lymphocytes (%) (Auto) 8.5 % (20.0-45.0) L Monocytes (%) (Auto) 6.8 % (1.0-10.0) Eosinophils (%) (Auto) 2.4 % (0.0-3.0) Basophils (%) (Auto) 0.4 % (0.0-2.0) Sodium Level 146 MMOL/L (136-145) H Potassium Level 4.5 MMOL/L (3.5-5.1) Chloride Level 111 MMOL/L (98-107) H Carbon Dioxide Level 27 MMOL/L (21-32) Anion Gap 8 mmol/L (5-15) Blood Urea Nitrogen 29 mg/dL (7-18) H Creatinine 0.9 MG/DL (0.55-1.30) Estimat Glomerular Filtration Rate mL/min (>60) Glucose Level 137 MG/DL (74-106) H Lactic Acid Level 2.90 mmol/L (0.66-2.22) H Pending Calcium Level 9.0 MG/DL (8.5-10.1) Total Bilirubin 0.3 MG/DL (0.2-1.0) Aspartate Amino Transf (AST/SGOT) 14 U/L (15-37) L Alanine Aminotransferase (ALT/SGPT) 10 U/L (12-78) L Alkaline Phosphatase 152 U/L (46-116) H Troponin I 0.000 ng/mL (0.000-0.056) Pro-B-Type Natriuretic Peptide 238 pg/mL (0-125) H Total Protein 7.3 G/DL (6.4-8.2) Albumin 2.8 G/DL (3.4-5.0) L Globulin 4.5 g/dL Albumin/Globulin Ratio 0.6 (1.0-2.7) L Urine Color Pale yellow Urine Appearance Slightly cloudy Urine pH 7 (4.5-8.0) Urine Specific [place] 1.010 (1.005-1.035) Urine Protein 2+ (NEGATIVE) H Urine Glucose (UA) Negative (NEGATIVE) Urine Ketones Negative (NEGATIVE) Urine Occult Blood 5+ (NEGATIVE) H Urine Nitrite Negative (NEGATIVE) Urine Bilirubin Negative (NEGATIVE) Urine Urobilinogen Normal MG/DL (0.0-1.0) Urine Leukocyte Esterase 3+ (NEGATIVE) H Urine RBC 15-20 /HPF (0 - 0) H Urine WBC Tntc /HPF (0 - 0) H Urine Squamous Epithelial Cells Occasional /LPF Urine Amorphous Sediment Few /LPF (NONE) H Urine Bacteria Moderate /HPF (NONE) H Microbiology Date/Time Source Procedure Growth Status 09/07/17 11:13 Nasal Nares Influenza Types A,B Antigen (UMESH) - Final Complete Height (Feet): 6 Height (Inches): 1.00 Weight (Pounds): 194 Medications Current Medications Medications (Trade) Dose Ordered Sig/Polo Route PRN Reason Start Time Stop Time Status Last Admin Dose Admin Acetaminophen (Tylenol) 650 mg Q4H PRN ORAL FEVER (T>100.5F) 09/07/17 13:00 10/07/17 12:59 Albuterol/ Ipratropium (Albuterol/ Ipratropium) 3 ml Q4H PRN HHN Shortness of Breath 09/07/17 13:00 09/12/17 12:59 Amlodipine Besylate (Norvasc) 10 mg DAILY GT 09/08/17 09:00 10/08/17 08:59 Carbidopa/Levodopa (Sinemet 25/100) 1 tab BID GT 09/07/17 18:00 10/07/17 17:59 09/07/17 17:55 Dextrose (Dextrose 50%) STAT PRN IV Hypoglycemia 09/07/17 13:00 10/07/17 12:59 Heparin Sodium (Porcine) (Heparin 5000 units/ml) 5,000 units EVERY 12 HOURS SUBQ 09/07/17 21:00 10/07/17 20:59 Lorazepam (Ativan 2mg/ml 1ml) 2 mg Q2H PRN IV For Anxiety 09/07/17 13:00 09/14/17 12:59 Losartan Potassium (Cozaar) 25 mg DAILY GT 09/08/17 09:00 10/08/17 08:59 Ondansetron HCl (Zofran) 4 mg Q6H PRN IVP Nausea & Vomiting 09/07/17 13:00 10/07/17 12:59 Pantoprazole (Protonix) 40 mg DAILY IV 09/08/17 09:00 10/08/17 08:59 Polyethylene Glycol (Miralax) 17 gm DAILYPRN PRN ORAL Constipation 09/07/17 13:00 10/07/17 12:59 Vancomycin HCl (Vanco rx to dose) 1 ea DAILY PRN MISC per rx protocol 09/07/17 14:30 10/07/17 14:29 Vancomycin/Sodium Chloride 250 ml @ 166.667 mls/hr Q12HR@0000,1200 IVPB 09/08/17 00:00 09/13/17 00:00 Assessment/Plan Problem List: (1) Respiratory failure ICD Codes: J96.90 - Respiratory failure, unspecified, unspecified whether with hypoxia or hypercapnia SNOMED: 023928785 (2) Severe sepsis ICD Codes: A41.9 - Sepsis, unspecified organism; R65.20 - Severe sepsis without septic shock SNOMED: 65252643 (3) DNR (do not resuscitate) ICD Codes: Z66 - Do not resuscitate SNOMED: 752570667 (4) Tracheostomy status ICD Codes: Z93.0 - Tracheostomy status SNOMED: 72830586, 780913332 (5) Feeding by G-tube ICD Codes: Z93.1 - Gastrostomy status SNOMED: 029469542, 142744282 Assessment/Plan salguero culture iv abx check urine titrate fio2 didn't tolerate SIMV respiratory treatment luigi rizvi dvt prophylaxis TEMI MELENDEZ Sep 07, 2017 18:51
[2017-09-07] MEDS: Albuterol/Ipratropium 3ml neb HHN PRN (19:15)
[2017-09-07 20:00] VITALS: BP 108/51
[2017-09-07] MEDS: Heparin 5000 units/ml inj SUBQ SCH (20:13)
--- NOTE | 2017-09-07 20:57 | Consultation ---
History of Present Illness General Date patient seen: Sep 07, 2017 Time patient seen: 20:44 Chief Complaint: Dyspnea/Respdistress Present Illness HPI 87 y/o M with hx of COPD/Asthma, HTN, dysphagia, Parkinson;s Disease, chronic resp failure trach dependent [facility] resident is brought [place] ED [place]07 [place] [facility] with difficulty breathing, hypoxia. Upon EMS arrival, sat 80s. After suctioning his saturation increased to 100% afebrile leukocytosis to 15. u.a with signicficant pyuria. Allergies: Coded Allergies: CODEINE (Verified Allergy, Unknown, 05/14/17) Medication History Scheduled Amlodipine Besylate* (Amlodipine Besylate*), 10 MG GT DAILY, (Reported) Ascorbic Acid* (Vitamin C*), 500 MG GT DAILY, (Reported) Aspirin* (Aspir 81*), 81 MG ORAL DAILY, (Reported) Carbidopa/Levodopa 25-100 Mg* (Sinemet 25-100 Mg Tablet*), 1 TAB GT BID, ( Reported) Cranberry Extract (Cranberry Juice Powder), 425 MG GT BID, (Reported) Famotidine (Pepcid Ac), 20 MG GT EVERY 12 HOURS, (Reported) Ferrous Sulfate (Ferrous Sulfate), 220 MG GT DAILY, (Reported) Glycopyrrolate (Robinul), 1 MG GT TID, (Reported) Ipratropium [place] 0.5MG/2.5ML (Ipratropium [place] 0.5MG/2.5ML), 0.5 MG HHN Q6H, (Reported) Losartan Potassium* (Cozaar*), 25 MG GT DAILY, (Reported) Multivitamins* (Multivitamins*), 1 TAB GT DAILY, (Reported) Polyethylene Glycol 3350* (Miralax*), 17 GM GT DAILY, (Reported) Sennosides (Senokot), 8.6 MG GT HS, (Reported) Scheduled PRN Acetaminophen (Acetaminophen), 650 MG ORAL Q8H PRN for Prn Headache/Temp > 101, (Reported) Albuterol Sulfate* (Albuterol Sulfate Hhn*), 3 ML INH Q3HR PRN for Shortness of Breath, (Reported) Clonidine Hcl* (Catapres*), 0.1 MG GT EVERY 6 HOURS PRN for For High Blood Pressure, (Reported) Polyvinyl Alcohol (Liquitears), 1 DROP OP Q12HR PRN for Dry Eyes, (Reported) Patient History Healthcare decision maker ROSA COVINGTON Resuscitation status Do Not Resuscitate Advanced Directive on File No Patient History Narrative PMhx: as above SHx: reviewed Fhx: non contributory Review of Systems All Other Systems: negative except mentioned in HPI Physical Exam Physical Exam Narrative CVS: RRR Respiratory: mech b/s bilaterally Peripheral pulses: 2+ radial Capillary refill: <2 seconds Skin exam: warm, dry, no rash, not mottled Last 24 Hour Vital Signs Date Time Temp Pulse Resp B/P (MAP) Pulse Ox O2 Delivery O2 Flow Rate FiO2 09/07/17 20:00 98.6 27 108/51 99 55 09/07/17 19:16 91 22 100 Mechanical Ventilator 09/07/17 19:16 96 26 55 09/07/17 19:16 96 26 96 Mechanical Ventilator 09/07/17 19:16 96 26 Mechanical Ventilator 55 09/07/17 17:15 81 22 55 09/07/17 16:00 35 09/07/17 15:35 90 09/07/17 15:22 90 23 35 09/07/17 14:45 88 09/07/17 13:01 20 143/68 Mechanical Ventilator 09/07/17 12:45 93 30 50 09/07/17 12:36 94 16 Mechanical Ventilator 50 09/07/17 12:31 98.3 93 23 134/59 Mechanical Ventilator 09/07/17 10:45 77 31 50 09/07/17 10:45 50 09/07/17 10:30 107 20 113/57 96 Ambu-Bag Laboratory Tests Test 09/07/17 10:50 09/07/17 11:10 09/07/17 11:40 White Blood Count 15.9 K/UL (4.8-10.8) H Red Blood Count 3.27 M/UL (4.70-6.10) L Hemoglobin 10.3 G/DL (14.2-18.0) L Hematocrit 33.1 % (42.0-52.0) L Mean Corpuscular Volume 101 FL (80-99) H Mean Corpuscular Hemoglobin 31.5 PG (27.0-31.0) H Mean Corpuscular Hemoglobin Concent 31.2 G/DL (32.0-36.0) L Red Cell Distribution Width 14.1 % (11.6-14.8) Platelet Count 232 K/UL (150-450) Mean Platelet Volume 7.1 FL (6.5-10.1) Neutrophils (%) (Auto) 81.9 % (45.0-75.0) H Lymphocytes (%) (Auto) 8.5 % (20.0-45.0) L Monocytes (%) (Auto) 6.8 % (1.0-10.0) Eosinophils (%) (Auto) 2.4 % (0.0-3.0) Basophils (%) (Auto) 0.4 % (0.0-2.0) Sodium Level 146 MMOL/L (136-145) H Potassium Level 4.5 MMOL/L (3.5-5.1) Chloride Level 111 MMOL/L (98-107) H Carbon Dioxide Level 27 MMOL/L (21-32) Anion Gap 8 mmol/L (5-15) Blood Urea Nitrogen 29 mg/dL (7-18) H Creatinine 0.9 MG/DL (0.55-1.30) Estimat Glomerular Filtration Rate mL/min (>60) Glucose Level 137 MG/DL (74-106) H Lactic Acid Level 2.90 mmol/L (0.66-2.22) H Pending Calcium Level 9.0 MG/DL (8.5-10.1) Total Bilirubin 0.3 MG/DL (0.2-1.0) Aspartate Amino Transf (AST/SGOT) 14 U/L (15-37) L Alanine Aminotransferase (ALT/SGPT) 10 U/L (12-78) L Alkaline Phosphatase 152 U/L (46-116) H Troponin I 0.000 ng/mL (0.000-0.056) Pro-B-Type Natriuretic Peptide 238 pg/mL (0-125) H Total Protein 7.3 G/DL (6.4-8.2) Albumin 2.8 G/DL (3.4-5.0) L Globulin 4.5 g/dL Albumin/Globulin Ratio 0.6 (1.0-2.7) L Urine Color Pale yellow Urine Appearance Slightly cloudy Urine pH 7 (4.5-8.0) Urine Specific [place] 1.010 (1.005-1.035) Urine Protein 2+ (NEGATIVE) H Urine Glucose (UA) Negative (NEGATIVE) Urine Ketones Negative (NEGATIVE) Urine Occult Blood 5+ (NEGATIVE) H Urine Nitrite Negative (NEGATIVE) Urine Bilirubin Negative (NEGATIVE) Urine Urobilinogen Normal MG/DL (0.0-1.0) Urine Leukocyte Esterase 3+ (NEGATIVE) H Urine RBC 15-20 /HPF (0 - 0) H Urine WBC Tntc /HPF (0 - 0) H Urine Squamous Epithelial Cells Occasional /LPF Urine Amorphous Sediment Few /LPF (NONE) H Urine Bacteria Moderate /HPF (NONE) H Microbiology Date/Time Source Procedure Growth Status 09/07/17 11:13 Nasal Nares Influenza Types A,B Antigen (UMESH) - Final Complete Height (Feet): 6 Height (Inches): 1.00 Weight (Pounds): 201 Medications Current Medications Medications (Trade) Dose Ordered Sig/Polo Route PRN Reason Start Time Stop Time Status Last Admin Dose Admin Acetaminophen (Tylenol) 650 mg Q4H PRN ORAL FEVER (T>100.5F) 09/07/17 13:00 10/07/17 12:59 Albuterol/ Ipratropium (Albuterol/ Ipratropium) 3 ml Q4H PRN HHN Shortness of Breath 09/07/17 13:00 09/12/17 12:59 09/07/17 19:15 Amlodipine Besylate (Norvasc) 10 mg DAILY GT 09/08/17 09:00 10/08/17 08:59 Carbidopa/Levodopa (Sinemet 25/100) 1 tab BID GT 09/07/17 18:00 10/07/17 17:59 09/07/17 17:55 Dextrose (Dextrose 50%) STAT PRN IV Hypoglycemia 09/07/17 13:00 10/07/17 12:59 Heparin Sodium (Porcine) (Heparin 5000 units/ml) 5,000 units EVERY 12 HOURS SUBQ 09/07/17 21:00 10/07/17 20:59 09/07/17 20:13 Lorazepam (Ativan 2mg/ml 1ml) 2 mg Q2H PRN IV For Anxiety 09/07/17 13:00 09/14/17 12:59 Losartan Potassium (Cozaar) 25 mg DAILY GT 09/08/17 09:00 10/08/17 08:59 Ondansetron HCl (Zofran) 4 mg Q6H PRN IVP Nausea & Vomiting 09/07/17 13:00 10/07/17 12:59 Pantoprazole (Protonix) 40 mg DAILY IV 09/08/17 09:00 10/08/17 08:59 Polyethylene Glycol (Miralax) 17 gm DAILYPRN PRN ORAL Constipation 09/07/17 13:00 10/07/17 12:59 Vancomycin HCl (Vanco rx to dose) 1 ea DAILY PRN MISC per rx protocol 09/07/17 14:30 10/07/17 14:29 Vancomycin/Sodium Chloride 250 ml @ 166.667 mls/hr Q12HR@0000,1200 IVPB 09/08/17 00:00 09/13/17 00:00 Assessment/Plan Assessment/Plan Abx: IV Vanco 09/07- Zosyn x1 09/07 Assessment: Acute hypoxic resp failure- mucous plug- r/o PNA -CXR: Right basilar atelectasis and volume loss. Generalized mild interstitial prominence, suspect chronic but acute edema possible. Tracheostomy -influenza neg -sp cx p Pyuria, possible UTI -u/a WBC TNCT; ucx p Leukocytosis- 2ry to above -afebrile COPD/Asthma HTN dysphagia, Parkinson;s Disease chronic resp failure trach dependent [facility] resident Plan: -Continue IV Vanco and Zosyn #1 pending cultures -f/u cx -Monitor CBC/BMP, temperatures -trach care -aspiration precautions -CXR am Thank you for this consultation. Will continue to follow along with you. Discussed with Valery Martinez M.D. Sep 07, 2017 20:57
[2017-09-07] MEDS: Vancomycin 750mg/NS 250ml IVPB SCH (23:37)
[2017-09-08] VITALS: BP 115/49
[2017-09-08] MEDS ORDERED: Vancomycin 750mg/NS 250ml IVPB SCH
[2017-09-08] MEDS: Piperacillin/Tazobactam 3.375 GM in NS 110 ML IVPB SCH ×3 (01:46→17:22)
[2017-09-08 04:30] VITALS: BP 138/61
[2017-09-08 05:50] LABS: BASOPHILS % (AUTO) 0.8 % (0.0-2.0); EOSINOPHILS % (AUTO) 4.4 % (0.0-3.0); HEMATOCRIT 29.9 % (42.0-52.0); HEMOGLOBIN 9.5 G/DL (14.2-18.0); LYMPHOCYTES % (AUTO) 17.4 % (20.0-45.0); MEAN CORPUSCULAR VOLUME 100 FL (80-99); MONOCYTES % (AUTO) 6.5 % (1.0-10.0); NEUTROPHILS % (AUTO) 70.8 % (45.0-75.0); PLATELET COUNT 194 K/UL (150-450); RED BLOOD COUNT 2.99 M/UL (4.70-6.10); WHITE BLOOD COUNT 10.8 K/UL (4.8-10.8)
[2017-09-08 06:23] LABS: ALBUMIN 2.5 G/DL (3.4-5.0); ANION GAP 9 mmol/L (5-15); BLOOD UREA NITROGEN 25 mg/dL (7-18); CALCIUM 8.9 MG/DL (8.5-10.1); CARBON DIOXIDE 24 MMOL/L (21-32); CHLORIDE 114 MMOL/L (98-107); CREATININE 1.1 MG/DL (0.55-1.30); PHOSPHORUS 3.2 MG/DL (2.5-4.9); POTASSIUM 4.2 MMOL/L (3.5-5.1); SODIUM 147 MMOL/L (136-145)
[2017-09-08 08:00] VITALS: BP 115/58
[2017-09-08] MEDS: Pantoprazole Inj IV SCH (08:53)
[2017-09-08] MEDS: Levodopa/Carbidopa 25/100 tab GT SCH ×2 (08:54→17:13)
[2017-09-08] MEDS: Losartan 25mg tab GT SCH (08:54)
[2017-09-08] MEDS: Heparin 5000 units/ml inj SUBQ SCH ×2 (08:55→20:18)
--- NOTE | 2017-09-08 10:05 | Pulmonology Progress Note ---
Assessment/Plan Problems: (1) Respiratory failure (2) Severe sepsis (3) Feeding by G-tube (4) Tracheostomy dependence (5) Hypoxia (6) UTI (urinary tract infection) Assessment/Plan f/u wbc urine cultures check electrolytes resume feeding wean off vent at tolerated. d/w extensively Subjective ROS Limited/Unobtainable: Yes Interval Events: comfortable, sleeping Allergies: Coded Allergies: CODEINE (Verified Allergy, Unknown, 05/14/17) Objective Last 24 Hour Vital Signs Date Time Temp Pulse Resp B/P (MAP) Pulse Ox O2 Delivery O2 Flow Rate FiO2 09/08/17 09:45 73 14 55 09/08/17 08:54 138/61 09/08/17 08:54 70 138/61 09/08/17 08:00 55 09/08/17 07:42 78 09/08/17 07:11 77 14 Mechanical Ventilator 55 09/08/17 07:11 70 14 55 09/08/17 05:12 70 22 55 09/08/17 04:30 98.4 18 138/61 77 55 09/08/17 04:00 81 09/08/17 04:00 40 09/08/17 03:09 91 22 55 09/08/17 01:10 84 22 55 09/08/17 00:00 98.7 21 115/49 100 55 09/08/17 00:00 81 09/07/17 23:24 83 22 55 09/07/17 21:49 86 22 55 09/07/17 20:00 98.6 27 108/51 99 55 09/07/17 20:00 40 09/07/17 20:00 89 09/07/17 19:16 91 22 100 Mechanical Ventilator 09/07/17 19:16 96 26 55 09/07/17 19:16 96 26 96 Mechanical Ventilator 09/07/17 19:16 96 26 Mechanical Ventilator 55 09/07/17 19:00 100 09/07/17 17:15 81 22 55 09/07/17 16:00 35 09/07/17 15:35 90 09/07/17 15:22 90 23 35 09/07/17 14:45 88 09/07/17 13:01 20 143/68 Mechanical Ventilator 09/07/17 12:45 93 30 50 09/07/17 12:36 94 16 Mechanical Ventilator 50 09/07/17 12:31 98.3 93 23 134/59 Mechanical Ventilator 09/07/17 10:45 77 31 50 09/07/17 10:45 50 09/07/17 10:30 107 20 113/57 96 Ambu-Bag Intake and Output 09/07/17 09/08/17 19:00 07:00 Intake Total 360 ml 960.209 ml Output Total 2400 ml 450 ml Balance -2040 ml 510.209 ml Intake Oral 0 ml Free Water 100 ml IV Total 110 ml 450.209 ml Tube Feeding 150 ml 360 ml Other 150 ml Output Urine Total 2400 ml 450 ml # Bowel Movements 2 2 Objective General Appearance: mild distress, thin Lines, tubes and drains: peripheral HEENT: normocephalic, atraumatic Neck: non-tender, normal alignment, trach Respiratory/Chest: rhonchi - left, rhonchi - right Breasts: no masses Cardiovascular/Chest: normal peripheral pulses Abdomen: normal bowel sounds, non tender Genitourinary/Rectal: normal genital exam, Gtube. Skin Exam: normal pigmentation Microbiology Date/Time Source Procedure Growth Status 09/07/17 11:13 Nasal Nares Influenza Types A,B Antigen (UMESH) - Final Complete Laboratory Tests 09/07/17 10:50: White Blood Count 15.9H, Red Blood Count 3.27L, Hemoglobin 10.3L, Hematocrit 33.1L, Mean Corpuscular Volume 101H, Mean Corpuscular Hemoglobin 31.5H, Mean Corpuscular Hemoglobin Concent 31.2L, Red Cell Distribution Width 14.1, Platelet Count 232, Mean Platelet Volume 7.1, Neutrophils (%) (Auto) 81.9H, Lymphocytes (%) (Auto) 8.5L, Monocytes (%) (Auto) 6.8, Eosinophils (%) (Auto) 2.4, Basophils (%) (Auto) 0.4, Sodium Level 146H, Potassium Level 4.5, Chloride Level 111H, Carbon Dioxide Level 27, Anion Gap 8, Blood Urea Nitrogen 29H, Creatinine 0.9, Estimat Glomerular Filtration Rate , Glucose Level 137H, Lactic Acid Level 2.90H, Calcium Level 9.0, Total Bilirubin 0.3, Aspartate Amino Transf (AST/SGOT) 14L, Alanine Aminotransferase (ALT/SGPT) 10L, Alkaline Phosphatase 152H, Troponin I 0.000, Pro-B-Type Natriuretic Peptide 238H, Total Protein 7.3, Albumin 2.8L, Globulin 4.5, Albumin/Globulin Ratio 0.6L 09/07/17 11:10: Urine Color Pale yellow, Urine Appearance Slightly cloudy, Urine pH 7, Urine Specific [place] 1.010, Urine Protein 2+H, Urine Glucose (UA) Negative, Urine Ketones Negative, Urine Occult Blood 5+H, Urine Nitrite Negative, Urine Bilirubin Negative, Urine Urobilinogen Normal, Urine Leukocyte Esterase 3+H, Urine RBC 15-20H, Urine WBC TntcH, Urine Squamous Epithelial Cells Occasional, Urine Amorphous Sediment FewH, Urine Bacteria ModerateH 09/07/17 11:40: Lactic Acid Level [Pending] 09/08/17 04:45: White Blood Count 10.8, Red Blood Count 2.99L, Hemoglobin 9.5L, Hematocrit 29.9L , Mean Corpuscular Volume 100H, Mean Corpuscular Hemoglobin 31.9H, Mean Corpuscular Hemoglobin Concent 31.9L, Red Cell Distribution Width 14.0, Platelet Count 194, Mean Platelet Volume 6.9, Neutrophils (%) (Auto) 70.8, Lymphocytes (%) (Auto) 17.4L, Monocytes (%) (Auto) 6.5, Eosinophils (%) (Auto) 4.4H, Basophils (%) (Auto) 0.8, Sodium Level 147H, Potassium Level 4.2, Chloride Level 114H, Carbon Dioxide Level 24, Anion Gap 9, Blood Urea Nitrogen 25H, Creatinine 1.1, Estimat Glomerular Filtration Rate , Glucose Level 94, Calcium Level 8.9, Albumin 2.5L, Phosphorus Level 3.2 Current Medications Medications (Trade) Dose Ordered Sig/Polo Route PRN Reason Start Time Stop Time Status Last Admin Dose Admin Acetaminophen (Tylenol) 650 mg Q4H PRN ORAL FEVER (T>100.5F) 09/07/17 13:00 10/07/17 12:59 Albuterol/ Ipratropium (Albuterol/ Ipratropium) 3 ml Q4H PRN HHN Shortness of Breath 09/07/17 13:00 09/12/17 12:59 09/07/17 19:15 Amlodipine Besylate (Norvasc) 10 mg DAILY GT 09/08/17 09:00 10/08/17 08:59 09/08/17 08:54 Carbidopa/Levodopa (Sinemet 25/100) 1 tab BID GT 09/07/17 18:00 10/07/17 17:59 09/08/17 08:54 Dextrose (Dextrose 50%) STAT PRN IV Hypoglycemia 09/07/17 13:00 10/07/17 12:59 Heparin Sodium (Porcine) (Heparin 5000 units/ml) 5,000 units EVERY 12 HOURS SUBQ 09/07/17 21:00 10/07/17 20:59 09/08/17 08:55 Lorazepam (Ativan 2mg/ml 1ml) 2 mg Q2H PRN IV For Anxiety 09/07/17 13:00 09/14/17 12:59 Losartan Potassium (Cozaar) 25 mg DAILY GT 09/08/17 09:00 10/08/17 08:59 09/08/17 08:54 Ondansetron HCl (Zofran) 4 mg Q6H PRN IVP Nausea & Vomiting 09/07/17 13:00 10/07/17 12:59 Pantoprazole (Protonix) 40 mg DAILY IV 09/08/17 09:00 10/08/17 08:59 09/08/17 08:53 Piperacillin Sod/ Tazobactam Sod 3.375 gm/Sodium Chloride 110 ml @ 27.5 mls/hr Q8HR@0200,1000,1800 IVPB 09/08/17 02:00 09/15/17 01:59 09/08/17 01:46 Polyethylene Glycol (Miralax) 17 gm DAILYPRN PRN ORAL Constipation 09/07/17 13:00 10/07/17 12:59 Vancomycin HCl (Vanco rx to dose) 1 ea DAILYPRN PRN MISC Per rx protocol 09/07/17 21:00 10/07/17 20:59 Vancomycin/Sodium Chloride 250 ml @ 166.667 mls/hr Q12HR@0000,1200 IVPB 09/08/17 00:00 09/13/17 00:00 09/07/17 23:37 TEMI MELENDEZ Sep 08, 2017 10:05
--- NOTE | 2017-09-08 10:13 | Infectious Diseases Prog Note ---
Assessment/Plan Assessment/Plan Abx: IV Vanco 09/07- Zosyn 09/07- Assessment: Acute hypoxic resp failure- mucous plug- r/o PNA -CXR: Right basilar atelectasis and volume loss. Generalized mild interstitial prominence, suspect chronic but acute edema possible. Tracheostomy -influenza neg -sp cx p Pyuria, possible UTI -u/a WBC TNCT; ucx p Leukocytosis- 2ry to above; resolved -afebrile COPD/Asthma HTN dysphagia, Parkinson;s Disease chronic resp failure trach dependent [facility] resident Plan: -Continue IV Vanco and Zosyn #2 pending cultures -f/u cx -Monitor CBC/BMP, temperatures -trach care -aspiration precautions -f/u repeat CXR Thank you for this consultation. Will continue to follow along with you. Discussed with RN Subjective Allergies: Coded Allergies: CODEINE (Verified Allergy, Unknown, 05/14/17) Subjective afebrile leukocytosis resolved cx p remains on MV, fio2 55% Objective Vital Signs Last 24 Hour Vital Signs Date Time Temp Pulse Resp B/P (MAP) Pulse Ox O2 Delivery O2 Flow Rate FiO2 09/08/17 09:45 73 14 55 09/08/17 08:54 138/61 09/08/17 08:54 70 138/61 09/08/17 08:00 55 09/08/17 07:42 78 09/08/17 07:11 77 14 Mechanical Ventilator 55 09/08/17 07:11 70 14 55 09/08/17 05:12 70 22 55 09/08/17 04:30 98.4 18 138/61 77 55 09/08/17 04:00 81 09/08/17 04:00 40 09/08/17 03:09 91 22 55 09/08/17 01:10 84 22 55 09/08/17 00:00 98.7 21 115/49 100 55 09/08/17 00:00 81 09/07/17 23:24 83 22 55 09/07/17 21:49 86 22 55 09/07/17 20:00 98.6 27 108/51 99 55 09/07/17 20:00 40 09/07/17 20:00 89 09/07/17 19:16 91 22 100 Mechanical Ventilator 09/07/17 19:16 96 26 55 09/07/17 19:16 96 26 96 Mechanical Ventilator 09/07/17 19:16 96 26 Mechanical Ventilator 55 09/07/17 19:00 100 09/07/17 17:15 81 22 55 09/07/17 16:00 35 09/07/17 15:35 90 09/07/17 15:22 90 23 35 09/07/17 14:45 88 09/07/17 13:01 20 143/68 Mechanical Ventilator 09/07/17 12:45 93 30 50 09/07/17 12:36 94 16 Mechanical Ventilator 50 09/07/17 12:31 98.3 93 23 134/59 Mechanical Ventilator 09/07/17 10:45 77 31 50 09/07/17 10:45 50 09/07/17 10:30 107 20 113/57 96 Ambu-Bag Height (Feet): 6 Height (Inches): 1.00 Weight (Pounds): 201 Objective Gen: no distress CVS: RRR Respiratory: mech b/s bilaterally, trach in place Peripheral pulses: 2+ radial Capillary refill: <2 seconds Skin exam: warm, dry, no rash, not mottled Microbiology Date/Time Source Procedure Growth Status 09/07/17 11:13 Nasal Nares Influenza Types A,B Antigen (UMESH) - Final Complete Laboratory Tests Test 09/07/17 10:50 09/07/17 11:10 09/07/17 11:40 09/08/17 04:45 White Blood Count 15.9 K/UL (4.8-10.8) H 10.8 K/UL (4.8-10.8) Red Blood Count 3.27 M/UL (4.70-6.10) L 2.99 M/UL (4.70-6.10) L Hemoglobin 10.3 G/DL (14.2-18.0) L 9.5 G/DL (14.2-18.0) L Hematocrit 33.1 % (42.0-52.0) L 29.9 % (42.0-52.0) L Mean Corpuscular Volume 101 FL (80-99) H 100 FL (80-99) H Mean Corpuscular Hemoglobin 31.5 PG (27.0-31.0) H 31.9 PG (27.0-31.0) H Mean Corpuscular Hemoglobin Concent 31.2 G/DL (32.0-36.0) L 31.9 G/DL (32.0-36.0) L Red Cell Distribution Width 14.1 % (11.6-14.8) 14.0 % (11.6-14.8) Platelet Count 232 K/UL (150-450) 194 K/UL (150-450) Mean Platelet Volume 7.1 FL (6.5-10.1) 6.9 FL (6.5-10.1) Neutrophils (%) (Auto) 81.9 % (45.0-75.0) H 70.8 % (45.0-75.0) Lymphocytes (%) (Auto) 8.5 % (20.0-45.0) L 17.4 % (20.0-45.0) L Monocytes (%) (Auto) 6.8 % (1.0-10.0) 6.5 % (1.0-10.0) Eosinophils (%) (Auto) 2.4 % (0.0-3.0) 4.4 % (0.0-3.0) H Basophils (%) (Auto) 0.4 % (0.0-2.0) 0.8 % (0.0-2.0) Sodium Level 146 MMOL/L (136-145) H 147 MMOL/L (136-145) H Potassium Level 4.5 MMOL/L (3.5-5.1) 4.2 MMOL/L (3.5-5.1) Chloride Level 111 MMOL/L (98-107) H 114 MMOL/L (98-107) H Carbon Dioxide Level 27 MMOL/L (21-32) 24 MMOL/L (21-32) Anion Gap 8 mmol/L (5-15) 9 mmol/L (5-15) Blood Urea Nitrogen 29 mg/dL (7-18) H 25 mg/dL (7-18) H Creatinine 0.9 MG/DL (0.55-1.30) 1.1 MG/DL (0.55-1.30) Estimat Glomerular Filtration Rate mL/min (>60) mL/min (>60) Glucose Level 137 MG/DL (74-106) H 94 MG/DL (74-106) Lactic Acid Level 2.90 mmol/L (0.66-2.22) H Pending Calcium Level 9.0 MG/DL (8.5-10.1) 8.9 MG/DL (8.5-10.1) Total Bilirubin 0.3 MG/DL (0.2-1.0) Aspartate Amino Transf (AST/SGOT) 14 U/L (15-37) L Alanine Aminotransferase (ALT/SGPT) 10 U/L (12-78) L Alkaline Phosphatase 152 U/L (46-116) H Troponin I 0.000 ng/mL (0.000-0.056) Pro-B-Type Natriuretic Peptide 238 pg/mL (0-125) H Total Protein 7.3 G/DL (6.4-8.2) Albumin 2.8 G/DL (3.4-5.0) L 2.5 G/DL (3.4-5.0) L Globulin 4.5 g/dL Albumin/Globulin Ratio 0.6 (1.0-2.7) L Urine Color Pale yellow Urine Appearance Slightly cloudy Urine pH 7 (4.5-8.0) Urine Specific Blanch 1.010 (1.005-1.035) Urine Protein 2+ (NEGATIVE) H Urine Glucose (UA) Negative (NEGATIVE) Urine Ketones Negative (NEGATIVE) Urine Occult Blood 5+ (NEGATIVE) H Urine Nitrite Negative (NEGATIVE) Urine Bilirubin Negative (NEGATIVE) Urine Urobilinogen Normal MG/DL (0.0-1.0) Urine Leukocyte Esterase 3+ (NEGATIVE) H Urine RBC 15-20 /HPF (0 - 0) H Urine WBC Tntc /HPF (0 - 0) H Urine Squamous Epithelial Cells Occasional /LPF Urine Amorphous Sediment Few /LPF (NONE) H Urine Bacteria Moderate /HPF (NONE) H Phosphorus Level 3.2 MG/DL (2.5-4.9) Current Medications Medications (Trade) Dose Ordered Sig/Polo Route PRN Reason Start Time Stop Time Status Last Admin Dose Admin Acetaminophen (Tylenol) 650 mg Q4H PRN ORAL FEVER (T>100.5F) 09/07/17 13:00 10/07/17 12:59 Albuterol/ Ipratropium (Albuterol/ Ipratropium) 3 ml Q4H PRN HHN Shortness of Breath 09/07/17 13:00 09/12/17 12:59 09/07/17 19:15 Amlodipine Besylate (Norvasc) 10 mg DAILY GT 09/08/17 09:00 10/08/17 08:59 09/08/17 08:54 Carbidopa/Levodopa (Sinemet 25/100) 1 tab BID GT 09/07/17 18:00 10/07/17 17:59 09/08/17 08:54 Dextrose (Dextrose 50%) STAT PRN IV Hypoglycemia 09/07/17 13:00 10/07/17 12:59 Heparin Sodium (Porcine) (Heparin 5000 units/ml) 5,000 units EVERY 12 HOURS SUBQ 09/07/17 21:00 10/07/17 20:59 09/08/17 08:55 Lorazepam (Ativan 2mg/ml 1ml) 2 mg Q2H PRN IV For Anxiety 09/07/17 13:00 09/14/17 12:59 Losartan Potassium (Cozaar) 25 mg DAILY GT 09/08/17 09:00 10/08/17 08:59 09/08/17 08:54 Ondansetron HCl (Zofran) 4 mg Q6H PRN IVP Nausea & Vomiting 09/07/17 13:00 10/07/17 12:59 Pantoprazole (Protonix) 40 mg DAILY IV 09/08/17 09:00 10/08/17 08:59 09/08/17 08:53 Piperacillin Sod/ Tazobactam Sod 3.375 gm/Sodium Chloride 110 ml @ 27.5 mls/hr Q8HR@0200,1000,1800 IVPB 09/08/17 02:00 09/15/17 01:59 09/08/17 01:46 Polyethylene Glycol (Miralax) 17 gm DAILYPRN PRN ORAL Constipation 09/07/17 13:00 10/07/17 12:59 Vancomycin HCl (Vanco rx to dose) 1 ea DAILYPRN PRN MISC Per rx protocol 09/07/17 21:00 10/07/17 20:59 Vancomycin/Sodium Chloride 250 ml @ 166.667 mls/hr Q12HR@0000,1200 IVPB 09/08/17 00:00 09/13/17 00:00 09/07/17 23:37 Valery Chang M.D. Sep 08, 2017 10:12
--- NOTE | 2017-09-08 10:16 | Diagnostic Imaging Report ---
Indication: Cough Technique: One view of the chest Comparison: 09/07/2017 Findings: There is atelectasis at the right lung base which is slightly improved from the prior exam. There is new atelectasis in the left perihilar region. There is elevation of the right hemidiaphragm. The lungs and pleural spaces are otherwise clear. The heart size is normal. There is a tracheostomy. There is a gastrostomy. An esophageal stent projects over the central lower mediastinum. Impression: Decreased right basilar new left perihilar atelectasis Otherwise little record changer one day, findings as described
--- NOTE | 2017-09-08 11:34 | Wound Care Consultation ---
Wound Assessment Wound Assessment : Wound Number: 1 Wound Present on Admission: Yes New Wound: No Status Change of Wound: No Wound Location Body Site Modif: right Wound Location Body Site: sacral Wound Type: pressure ulcer Carol Test: Does not Carol Pressure Ulcer Stage: III Wound Thickness: Full Thickness Wound Length: 2.5 Wound Width: 2.5 Wound Depth: 0.3 Percent of Wound [place]/Red: 100 Other Colors Identified: deep red color to sacrococcygeal SDTI [id number], yellow flaky skin Wound Drainage Description: Serosanguineous Wound Drainage Amount: Moderate Wound Drainage Odor: None/Absent Tissue Surrounding Wound: Macerated - erythemic Wound General Appearance: Reddened, Draining Wound Comment #1 right sacral stage 3 , deep red color present to sacrococcygeal area SDTI with flaky yellow/mera skin . Recommendation. -Local wound care as ordered. -Turn and reposition -Keep clean and dry. -Optimize nutrition. -Heel protecotrs. -offload affected area. -avoid shear and friction. -Low air loss mattress for skin and wound management. -Assess and notify MD for any further change of condition to skin and follow up accordingly. HUSSEIN TAMAYO Sep 08, 2017 11:34
[2017-09-08 12:00] VITALS: BP 110/55
[2017-09-08] MEDS: Vancomycin 750mg/NS 250ml IVPB SCH (14:47)
[2017-09-08] MEDS ORDERED: Tubing IV Secondary IV ONE (14:49)
[2017-09-08 16:00] VITALS: BP 127/52
--- NOTE | 2017-09-08 18:08 | History & Physical ---
History and Physical History & Physicial Dictated for Int Med-Dr Castillo no. [id number]. CHRIS YADAV Sep 08, 2017 18:08
[2017-09-08 20:00] VITALS: BP 130/64
[2017-09-08] MEDS ORDERED: Vancomycin 1 GM in D5W 275 ML IV SCH (23:00)
[2017-09-09] VITALS: BP 130/68
[2017-09-09] MEDS: Vancomycin 750mg/NS 250ml IVPB SCH ×3 (00:58→23:07)
[2017-09-09] MEDS: Piperacillin/Tazobactam 3.375 GM in NS 110 ML IVPB SCH ×3 (02:24→17:45)
[2017-09-09 04:00] VITALS: BP 140/67
[2017-09-09 06:35] LABS: BASOPHILS % (AUTO) 0.5 % (0.0-2.0); EOSINOPHILS % (AUTO) 3.1 % (0.0-3.0); HEMATOCRIT 29.3 % (42.0-52.0); HEMOGLOBIN 9.4 G/DL (14.2-18.0); LYMPHOCYTES % (AUTO) 8.9 % (20.0-45.0); MEAN CORPUSCULAR VOLUME 99 FL (80-99); MONOCYTES % (AUTO) 6.7 % (1.0-10.0); NEUTROPHILS % (AUTO) 80.8 % (45.0-75.0); PLATELET COUNT 174 K/UL (150-450); RED BLOOD COUNT 2.95 M/UL (4.70-6.10); RED CELL DISTRIBUTION WIDTH 13.6 % (11.6-14.8); WHITE BLOOD COUNT 13.6 K/UL (4.8-10.8)
[2017-09-09 06:54] LABS: ALANINE AMINOTRANSFERASE 10 U/L (12-78); ALBUMIN 2.5 G/DL (3.4-5.0); ALBUMIN/GLOBULIN RATIO 0.6 (1.0-2.7); ALKALINE PHOSPHATASE 124 U/L (46-116); ANION GAP 8 mmol/L (5-15); ASPARTATE AMINO TRANSFERASE 16 U/L (15-37); BILIRUBIN,TOTAL 0.6 MG/DL (0.2-1.0); BLOOD UREA NITROGEN 15 mg/dL (7-18); CALCIUM 8.4 MG/DL (8.5-10.1); CARBON DIOXIDE 25 MMOL/L (21-32); CHLORIDE 113 MMOL/L (98-107); CREATININE 0.9 MG/DL (0.55-1.30); PHOSPHORUS 3.4 MG/DL (2.5-4.9); POTASSIUM 3.7 MMOL/L (3.5-5.1); SODIUM 146 MMOL/L (136-145)
[2017-09-09 08:00] VITALS: BP 112/54
[2017-09-09] MEDS: Heparin 5000 units/ml inj SUBQ SCH ×2 (08:29→20:20)
[2017-09-09] MEDS: Losartan 25mg tab GT SCH (08:29)
[2017-09-09] MEDS: Levodopa/Carbidopa 25/100 tab GT SCH ×2 (08:30→17:45)
[2017-09-09] MEDS: Pantoprazole Inj IV SCH (08:30)
[2017-09-09 12:00] VITALS: BP 122/55
--- NOTE | 2017-09-09 12:57 | Infectious Diseases Prog Note ---
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 Generalized mild interstitial prominence, suspect chronic but acute edema possible. Tracheostomy -influenza neg -sp cx p Pyuria, possible UTI -u/a WBC TNCT, nit neg, leuk +3; ucx p Leukocytosis- 2ry to above;mild recurrent -afebrile COPD/Asthma HTN dysphagia, Parkinson;s Disease chronic resp failure trach dependent [facility] Plan: -Continue IV Vanco and Zosyn #3 pending cultures -f/u cx -Monitor CBC/BMP, temperatures -trach care -aspiration precautions Thank you for this consultation. Will continue to follow along with you. Discussed with RN Subjective Allergies: Coded Allergies: CODEINE (Verified Allergy, Unknown, 05/14/17) Subjective afebrile leukocytosis recurrent cx p remains on MV, fio2 down to 40% Objective Vital Signs Last 24 Hour Vital Signs Date Time Temp Pulse Resp B/P (MAP) Pulse Ox O2 Delivery O2 Flow Rate FiO2 09/09/17 12:00 40 09/09/17 12:00 79 09/09/17 12:00 97.5 77 22 122/55 99 Mechanical Ventilator 40 09/09/17 10:43 81 21 40 09/09/17 09:19 76 22 40 09/09/17 08:30 76 112/54 09/09/17 08:29 112/54 09/09/17 08:00 79 09/09/17 08:00 97.9 76 22 112/54 98 Mechanical Ventilator 40 09/09/17 08:00 40 09/09/17 06:54 77 20 Mechanical Ventilator 55 09/09/17 06:52 75 20 40 09/09/17 05:01 71 22 40 09/09/17 04:00 40 09/09/17 04:00 78 09/09/17 04:00 98.6 78 22 140/67 100 Mechanical Ventilator 40 09/09/17 03:05 76 20 40 09/09/17 01:10 83 21 40 09/09/17 00:00 98.4 79 16 130/68 100 Mechanical Ventilator 40 09/09/17 00:00 78 09/09/17 00:00 40 09/08/17 23:14 82 23 40 09/08/17 21:08 78 18 40 09/08/17 20:00 40 09/08/17 20:00 97.7 70 16 130/64 100 Mechanical Ventilator 40 09/08/17 20:00 72 09/08/17 19:17 65 14 Mechanical Ventilator 55 09/08/17 19:13 69 14 40 09/08/17 17:29 76 18 40 09/08/17 16:00 74 09/08/17 16:00 40 09/08/17 16:00 98.6 81 16 127/52 92 Mechanical Ventilator 40 09/08/17 15:29 76 18 40 09/08/17 13:00 73 18 40 09/08/17 13:00 40 Height (Feet): 6 Height (Inches): 1.00 Weight (Pounds): 201 Objective Gen: no distress CVS: RRR Respiratory: mech b/s bilaterally, trach in place Peripheral pulses: 2+ radial Capillary refill: <2 seconds Skin exam: warm, dry, no rash, not mottled Microbiology Date/Time Source Procedure Growth Status 09/07/17 10:50 Blood Blood Culture - Preliminary NO GROWTH AFTER 24 HOURS Resulted 09/07/17 11:13 Nasal Nares Influenza Types A,B Antigen (UMESH) - Final Complete 09/07/17 11:10 Urine,Clean Catch Urine Culture - Preliminary Resulted Laboratory Tests Test 09/08/17 22:00 09/08/17 23:15 09/09/17 05:25 Arterial Blood pH 7.439 (7.350-7.450) Arterial Blood Partial Pressure CO2 37.7 mmHg (35.0-45.0) Arterial Blood Partial Pressure O2 99.6 mmHg (75.0-100.0) Arterial Blood HCO3 25.0 mmol/L (22.0-26.0) Arterial Blood Oxygen Saturation 97.0 % (92.0-98.0) Arterial Blood Base Excess 0.9 Silver Test Positive Vancomycin Level Trough 16.9 ug/mL (5.0-12.0) H White Blood Count 13.6 K/UL (4.8-10.8) H Red Blood Count 2.95 M/UL (4.70-6.10) L Hemoglobin 9.4 G/DL (14.2-18.0) L Hematocrit 29.3 % (42.0-52.0) L Mean Corpuscular Volume 99 FL (80-99) Mean Corpuscular Hemoglobin 31.8 PG (27.0-31.0) H Mean Corpuscular Hemoglobin Concent 32.1 G/DL (32.0-36.0) Red Cell Distribution Width 13.6 % (11.6-14.8) Platelet Count 174 K/UL (150-450) Mean Platelet Volume 7.0 FL (6.5-10.1) Neutrophils (%) (Auto) 80.8 % (45.0-75.0) H Lymphocytes (%) (Auto) 8.9 % (20.0-45.0) L Monocytes (%) (Auto) 6.7 % (1.0-10.0) Eosinophils (%) (Auto) 3.1 % (0.0-3.0) H Basophils (%) (Auto) 0.5 % (0.0-2.0) Sodium Level 146 MMOL/L (136-145) H Potassium Level 3.7 MMOL/L (3.5-5.1) Chloride Level 113 MMOL/L (98-107) H Carbon Dioxide Level 25 MMOL/L (21-32) Anion Gap 8 mmol/L (5-15) Blood Urea Nitrogen 15 mg/dL (7-18) Creatinine 0.9 MG/DL (0.55-1.30) Estimat Glomerular Filtration Rate mL/min (>60) Glucose Level 102 MG/DL (74-106) Calcium Level 8.4 MG/DL (8.5-10.1) L Phosphorus Level 3.4 MG/DL (2.5-4.9) Magnesium Level 2.1 MG/DL (1.8-2.4) Total Bilirubin 0.6 MG/DL (0.2-1.0) Aspartate Amino Transf (AST/SGOT) 16 U/L (15-37) Alanine Aminotransferase (ALT/SGPT) 10 U/L (12-78) L Alkaline Phosphatase 124 U/L (46-116) H Total Protein 6.8 G/DL (6.4-8.2) Albumin 2.5 G/DL (3.4-5.0) L Globulin 4.3 g/dL Albumin/Globulin Ratio 0.6 (1.0-2.7) L Current Medications Medications (Trade) Dose Ordered Sig/Polo Route PRN Reason Start Time Stop Time Status Last Admin Dose Admin Acetaminophen (Tylenol) 650 mg Q4H PRN ORAL FEVER (T>100.5F) 09/07/17 13:00 10/07/17 12:59 Albuterol/ Ipratropium (Albuterol/ Ipratropium) 3 ml Q4H PRN HHN Shortness of Breath 09/07/17 13:00 09/12/17 12:59 09/07/17 19:15 Amlodipine Besylate (Norvasc) 10 mg DAILY GT 09/08/17 09:00 10/08/17 08:59 09/09/17 08:30 Carbidopa/Levodopa (Sinemet 25/100) 1 tab BID GT 09/07/17 18:00 10/07/17 17:59 09/09/17 08:30 Dextrose 1,000 ml @ 75 mls/hr [id number] IV 09/09/17 11:45 10/09/17 11:44 09/09/17 12:26 Dextrose (Dextrose 50%) STAT PRN IV Hypoglycemia 09/07/17 13:00 10/07/17 12:59 Heparin Sodium (Porcine) (Heparin 5000 units/ml) 5,000 units EVERY 12 HOURS SUBQ 09/07/17 21:00 10/07/17 20:59 09/09/17 08:29 Lorazepam (Ativan 2mg/ml 1ml) 2 mg Q2H PRN IV For Anxiety 09/07/17 13:00 09/14/17 12:59 Losartan Potassium (Cozaar) 25 mg DAILY GT 09/08/17 09:00 10/08/17 08:59 09/09/17 08:29 Ondansetron HCl (Zofran) 4 mg Q6H PRN IVP Nausea & Vomiting 09/07/17 13:00 10/07/17 12:59 Pantoprazole (Protonix) 40 mg DAILY IV 09/08/17 09:00 10/08/17 08:59 09/09/17 08:30 Piperacillin Sod/ Tazobactam Sod 3.375 gm/Sodium Chloride 110 ml @ 27.5 mls/hr Q8HR@0200,1000,1800 IVPB 09/08/17 02:00 09/15/17 01:59 09/09/17 10:47 Polyethylene Glycol (Miralax) 17 gm DAILYPRN PRN ORAL Constipation 09/07/17 13:00 10/07/17 12:59 Vancomycin HCl (Vanco rx to dose) 1 ea DAILYPRN PRN MISC Per rx protocol 09/07/17 21:00 10/07/17 20:59 Vancomycin/Sodium Chloride 250 ml @ 166.667 mls/hr Q12HR@0000,1200 IVPB 09/08/17 00:00 09/13/17 00:00 09/09/17 12:26 Valery Chang M.D. Sep 09, 2017 12:57
--- NOTE | 2017-09-09 13:05 | Internal Med Progress Note ---
Subjective Date of Service: Sep 09, 2017 Physician Name Yadav,Chris Attending Physician Sunil Castillo MD Current Medications Medications (Trade) Dose Ordered Sig/Polo Route PRN Reason Start Time Stop Time Status Last Admin Dose Admin Acetaminophen (Tylenol) 650 mg Q4H PRN ORAL FEVER (T>100.5F) 09/07/17 13:00 10/07/17 12:59 Albuterol/ Ipratropium (Albuterol/ Ipratropium) 3 ml Q4H PRN HHN Shortness of Breath 09/07/17 13:00 09/12/17 12:59 09/07/17 19:15 Amlodipine Besylate (Norvasc) 10 mg DAILY GT 09/08/17 09:00 10/08/17 08:59 09/09/17 08:30 Carbidopa/Levodopa (Sinemet 25/100) 1 tab BID GT 09/07/17 18:00 10/07/17 17:59 09/09/17 08:30 Dextrose 1,000 ml @ 75 mls/hr [id number] IV 09/09/17 11:45 10/09/17 11:44 09/09/17 12:26 Dextrose (Dextrose 50%) STAT PRN IV Hypoglycemia 09/07/17 13:00 10/07/17 12:59 Heparin Sodium (Porcine) (Heparin 5000 units/ml) 5,000 units EVERY 12 HOURS SUBQ 09/07/17 21:00 10/07/17 20:59 09/09/17 08:29 Lorazepam (Ativan 2mg/ml 1ml) 2 mg Q2H PRN IV For Anxiety 09/07/17 13:00 09/14/17 12:59 Losartan Potassium (Cozaar) 25 mg DAILY GT 09/08/17 09:00 10/08/17 08:59 09/09/17 08:29 Ondansetron HCl (Zofran) 4 mg Q6H PRN IVP Nausea & Vomiting 09/07/17 13:00 10/07/17 12:59 Pantoprazole (Protonix) 40 mg DAILY IV 09/08/17 09:00 10/08/17 08:59 09/09/17 08:30 Piperacillin Sod/ Tazobactam Sod 3.375 gm/Sodium Chloride 110 ml @ 27.5 mls/hr Q8HR@0200,1000,1800 IVPB 09/08/17 02:00 09/15/17 01:59 09/09/17 10:47 Polyethylene Glycol (Miralax) 17 gm DAILYPRN PRN ORAL Constipation 09/07/17 13:00 10/07/17 12:59 Vancomycin HCl (Vanco rx to dose) 1 ea DAILYPRN PRN MISC Per rx protocol 09/07/17 21:00 10/07/17 20:59 Vancomycin/Sodium Chloride 250 ml @ 166.667 mls/hr Q12HR@0000,1200 IVPB 09/08/17 00:00 09/13/17 00:00 09/09/17 12:26 Allergies: Coded Allergies: CODEINE (Verified Allergy, Unknown, 05/14/17) ROS Limited/Unobtainable: Yes Subjective 87 YO M admitted with respiratory distress. Now UTI. SHILPI. Cover fo Int Med- Dr Jonathan. More alert today Objective Last Vital Signs Date Time Temp Pulse Resp B/P (MAP) Pulse Ox O2 Delivery O2 Flow Rate FiO2 09/09/17 12:55 86 22 40 09/09/17 12:00 97.5 122/55 99 Mechanical Ventilator General Appearance: WD/WN, no apparent distress, alert EENT: PERRL/EOMI, normal ENT inspection Neck: non-tender, normal alignment, supple, normal inspection Cardiovascular: normal peripheral pulses, normal rate, regular rhythm, no gallop/murmur, no JVD Respiratory/Chest: respiratory distress, decreased breath sounds, crackles/ rales, rhonchi - bilaterally, expiratory wheezing, other - Trach; Mech vent Abdomen: normal bowel sounds, non tender, soft, no organomegaly, no mass Extremities: normal inspection Neurologic: no motor/sensory deficits Skin: normal pigmentation, warm/dry Laboratory Tests Test 09/08/17 22:00 09/08/17 23:15 09/09/17 05:25 Arterial Blood pH 7.439 (7.350-7.450) Arterial Blood Partial Pressure CO2 37.7 mmHg (35.0-45.0) Arterial Blood Partial Pressure O2 99.6 mmHg (75.0-100.0) Arterial Blood HCO3 25.0 mmol/L (22.0-26.0) Arterial Blood Oxygen Saturation 97.0 % (92.0-98.0) Arterial Blood Base Excess 0.9 Silver Test Positive Vancomycin Level Trough 16.9 ug/mL (5.0-12.0) H White Blood Count 13.6 K/UL (4.8-10.8) H Red Blood Count 2.95 M/UL (4.70-6.10) L Hemoglobin 9.4 G/DL (14.2-18.0) L Hematocrit 29.3 % (42.0-52.0) L Mean Corpuscular Volume 99 FL (80-99) Mean Corpuscular Hemoglobin 31.8 PG (27.0-31.0) H Mean Corpuscular Hemoglobin Concent 32.1 G/DL (32.0-36.0) Red Cell Distribution Width 13.6 % (11.6-14.8) Platelet Count 174 K/UL (150-450) Mean Platelet Volume 7.0 FL (6.5-10.1) Neutrophils (%) (Auto) 80.8 % (45.0-75.0) H Lymphocytes (%) (Auto) 8.9 % (20.0-45.0) L Monocytes (%) (Auto) 6.7 % (1.0-10.0) Eosinophils (%) (Auto) 3.1 % (0.0-3.0) H Basophils (%) (Auto) 0.5 % (0.0-2.0) Sodium Level 146 MMOL/L (136-145) H Potassium Level 3.7 MMOL/L (3.5-5.1) Chloride Level 113 MMOL/L (98-107) H Carbon Dioxide Level 25 MMOL/L (21-32) Anion Gap 8 mmol/L (5-15) Blood Urea Nitrogen 15 mg/dL (7-18) Creatinine 0.9 MG/DL (0.55-1.30) Estimat Glomerular Filtration Rate mL/min (>60) Glucose Level 102 MG/DL (74-106) Calcium Level 8.4 MG/DL (8.5-10.1) L Phosphorus Level 3.4 MG/DL (2.5-4.9) Magnesium Level 2.1 MG/DL (1.8-2.4) Total Bilirubin 0.6 MG/DL (0.2-1.0) Aspartate Amino Transf (AST/SGOT) 16 U/L (15-37) Alanine Aminotransferase (ALT/SGPT) 10 U/L (12-78) L Alkaline Phosphatase 124 U/L (46-116) H Total Protein 6.8 G/DL (6.4-8.2) Albumin 2.5 G/DL (3.4-5.0) L Globulin 4.3 g/dL Albumin/Globulin Ratio 0.6 (1.0-2.7) L Microbiology Date/Time Source Procedure Growth Status 09/07/17 10:50 Blood Blood Culture - Preliminary NO GROWTH AFTER 24 HOURS Resulted 09/07/17 11:13 Nasal Nares Influenza Types A,B Antigen (UMESH) - Final Complete 09/07/17 11:10 Urine,Clean Catch Urine Culture - Preliminary Resulted Intake and Output 09/08/17 09/09/17 19:00 07:00 Intake Total 867.500 ml 1108.34 ml Output Total 650 ml 1200 ml Balance 217.500 ml -91.66 ml IV Total 387.500 ml 498.34 ml Tube Feeding 360 ml 460 ml Other 120 ml 150 ml Output Urine Total 650 ml 1200 ml # Bowel Movements 4 2 Assessment/Plan Problem List: (1) Dysphagia (2) Esophageal stricture Assessment & Plan: S/P stent (3) Parkinson disease Assessment & Plan: Continue sinemet (4) BPH (benign prostatic hyperplasia) (5) UTI (urinary tract infection) Assessment & Plan: Await urine culture results. Cont zosyn per ID (6) Hypoxia (7) Respiratory failure Assessment & Plan: atelectasis on CXR. See pulm note. 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
[2017-09-09] MEDS ORDERED: Artificial Tears 1.4% Op Soln BOTH EYES PRN (13:15)
[2017-09-09 16:00] VITALS: BP 142/60
[2017-09-09] MEDS: Albuterol/Ipratropium 3ml neb HHN PRN (17:33)
--- NOTE | 2017-09-09 19:19 | Cardiology Report ---
APPROVED REPORT EKG Measurement Heart [id number] OR 132P-9 [id number] Normal sinus rhythm Normal ECG
[2017-09-09 20:00] VITALS: BP 133/68
[2017-09-10] VITALS: BP 153/73
[2017-09-10] MEDS: Piperacillin/Tazobactam 3.375 GM in NS 110 ML IVPB SCH ×3 (01:00→17:52)
[2017-09-10 04:00] VITALS: BP 133/72
[2017-09-10 06:04] LABS: BASOPHILS % (AUTO) 0.4 % (0.0-2.0); HEMATOCRIT 29.1 % (42.0-52.0); HEMOGLOBIN 9.6 G/DL (14.2-18.0); LYMPHOCYTES % (AUTO) 16.4 % (20.0-45.0); MEAN CORPUSCULAR VOLUME 99 FL (80-99); MONOCYTES % (AUTO) 7.1 % (1.0-10.0); NEUTROPHILS % (AUTO) 71.1 % (45.0-75.0); PLATELET COUNT 177 K/UL (150-450); RED BLOOD COUNT 2.94 M/UL (4.70-6.10); RED CELL DISTRIBUTION WIDTH 13.5 % (11.6-14.8); WHITE BLOOD COUNT 8.2 K/UL (4.8-10.8)
[2017-09-10 06:20] LABS: INR 1.1 (0.9-1.1)
[2017-09-10 06:37] LABS: ALANINE AMINOTRANSFERASE 16 U/L (12-78); ALBUMIN 2.4 G/DL (3.4-5.0); ALBUMIN/GLOBULIN RATIO 0.6 (1.0-2.7); ALKALINE PHOSPHATASE 120 U/L (46-116); ANION GAP 9 mmol/L (5-15); ASPARTATE AMINO TRANSFERASE 12 U/L (15-37); BILIRUBIN,TOTAL 0.4 MG/DL (0.2-1.0); BLOOD UREA NITROGEN 16 mg/dL (7-18); CALCIUM 8.4 MG/DL (8.5-10.1); CARBON DIOXIDE 23 MMOL/L (21-32); CHLORIDE 113 MMOL/L (98-107); CREATININE 0.8 MG/DL (0.55-1.30); LACTATE DEHYDROGENASE 220 U/L (81-234); PHOSPHORUS 2.4 MG/DL (2.5-4.9); POTASSIUM 3.7 MMOL/L (3.5-5.1); SODIUM 145 MMOL/L (136-145)
[2017-09-10 07:32] LABS: % IRON SATURATION 12 % (15-50); IRON 34 ug/dL (50-175); TOTAL IRON BINDING CAPACITY 275 ug/dL (250-450)
[2017-09-10 08:00] VITALS: BP 146/85
[2017-09-10] MEDS: Pantoprazole Inj IV SCH (09:31)
[2017-09-10] MEDS: Levodopa/Carbidopa 25/100 tab GT SCH ×2 (09:31→17:52)
[2017-09-10] MEDS: Heparin 5000 units/ml inj SUBQ SCH ×2 (09:31→21:00)
[2017-09-10] MEDS: Losartan 25mg tab GT SCH (09:32)
[2017-09-10 12:00] VITALS: BP 129/66
--- NOTE | 2017-09-10 12:16 | Pulmonology Progress Note ---
Assessment/Plan Problems: (1) Respiratory failure (2) Severe sepsis (3) Feeding by G-tube (4) Tracheostomy dependence (5) Hypoxia (6) UTI (urinary tract infection) Assessment/Plan f/u wbc urine cultures check electrolytes resume feeding wean off vent at tolerated. d/w extensively cultures are pending wound care Subjective ROS Limited/Unobtainable: No Constitutional: Reports: no symptoms HEENT: Repors: no symptoms Respiratory: Reports: no symptoms Allergies: Coded Allergies: CODEINE (Verified Allergy, Unknown, 05/14/17) Objective Last 24 Hour Vital Signs Date Time Temp Pulse Resp B/P (MAP) Pulse Ox O2 Delivery O2 Flow Rate FiO2 09/10/17 09:32 146/85 09/10/17 09:32 87 146/85 09/10/17 08:00 6.0 35 09/10/17 08:00 63 09/10/17 08:00 97.7 87 20 146/85 98 T-piece 6.0 35 09/10/17 07:06 T-piece 6.0 35 09/10/17 07:06 72 21 Trach Collar 35 09/10/17 07:06 98 T-piece 6.0 35 09/10/17 04:00 67 09/10/17 04:00 5.0 40 09/10/17 04:00 98.8 72 19 133/72 99 T-piece 5.0 40 09/10/17 01:20 88 21 09/10/17 00:00 98.2 74 20 153/73 98 T-piece 5.0 40 09/10/17 00:00 5.0 40 09/10/17 00:00 79 09/09/17 23:00 83 19 09/09/17 21:00 76 20 09/09/17 20:00 83 09/09/17 20:00 98.6 83 20 133/68 98 T-piece 5.0 09/09/17 20:00 5.0 40 09/09/17 18:35 88 21 Trach Collar 8.0 35 09/09/17 18:00 5.0 28 09/09/17 17:33 78 21 100 T-piece 6.0 28 09/09/17 16:00 40 09/09/17 16:00 98.6 77 22 142/60 96 T-piece 5.0 09/09/17 16:00 83 09/09/17 14:39 75 20 30 09/09/17 12:55 86 22 40 Intake and Output 09/09/17 09/10/17 19:00 07:00 Intake Total 1350.000 ml 1575.0 ml Output Total 1000 ml 2000 ml Balance 350.000 ml -425.0 ml IV Total 640.000 ml 765.0 ml Tube Feeding 650 ml 660 ml Other 60 ml 150 ml Output Urine Total 1000 ml 2000 ml # Bowel Movements 2 2 Objective General Appearance: mild distress, thin Lines, tubes and drains: peripheral HEENT: normocephalic, atraumatic Neck: non-tender, normal alignment, trach Respiratory/Chest: rhonchi - left, rhonchi - right Breasts: no masses Cardiovascular/Chest: normal peripheral pulses Abdomen: normal bowel sounds, non tender Genitourinary/Rectal: normal genital exam, Gtube. Skin Exam: normal pigmentation Microbiology Date/Time Source Procedure Growth Status 09/08/17 14:58 Sputum Gram Stain Pending Resulted 09/08/17 14:58 Sputum Sputum Culture - Preliminary NO GROWTH Resulted 09/08/17 04:00 Sacral Wound Gram Stain - Final Resulted 09/08/17 04:00 Wound Culture - Preliminary Staphylococcus Aureus Gram Positive Cocci Gram Negative Bacillus 3 Gram Negative Bacillus 4 Resulted Laboratory Tests 09/10/17 05:20: White Blood Count 8.2, Red Blood Count 2.94L, Hemoglobin 9.6L, Hematocrit 29.1L , Mean Corpuscular Volume 99, Mean Corpuscular Hemoglobin 32.5H, Mean Corpuscular Hemoglobin Concent 32.8, Red Cell Distribution Width 13.5, Platelet Count 177, Mean Platelet Volume 7.4, Neutrophils (%) (Auto) 71.1, Lymphocytes (% ) (Auto) 16.4L, Monocytes (%) (Auto) 7.1, Eosinophils (%) (Auto) 5.0H, Basophils (%) (Auto) 0.4, Differential Total Cells Counted 100, Neutrophils % ( Manual) 75, Lymphocytes % (Manual) 17L, Monocytes % (Manual) 6, Eosinophils % ( Manual) 2, Basophils % (Manual) 0, Band Neutrophils 0, Platelet Estimate Adequate, Platelet Morphology Normal, Hypochromasia 1+, Erythrocyte Sedimentation Rate 119H, Reticulocyte Count 0.7, Prothrombin Time 11.0, Prothromb Time International Ratio 1.1, Activated Partial Thromboplast Time 30, Sodium Level 145, Potassium Level 3.7, Chloride Level 113H, Carbon Dioxide Level 23, Anion Gap 9, Blood Urea Nitrogen 16, Creatinine 0.8, Estimat Glomerular Filtration Rate , Glucose Level 118H, Calcium Level 8.4L, Phosphorus Level 2.4L, Magnesium Level 1.8, Iron Level 34L, Total Iron Binding Capacity 275 , Percent Iron Saturation 12L, Unsaturated Iron Binding 241, Total Bilirubin 0.4 , Aspartate Amino Transf (AST/SGOT) 12L, Alanine Aminotransferase (ALT/SGPT) 16 , Alkaline Phosphatase 120H, Lactate Dehydrogenase 220, Total Protein 6.6, Albumin 2.4L, Globulin 4.2, Albumin/Globulin Ratio 0.6L, Vitamin B12 Level 463, Folate 46.9 Current Medications Medications (Trade) Dose Ordered Sig/Polo Route PRN Reason Start Time Stop Time Status Last Admin Dose Admin Acetaminophen (Tylenol) 650 mg Q4H PRN ORAL FEVER (T>100.5F) 09/07/17 13:00 10/07/17 12:59 Albuterol/ Ipratropium (Albuterol/ Ipratropium) 3 ml Q4H PRN HHN Shortness of Breath 09/07/17 13:00 09/12/17 12:59 09/09/17 17:33 Amlodipine Besylate (Norvasc) 10 mg DAILY GT 09/08/17 09:00 10/08/17 08:59 09/10/17 09:32 Artificial Tears (Akwa-Tears) 2 drop Q2H PRN BOTH EYES Dry Eyes 09/09/17 13:15 10/09/17 13:14 Carbidopa/Levodopa (Sinemet 25/100) 1 tab BID GT 09/07/17 18:00 10/07/17 17:59 09/10/17 09:31 Dextrose 1,000 ml @ 75 mls/hr [id number] IV 09/09/17 11:45 10/09/17 11:44 09/10/17 01:00 Dextrose (Dextrose 50%) STAT PRN IV Hypoglycemia 09/07/17 13:00 10/07/17 12:59 Heparin Sodium (Porcine) (Heparin 5000 units/ml) 5,000 units EVERY 12 HOURS SUBQ 09/07/17 21:00 10/07/17 20:59 09/10/17 09:31 Lorazepam (Ativan 2mg/ml 1ml) 2 mg Q2H PRN IV For Anxiety 09/07/17 13:00 09/14/17 12:59 Losartan Potassium (Cozaar) 25 mg DAILY GT 09/08/17 09:00 10/08/17 08:59 09/10/17 09:32 Ondansetron HCl (Zofran) 4 mg Q6H PRN IVP Nausea & Vomiting 09/07/17 13:00 10/07/17 12:59 Pantoprazole (Protonix) 40 mg DAILY IV 09/08/17 09:00 10/08/17 08:59 09/10/17 09:31 Piperacillin Sod/ Tazobactam Sod 3.375 gm/Sodium Chloride 110 ml @ 27.5 mls/hr Q8HR@0200,1000,1800 IVPB 09/08/17 02:00 09/15/17 01:59 09/10/17 09:32 Polyethylene Glycol (Miralax) 17 gm DAILYPRN PRN ORAL Constipation 09/07/17 13:00 10/07/17 12:59 Vancomycin HCl (Vanco rx to dose) 1 ea DAILYPRN PRN MISC Per rx protocol 09/07/17 21:00 10/07/17 20:59 Vancomycin/Sodium Chloride 250 ml @ 166.667 mls/hr Q12HR@0000,1200 IVPB 09/08/17 00:00 09/13/17 00:00 09/09/17 23:07 TEMI MELENDEZ Sep 10, 2017 12:16
--- NOTE | 2017-09-10 12:24 | Infectious Diseases Prog Note ---
Assessment/Plan Assessment/Plan Abx: IV Vanco 09/07- Zosyn 09/07- Assessment: Acute hypoxic resp failure- mucous plug- suspect tracheitis, no obvious PNA on CXR -CXR 09/08: Decreased right basilar new left perihilar atelectasis.Otherwise little chart changer one day, findings as described -CXR: Right basilar atelectasis and volume loss. Generalized mild interstitial prominence, suspect chronic but acute edema possible. Tracheostomy -influenza neg -sp cx NTD Pyuria, possible UTI -u/a WBC TNCT, nit neg, leuk +3; ucx GNB #1, #2 (id and sensi pending) Leukocytosis- 2ry to above;mild recurrent- resolved -afebrile -Bcx NTD -Sacral decubitus stage II, no signs of infection -wound cx: polymicrobial including S. aureus, GNRs (colonizers) COPD/Asthma HTN dysphagia, Parkinson;s Disease chronic resp failure trach dependent [facility] resident Plan: -D/c IV Vanco #4 and continue Zosyn #4/7 pending ID and sensi GNRs Ucx -f/u cx -Monitor CBC/BMP, temperatures -trach care -aspiration precautions Thank you for this consultation. Will continue to follow along with you. Discussed with RN Subjective Allergies: Coded Allergies: CODEINE (Verified Allergy, Unknown, 05/14/17) Subjective afebrile leukocytosis resolved sp cx NTD weaned from vent now on trach collar 35% Objective Vital Signs Last 24 Hour Vital Signs Date Time Temp Pulse Resp B/P (MAP) Pulse Ox O2 Delivery O2 Flow Rate FiO2 09/10/17 09:32 146/85 09/10/17 09:32 87 146/85 09/10/17 08:00 6.0 35 09/10/17 08:00 63 09/10/17 08:00 97.7 87 20 146/85 98 T-piece 6.0 35 09/10/17 07:06 T-piece 6.0 35 09/10/17 07:06 72 21 Trach Collar 35 09/10/17 07:06 98 T-piece 6.0 35 09/10/17 04:00 67 09/10/17 04:00 5.0 40 09/10/17 04:00 98.8 72 19 133/72 99 T-piece 5.0 40 09/10/17 01:20 88 21 09/10/17 00:00 98.2 74 20 153/73 98 T-piece 5.0 40 09/10/17 00:00 5.0 40 09/10/17 00:00 79 09/09/17 23:00 83 19 09/09/17 21:00 76 20 09/09/17 20:00 83 09/09/17 20:00 98.6 83 20 133/68 98 T-piece 5.0 09/09/17 20:00 5.0 40 09/09/17 18:35 88 21 Trach Collar 8.0 35 09/09/17 18:00 5.0 28 09/09/17 17:33 78 21 100 T-piece 6.0 28 09/09/17 16:00 40 09/09/17 16:00 98.6 77 22 142/60 96 T-piece 5.0 09/09/17 16:00 83 09/09/17 14:39 75 20 30 09/09/17 12:55 86 22 40 Height (Feet): 6 Height (Inches): 1.00 Weight (Pounds): 201 Objective Gen: no distress CVS: RRR Respiratory: mech b/s bilaterally, trach in place Peripheral pulses: 2+ radial Capillary refill: <2 seconds Skin exam: warm, dry, no rash, not mottled Microbiology Date/Time Source Procedure Growth Status 09/08/17 14:58 Sputum Gram Stain Pending Resulted 09/08/17 14:58 Sputum Sputum Culture - Preliminary NO GROWTH Resulted 09/08/17 04:00 Sacral Wound Gram Stain - Final Resulted 09/08/17 04:00 Wound Culture - Preliminary Staphylococcus Aureus Gram Positive Cocci Gram Negative Bacillus 3 Gram Negative Bacillus 4 Resulted Laboratory Tests Test 09/10/17 05:20 White Blood Count 8.2 K/UL (4.8-10.8) Red Blood Count 2.94 M/UL (4.70-6.10) L Hemoglobin 9.6 G/DL (14.2-18.0) L Hematocrit 29.1 % (42.0-52.0) L Mean Corpuscular Volume 99 FL (80-99) Mean Corpuscular Hemoglobin 32.5 PG (27.0-31.0) H Mean Corpuscular Hemoglobin Concent 32.8 G/DL (32.0-36.0) Red Cell Distribution Width 13.5 % (11.6-14.8) Platelet Count 177 K/UL (150-450) Mean Platelet Volume 7.4 FL (6.5-10.1) Neutrophils (%) (Auto) 71.1 % (45.0-75.0) Lymphocytes (%) (Auto) 16.4 % (20.0-45.0) L Monocytes (%) (Auto) 7.1 % (1.0-10.0) Eosinophils (%) (Auto) 5.0 % (0.0-3.0) H Basophils (%) (Auto) 0.4 % (0.0-2.0) Differential Total Cells Counted 100 Neutrophils % (Manual) 75 % (45-75) Lymphocytes % (Manual) 17 % (20-45) L Monocytes % (Manual) 6 % (1-10) Eosinophils % (Manual) 2 % (0-3) Basophils % (Manual) 0 % (0-2) Band Neutrophils 0 % (0-8) Platelet Estimate Adequate Platelet Morphology Normal Hypochromasia 1+ Erythrocyte Sedimentation Rate 119 MM/HR (0-30) H Reticulocyte Count 0.7 % (0.0-2.0) Prothrombin Time 11.0 SEC (9.30-11.50) Prothromb Time International Ratio 1.1 (0.9-1.1) Activated Partial Thromboplast Time 30 SEC (23-33) Sodium Level 145 MMOL/L (136-145) Potassium Level 3.7 MMOL/L (3.5-5.1) Chloride Level 113 MMOL/L (98-107) H Carbon Dioxide Level 23 MMOL/L (21-32) Anion Gap 9 mmol/L (5-15) Blood Urea Nitrogen 16 mg/dL (7-18) Creatinine 0.8 MG/DL (0.55-1.30) Estimat Glomerular Filtration Rate mL/min (>60) Glucose Level 118 MG/DL (74-106) H Calcium Level 8.4 MG/DL (8.5-10.1) L Phosphorus Level 2.4 MG/DL (2.5-4.9) L Magnesium Level 1.8 MG/DL (1.8-2.4) Iron Level 34 ug/dL (50-175) L Total Iron Binding Capacity 275 ug/dL (250-450) Percent Iron Saturation 12 % (15-50) L Unsaturated Iron Binding 241 ug/dL (112-346) Total Bilirubin 0.4 MG/DL (0.2-1.0) Aspartate Amino Transf (AST/SGOT) 12 U/L (15-37) L Alanine Aminotransferase (ALT/SGPT) 16 U/L (12-78) Alkaline Phosphatase 120 U/L (46-116) H Lactate Dehydrogenase 220 U/L (81-234) Total Protein 6.6 G/DL (6.4-8.2) Albumin 2.4 G/DL (3.4-5.0) L Globulin 4.2 g/dL Albumin/Globulin Ratio 0.6 (1.0-2.7) L Vitamin B12 Level 463 PG/ML (193-986) Folate 46.9 NG/ML (8.6-58.9) Current Medications Medications (Trade) Dose Ordered Sig/Polo Route PRN Reason Start Time Stop Time Status Last Admin Dose Admin Acetaminophen (Tylenol) 650 mg Q4H PRN ORAL FEVER (T>100.5F) 09/07/17 13:00 10/07/17 12:59 Albuterol/ Ipratropium (Albuterol/ Ipratropium) 3 ml Q4H PRN HHN Shortness of Breath 09/07/17 13:00 09/12/17 12:59 09/09/17 17:33 Amlodipine Besylate (Norvasc) 10 mg DAILY GT 09/08/17 09:00 10/08/17 08:59 09/10/17 09:32 Artificial Tears (Akwa-Tears) 2 drop Q2H PRN BOTH EYES Dry Eyes 09/09/17 13:15 10/09/17 13:14 Carbidopa/Levodopa (Sinemet 25/100) 1 tab BID GT 09/07/17 18:00 10/07/17 17:59 09/10/17 09:31 Dextrose 1,000 ml @ 75 mls/hr [id number] IV 09/09/17 11:45 10/09/17 11:44 09/10/17 01:00 Dextrose (Dextrose 50%) STAT PRN IV Hypoglycemia 09/07/17 13:00 10/07/17 12:59 Heparin Sodium (Porcine) (Heparin 5000 units/ml) 5,000 units EVERY 12 HOURS SUBQ 09/07/17 21:00 10/07/17 20:59 09/10/17 09:31 Lorazepam (Ativan 2mg/ml 1ml) 2 mg Q2H PRN IV For Anxiety 09/07/17 13:00 09/14/17 12:59 Losartan Potassium (Cozaar) 25 mg DAILY GT 09/08/17 09:00 10/08/17 08:59 09/10/17 09:32 Ondansetron HCl (Zofran) 4 mg Q6H PRN IVP Nausea & Vomiting 09/07/17 13:00 10/07/17 12:59 Pantoprazole (Protonix) 40 mg DAILY IV 09/08/17 09:00 10/08/17 08:59 09/10/17 09:31 Piperacillin Sod/ Tazobactam Sod 3.375 gm/Sodium Chloride 110 ml @ 27.5 mls/hr Q8HR@0200,1000,1800 IVPB 09/08/17 02:00 09/15/17 01:59 09/10/17 09:32 Polyethylene Glycol (Miralax) 17 gm DAILYPRN PRN ORAL Constipation 09/07/17 13:00 10/07/17 12:59 Vancomycin HCl (Vanco rx to dose) 1 ea DAILYPRN PRN MISC Per rx protocol 09/07/17 21:00 10/07/17 20:59 Vancomycin/Sodium Chloride 250 ml @ 166.667 mls/hr Q12HR@0000,1200 IVPB 09/08/17 00:00 09/13/17 00:00 09/09/17 23:07 Valery Chang M.D. Sep 10, 2017 12:24
[2017-09-10 16:00] VITALS: BP 123/43
--- NOTE | 2017-09-10 17:45 | History and Physical Report ---
DATE OF ADMISSION: 09/07/2017 CHIEF COMPLAINT: The patient is an 87-year-old, chronically vent-dependent male, who presents with chief complaint of hypoxia and respiratory distress. HISTORY OF PRESENT ILLNESS: The patient is a resident of [facility]. The patient is chronic vent dependent. The patient was last admitted to [facility] in May 2017. Please see history and physical and discharge summary dictated at that time. According to staff at [facility], the patient began to experience hypoxia. The patient's oxygen saturation dropped to 80. EMS was called. The patient was suctioned with return of oxygen saturation to 98%. The patient was transferred to [facility]. The patient was admitted with respiratory distress to rule out pneumonia. REVIEW OF SYSTEMS: Unable to assess secondary to the patient's mental status. PAST MEDICAL HISTORY: Significant for: 1. Chronic ventilator dependence. 2. Respiratory failure. 3. Hypertension. 4. Atrial fibrillation. 5. Dysphagia. 6. Esophageal stricture. 7. Parkinson disease. 8. Benign prostatic hypertrophy. PAST SURGICAL HISTORY: Significant for: 1. Gastrostomy-jejunostomy tube placement. 2. Suprapubic catheter. 3. Tracheostomy. 4. Transurethral resection of the prostate. CURRENT MEDICATIONS: 1. Albuterol nebulized q.4 h. p.r.n. 2. Amlodipine 10 mg p.o. daily. 3. Aspirin 81 mg per G-tube daily. 4. Clonidine 0.1 mg q.6 h. p.r.n. 5. Cozaar 25 mg per G-tube daily. 6. Iron sulfate 220 mg per G-tube daily. 7. MiraLax 17 g per G-tube daily. 8. Pepcid 20 mg per G-tube q.12 h. 9. Senokot per G-tube daily. 10. Vitamin C 500 mg per G-tube daily. ALLERGIES: To codeine. SOCIAL HISTORY: The patient is a resident of [facility]. The patient denies tobacco or alcohol use. PHYSICAL EXAMINATION: VITAL SIGNS: Temperature 98.6, respirations 14, pulse 71, and blood pressure 110/55. GENERAL: The patient is a well-developed, well-nourished white male, who is nonverbal. HEENT: Eyes, pupils are equal and responsive to light and accommodation. Extraocular movements are intact. NECK: Tracheostomy is noted. Neck is supple without lymphadenopathy. CHEST: Diffuse wheezes in bilateral bases with crackles, otherwise, clear to auscultation with coarse upper airway sounds. CARDIOVASCULAR: Regular rhythm and rate. S1 and S2 are normal without murmurs, rubs, or gallops. ABDOMEN: Soft, nontender, and nondistended. Positive bowel sounds. No evidence of hepatosplenomegaly. Currently, no rebound or guarding noted. There is G-tube present. EXTREMITIES: Negative for clubbing, cyanosis, or edema. LABORATORY AND DIAGNOSTIC DATA: Laboratory studies, WBC 15.9, hemoglobin 10.3, hematocrit 33.1, and platelets 232,000. Sodium 146, potassium 4.5, chloride 111, CO2 27, BUN 29, creatinine 0.9, and glucose 137. Lactic acid elevated at 2.9. BNP elevated at 238. Troponin 0.0. Chest x-ray revealed right basilar atelectasis and generalized interstitial prominence. ASSESSMENT: This is an 87-year-old white male with: 1. Respiratory failure. 2. Hypoxia. 3. Hypertension. 4. Atrial fibrillation. 5. Dysphagia. 6. Esophageal stricture. 7. Parkinson disease. 8. Benign prostatic hypertrophy. TREATMENT: 1. Hypoxia/respiratory distress. A Pulmonary consultation is pending with Dr. Kenneth Shah. An Infectious Disease consultation has been obtained with Dr. Veloz. The patient has been started empirically on vancomycin and Zosyn. We will follow recommendations of Infectious Disease. 2. Parkinson disease. Continue carbidopa/levodopa 25/100 one tablet per G-tube twice daily. 3. Hypertension. Continue losartan as above. 4. Atrial fibrillation. 5. Dysphagia. The patient is status post gastrostomy jejunostomy tube. 6. Esophageal stricture. The patient is status post stent placement. 7. Benign prostatic hypertrophy. Holger Ignacio M.D. DR: FELICE/DANIELLE JOB#: [id number] CC:
--- NOTE | 2017-09-10 18:09 | Internal Med Progress Note ---
Subjective Date of Service: Sep 10, 2017 Physician Name YadavChris Attending Physician Sunil Castillo MD Current Medications Medications (Trade) Dose Ordered Sig/Polo Route PRN Reason Start Time Stop Time Status Last Admin Dose Admin Acetaminophen (Tylenol) 650 mg Q4H PRN ORAL FEVER (T>100.5F) 09/07/17 13:00 10/07/17 12:59 Albuterol/ Ipratropium (Albuterol/ Ipratropium) 3 ml Q4H PRN HHN Shortness of Breath 09/07/17 13:00 09/12/17 12:59 09/09/17 17:33 Amlodipine Besylate (Norvasc) 10 mg DAILY GT 09/08/17 09:00 10/08/17 08:59 09/10/17 09:32 Artificial Tears (Akwa-Tears) 2 drop Q2H PRN BOTH EYES Dry Eyes 09/09/17 13:15 10/09/17 13:14 Carbidopa/Levodopa (Sinemet 25/100) 1 tab BID GT 09/07/17 18:00 10/07/17 17:59 09/10/17 17:52 Dextrose 1,000 ml @ 75 mls/hr [id number] IV 09/09/17 11:45 10/09/17 11:44 09/10/17 14:35 Dextrose (Dextrose 50%) STAT PRN IV Hypoglycemia 09/07/17 13:00 10/07/17 12:59 Heparin Sodium (Porcine) (Heparin 5000 units/ml) 5,000 units EVERY 12 HOURS SUBQ 09/07/17 21:00 10/07/17 20:59 09/10/17 09:31 Lorazepam (Ativan 2mg/ml 1ml) 2 mg Q2H PRN IV For Anxiety 09/07/17 13:00 09/14/17 12:59 Losartan Potassium (Cozaar) 25 mg DAILY GT 09/08/17 09:00 10/08/17 08:59 09/10/17 09:32 Ondansetron HCl (Zofran) 4 mg Q6H PRN IVP Nausea & Vomiting 09/07/17 13:00 10/07/17 12:59 Pantoprazole (Protonix) 40 mg DAILY IV 09/08/17 09:00 10/08/17 08:59 09/10/17 09:31 Piperacillin Sod/ Tazobactam Sod 3.375 gm/Sodium Chloride 110 ml @ 27.5 mls/hr Q8HR@0200,1000,1800 IVPB 09/08/17 02:00 09/15/17 01:59 09/10/17 17:52 Polyethylene Glycol (Miralax) 17 gm DAILYPRN PRN ORAL Constipation 09/07/17 13:00 10/07/17 12:59 Allergies: Coded Allergies: CODEINE (Verified Allergy, Unknown, 05/14/17) ROS Limited/Unobtainable: Yes Subjective 87 YO M admitted with respiratory distress. Now UTI. SHILPI. Cover fo Int Med- Dr Castillo. Objective Last Vital Signs Date Time Temp Pulse Resp B/P (MAP) Pulse Ox O2 Delivery O2 Flow Rate FiO2 09/10/17 16:00 97.7 48 22 123/43 97 T-piece 6.0 40 Laboratory Tests Test 09/10/17 05:20 White Blood Count 8.2 K/UL (4.8-10.8) Red Blood Count 2.94 M/UL (4.70-6.10) L Hemoglobin 9.6 G/DL (14.2-18.0) L Hematocrit 29.1 % (42.0-52.0) L Mean Corpuscular Volume 99 FL (80-99) Mean Corpuscular Hemoglobin 32.5 PG (27.0-31.0) H Mean Corpuscular Hemoglobin Concent 32.8 G/DL (32.0-36.0) Red Cell Distribution Width 13.5 % (11.6-14.8) Platelet Count 177 K/UL (150-450) Mean Platelet Volume 7.4 FL (6.5-10.1) Neutrophils (%) (Auto) 71.1 % (45.0-75.0) Lymphocytes (%) (Auto) 16.4 % (20.0-45.0) L Monocytes (%) (Auto) 7.1 % (1.0-10.0) Eosinophils (%) (Auto) 5.0 % (0.0-3.0) H Basophils (%) (Auto) 0.4 % (0.0-2.0) Differential Total Cells Counted 100 Neutrophils % (Manual) 75 % (45-75) Lymphocytes % (Manual) 17 % (20-45) L Monocytes % (Manual) 6 % (1-10) Eosinophils % (Manual) 2 % (0-3) Basophils % (Manual) 0 % (0-2) Band Neutrophils 0 % (0-8) Platelet Estimate Adequate Platelet Morphology Normal Hypochromasia 1+ Erythrocyte Sedimentation Rate 119 MM/HR (0-30) H Reticulocyte Count 0.7 % (0.0-2.0) Prothrombin Time 11.0 SEC (9.30-11.50) Prothromb Time International Ratio 1.1 (0.9-1.1) Activated Partial Thromboplast Time 30 SEC (23-33) Sodium Level 145 MMOL/L (136-145) Potassium Level 3.7 MMOL/L (3.5-5.1) Chloride Level 113 MMOL/L (98-107) H Carbon Dioxide Level 23 MMOL/L (21-32) Anion Gap 9 mmol/L (5-15) Blood Urea Nitrogen 16 mg/dL (7-18) Creatinine 0.8 MG/DL (0.55-1.30) Estimat Glomerular Filtration Rate mL/min (>60) Glucose Level 118 MG/DL (74-106) H Calcium Level 8.4 MG/DL (8.5-10.1) L Phosphorus Level 2.4 MG/DL (2.5-4.9) L Magnesium Level 1.8 MG/DL (1.8-2.4) Iron Level 34 ug/dL (50-175) L Total Iron Binding Capacity 275 ug/dL (250-450) Percent Iron Saturation 12 % (15-50) L Unsaturated Iron Binding 241 ug/dL (112-346) Total Bilirubin 0.4 MG/DL (0.2-1.0) Aspartate Amino Transf (AST/SGOT) 12 U/L (15-37) L Alanine Aminotransferase (ALT/SGPT) 16 U/L (12-78) Alkaline Phosphatase 120 U/L (46-116) H Lactate Dehydrogenase 220 U/L (81-234) Total Protein 6.6 G/DL (6.4-8.2) Albumin 2.4 G/DL (3.4-5.0) L Globulin 4.2 g/dL Albumin/Globulin Ratio 0.6 (1.0-2.7) L Vitamin B12 Level 463 PG/ML (193-986) Folate 46.9 NG/ML (8.6-58.9) Microbiology Date/Time Source Procedure Growth Status 09/08/17 14:58 Sputum Gram Stain Pending Resulted 09/08/17 14:58 Sputum Sputum Culture - Preliminary NO GROWTH Resulted 09/08/17 04:00 Sacral Wound Gram Stain - Final Resulted 09/08/17 04:00 Wound Culture - Preliminary Staphylococcus Aureus Gram Positive Cocci Gram Negative Bacillus 3 Gram Negative Bacillus 4 Resulted Intake and Output 09/09/17 09/10/17 19:00 07:00 Intake Total 1350.000 ml 1575.0 ml Output Total 1000 ml 2000 ml Balance 350.000 ml -425.0 ml IV Total 640.000 ml 765.0 ml Tube Feeding 650 ml 660 ml Other 60 ml 150 ml Output Urine Total 1000 ml 2000 ml # Bowel Movements 2 2 Objective General Appearance: WD/WN, no apparent distress, alert EENT: PERRL/EOMI, normal ENT inspection Neck: non-tender, normal alignment, supple, normal inspection Cardiovascular: normal peripheral pulses, normal rate, regular rhythm, no gallop/murmur, no JVD Respiratory/Chest: Trach; respiratory distress, decreased breath sounds, crackles/rales, rhonchi - bilaterally, expiratory wheezing, other - Trach; Mech vent Abdomen: normal bowel sounds, non tender, soft, no organomegaly, no mass Extremities: normal inspection Neurologic: no motor/sensory deficits Skin: normal pigmentation, warm/dry Assessment/Plan Problem List: (1) Dysphagia (2) Esophageal stricture Assessment & Plan: S/P stent (3) Parkinson disease Assessment & Plan: Continue sinemet (4) BPH (benign prostatic hyperplasia) (5) UTI (urinary tract infection) Assessment & Plan: Gram neg rods. Await urine culture results. Cont zosyn per ID (6) Hypoxia (7) Respiratory failure Assessment & Plan: atelectasis on CXR. See pulm note. Cont zosyn (8) Feeding by G-tube (9) Tracheostomy dependence (10) Tracheostomy dependent Status: not improved CHRIS YADAV Sep 10, 2017 18:09
[2017-09-10 20:00] VITALS: BP 124/54
[2017-09-11] VITALS: BP 137/73
[2017-09-11] MEDS: Piperacillin/Tazobactam 3.375 GM in NS 110 ML IVPB SCH ×2 (02:00→10:00)
[2017-09-11 04:00] VITALS: BP 120/69
[2017-09-11 06:04] LABS: BASOPHILS % (AUTO) 0.6 % (0.0-2.0); EOSINOPHILS % (AUTO) 5.6 % (0.0-3.0); HEMATOCRIT 29.1 % (42.0-52.0); HEMOGLOBIN 9.7 G/DL (14.2-18.0); LYMPHOCYTES % (AUTO) 14.8 % (20.0-45.0); MEAN CORPUSCULAR VOLUME 99 FL (80-99); MONOCYTES % (AUTO) 7.1 % (1.0-10.0); NEUTROPHILS % (AUTO) 71.9 % (45.0-75.0); PLATELET COUNT 179 K/UL (150-450); RED BLOOD COUNT 2.95 M/UL (4.70-6.10); RED CELL DISTRIBUTION WIDTH 13.6 % (11.6-14.8); WHITE BLOOD COUNT 8.4 K/UL (4.8-10.8)
[2017-09-11 06:30] LABS: ALANINE AMINOTRANSFERASE 12 U/L (12-78); ALBUMIN 2.3 G/DL (3.4-5.0); ALBUMIN/GLOBULIN RATIO 0.6 (1.0-2.7); ALKALINE PHOSPHATASE 112 U/L (46-116); ANION GAP 9 mmol/L (5-15); ASPARTATE AMINO TRANSFERASE 15 U/L (15-37); BILIRUBIN,TOTAL 0.3 MG/DL (0.2-1.0); BLOOD UREA NITROGEN 14 mg/dL (7-18); CALCIUM 8.3 MG/DL (8.5-10.1); CARBON DIOXIDE 24 MMOL/L (21-32); CHLORIDE 108 MMOL/L (98-107); CREATININE 0.9 MG/DL (0.55-1.30); PHOSPHORUS 2.4 MG/DL (2.5-4.9); POTASSIUM 3.6 MMOL/L (3.5-5.1); SODIUM 141 MMOL/L (136-145)
[2017-09-11 08:00] VITALS: BP 130/59
[2017-09-11] MEDS: Pantoprazole Inj IV SCH (08:52)
[2017-09-11] MEDS: Levodopa/Carbidopa 25/100 tab GT SCH (08:52)
[2017-09-11] MEDS: Losartan 25mg tab GT SCH (08:52)
[2017-09-11] MEDS: Heparin 5000 units/ml inj SUBQ SCH (08:53)
--- NOTE | 2017-09-11 09:27 | Consultation ---
Consult Note Assessment/Plan Renal consult dictated # [id number] GALILEO BARBOUR Sep 11, 2017 09:27
[2017-09-11] MEDS ORDERED: Potassium Phosphate 30 MM in D5W 275 ML IV ONE (11:00)
[2017-09-11 12:00] VITALS: BP 128/68
--- NOTE | 2017-09-11 13:04 | Pulmonology Progress Note ---
Assessment/Plan Problems: (1) Respiratory failure (2) Severe sepsis (3) Feeding by G-tube (4) Tracheostomy dependence (5) Hypoxia (6) UTI (urinary tract infection) Assessment/Plan urine cultures available, f/u wbc sputum cultures are pending check electrolytes tolerating feeding off vent at tolerated. d/w extensively wound care Subjective ROS Limited/Unobtainable: No Constitutional: Reports: no symptoms Allergies: Coded Allergies: CODEINE (Verified Allergy, Unknown, 05/14/17) Objective Last 24 Hour Vital Signs Date Time Temp Pulse Resp B/P (MAP) Pulse Ox O2 Delivery O2 Flow Rate FiO2 09/11/17 12:00 8.0 30 09/11/17 12:00 97.3 69 24 128/68 100 T-piece 8.0 30 09/11/17 08:52 130/59 09/11/17 08:51 71 130/59 09/11/17 08:47 73 09/11/17 08:00 8.0 30 09/11/17 08:00 98.2 64 22 130/59 98 T-piece 8.0 30 09/11/17 07:20 72 20 Trach Collar 8.0 30 09/11/17 07:20 97 T-piece 8.0 30 09/11/17 07:20 T-piece 8.0 30 09/11/17 04:00 10.0 40 09/11/17 04:00 71 09/11/17 04:00 98.1 70 18 120/69 99 T-piece 10.0 40 09/11/17 01:34 T-piece 8.0 30 09/11/17 01:33 98 T-piece 8.0 30 09/11/17 00:00 98.7 64 18 137/73 99 T-piece 10.0 40 09/11/17 00:00 63 09/10/17 20:00 60 09/10/17 20:00 10.0 40 09/10/17 20:00 98.3 54 22 124/54 97 T-piece 10.0 40 09/10/17 19:30 T-piece 8.0 30 09/10/17 19:30 98 T-piece 8.0 30 09/10/17 19:30 78 20 Trach Collar 35 09/10/17 16:00 97.7 48 22 123/43 97 T-piece 10.0 40 09/10/17 16:00 10.0 40 09/10/17 16:00 68 09/10/17 13:00 97 T-piece 6.0 35 09/10/17 13:00 T-piece 6.0 35 Intake and Output 09/10/17 09/11/17 19:00 07:00 Intake Total 1849.917 ml 1747.5 ml Output Total 875 ml 800 ml Balance 974.917 ml 947.5 ml Free Water 50 ml 100 ml IV Total 1039.917 ml 932.5 ml Tube Feeding 660 ml 715 ml Other 100 ml Output Urine Total 875 ml 800 ml # Bowel Movements 2 1 Objective General Appearance: mild distress, thin Lines, tubes and drains: peripheral HEENT: normocephalic, atraumatic Neck: non-tender, normal alignment, trach Respiratory/Chest: rhonchi - left, rhonchi - right Breasts: no masses Cardiovascular/Chest: normal peripheral pulses Abdomen: normal bowel sounds, non tender Genitourinary/Rectal: normal genital exam, Gtube. Skin Exam: normal pigmentation Microbiology Date/Time Source Procedure Growth Status 09/08/17 14:58 Sputum Gram Stain Pending Resulted 09/08/17 14:58 Sputum Culture - Preliminary Gram Negative Bacillus 1 Gram Negative Bacillus 2 Resulted Laboratory Tests 09/11/17 05:05: White Blood Count 8.4, Red Blood Count 2.95L, Hemoglobin 9.7L, Hematocrit 29.1L , Mean Corpuscular Volume 99, Mean Corpuscular Hemoglobin 32.8H, Mean Corpuscular Hemoglobin Concent 33.3, Red Cell Distribution Width 13.6, Platelet Count 179, Mean Platelet Volume 7.6, Neutrophils (%) (Auto) 71.9, Lymphocytes (% ) (Auto) 14.8L, Monocytes (%) (Auto) 7.1, Eosinophils (%) (Auto) 5.6H, Basophils (%) (Auto) 0.6, Sodium Level 141, Potassium Level 3.6, Chloride Level 108H, Carbon Dioxide Level 24, Anion Gap 9, Blood Urea Nitrogen 14, Creatinine 0.9, Estimat Glomerular Filtration Rate , Glucose Level 108H, Calcium Level 8.3L , Phosphorus Level 2.4L, Magnesium Level 1.9, Total Bilirubin 0.3, Aspartate Amino Transf (AST/SGOT) 15, Alanine Aminotransferase (ALT/SGPT) 12, Alkaline Phosphatase 112, Total Protein 6.4, Albumin 2.3L, Globulin 4.1, Albumin/ Globulin Ratio 0.6L Current Medications Medications (Trade) Dose Ordered Sig/Polo Route PRN Reason Start Time Stop Time Status Last Admin Dose Admin Acetaminophen (Tylenol) 650 mg Q4H PRN ORAL FEVER (T>100.5F) 09/07/17 13:00 10/07/17 12:59 Albuterol/ Ipratropium (Albuterol/ Ipratropium) 3 ml Q4H PRN HHN Shortness of Breath 09/07/17 13:00 09/12/17 12:59 09/09/17 17:33 Amlodipine Besylate (Norvasc) 10 mg DAILY GT 09/08/17 09:00 10/08/17 08:59 09/11/17 08:51 Artificial Tears (Akwa-Tears) 2 drop Q2H PRN BOTH EYES Dry Eyes 09/09/17 13:15 10/09/17 13:14 Carbidopa/Levodopa (Sinemet 25/100) 1 tab BID GT 09/07/17 18:00 10/07/17 17:59 09/11/17 08:52 Dextrose 1,000 ml @ 75 mls/hr [id number] IV 09/09/17 11:45 10/09/17 11:44 09/11/17 04:00 Dextrose (Dextrose 50%) STAT PRN IV Hypoglycemia 09/07/17 13:00 10/07/17 12:59 Heparin Sodium (Porcine) (Heparin 5000 units/ml) 5,000 units EVERY 12 HOURS SUBQ 09/07/17 21:00 10/07/17 20:59 09/11/17 08:53 Lorazepam (Ativan 2mg/ml 1ml) 2 mg Q2H PRN IV For Anxiety 09/07/17 13:00 09/14/17 12:59 Losartan Potassium (Cozaar) 25 mg DAILY GT 09/08/17 09:00 10/08/17 08:59 09/11/17 08:52 Ondansetron HCl (Zofran) 4 mg Q6H PRN IVP Nausea & Vomiting 09/07/17 13:00 10/07/17 12:59 Pantoprazole (Protonix) 40 mg DAILY IV 09/08/17 09:00 10/08/17 08:59 09/11/17 08:52 Piperacillin Sod/ Tazobactam Sod 3.375 gm/Sodium Chloride 110 ml @ 27.5 mls/hr Q8HR@0200,1000,1800 IVPB 09/08/17 02:00 09/15/17 01:59 09/11/17 10:00 Polyethylene Glycol (Miralax) 17 gm DAILYPRN PRN ORAL Constipation 09/07/17 13:00 10/07/17 12:59 Potassium Phosphate 30 mm/ Dextrose 285 ml @ 47.5 mls/hr ONCE ONCE IV 09/11/17 11:00 09/11/17 16:59 09/11/17 11:00 TEMI MELENDEZ Sep 11, 2017 13:04
[2017-09-11] MEDS: Albuterol/Ipratropium 3ml neb HHN PRN (13:33)
[2017-09-11 16:00] VITALS: BP 143/69
--- NOTE | 2017-09-11 16:33 | Infectious Diseases Prog Note ---
Assessment/Plan Assessment/Plan Assessment: Acute hypoxic resp failure- mucous plug- suspect tracheitis, no obvious PNA on CXR -CXR 09/08: Decreased right basilar new left perihilar atelectasis.Otherwise little change management coordinator one day, findings as described -CXR: Right basilar atelectasis and volume loss. Generalized mild interstitial prominence, suspect chronic but acute edema possible. Tracheostomy -influenza neg -sp cx GNB #1, #2 (Id and sensi pending) Pyuria, possible UTI -u/a WBC TNCT, nit neg, leuk +3; ucx GNB >100k Proteus (S Zosyn; R ancef, cipro , bactrim), 60-70k PsA (S Zosyn, Cefepime; R cipro/levo) Leukocytosis- 2ry to above;mild recurrent- resolved -afebrile -Bcx NTD -Sacral decubitus stage II, no signs of infection -wound cx: polymicrobial including S. aureus, GNRs (colonizers) COPD/Asthma HTN dysphagia, Parkinson;s Disease chronic resp failure trach dependent residential resident Plan: -Continue Zosyn #5/7 for E,coli and PsA UTI and PNA -f/u ID and sensi sp cx GNRs -2/ SP IV vanco #4 -f/u cx -Monitor CBC/BMP, temperatures -trach care -aspiration precautions Thank you for this consultation. Will continue to follow along with you. Discussed with RN Subjective Allergies: Coded Allergies: CODEINE (Verified Allergy, Unknown, 05/14/17) Subjective afebrile no leukocytosis Objective Vital Signs Last 24 Hour Vital Signs Date Time Temp Pulse Resp B/P (MAP) Pulse Ox O2 Delivery O2 Flow Rate FiO2 09/11/17 13:42 70 19 100 Mechanical Ventilator 09/11/17 13:33 T-piece 8.0 30 09/11/17 13:33 98 T-piece 8.0 30 09/11/17 13:33 68 25 98 T-piece 8.0 30 09/11/17 12:00 8.0 30 09/11/17 12:00 97.3 69 24 128/68 100 T-piece 8.0 30 09/11/17 12:00 70 09/11/17 08:52 130/59 09/11/17 08:51 71 130/59 2//18 08:47 73 09/11/17 08:00 8.0 30 09/11/17 08:00 98.2 64 22 130/59 98 T-piece 8.0 30 09/11/17 07:20 72 20 Trach Collar 8.0 30 09/11/17 07:20 97 T-piece 8.0 30 09/11/17 07:20 T-piece 8.0 30 09/11/17 04:00 10.0 40 09/11/17 04:00 71 09/11/17 04:00 98.1 70 18 120/69 99 T-piece 10.0 40 09/11/17 01:34 T-piece 8.0 30 09/11/17 01:33 98 T-piece 8.0 30 09/11/17 00:00 98.7 64 18 137/73 99 T-piece 10.0 40 09/11/17 00:00 63 09/10/17 20:00 60 09/10/17 20:00 10.0 40 09/10/17 20:00 98.3 54 22 124/54 97 T-piece 10.0 40 09/10/17 19:30 T-piece 8.0 30 09/10/17 19:30 98 T-piece 8.0 30 09/10/17 19:30 78 20 Trach Collar 35 Height (Feet): 6 Height (Inches): 1.00 Weight (Pounds): 198 Objective Gen: no distress CVS: RRR Respiratory: mech b/s bilaterally, trach in place Peripheral pulses: 2+ radial Capillary refill: <2 seconds Skin exam: warm, dry, no rash, not mottled Laboratory Tests Test 09/11/17 05:05 White Blood Count 8.4 K/UL (4.8-10.8) Red Blood Count 2.95 M/UL (4.70-6.10) L Hemoglobin 9.7 G/DL (14.2-18.0) L Hematocrit 29.1 % (42.0-52.0) L Mean Corpuscular Volume 99 FL (80-99) Mean Corpuscular Hemoglobin 32.8 PG (27.0-31.0) H Mean Corpuscular Hemoglobin Concent 33.3 G/DL (32.0-36.0) Red Cell Distribution Width 13.6 % (11.6-14.8) Platelet Count 179 K/UL (150-450) Mean Platelet Volume 7.6 FL (6.5-10.1) Neutrophils (%) (Auto) 71.9 % (45.0-75.0) Lymphocytes (%) (Auto) 14.8 % (20.0-45.0) L Monocytes (%) (Auto) 7.1 % (1.0-10.0) Eosinophils (%) (Auto) 5.6 % (0.0-3.0) H Basophils (%) (Auto) 0.6 % (0.0-2.0) Sodium Level 141 MMOL/L (136-145) Potassium Level 3.6 MMOL/L (3.5-5.1) Chloride Level 108 MMOL/L (98-107) H Carbon Dioxide Level 24 MMOL/L (21-32) Anion Gap 9 mmol/L (5-15) Blood Urea Nitrogen 14 mg/dL (7-18) Creatinine 0.9 MG/DL (0.55-1.30) Estimat Glomerular Filtration Rate mL/min (>60) Glucose Level 108 MG/DL (74-106) H Calcium Level 8.3 MG/DL (8.5-10.1) L Phosphorus Level 2.4 MG/DL (2.5-4.9) L Magnesium Level 1.9 MG/DL (1.8-2.4) Total Bilirubin 0.3 MG/DL (0.2-1.0) Aspartate Amino Transf (AST/SGOT) 15 U/L (15-37) Alanine Aminotransferase (ALT/SGPT) 12 U/L (12-78) Alkaline Phosphatase 112 U/L (46-116) Total Protein 6.4 G/DL (6.4-8.2) Albumin 2.3 G/DL (3.4-5.0) L Globulin 4.1 g/dL Albumin/Globulin Ratio 0.6 (1.0-2.7) L Current Medications Medications (Trade) Dose Ordered Sig/Polo Route PRN Reason Start Time Stop Time Status Last Admin Dose Admin Acetaminophen (Tylenol) 650 mg Q4H PRN ORAL FEVER (T>100.5F) 09/07/17 13:00 10/07/17 12:59 Albuterol/ Ipratropium (Albuterol/ Ipratropium) 3 ml Q4H PRN HHN Shortness of Breath 09/07/17 13:00 09/12/17 12:59 09/11/17 13:33 Amlodipine Besylate (Norvasc) 10 mg DAILY GT 09/08/17 09:00 10/08/17 08:59 09/11/17 08:51 Artificial Tears (Akwa-Tears) 2 drop Q2H PRN BOTH EYES Dry Eyes 09/09/17 13:15 10/09/17 13:14 Carbidopa/Levodopa (Sinemet 25/100) 1 tab BID GT 09/07/17 18:00 10/07/17 17:59 09/11/17 08:52 Dextrose 1,000 ml @ 75 mls/hr [id number] IV 09/09/17 11:45 10/09/17 11:44 09/11/17 04:00 Dextrose (Dextrose 50%) STAT PRN IV Hypoglycemia 09/07/17 13:00 10/07/17 12:59 Heparin Sodium (Porcine) (Heparin 5000 units/ml) 5,000 units EVERY 12 HOURS SUBQ 09/07/17 21:00 10/07/17 20:59 09/11/17 08:53 Lorazepam (Ativan 2mg/ml 1ml) 2 mg Q2H PRN IV For Anxiety 09/07/17 13:00 09/14/17 12:59 Losartan Potassium (Cozaar) 25 mg DAILY GT 09/08/17 09:00 10/08/17 08:59 09/11/17 08:52 Ondansetron HCl (Zofran) 4 mg Q6H PRN IVP Nausea & Vomiting 09/07/17 13:00 10/07/17 12:59 Pantoprazole (Protonix) 40 mg DAILY IV 09/08/17 09:00 10/08/17 08:59 09/11/17 08:52 Piperacillin Sod/ Tazobactam Sod 3.375 gm/Sodium Chloride 110 ml @ 27.5 mls/hr Q8HR@0200,1000,1800 IVPB 09/08/17 02:00 09/15/17 01:59 09/11/17 10:00 Polyethylene Glycol (Miralax) 17 gm DAILYPRN PRN ORAL Constipation 09/07/17 13:00 10/07/17 12:59 Potassium Phosphate 30 mm/ Dextrose 285 ml @ 47.5 mls/hr ONCE ONCE IV 09/11/17 11:00 09/11/17 16:59 09/11/17 11:00 Valery Chang M.D. Sep 11, 2017 16:33
[2017-09-11] MEDS ORDERED: D5W 550ml IV ONE (16:46)
[2017-09-11] MEDS ORDERED: Tubing IV Secondary IV ONE (16:46)
--- NOTE | 2017-09-11 17:49 | Internal Med Progress Note ---
Subjective Date of Service: Sep 11, 2017 Physician Name Chris Yadav Attending Physician Sunil Castillo MD Allergies: Coded Allergies: CODEINE (Verified Allergy, Unknown, 05/14/17) ROS Limited/Unobtainable: Yes Subjective 87 YO M admitted with respiratory distress. Now UTI. [facility]. Cover fo Int Med- Dr Castillo. Await transfer to [facility]. Objective Last Vital Signs Date Time Temp Pulse Resp B/P (MAP) Pulse Ox O2 Delivery O2 Flow Rate FiO2 09/11/17 16:00 97.7 76 20 143/69 98 T-piece 8.0 30 Laboratory Tests Test 09/11/17 05:05 White Blood Count 8.4 K/UL (4.8-10.8) Red Blood Count 2.95 M/UL (4.70-6.10) L Hemoglobin 9.7 G/DL (14.2-18.0) L Hematocrit 29.1 % (42.0-52.0) L Mean Corpuscular Volume 99 FL (80-99) Mean Corpuscular Hemoglobin 32.8 PG (27.0-31.0) H Mean Corpuscular Hemoglobin Concent 33.3 G/DL (32.0-36.0) Red Cell Distribution Width 13.6 % (11.6-14.8) Platelet Count 179 K/UL (150-450) Mean Platelet Volume 7.6 FL (6.5-10.1) Neutrophils (%) (Auto) 71.9 % (45.0-75.0) Lymphocytes (%) (Auto) 14.8 % (20.0-45.0) L Monocytes (%) (Auto) 7.1 % (1.0-10.0) Eosinophils (%) (Auto) 5.6 % (0.0-3.0) H Basophils (%) (Auto) 0.6 % (0.0-2.0) Sodium Level 141 MMOL/L (136-145) Potassium Level 3.6 MMOL/L (3.5-5.1) Chloride Level 108 MMOL/L (98-107) H Carbon Dioxide Level 24 MMOL/L (21-32) Anion Gap 9 mmol/L (5-15) Blood Urea Nitrogen 14 mg/dL (7-18) Creatinine 0.9 MG/DL (0.55-1.30) Estimat Glomerular Filtration Rate mL/min (>60) Glucose Level 108 MG/DL (74-106) H Calcium Level 8.3 MG/DL (8.5-10.1) L Phosphorus Level 2.4 MG/DL (2.5-4.9) L Magnesium Level 1.9 MG/DL (1.8-2.4) Total Bilirubin 0.3 MG/DL (0.2-1.0) Aspartate Amino Transf (AST/SGOT) 15 U/L (15-37) Alanine Aminotransferase (ALT/SGPT) 12 U/L (12-78) Alkaline Phosphatase 112 U/L (46-116) Total Protein 6.4 G/DL (6.4-8.2) Albumin 2.3 G/DL (3.4-5.0) L Globulin 4.1 g/dL Albumin/Globulin Ratio 0.6 (1.0-2.7) L Intake and Output 09/10/17 09/11/17 19:00 07:00 Intake Total 1849.917 ml 1747.5 ml Output Total 875 ml 800 ml Balance 974.917 ml 947.5 ml Free Water 50 ml 100 ml IV Total 1039.917 ml 932.5 ml Tube Feeding 660 ml 715 ml Other 100 ml Output Urine Total 875 ml 800 ml # Bowel Movements 2 1 Objective General Appearance: WD/WN, no apparent distress, alert EENT: PERRL/EOMI, normal ENT inspection Neck: non-tender, normal alignment, supple, normal inspection Cardiovascular: normal peripheral pulses, normal rate, regular rhythm, no gallop/murmur, no JVD Respiratory/Chest: Trach; respiratory distress, decreased breath sounds, crackles/rales, rhonchi - bilaterally, expiratory wheezing, other - Trach; Mech vent Abdomen: normal bowel sounds, non tender, soft, no organomegaly, no mass Extremities: normal inspection Neurologic: no motor/sensory deficits Skin: normal pigmentation, warm/dry Assessment/Plan Problem List: (1) Dysphagia (2) Esophageal stricture Assessment & Plan: S/P stent (3) Parkinson disease Assessment & Plan: Continue sinemet (4) BPH (benign prostatic hyperplasia) (5) UTI (urinary tract infection) Assessment & Plan: Gram neg rods. Await urine culture results. Cont zosyn per ID (6) Hypoxia (7) Respiratory failure Assessment & Plan: atelectasis on CXR. See pulm note. Cont zosyn (8) Feeding by G-tube (9) Tracheostomy dependence (10) Tracheostomy dependent Assessment/Plan Discharge to [facility] today CHRIS YADAV Sep 11, 2017 17:49
--- NOTE | 2017-09-11 20:45 | Consultation ---
DATE OF CONSULTATION: 09/11/2017 NEPHROLOGY CONSULTATION CONSULTING PHYSICIAN: Antonio Aleman M.D. REFERRING PHYSICIAN: Holger Ignacio M.D. REASON FOR CONSULTATION: Hypokalemia and low phosphorus levels. HISTORY OF PRESENT ILLNESS: This is an 87-year-old male with history of chronic respiratory failure. He is status post tracheostomy and on ventilator. The patient has had low potassium levels and also low phosphorus levels and Dr. Callejas was asked to do renal consultation, I am covering for him today. His serum potassium is 3.6 today with serum phosphorus of 2.4, also serum calcium is somewhat on the low side at 8.3 with albumin of 2.3. PAST MEDICAL HISTORY: The patient has history of hypertension, atrial fibrillation, dysphagia, esophageal stricture, history of Parkinson's, BPH, the patient is status post gastrostomy-jejunostomy tube placement, suprapubic catheter, tracheostomy, and transurethral resection of prostate. MEDICATIONS: Reviewed in the EMR. ALLERGIES: Reported to codeine. SOCIAL HISTORY: The patient lives in long term. No history of smoking or alcohol abuse. REVIEW OF SYSTEMS: Unobtainable. PHYSICAL EXAMINATION: GENERAL: The patient is an elderly male, in no acute distress. VITAL SIGNS: Blood pressure 130/59, pulse 64, respiratory rate 22, and temperature 99.2. LABORATORY AND DIAGNOSTIC DATA: The chemistry panel shows serum sodium 141, potassium 3.6, chloride 108, BUN 14, creatinine 0.9, and blood sugar 108. Calcium 8.3. Phosphorus 2.4. Magnesium 1.9. Albumin 2.3. The CBC shows WBC of 8.4, hematocrit 29.1, hemoglobin 9.7, and platelets 179,000. The UA which was done on 09/07/2017 shows 15-20 rbc's, too numerous to count wbc's per high-powered field, and moderate bacteria. The urine culture shows Proteus and Pseudomonas. ASSESSMENT: This is an 87-year-old male with history of chronic respiratory failure with tracheostomy and on ventilator, who has hypokalemia and hypophosphatemia. The patient has urinary tract infection and diagnosis of sepsis. PLAN: The patient will get K-Phos 30 mmol IV today. I will check laboratories and replete phosphorus and potassium as needed. Also, vitamin D level will be checked to make sure he is not vitamin D deficient. For his UTI, he is already on antibiotics. His hypertension is well controlled. Thank you very much for this consultation. Antonio Aleman M.D. DR: ABENA JOB#: [id number] CC:
--- NOTE | 2017-09-14 10:27 | Discharge Summary ---
Discharge Summary Hospital Course Date of Admission Sep 07, 2017 at 11:14 Date of Discharge Sep 11, 2017 at 16:47 Admitting Diagnosis hypoxia/sob HPI Nick Liu is a 87 year old male who was admitted on Sep 07, 2017 at 11:14 for Hypoxia, Short Of Breath Hospital Course dc summary #[id number] Discharge Condition Upon Discharge: stable Discharge Disposition Patient was discharged to SNF/Subacute Facility(03) Discharge Diagnoses: Discharge Instructions Discharge Instructions Special Instructions I have been assigned to complete a D/C Summary on this account. I was not involved in the patient management Na Espinal NP (Vanchtein) Sep 14, 2017 10:27
--- NOTE | 2017-09-15 04:45 | Discharge Summary 2 SIG ---
DATE OF ADMISSION: 09/07/2017 DATE OF DISCHARGE: 09/11/2017 REASON FOR ADMISSION: 87-year-old male with chronic respiratory failure, tracheostomy dependent, dysphagia, G-tube, esophageal stricture, Parkinson disease, hypertension, diabetes, and right sacral decubitus stage II, was sent from the half-way [facility] for evaluation due to difficulty breathing and hypoxemia. The patient with DNR/DNI status. Upon evaluation in the emergency department, the patient was found to be hypoxic, tachypneic, and tachycardic. After suctioning, oxygen saturation improved, likely mucous plug. EKG revealed sinus rhythm. No acute ischemic changes. Chest x-ray revealed no obvious consolidation. WBC - 15.9, hemoglobin -10.3, and hematocrit -33.1. BUN- 29 and creatinine -0.9. Lactic acid - 2.9. Urinalysis evidence of urinary tract infection. The patient was admitted with diagnosis of severe sepsis, hypoxia, urinary tract infection, tracheostomy dependent, chronic respiratory failure, and feeding by G-tube. HOSPITAL COURSE: The patient was admitted to [facility]. ID specialist, Pulmonary and Nephrology consults were requested. The patient was pancultured and started on empiric antibiotics. Urine culture revealed Proteus ESBL and Pseudomonas. Sputum culture showed Serratia and Stenotrophomonas. Influenza screen test was negative. Blood cultures were negative. Followup chest x-ray revealed no obvious pneumonia. The patient likely had a mucous plug. Acute hypoxemic respiratory failure, improved to baseline after suctioning. Sputum culture was likely colonized. Antibiotic regimen was optimized based on sensitivity. ID closely followed. Complete intravenous antibiotic course at the half-way [facility]. Venous duplex of bilateral lower extremities was negative. DVT prophylaxis provided. Pain management was addressed. Bowel regimen instituted. Wound care nurse seen and evaluated the patient for present on admission right sacral decubitus stage II. Wound care provided as recommended by wound care nurse , to be continued at the half-way facility. Blood pressure was managed with the current antihypertensive regimen and remained stable. Strict aspiration precautions were maintained. The patient tolerated tube feeding. Renal parameters and electrolytes were closely monitored. Electrolytes were monitored and corrected as needed, including hypokalemia and hypophosphatemia. The patient was stable for discharge back to [facility]-way [facility]. Leukocytosis resolved. Afebrile. FINAL DIAGNOSES: 1. Severe sepsis. 2. Acute hypoxemic respiratory failure and chronic respiratory failure with tracheostomy status (suspected mucous plug, no obvious evidence of pneumonia). 3. Polymicrobial urinary tract infection with Proteus extended spectrum beta-lactamases and Pseudomonas. 4. Dysphagia, gastrostomy tube. 5. Tracheostomy status. 6. Chronic obstructive pulmonary disease. 7. Hypertension. 8. Dysphagia, gastrostomy tube. 9. Esophageal stricture. 10. Parkinson disease. 11. Electrolyte imbalances: hypophosphatemia and hypokalemia. 12. Right sacral decubitus stage II, present on admission (no evidence of infection). DISCHARGE MEDICATIONS: List of medication was sent to admitting facility. Complete antibiotic course as specified by ID. DISCHARGE INSTRUCTIONS: The patient was discharged to subacute half-way facility. Follow up with the lumber trimmer and ithernist at the facility. The patient with DNR/DNI status. Sunil Castillo M.D. I have been assigned to dictate discharge summary on this account and I was not involved in the patient's management. Na SharmaGlens [facility] Hospitalmarcial) N.PDavin DR: BRENDA JOB#: [id number] CC: EMMANUEL
--- NOTE | 2017-09-15 11:41 | Diagnostic Imaging Report ---
APPROVED REPORT CPT Code: 29928 Present Symptoms Shortness of breath BILATERAL: Imaging reveals a patent deep venous system bilaterally. There is no evidence of thrombus within the femoral, popliteal or tibial segments. The greater saphenous veins are also within normal limits. Doppler indicates normal spontaneous flow within these segments.
== END 2017-09-11 16:47 | DRG 870 ==
LOC: EDBD 10:37 → EDBEDREQ 10:51 → EMR 11:05 → 2W 11:14 → EDBEDREQ 11:37
PROC: 5A1955Z Respiratory Ventilation, Greater than 96 Consecutive Hours (ICD-10-PCS; principal; 2017-09-07)
DX: A41.9 Sepsis, unspecified organism (principal); J96.21 Acute and chronic respiratory failure with hypoxia; Z99.11 Dependence on respirator [ventilator] status; L89.152 Pressure ulcer of sacral region, stage 2; Z93.0 Tracheostomy status; T17.590A Other foreign object in bronchus causing asphyxiation, initial encounter; K22.2 Esophageal obstruction; N39.0 Urinary tract infection, site not specified; J44.9 Chronic obstructive pulmonary disease, unspecified; R65.20 Severe sepsis without septic shock; Z66 Do not resuscitate; R13.10 Dysphagia, unspecified; Z93.1 Gastrostomy status; E83.39 Other disorders of phosphorus metabolism; G20 Parkinson's disease; E87.6 Hypokalemia; I10 Essential (primary) hypertension; Z79.82 Long term (current) use of aspirin; N40.0 Benign prostatic hyperplasia without lower urinary tract symptoms; X58.XXXA Exposure to other specified factors, initial encounter; Y92.89 Other specified places as the place of occurrence of the external cause; Z16.12 Extended spectrum beta lactamase (ESBL) resistance; B96.5 Pseudomonas (aeruginosa) (mallei) (pseudomallei) as the cause of diseases classified elsewhere
CPT/HCPCS: 36415; 36600; 71045; 80053; 80069; 80202; 81003; 82378; 82607; 82746; 82803; 83540; 83550; 83605; 83615; 83735; 83880; 84100; 84484; 85007; 85025; 85044; 85060; 85610; 85651; 85730; 86710; 87040; 87070; 87081; 87086; 87181; 87205; 93005; 93970; 94002; 94003; 94640; 94664; 94760; J7620

== ENCOUNTER 2017-11-12 10:10 | Inpatient (IN) | payer MEDICARE, BC, MEDICAID ==
[~2017-11-12] VITALS: Ht 182.9 cm; Wt 100.8 kg
[~2017-11-12 10:10] MED LIST changes: +TYLENOL650 MG/20. ORAL
[2017-11-12] MEDS ORDERED: Pantoprazole Inj IVP ONE (10:15)
[2017-11-12 11:11] VITALS: BP 128/107
[2017-11-12 11:13] LABS: ANION GAP 4 mmol/L (5-15); BLOOD UREA NITROGEN 31 mg/dL (7-18); CALCIUM 8.6 MG/DL (8.5-10.1); CARBON DIOXIDE 29 MMOL/L (21-32); CHLORIDE 108 MMOL/L (98-107); CREATININE 0.9 MG/DL (0.55-1.30); POTASSIUM 4.3 MMOL/L (3.5-5.1); SODIUM 141 MMOL/L (136-145)
[2017-11-12 11:16] LABS: APPEARANCE,URINE SLIGHTLY CLOUDY; BILIRUBIN, URINE NEGATIVE (NEGATIVE); GLUCOSE, URINE (UA) NEGATIVE (NEGATIVE); KETONES,URINE NEGATIVE (NEGATIVE); LEUKOCYTE ESTERASE ,URINE 3+ (NEGATIVE); NITRITE,URINE NEGATIVE (NEGATIVE); PH,URINE 9 (4.5-8.0); PROTEIN,URINE 2+ (NEGATIVE); UROBILINOGEN,URINE NORMAL MG/DL (0.0-1.0)
[2017-11-12 11:18] LABS: BASOPHILS % (AUTO) 0.7 % (0.0-2.0); EOSINOPHILS % (AUTO) 2.1 % (0.0-3.0); HEMOGLOBIN 9.2 G/DL (14.2-18.0); LYMPHOCYTES % (AUTO) 14.2 % (20.0-45.0); MEAN CORPUSCULAR VOLUME 96 FL (80-99); MONOCYTES % (AUTO) 6.8 % (1.0-10.0); NEUTROPHILS % (AUTO) 76.1 % (45.0-75.0); PLATELET COUNT 216 K/UL (150-450); RED BLOOD COUNT 3.02 M/UL (4.70-6.10); RED CELL DISTRIBUTION WIDTH 14.6 % (11.6-14.8); WHITE BLOOD COUNT 11.5 K/UL (4.8-10.8)
[2017-11-12 11:18] LABS: COLOR,URINE YELLOW
[2017-11-12 11:27] LABS: ALANINE AMINOTRANSFERASE 22 U/L (12-78); ALBUMIN 2.4 G/DL (3.4-5.0); ALBUMIN/GLOBULIN RATIO 0.5 (1.0-2.7); ALKALINE PHOSPHATASE 122 U/L (46-116); ASPARTATE AMINO TRANSFERASE 16 U/L (15-37); BILIRUBIN,TOTAL 0.3 MG/DL (0.2-1.0); CKMB 1.7 NG/ML (0.0-3.6); CREATINE KINASE 130 U/L (26-308)
--- NOTE | 2017-11-12 11:43 | Diagnostic Imaging Report ---
. Indication: Dyspnea Technique: XRAY Chest 1v Comparison: 09/08/2017 Findings: Heart size and mediastinal contours are stable. Tracheostomy tube again noted. There is interstitial opacification/edema and patchy bilateral airspace opacities. There is more dense opacification in the medial right base. Limited evaluation of osseous structures given underpenetration however no acute osseous abnormalities appreciated. IMPRESSION: Interstitial and patchy bilateral airspace opacities, worsened compared to the prior exam with more dense opacification at the medial right base. Findings may be related to fluid overload/pulmonary edema. Superimposed pneumonia not excluded. Clinical correlation and follow-up exam recommended.
[2017-11-12] MEDS ORDERED: SINEMET 25-1001 EAC1 GT (12:21)
[2017-11-12] MEDS ORDERED: NYSTATIN15 GM TOPIC (12:21)
[2017-11-12] MEDS ORDERED: BACITRACIN ZIN1 EACH TOPIC (12:21)
[2017-11-12] MEDS ORDERED: ALBUTEROL2.5 MG/3 M INH ×2 (12:21)
[2017-11-12] MEDS ORDERED: ASPIR 8181 MG GT (12:21)
[2017-11-12] MEDS ORDERED: PRILOSEC10 M1 GT (12:21)
[2017-11-12] MEDS ORDERED: ACETAMINOP160 MG/5 M GT (12:21)
[2017-11-12] MEDS ORDERED: Ampicillin/Sulbactam Sod 3 GM in NS 110 ML IVPB ONE (12:30)
[2017-11-12] MEDS ORDERED: LORazepam Inj 2mg/ml 1ml IV PRN (12:45)
[2017-11-12] MEDS ORDERED: Morphine Sulfate 4mg/ml Inj IVP PRN (12:45)
[2017-11-12] MEDS ORDERED: Miralax 17gm pkt ORAL PRN (12:45)
--- NOTE | 2017-11-12 13:41 | Emergency Room Report ---
History of Present Illness General Chief Complaint: General Complaint Source: EMS Present Illness HPI Patient's an 87-year-old male brought in by EMS after increased blood from his tracheostomy as well as from his mouth. Patient had been G-tube dependent. Patient was also trach and vent dependent. The patient was noted to have dark material coming from his oropharynx as well as from his tracheostomy. Allergies: Coded Allergies: CODEINE (Verified Allergy, Unknown, 05/14/17) Patient History Past Medical History: see triage record Reviewed Nursing Documentation: PMH: Agreed; PSxH: Agreed Nursing Documentation-PMH Hx Cardiac Problems: Yes Hx Hypertension: Yes Hx Asthma: Yes Hx Cancer: No Hx Gastrointestinal Problems: Yes Hx Neurological Problems: Yes Hx Parkinson's Disease: Yes Hx Tremors: Yes Hx Dysphasia: Yes Review of Systems All Other Systems: limited - by mental status Physical Exam Vital Signs Date Time Temp Pulse Resp B/P (MAP) Pulse Ox O2 Delivery O2 Flow Rate FiO2 11/12/17 10:07 97.7 82 24 115/62 92 Trach Collar 10.0 97.7 Sp02 EP Interpretation: reviewed, normal General Appearance: normal inspection, alert, moderate distress, Chronically Ill Head: atraumatic ENT: normal ENT inspection Neck: normal inspection, no bony tend, tracheotomy Respiratory: normal inspection, no respiratory distress, no retraction, no wheezing Cardiovascular #1: regular rate, rhythm, no edema Gastrointestinal: soft, other - distended, gtube present Genitourinary: no CVA tenderness Musculoskeletal: decreased range of motion Neurologic: alert, responsive, motor weakness Psychiatric: mood/affect normal Skin: normal color Medical Decision Making Diagnostic Impression: Primary Impression: Anemia Additional Impressions: Abdominal distention Upper GI bleeding Tracheostomy care ER Course Patient presented for hematemesis and bleeding from tracheostomy.. Differential diagnoses included ischemic bowel, appendicitis, perforated viscus, abdominal aortic aneurysm, inferior myocardial infarction, viral gastroenteritis, aortoenteric fistula, innominate artery rupture. The patient was started on IV fluids. The patient given IV Protonix he was noted to have some evidence of urinary infection was started on IV antibiotics. Dr. Sunil Castillo was contacted for inpatient management Labs Test 11/12/17 10:18 11/12/17 10:31 11/12/17 10:35 11/12/17 11:43 Urine Color Yellow Urine Appearance Slightly cloudy Urine pH 9 (4.5-8.0) Urine Specific [place] 1.015 (1.005-1.035) Urine Protein 2+ (NEGATIVE) Urine Glucose (UA) Negative (NEGATIVE) Urine Ketones Negative (NEGATIVE) Urine Occult Blood 2+ (NEGATIVE) Urine Nitrite Negative (NEGATIVE) Urine Bilirubin Negative (NEGATIVE) Urine Urobilinogen Normal MG/DL (0.0-1.0) Urine Leukocyte Esterase 3+ (NEGATIVE) Urine RBC 60-80 /HPF (0 - 0) Urine WBC 15-20 /HPF (0 - 0) Urine Squamous Epithelial Cells Moderate /LPF (NONE/OCC) Urine Bacteria Moderate /HPF (NONE) White Blood Count 11.5 K/UL (4.8-10.8) Red Blood Count 3.02 M/UL (4.70-6.10) Hemoglobin 9.2 G/DL (14.2-18.0) Hematocrit 29.0 % (42.0-52.0) Mean Corpuscular Volume 96 FL (80-99) Mean Corpuscular Hemoglobin 30.5 PG (27.0-31.0) Mean Corpuscular Hemoglobin Concent 31.7 G/DL (32.0-36.0) Red Cell Distribution Width 14.6 % (11.6-14.8) Platelet Count 216 K/UL (150-450) Mean Platelet Volume 7.8 FL (6.5-10.1) Neutrophils (%) (Auto) 76.1 % (45.0-75.0) Lymphocytes (%) (Auto) 14.2 % (20.0-45.0) Monocytes (%) (Auto) 6.8 % (1.0-10.0) Eosinophils (%) (Auto) 2.1 % (0.0-3.0) Basophils (%) (Auto) 0.7 % (0.0-2.0) Prothrombin Time 10.5 SEC (9.30-11.50) Prothromb Time International Ratio 1.0 (0.9-1.1) Activated Partial Thromboplast Time 28 SEC (23-33) Sodium Level 141 MMOL/L (136-145) Potassium Level 4.3 MMOL/L (3.5-5.1) Chloride Level 108 MMOL/L (98-107) Carbon Dioxide Level 29 MMOL/L (21-32) Anion Gap 4 mmol/L (5-15) Blood Urea Nitrogen 31 mg/dL (7-18) Creatinine 0.9 MG/DL (0.55-1.30) Estimat Glomerular Filtration Rate mL/min (>60) Glucose Level 100 MG/DL (74-106) Calcium Level 8.6 MG/DL (8.5-10.1) Total Bilirubin 0.3 MG/DL (0.2-1.0) Aspartate Amino Transf (AST/SGOT) 16 U/L (15-37) Alanine Aminotransferase (ALT/SGPT) 22 U/L (12-78) Alkaline Phosphatase 122 U/L (46-116) Total Creatine Kinase 130 U/L (26-308) Creatine Kinase MB 1.7 NG/ML (0.0-3.6) Creatine Kinase MB Relative Index 1.3 Troponin I 0.000 ng/mL (0.000-0.056) Total Protein 6.9 G/DL (6.4-8.2) Albumin 2.4 G/DL (3.4-5.0) Globulin 4.5 g/dL Albumin/Globulin Ratio 0.5 (1.0-2.7) Iron Level 42 ug/dL (50-175) Total Iron Binding Capacity 298 ug/dL (250-450) Percent Iron Saturation 14 % (15-50) Unsaturated Iron Binding 256 ug/dL (112-346) Lactic Acid Level 0.90 mmol/L (0.66-2.22) Last Vital Signs Date Time Temp Pulse Resp B/P (MAP) Pulse Ox O2 Delivery O2 Flow Rate FiO2 11/12/17 11:11 98.8 86 30 128/107 100 Trach Collar 10.0 98.8 Status: unchanged Disposition: ADMITTED INPATIENT Condition: Serious Referrals: YAJAIRA ASHLEY (PCP) Nick Grigsby Nov 12, 2017 13:41
[2017-11-12 13:57] LABS: % IRON SATURATION 14 % (15-50); IRON 42 ug/dL (50-175); TOTAL IRON BINDING CAPACITY 298 ug/dL (250-450)
[2017-11-12 16:00] VITALS: BP 139/60
[2017-11-12] MEDS ORDERED: Vancomycin 1500mg IVPB ONE (16:00)
[2017-11-12] MEDS: Levodopa/Carbidopa 25/100 tab GT SCH (17:35)
[2017-11-12 20:00] VITALS: BP 116/66
--- NOTE | 2017-11-12 20:17 | Consultation ---
History of Present Illness General Date patient seen: Nov 12, 2017 Chief Complaint: General Complaint Referring physician: Dr. Castillo Reason for Consultation: dyspnea Present Illness HPI 87-year-old male with hx of chronic respiratory failue, s/p Trach/ PEG, [facility] resident brought in by EMS after increased blood from his tracheostomy as well as from his mouth. . The patient was noted to have dark material coming from his oropharynx as well as from his tracheostomy. There is no report of fever, leucocytosis. Pt is awake. looks comfortable on trach collar. 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 estate at the bed site Allergies: Coded Allergies: CODEINE (Verified Allergy, Unknown, 05/14/17) Medication History Scheduled Amlodipine Besylate* (Amlodipine Besylate*), 10 MG GT DAILY, (Reported) Ascorbic Acid* (Vitamin C*), 500 MG GT DAILY, (Reported) Aspirin* (Aspir 81*), 81 MG ORAL DAILY, (Reported) Aspirin* (Aspir 81*), 81 MG GT DAILY, (Reported) Bacitracin Zinc* (Bacitracin Zinc*), 1 APPLIC TOPIC BID, (Reported) Carbidopa/Levodopa 25-100 Mg* (Sinemet 25-100 Mg Tablet*), 1 TAB GT BID, ( Reported) Carbidopa/Levodopa 25-100 Mg* (Sinemet 25-100 Mg Tablet*), 1 TAB GT BID, ( Reported) Cranberry Extract (Cranberry Juice Powder), 425 MG GT BID, (Reported) Famotidine (Pepcid Ac), 20 MG GT EVERY 12 HOURS, (Reported) Ferrous Sulfate (Ferrous Sulfate), 220 MG GT DAILY, (Reported) Glycopyrrolate (Robinul), 1 MG GT TID, (Reported) Ipratropium [place] 0.5MG/2.5ML (Ipratropium [place] 0.5MG/2.5ML), 0.5 MG HHN Q6H, (Reported) Losartan Potassium* (Cozaar*), 25 MG GT DAILY, (Reported) Multivitamins* (Multivitamins*), 1 TAB GT DAILY, (Reported) Nystatin* (Nystatin*), 1 APPLIC TOPIC THREE TIMES A DAY, (Reported) Omeprazole Magnesium (Prilosec), 20 MG GT DAILY, (Reported) Polyethylene Glycol 3350* (Miralax*), 17 GM GT DAILY, (Reported) Sennosides (Senokot), 8.6 MG GT HS, (Reported) Scheduled PRN Acetaminophen (Acetaminophen), 650 MG ORAL Q8H PRN for Prn Headache/Temp > 101, (Reported) Acetaminophen 160MG/5ML* (Acetaminophen*), 20.3 ML GT Q4HR PRN for Mild Pain ( Pain Scale 1-3), (Reported) Acetaminophen 160MG/5ML* (Acetaminophen*), 20.3 ML GT Q4HR PRN for Mild Pain/ Temp > 100.5, (Reported) Albuterol Sulfate* (Albuterol Sulfate Hhn*), 3 ML INH Q3HR PRN for Shortness of Breath, (Reported) Albuterol Sulfate* (Albuterol Sulfate Hhn*), 3 ML INH EVERY 2 HOURS PRN for Shortness of Breath, (Reported) Albuterol Sulfate* (Albuterol Sulfate Hhn*), 3 ML INH Q6H PRN for Bronchospasm, (Reported) Clonidine Hcl* (Catapres*), 0.1 MG GT EVERY 6 HOURS PRN for For High Blood Pressure, (Reported) Polyvinyl Alcohol (Liquitears), 1 DROP OP Q12HR PRN for Dry Eyes, (Reported) Patient History Healthcare decision maker ROSA COVINGTON Resuscitation status Do Not Resuscitate Advanced Directive on File Past Medical/Surgical History Past Medical/Surgical History: (1) Chronic respiratory failure (2) Hematemesis (3) Tracheostomy status (4) Parkinson disease (5) Afib (6) Feeding by G-tube Review of Systems All Other Systems: negative except mentioned in HPI Physical Exam General Appearance: WD/WN Lines, tubes and drains: peripheral HEENT: normocephalic, atraumatic Neck: non-tender, supple Respiratory/Chest: chest wall non-tender, lungs clear Breasts: no masses Cardiovascular/Chest: normal peripheral pulses Abdomen: normal bowel sounds, non tender Genitourinary/Rectal: normal genital exam Extremities: normal range of motion Skin Exam: normal pigmentation 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 normal Lymphatic: anterior cervical Last 24 Hour Vital Signs Date Time Temp Pulse Resp B/P (MAP) Pulse Ox O2 Delivery O2 Flow Rate FiO2 11/12/17 19:40 T-piece 8.0 30 11/12/17 19:40 96 T-piece 8.0 30 11/12/17 19:39 81 20 T-piece 8.0 30 11/12/17 16:00 81 11/12/17 16:00 97.9 85 22 139/60 96 Trach Collar 5.0 28 97.9 11/12/17 16:00 5.0 28 11/12/17 14:16 79 11/12/17 13:35 98.8 85 18 114/84 97 Trach Collar 2.0 11/12/17 11:11 98.8 86 30 128/107 100 Trach Collar 10.0 98.8 11/12/17 11:00 100 T-piece 2.0 28 11/12/17 11:00 T-piece 2.0 28 11/12/17 11:00 84 20 T-piece 2.0 28 11/12/17 10:07 97.7 82 24 115/62 92 Trach Collar 10.0 97.7 Laboratory Tests Test 11/12/17 10:18 11/12/17 10:31 11/12/17 10:35 11/12/17 11:43 Urine Color Yellow Urine Appearance Slightly cloudy Urine pH 9 (4.5-8.0) Urine Specific [place] 1.015 (1.005-1.035) Urine Protein 2+ (NEGATIVE) H Urine Glucose (UA) Negative (NEGATIVE) Urine Ketones Negative (NEGATIVE) Urine Occult Blood 2+ (NEGATIVE) H Urine Nitrite Negative (NEGATIVE) Urine Bilirubin Negative (NEGATIVE) Urine Urobilinogen Normal MG/DL (0.0-1.0) Urine Leukocyte Esterase 3+ (NEGATIVE) H Urine RBC 60-80 /HPF (0 - 0) H Urine WBC 15-20 /HPF (0 - 0) H Urine Squamous Epithelial Cells Moderate /LPF (NONE/OCC) H Urine Bacteria Moderate /HPF (NONE) H White Blood Count 11.5 K/UL (4.8-10.8) H Red Blood Count 3.02 M/UL (4.70-6.10) L Hemoglobin 9.2 G/DL (14.2-18.0) L Hematocrit 29.0 % (42.0-52.0) L Mean Corpuscular Volume 96 FL (80-99) Mean Corpuscular Hemoglobin 30.5 PG (27.0-31.0) Mean Corpuscular Hemoglobin Concent 31.7 G/DL (32.0-36.0) L Red Cell Distribution Width 14.6 % (11.6-14.8) Platelet Count 216 K/UL (150-450) Mean Platelet Volume 7.8 FL (6.5-10.1) Neutrophils (%) (Auto) 76.1 % (45.0-75.0) H Lymphocytes (%) (Auto) 14.2 % (20.0-45.0) L Monocytes (%) (Auto) 6.8 % (1.0-10.0) Eosinophils (%) (Auto) 2.1 % (0.0-3.0) Basophils (%) (Auto) 0.7 % (0.0-2.0) Prothrombin Time 10.5 SEC (9.30-11.50) Prothromb Time International Ratio 1.0 (0.9-1.1) Activated Partial Thromboplast Time 28 SEC (23-33) Sodium Level 141 MMOL/L (136-145) Potassium Level 4.3 MMOL/L (3.5-5.1) Chloride Level 108 MMOL/L (98-107) H Carbon Dioxide Level 29 MMOL/L (21-32) Anion Gap 4 mmol/L (5-15) L Blood Urea Nitrogen 31 mg/dL (7-18) H Creatinine 0.9 MG/DL (0.55-1.30) Estimat Glomerular Filtration Rate mL/min (>60) Glucose Level 100 MG/DL (74-106) Lactic Acid Level 2.30 mmol/L (0.66-2.22) H 0.90 mmol/L (0.66-2.22) Calcium Level 8.6 MG/DL (8.5-10.1) Total Bilirubin 0.3 MG/DL (0.2-1.0) Aspartate Amino Transf (AST/SGOT) 16 U/L (15-37) Alanine Aminotransferase (ALT/SGPT) 22 U/L (12-78) Alkaline Phosphatase 122 U/L (46-116) H Total Creatine Kinase 130 U/L (26-308) Creatine Kinase MB 1.7 NG/ML (0.0-3.6) Creatine Kinase MB Relative Index 1.3 Troponin I 0.000 ng/mL (0.000-0.056) Total Protein 6.9 G/DL (6.4-8.2) Albumin 2.4 G/DL (3.4-5.0) L Globulin 4.5 g/dL Albumin/Globulin Ratio 0.5 (1.0-2.7) L Iron Level 42 ug/dL (50-175) L Total Iron Binding Capacity 298 ug/dL (250-450) Percent Iron Saturation 14 % (15-50) L Unsaturated Iron Binding 256 ug/dL (112-346) Height (Feet): 6 Height (Inches): 0.00 Weight (Pounds): 215 Medications Current Medications Medications (Trade) Dose Ordered Sig/Polo Route PRN Reason Start Time Stop Time Status Last Admin Dose Admin Acetaminophen (Tylenol) 650 mg Q4H PRN ORAL FEVER 11/12/17 12:45 12/12/17 12:44 Albuterol/ Ipratropium (Albuterol/ Ipratropium) 3 ml Q4H PRN HHN Shortness of Breath 11/12/17 12:45 11/17/17 12:44 Carbidopa/Levodopa (Sinemet 25/100) 1 tab BID GT 11/12/17 18:00 12/12/17 17:59 11/12/17 17:35 Dextrose (Dextrose 50%) 50 ml STAT PRN IV Hypoglycemia <60 mL/dL 11/12/17 12:45 12/12/17 12:44 Lorazepam (Ativan 2mg/ml 1ml) 2 mg Q2H PRN IV For Anxiety 11/12/17 12:45 11/19/17 12:44 Morphine Sulfate (Morphine Sulfate) 4 mg Q4H PRN IVP Severe Pain (Pain Scale 7-10) 11/12/17 12:45 11/19/17 12:44 Ondansetron HCl (Zofran) 4 mg Q6H PRN IVP Nausea & Vomiting 11/12/17 12:45 12/12/17 12:44 Pantoprazole (Protonix) 40 mg EVERY 12 HOURS IVP 11/12/17 21:00 12/12/17 20:59 Polyethylene Glycol (Miralax) 17 gm DAILYPRN PRN ORAL Constipation 11/12/17 12:45 12/12/17 12:44 Sodium Chloride 1,000 ml @ 75 mls/hr [id number] IV 11/12/17 15:00 12/12/17 14:59 11/12/17 14:40 Vancomycin HCl (Vanco rx to dose) 1 ea DAILYPRN PRN MISC RX TO DOSE PROTOCOL 11/12/17 15:00 12/12/17 14:59 Vancomycin HCl/ Dextrose 250 ml @ 166.667 mls/hr Q12HR@0400,1600 IVPB 11/13/17 04:00 11/18/17 03:59 Assessment/Plan Problem List: (1) Aspiration pneumonia ICD Codes: J69.0 - Pneumonitis due to inhalation of food and vomit SNOMED: 051540493 (2) Hematemesis ICD Codes: K92.0 - Hematemesis SNOMED: 3249596 (3) Chronic respiratory failure ICD Codes: J96.10 - Chronic respiratory failure, unspecified whether with hypoxia or hypercapnia SNOMED: 30500148 (4) Afib ICD Codes: I48.91 - Unspecified atrial fibrillation SNOMED: 72247889 (5) Parkinson disease ICD Codes: G20 - Parkinson's disease SNOMED: 56574734 (6) Tracheostomy dependent ICD Codes: Z93.0 - Tracheostomy status SNOMED: 835103532, 469347512 (7) Feeding by G-tube ICD Codes: Z93.1 - Gastrostomy status SNOMED: 234614621, 142114664 (8) Anemia ICD Codes: D64.9 - Anemia, unspecified SNOMED: 381816133 Assessment/Plan check sputum iv abc respiratory treatment titrate fio2 chest pt\ check h/h PRBC prn Kenneth Shah MD Nov 12, 2017 20:17
[2017-11-12] MEDS: Pantoprazole Inj IVP SCH (20:56)
--- NOTE | 2017-11-12 22:45 | History and Physical Report ---
DATE OF ADMISSION: 11/12/2017 CHIEF COMPLAINT: The patient is an 87-year-old white male, who presents with chief complaint of hemoptysis. HISTORY OF PRESENT ILLNESS: The patient is a resident of [facility]. The patient is chronic vent dependent. According to staff at [facility], the patient began to experience increased bleeding around his tracheostomy site. The patient presented to [facility] emergency room. The patient was admitted for hemoptysis. PAST MEDICAL HISTORY: Significant for: 1. Chronic vent dependence. 2. Respiratory failure. 3. Hypertension. 4. Atrial fibrillation. 5. Dysphagia. 6. Esophageal stricture. 7. Parkinson disease. 8. Benign prostatic hypertrophy. PAST SURGICAL HISTORY: Significant for: 1. Gastrostomy-jejunostomy tube placement. 2. Suprapubic catheter placement. 3. Tracheostomy. 4. Transurethral resection of prostate. CURRENT MEDICATIONS: 1. Tylenol 650 mg per G-tube q.4 h. p.r.n. 2. Albuterol nebulized q.3 h. p.r.n. 3. Amlodipine 10 mg per G-tube daily. 4. Vitamin C 500 mg per G-tube daily. 5. Aspirin 81 mg per G-tube daily. 6. Sinemet 25/100 mg one tablet per G-tube twice daily. 7. Clonidine 0.1 mg per G-tube q.6 h. p.r.n. 8. Pepcid 20 mg per G-tube q.12 h. 9. Iron sulfate 220 mg per G-tube daily. 10. Robinul 1 mg per G-tube three times daily. 11. Ipratropium nebulized q.6 h. p.r.n. 12. Losartan 25 mg per G-tube daily. 13. Multivitamin per G-tube daily. 14. Nystatin cream applied three times daily. ALLERGIES: To codeine. SOCIAL HISTORY: The patient is a resident of [facility]. The patient denies tobacco or alcohol use. REVIEW OF SYSTEMS: Unable to assess, secondary to patient's mental status. PHYSICAL EXAMINATION: VITAL SIGNS: Temperature 97.7 degrees, respirations 24, pulse 82, and blood pressure 115/62. GENERAL: The patient is a well-developed and well-nourished white male, intubated and sedated. HEENT: Eyes, pupils equal and responsive to light and accommodation. Extraocular movements are intact. Tracheostomy is in place. CHEST: Coarse expiratory wheezes bilaterally without wheezes or rales. CARDIOVASCULAR: Regular rhythm and rate. S1 and S2 are normal without murmurs, rubs, or gallops. ABDOMEN: Soft, nontender, and nondistended. Positive bowel sounds. No evidence of hepatosplenomegaly. Currently, no rebound or guarding noted. EXTREMITIES: Negative for clubbing, cyanosis, or edema. RECTAL/GENITAL: Refused. NEUROLOGICAL: Unable to assess. LABORATORY AND DIAGNOSTIC DATA: WBC 11.5, hemoglobin 9.2, hematocrit 29.0, and platelets 216,000. Sodium 141, potassium 4.3, chloride 108, CO2 29, BUN 31, creatinine 0.9, and glucose 100. Chest x-ray was reported as bilateral airspace opacities, worsened since the last visit. ASSESSMENT: This is an 87-year-old white male with: 1. Hemoptysis. 2. Pneumonia. 3. Respiratory failure. 4. Chronic vent dependence. 5. Hypertension and atrial fibrillation. 6. Dysphagia. 7. Esophageal stricture. 8. Parkinson disease. 9. Benign prostatic hypertrophy. TREATMENT: 1. Pneumonia/hemoptysis. An Infectious Disease consultation has been obtained with Dr. Veloz. The patient has been started empirically on vancomycin. We will follow recommendations of Infectious Disease. 2. Respiratory failure/chronic vent dependence. A Pulmonary consultation has been obtained with Dr. Kenneth Shah. 3. Hypertension. Continue Cozaar as above. 4. Atrial fibrillation. 5. Dysphagia. The patient is status post G-tube placement. 6. Esophageal stricture. 7. Parkinson disease. Continue Sinemet as above. 8. Benign prostatic hypertrophy. Holger Ignacio M.D. DR: FLAVIO JOB#: [id number] CC:
[2017-11-12] MEDS ORDERED: Vancomycin 1 GM in D5W 275 ML IV SCH (23:00)
[2017-11-13] VITALS: BP 121/71
[2017-11-13 04:00] VITALS: BP 149/71
[2017-11-13] MEDS ORDERED: Vancomycin 1250mg/D5W 250ml 250 ML IVPB SCH (04:00)
[2017-11-13 04:47] LABS: BASOPHILS % (AUTO) 0.7 % (0.0-2.0); EOSINOPHILS % (AUTO) 5.4 % (0.0-3.0); HEMATOCRIT 27.9 % (42.0-52.0); HEMOGLOBIN 8.9 G/DL (14.2-18.0); LYMPHOCYTES % (AUTO) 24.5 % (20.0-45.0); MEAN CORPUSCULAR VOLUME 96 FL (80-99); MONOCYTES % (AUTO) 7.2 % (1.0-10.0); NEUTROPHILS % (AUTO) 62.1 % (45.0-75.0); PLATELET COUNT 177 K/UL (150-450); RED CELL DISTRIBUTION WIDTH 14.4 % (11.6-14.8); WHITE BLOOD COUNT 7.1 K/UL (4.8-10.8)
[2017-11-13 05:40] LABS: ALANINE AMINOTRANSFERASE 14 U/L (12-78); ALBUMIN 2.3 G/DL (3.4-5.0); ALBUMIN/GLOBULIN RATIO 0.5 (1.0-2.7); ALKALINE PHOSPHATASE 106 U/L (46-116); ANION GAP 6 mmol/L (5-15); ASPARTATE AMINO TRANSFERASE 16 U/L (15-37); BILIRUBIN,TOTAL 0.6 MG/DL (0.2-1.0); BLOOD UREA NITROGEN 22 mg/dL (7-18); CALCIUM 8.6 MG/DL (8.5-10.1); CARBON DIOXIDE 27 MMOL/L (21-32); CHLORIDE 110 MMOL/L (98-107); PHOSPHORUS 3.2 MG/DL (2.5-4.9); POTASSIUM 4.4 MMOL/L (3.5-5.1); SODIUM 143 MMOL/L (136-145)
[2017-11-13 06:06] LABS: AMYLASE 45 U/L (25-115)
[2017-11-13 08:00] VITALS: BP 110/65
--- NOTE | 2017-11-13 08:16 | Consultation ---
DATE OF CONSULTATION: 11/12/2017 NOTE: POOR AUDIO GASTROENTEROLOGY CONSULTATION CONSULTING PHYSICIAN: Davion Herbert M.D. REFERRING PHYSICIAN: Kenneth Shah M.D. CHIEF COMPLAINT: Coffee-ground emesis. HISTORY OF PRESENT ILLNESS: Most of history per chart. This is an 87-year-old male, vent dependent, G-tube dependent, who was sent from the [facility] for bleeding from the tracheal site and also some black material seen in the oropharynx, so questionable bleeding from tracheostomy was , so the patient was admitted to the hospital. PAST MEDICAL HISTORY: 1. Chronic respiratory failure, on the vent with trach. 2. Dysphagia with G-tube. 3. History of anemia. 4. History of stool impaction. 5. Hypertension. 6. COPD. ALLERGIES: To codeine. MEDICATIONS: Please see medication reconciliation list. SOCIAL HISTORY: Currently lives in correction. No recent history of tobacco, alcohol, or drug abuse. PAST SURGICAL HISTORY: Tracheostomy. REVIEW OF SYSTEMS: Unable to obtain. FAMILY HISTORY: Unable to obtain. PHYSICAL EXAMINATION: VITAL SIGNS: Temperature 98.0, pulse 82, respirations 30, blood pressure . HEENT: Normocephalic and atraumatic. Mildly pale conjunctivae. NECK: Supple. No obvious lymphadenopathy. CARDIOVASCULAR: Regular rate and rhythm. Plus S1 and S2. LUNGS: Decreased breath sounds bilaterally and diffusely. ABDOMEN: Soft, nontender. G-tube in place. No rebound. No guarding. No peritoneal sign. EXTREMITIES: No cyanosis. No clubbing. No edema. LABORATORY DATA: White count 11.4, hemoglobin 9.3, hematocrit 29, platelet count is 216,000. Chem-7, sodium 141, potassium 4.3, BUN is 31, creatinine is 0.9. ASSESSMENT AND PLAN: This is an 87-year-old patient with anemia, possible coffee-ground emesis. Reviewing the chart shows the last admission was in August 2017, discharged with hemoglobin 9.6 and now it is 9.2. There is no overt active evidence of GI bleeding. There is no melena, no hematochezia. No history of bleeding or blood coming from the G-tube and as I mentioned, hemoglobin has been stable since last admission. The patient is a very poor candidate for any procedure. We will plan to hold off doing any procedure unless it is absolutely needed. Meanwhile, we are going to start the patient on Protonix twice a day. We will repeat CBC for tomorrow. We will send the stool for OB. If there is any evidence of significant drop in hemoglobin and hematocrit, or evidence of active GI bleeding, we will scope the patient tomorrow, otherwise we will start tube feeding tomorrow. We are also going to order KUB given prior history of stool impaction. In the chart, there is also history of esophageal stent placement which has not been recent imaging studies. We will order KUB and see if we can see the esophageal stent. I want to thank, Dr. Shah, for this kind referral. Davion Herbert M.D. DR: Nupur JOB#: [id number] CC: Kenneth Shah M.D.; Fax#: [phone]
[2017-11-13] MEDS: Pantoprazole Inj IVP SCH ×2 (08:58→20:52)
[2017-11-13] MEDS: Levodopa/Carbidopa 25/100 tab GT SCH ×2 (08:58→17:55)
--- NOTE | 2017-11-13 09:42 | Diagnostic Imaging Report ---
Indication: Abdominal pain Technique: Supine view of the abdomen Comparison: none Findings: Exam is limited due to use of portable technique and patient body habitus. There is a West catheter. There is what appears to be an esophageal stent. There is a gastrostomy. Bowel gas pattern is grossly unremarkable Impression: Very limited imaging. No definite acute abnormality.
--- NOTE | 2017-11-13 11:54 | General Progress Note ---
Assessment/Plan Problem List: (1) Tracheostomy status ICD Codes: Z93.0 - Tracheostomy status SNOMED: 25556406, 569353394 (2) BPH (benign prostatic hyperplasia) ICD Codes: N40.0 - Benign prostatic hyperplasia without lower urinary tract symptoms SNOMED: 829663280 (3) Parkinson disease ICD Codes: G20 - Parkinson's disease SNOMED: 00406761 (4) Dysphagia ICD Codes: R13.10 - Dysphagia, unspecified SNOMED: 96693696, 006819138 (5) Respiratory failure ICD Codes: J96.90 - Respiratory failure, unspecified, unspecified whether with hypoxia or hypercapnia SNOMED: 977958842 (6) Feeding by G-tube ICD Codes: Z93.1 - Gastrostomy status SNOMED: 713221155, 891178897 (7) Anemia ICD Codes: D64.9 - Anemia, unspecified SNOMED: 834691150 Assessment/Plan gtf fu H&H fu stool ob ppi BID GI procedures on hold Subjective ROS Limited/Unobtainable: No Allergies: Coded Allergies: CODEINE (Verified Allergy, Unknown, 05/14/17) Objective Last 24 Hour Vital Signs Date Time Temp Pulse Resp B/P (MAP) Pulse Ox O2 Delivery O2 Flow Rate FiO2 11/13/17 08:38 T-piece 8.0 30 11/13/17 08:37 95 T-piece 8.0 30 11/13/17 08:36 78 22 T-piece 8.0 30 11/13/17 08:00 7.0 30 11/13/17 08:00 75 11/13/17 08:00 97.9 81 16 110/65 96 T-piece 7.0 30 97.9 11/13/17 04:00 97.9 84 20 149/71 98 Trach Collar 5.0 28 97.9 11/13/17 04:00 5.0 28 11/13/17 04:00 81 11/13/17 00:11 95 T-piece 8.0 30 11/13/17 00:11 T-piece 8.0 30 11/13/17 00:00 97.2 80 20 121/71 98 Trach Collar 5.0 28 97.2 11/13/17 00:00 78 11/12/17 20:00 79 11/12/17 20:00 97.7 81 22 116/66 98 Trach Collar 5.0 28 97.7 11/12/17 20:00 5.0 28 11/12/17 19:40 T-piece 8.0 30 11/12/17 19:40 96 T-piece 8.0 30 11/12/17 19:39 81 20 T-piece 8.0 30 11/12/17 16:00 81 11/12/17 16:00 97.9 85 22 139/60 96 Trach Collar 5.0 28 97.9 11/12/17 16:00 5.0 28 11/12/17 14:16 79 11/12/17 13:35 98.8 85 18 114/84 97 Trach Collar 2.0 Intake and Output 11/12/17 11/13/17 19:00 07:00 Intake Total 1330 ml 757 ml Output Total 550 ml 1000 ml Balance 780 ml -243 ml Intake Oral 0 ml 0 ml IV Total 1330 ml 757 ml Output Urine Total 550 ml 1000 ml Laboratory Tests 11/13/17 04:00: White Blood Count 7.1, Red Blood Count 2.90L, Hemoglobin 8.9L, Hematocrit 27.9L , Mean Corpuscular Volume 96, Mean Corpuscular Hemoglobin 30.6, Mean Corpuscular Hemoglobin Concent 31.7L, Red Cell Distribution Width 14.4, Platelet Count 177, Mean Platelet Volume 8.0, Neutrophils (%) (Auto) 62.1, Lymphocytes (%) (Auto) 24.5, Monocytes (%) (Auto) 7.2, Eosinophils (%) (Auto) 5.4H, Basophils (%) (Auto) 0.7, Sodium Level 143, Potassium Level 4.4, Chloride Level 110H, Carbon Dioxide Level 27, Anion Gap 6, Blood Urea Nitrogen 22H, Creatinine 1.0, Estimat Glomerular Filtration Rate , Glucose Level 88, Calcium Level 8.6, Phosphorus Level 3.2, Total Bilirubin 0.6, Aspartate Amino Transf ( AST/SGOT) 16, Alanine Aminotransferase (ALT/SGPT) 14, Alkaline Phosphatase 106, Total Protein 6.6, Albumin 2.3L, Globulin 4.3, Albumin/Globulin Ratio 0.5L, Amylase Level 45, Lipase 101 Height (Feet): 6 Height (Inches): 0.00 Weight (Pounds): 216 General Appearance: no apparent distress EENT: normal ENT inspection Neck: supple Cardiovascular: normal rate Respiratory/Chest: decreased breath sounds Abdomen: normal bowel sounds, non tender, soft Extremities: non-tender MALOU CASTANO Nov 13, 2017 11:54
[2017-11-13 12:00] VITALS: BP 130/63
[2017-11-13] MEDS: Zosyn 3.375gm q8h **Extended infusion IVPB SCH ×4 (12:26→22:25)
--- NOTE | 2017-11-13 12:32 | Pulmonology Progress Note ---
Assessment/Plan Problems: (1) Aspiration pneumonia (2) Hematemesis (3) Chronic respiratory failure (4) Afib (5) Parkinson disease (6) Tracheostomy dependent (7) Feeding by G-tube (8) Anemia Assessment/Plan check sputum continue abx check cultures on Zosyn feeding started no bleeding Subjective ROS Limited/Unobtainable: No Interval Events: awake Allergies: Coded Allergies: CODEINE (Verified Allergy, Unknown, 05/14/17) Objective Last 24 Hour Vital Signs Date Time Temp Pulse Resp B/P (MAP) Pulse Ox O2 Delivery O2 Flow Rate FiO2 11/13/17 08:38 T-piece 8.0 30 11/13/17 08:37 95 T-piece 8.0 30 11/13/17 08:36 78 22 T-piece 8.0 30 11/13/17 08:00 7.0 30 11/13/17 08:00 75 11/13/17 08:00 97.9 81 16 110/65 96 T-piece 7.0 30 97.9 11/13/17 04:00 97.9 84 20 149/71 98 Trach Collar 5.0 28 97.9 11/13/17 04:00 5.0 28 11/13/17 04:00 81 11/13/17 00:11 95 T-piece 8.0 30 11/13/17 00:11 T-piece 8.0 30 11/13/17 00:00 97.2 80 20 121/71 98 Trach Collar 5.0 28 97.2 11/13/17 00:00 78 11/12/17 20:00 79 11/12/17 20:00 97.7 81 22 116/66 98 Trach Collar 5.0 28 97.7 11/12/17 20:00 5.0 28 11/12/17 19:40 T-piece 8.0 30 11/12/17 19:40 96 T-piece 8.0 30 11/12/17 19:39 81 20 T-piece 8.0 30 11/12/17 16:00 81 11/12/17 16:00 97.9 85 22 139/60 96 Trach Collar 5.0 28 97.9 11/12/17 16:00 5.0 28 11/12/17 14:16 79 11/12/17 13:35 98.8 85 18 114/84 97 Trach Collar 2.0 Intake and Output 11/12/17 11/13/17 19:00 07:00 Intake Total 1330 ml 757 ml Output Total 550 ml 1000 ml Balance 780 ml -243 ml Intake Oral 0 ml 0 ml IV Total 1330 ml 757 ml Output Urine Total 550 ml 1000 ml General Appearance: WD/WN HEENT: normocephalic, atraumatic, status post trach Respiratory/Chest: chest wall non-tender, lungs clear, normal breath sounds, chest wall tender Cardiovascular: normal rate, regular rhythm Abdomen: normal bowel sounds, soft, non tender Genitourinary: normal external genitalia Extremities: no clubbing Microbiology Date/Time Source Procedure Growth Status 11/12/17 10:18 Sputum Gram Stain Pending Resulted 11/12/17 10:18 Sputum Sputum Culture - Preliminary Resulted 11/12/17 10:18 Urine,Clean Catch Urine Culture - Preliminary Gram Negative Bacillus 1 Resulted Laboratory Tests 11/13/17 04:00: White Blood Count 7.1, Red Blood Count 2.90L, Hemoglobin 8.9L, Hematocrit 27.9L , Mean Corpuscular Volume 96, Mean Corpuscular Hemoglobin 30.6, Mean Corpuscular Hemoglobin Concent 31.7L, Red Cell Distribution Width 14.4, Platelet Count 177, Mean Platelet Volume 8.0, Neutrophils (%) (Auto) 62.1, Lymphocytes (%) (Auto) 24.5, Monocytes (%) (Auto) 7.2, Eosinophils (%) (Auto) 5.4H, Basophils (%) (Auto) 0.7, Sodium Level 143, Potassium Level 4.4, Chloride Level 110H, Carbon Dioxide Level 27, Anion Gap 6, Blood Urea Nitrogen 22H, Creatinine 1.0, Estimat Glomerular Filtration Rate , Glucose Level 88, Calcium Level 8.6, Phosphorus Level 3.2, Total Bilirubin 0.6, Aspartate Amino Transf ( AST/SGOT) 16, Alanine Aminotransferase (ALT/SGPT) 14, Alkaline Phosphatase 106, Total Protein 6.6, Albumin 2.3L, Globulin 4.3, Albumin/Globulin Ratio 0.5L, Amylase Level 45, Lipase 101 Current Medications Medications (Trade) Dose Ordered Sig/Polo Route PRN Reason Start Time Stop Time Status Last Admin Dose Admin Acetaminophen (Tylenol) 650 mg Q4H PRN ORAL FEVER 11/12/17 12:45 5/5/18 12:44 Albuterol/ Ipratropium (Albuterol/ Ipratropium) 3 ml Q4H PRN HHN Shortness of Breath 11/12/17 12:45 11/17/17 12:44 Carbidopa/Levodopa (Sinemet 25/100) 1 tab BID GT 11/12/17 18:00 12/12/17 17:59 11/13/17 08:58 Dextrose (Dextrose 50%) 50 ml STAT PRN IV Hypoglycemia <60 mL/dL 11/12/17 12:45 12/12/17 12:44 Iron Sucrose 100 mg/Sodium Chloride 115 ml @ 460 mls/hr BEDTIME IV 11/13/17 21:00 11/17/17 21:14 Lorazepam (Ativan 2mg/ml 1ml) 2 mg Q2H PRN IV For Anxiety 11/12/17 12:45 11/19/17 12:44 Morphine Sulfate (Morphine Sulfate) 4 mg Q4H PRN IVP Severe Pain (Pain Scale 7-10) 11/12/17 12:45 11/19/17 12:44 Ondansetron HCl (Zofran) 4 mg Q6H PRN IVP Nausea & Vomiting 11/12/17 12:45 12/12/17 12:44 Pantoprazole (Protonix) 40 mg EVERY 12 HOURS IVP 11/12/17 21:00 12/12/17 20:59 11/13/17 08:58 Piperacillin Sod/ Tazobactam Sod 3.375 gm/Sodium Chloride 110 ml @ 27.5 mls/hr EVERY 8 HOURS IVPB 11/13/17 12:00 11/20/17 11:59 Polyethylene Glycol (Miralax) 17 gm DAILYPRN PRN ORAL Constipation 11/12/17 12:45 12/12/17 12:44 Sodium Chloride 1,000 ml @ 75 mls/hr [id number] IV 11/12/17 15:00 12/12/17 14:59 11/13/17 04:38 Vancomycin HCl (Vanco rx to dose) 1 ea DAILYPRN PRN MISC RX TO DOSE PROTOCOL 11/12/17 15:00 12/12/17 14:59 Vancomycin/Sodium Chloride 250 ml @ 166.667 mls/hr Q12HR IVPB 11/13/17 21:00 11/18/17 20:59 Kenneth Shah MD Nov 13, 2017 12:31
--- NOTE | 2017-11-13 12:49 | Wound Care Consultation ---
Wound Assessment Wound Assessment #1: Wound Number: 1 Wound Present on Admission: Yes New Wound: No Status Change of Wound: No Wound Location Body Site Modif: mid Wound Location Body Site: other - Sacrococcygeal area Wound Type: pressure ulcer Carol Test: Does not Carol Pressure Ulcer Stage: Deep Tissue Injury Wound Thickness: Full Thickness Wound Length: 3.5 Wound Width: 2.5 Wound Depth: utd Percent of Wound Purple/Maroon: 100 Wound Drainage Amount: None Wound Drainage Odor: None/Absent Tissue Surrounding Wound: Erythemic Wound General Appearance: Reddened - maroon Wound Assessment #2: Wound Number: 2 Wound Present on Admission: Yes New Wound: No Status Change of Wound: No Wound Location Body Site: perineal area - extending to left and right buttocks Wound Type: chemical burn Carol Test: Does not Carol Percent of Wound [place]/Red: 100 Wound Drainage Amount: None Wound Drainage Odor: None/Absent Tissue Surrounding Wound: Erythemic Wound General Appearance: Reddened Wound Comment #1 Sacrococcygeal area DTI pressure ulcer #2 Chemical burn on perineal area extending to left and right buttocks Recommendation -Local wound care per protocol -Offload both heels -Keep clean and dry -Turn and reposition -Heel protector on both heels -Low air loss mattress -Optimize nutrition -Assess and f/u accordingly for any changes STAS NEVAREZ RN Nov 13, 2017 12:49
[2017-11-13 16:00] VITALS: BP 137/70
--- NOTE | 2017-11-13 19:30 | Internal Med Progress Note ---
Subjective Date of Service: Nov 13, 2017 Physician Name Chris Yadav Attending Physician Sunil Castillo MD Current Medications Medications (Trade) Dose Ordered Sig/Polo Route PRN Reason Start Time Stop Time Status Last Admin Dose Admin Acetaminophen (Tylenol) 650 mg Q4H PRN ORAL FEVER 11/12/17 12:45 12/12/17 12:44 Albuterol/ Ipratropium (Albuterol/ Ipratropium) 3 ml Q4H PRN HHN Shortness of Breath 11/12/17 12:45 11/17/17 12:44 Carbidopa/Levodopa (Sinemet 25/100) 1 tab BID GT 11/12/17 18:00 12/12/17 17:59 11/13/17 17:55 Dextrose (Dextrose 50%) 50 ml STAT PRN IV Hypoglycemia <60 mL/dL 11/12/17 12:45 12/12/17 12:44 Iron Sucrose 100 mg/Sodium Chloride 115 ml @ 460 mls/hr BEDTIME IV 11/13/17 21:00 11/17/17 21:14 Lorazepam (Ativan 2mg/ml 1ml) 2 mg Q2H PRN IV For Anxiety 11/12/17 12:45 11/19/17 12:44 Morphine Sulfate (Morphine Sulfate) 4 mg Q4H PRN IVP Severe Pain (Pain Scale 7-10) 11/12/17 12:45 11/19/17 12:44 Ondansetron HCl (Zofran) 4 mg Q6H PRN IVP Nausea & Vomiting 11/12/17 12:45 12/12/17 12:44 Pantoprazole (Protonix) 40 mg EVERY 12 HOURS IVP 11/12/17 21:00 12/12/17 20:59 11/13/17 08:58 Piperacillin Sod/ Tazobactam Sod 3.375 gm/Sodium Chloride 110 ml @ 27.5 mls/hr EVERY 8 HOURS IVPB 11/13/17 12:00 11/20/17 11:59 11/13/17 12:26 Polyethylene Glycol (Miralax) 17 gm DAILYPRN PRN ORAL Constipation 11/12/17 12:45 12/12/17 12:44 Sodium Chloride 1,000 ml @ 50 mls/hr Q20H IV 11/13/17 13:00 5/6/18 12:59 11/13/17 13:09 Vancomycin HCl (Vanco rx to dose) 1 ea DAILYPRN PRN MISC RX TO DOSE PROTOCOL 11/12/17 15:00 12/12/17 14:59 Vancomycin/Sodium Chloride 250 ml @ 166.667 mls/hr Q12HR IVPB 11/13/17 21:00 11/18/17 20:59 Allergies: Coded Allergies: CODEINE (Verified Allergy, Unknown, 05/14/17) ROS Limited/Unobtainable: Yes Subjective 87 YO M admitted with hemoptysis. Cover for Int Med-Dr Castillo. SHILPI Objective Last Vital Signs Date Time Temp Pulse Resp B/P (MAP) Pulse Ox O2 Delivery O2 Flow Rate FiO2 11/13/17 19:08 T-piece 8.0 30 11/13/17 19:08 80 18 11/13/17 19:08 97 11/13/17 16:00 98.2 137/70 98.2 Laboratory Tests Test 11/13/17 04:00 White Blood Count 7.1 K/UL (4.8-10.8) Red Blood Count 2.90 M/UL (4.70-6.10) L Hemoglobin 8.9 G/DL (14.2-18.0) L Hematocrit 27.9 % (42.0-52.0) L Mean Corpuscular Volume 96 FL (80-99) Mean Corpuscular Hemoglobin 30.6 PG (27.0-31.0) Mean Corpuscular Hemoglobin Concent 31.7 G/DL (32.0-36.0) L Red Cell Distribution Width 14.4 % (11.6-14.8) Platelet Count 177 K/UL (150-450) Mean Platelet Volume 8.0 FL (6.5-10.1) Neutrophils (%) (Auto) 62.1 % (45.0-75.0) Lymphocytes (%) (Auto) 24.5 % (20.0-45.0) Monocytes (%) (Auto) 7.2 % (1.0-10.0) Eosinophils (%) (Auto) 5.4 % (0.0-3.0) H Basophils (%) (Auto) 0.7 % (0.0-2.0) Sodium Level 143 MMOL/L (136-145) Potassium Level 4.4 MMOL/L (3.5-5.1) Chloride Level 110 MMOL/L (98-107) H Carbon Dioxide Level 27 MMOL/L (21-32) Anion Gap 6 mmol/L (5-15) Blood Urea Nitrogen 22 mg/dL (7-18) H Creatinine 1.0 MG/DL (0.55-1.30) Estimat Glomerular Filtration Rate mL/min (>60) Glucose Level 88 MG/DL (74-106) Calcium Level 8.6 MG/DL (8.5-10.1) Phosphorus Level 3.2 MG/DL (2.5-4.9) Total Bilirubin 0.6 MG/DL (0.2-1.0) Aspartate Amino Transf (AST/SGOT) 16 U/L (15-37) Alanine Aminotransferase (ALT/SGPT) 14 U/L (12-78) Alkaline Phosphatase 106 U/L (46-116) Total Protein 6.6 G/DL (6.4-8.2) Albumin 2.3 G/DL (3.4-5.0) L Globulin 4.3 g/dL Albumin/Globulin Ratio 0.5 (1.0-2.7) L Amylase Level 45 U/L (25-115) Lipase 101 U/L (73-393) Microbiology Date/Time Source Procedure Growth Status 11/12/17 10:18 Sputum Gram Stain - Final Resulted 11/12/17 10:18 Sputum Sputum Culture - Preliminary Resulted 11/12/17 10:18 Urine,Clean Catch Urine Culture - Preliminary Gram Negative Bacillus 1 Resulted Intake and Output 11/12/17 11/13/17 19:00 07:00 Intake Total 1330 ml 832 ml Output Total 550 ml 1000 ml Balance 780 ml -168 ml Intake Oral 0 ml 0 ml IV Total 1330 ml 832 ml Output Urine Total 550 ml 1000 ml Objective GENERAL: The patient is a well-developed and well-nourished white male, intubated and sedated. HEENT: Eyes, pupils equal and responsive to light and accommodation. Extraocular movements are intact. Tracheostomy is in place. CHEST: Coarse expiratory wheezes bilaterally without wheezes or rales. CARDIOVASCULAR: Regular rhythm and rate. S1 and S2 are normal without murmurs, rubs, or gallops. ABDOMEN: Soft, nontender, and nondistended. Positive bowel sounds. No evidence of hepatosplenomegaly. Currently, no rebound or guarding noted. EXTREMITIES: Negative for clubbing, cyanosis, or edema. RECTAL/GENITAL: Refused. NEUROLOGICAL: Unable to assess. Assessment/Plan Problem List: (1) Hemoptysis (2) Pneumonia Assessment & Plan: Continue vanco and zosyn per ID (3) Ventilator dependence (4) Atrial fibrillation (5) Tracheostomy dependent Assessment & Plan: See pulmonary note. (6) BPH (benign prostatic hyperplasia) (7) Parkinson disease Assessment & Plan: Continue sinemet (8) Esophageal stricture (9) Dysphagia Assessment & Plan: S/P PEG (10) UTI (urinary tract infection) Assessment & Plan: Gram neg divya. Await culture results. Cont zosyn for now Status: not improved CHRIS YADAV Nov 13, 2017 19:30
[2017-11-13 20:00] VITALS: BP 126/75
[2017-11-13] MEDS: Iron Sucrose 100 MG in NS 110 ML IV SCH (20:51)
--- NOTE | 2017-11-13 21:09 | Consultation ---
Consult Note Consult Note ID # [id number] Gwyn Veloz MD Nov 13, 2017 21:09
[2017-11-13] MEDS: Vancomycin 750mg/NS 250ml IVPB SCH (22:24)
[2017-11-14] VITALS: BP 131/65
--- NOTE | 2017-11-14 02:15 | Consultation ---
DATE OF CONSULTATION: 11/13/2017 INFECTIOUS DISEASE CONSULTATION CONSULTING PHYSICIAN: Gwyn Veloz M.D. REQUESTING PHYSICIANS: 1. Sunil Castillo M.D. 2. Kenneth Shah M.D. REASON FOR CONSULTATION: Evaluation of the patient for sepsis, antibiotic management. HISTORY OF PRESENT ILLNESS: The patient is an 87-year-old male who was brought to this hospital due to bleeding from his trach. The patient was found to have mild leukocytosis at the isauro admission. Chest x-ray showed interstitial and patchy bilateral airspace opacity worsened compared to the prior exam, superimposed pneumonia could not be ruled out. Infectious Diseases consultation has been requested for further evaluation of the patient and need for antibiotic management. PAST MEDICAL HISTORY: 1. Dysphagia status post PEG. 2. Parkinson disease. 3. CHF. 4. Hypertension. 5. COPD. 6. Status post trach. 7. History of suprapubic catheter. 8. Anemia. 9. BPH. 10. History of recent urinary tract infection due to Proteus/Pseudomonas. MEDICATIONS: Zosyn and vancomycin. ALLERGIES: Codeine. FAMILY HISTORY: Unavailable. REVIEW OF SYSTEMS: Unobtainable. PHYSICAL EXAMINATION: VITAL SIGNS: Temperature 98.2, pulse 86, respiratory rate 18, and blood pressure 137/70. HEENT: No pale conjunctivae. No icterus. NECK: Trach in place. CHEST: Coarse breathing sounds. HEART: S1 and S2. ABDOMEN: Soft. G-tube site noted with cellulitis. The patient has suprapubic catheter. NEUROLOGIC: Awake. Nonverbal. LABORATORY AND DIAGNOSTIC DATA: White blood cell 11.5, hemoglobin 9.2, platelets 216. UA shows 60 to 80 red blood cells, 15 to 20 white blood cells. BUN 21 and creatinine 0.9. ALT and AST unremarkable, alkaline phosphatase 122. Urine culture is growing gram-negative rods. Sputum culture is pending. Chest x-ray, interstitial/patchy bilateral airspace disease. ASSESSMENT: The patient is an 87-year-old male with: 1. Mild leukocytosis, status post. 2. Afebrile. 3. Bleeding from the trach. 4. ? pneumonia. 5. Rule out urinary tract infection. PLAN: 1. We will continue the patient on IV vancomycin and Zosyn for now. 2. Monitor CBC. 3. Monitor BMP. 4. Monitor for cultures (urine, sputum). 5. Monitor blood culture. 6. Monitor chest x-ray. 7. GI following for? upper gastrointestinal bleed. 8. Based on the patient's clinical course and labs, we will do further recommendations. Thank you, Dr. Shah, for allowing me to participate in the care of this patient. I will follow the patient with you during this hospitalization. Gwyn Veloz M.D. DR: Delfin JOB#: [id number] CC:
[2017-11-14 04:00] VITALS: BP 129/83
[2017-11-14] MEDS: Zosyn 3.375gm q8h **Extended infusion IVPB SCH ×6 (05:51→22:00)
[2017-11-14 05:57] LABS: BASOPHILS % (AUTO) 0.9 % (0.0-2.0); EOSINOPHILS % (AUTO) 4.5 % (0.0-3.0); HEMATOCRIT 25.6 % (42.0-52.0); HEMOGLOBIN 8.8 G/DL (14.2-18.0); LYMPHOCYTES % (AUTO) 16.3 % (20.0-45.0); MEAN CORPUSCULAR VOLUME 95 FL (80-99); MONOCYTES % (AUTO) 8.4 % (1.0-10.0); PLATELET COUNT 178 K/UL (150-450); RED CELL DISTRIBUTION WIDTH 14.4 % (11.6-14.8); WHITE BLOOD COUNT 6.6 K/UL (4.8-10.8)
[2017-11-14 06:05] LABS: ALANINE AMINOTRANSFERASE 11 U/L (12-78); ALBUMIN 2.3 G/DL (3.4-5.0); ALBUMIN/GLOBULIN RATIO 0.5 (1.0-2.7); ALKALINE PHOSPHATASE 103 U/L (46-116); ANION GAP 6 mmol/L (5-15); ASPARTATE AMINO TRANSFERASE 16 U/L (15-37); BILIRUBIN,TOTAL 0.5 MG/DL (0.2-1.0); BLOOD UREA NITROGEN 16 mg/dL (7-18); CALCIUM 8.3 MG/DL (8.5-10.1); CARBON DIOXIDE 26 MMOL/L (21-32); CHLORIDE 109 MMOL/L (98-107); CREATININE 0.9 MG/DL (0.55-1.30); POTASSIUM 3.7 MMOL/L (3.5-5.1); SODIUM 141 MMOL/L (136-145)
[2017-11-14 08:00] VITALS: BP 110/64
[2017-11-14] MEDS: Pantoprazole Inj IVP SCH ×2 (09:32→20:53)
[2017-11-14] MEDS: Levodopa/Carbidopa 25/100 tab GT SCH ×2 (09:32→18:43)
[2017-11-14] MEDS: Vancomycin 750mg/NS 250ml IVPB SCH ×2 (09:38→22:00)
--- NOTE | 2017-11-14 09:50 | Diagnostic Imaging Report ---
Indication: Dyspnea Comparison: 11/12/2017 A single view chest radiograph was obtained. Findings: Interstitial edema suspected. The lung volumes are low. Tracheostomy is present. Heart size is relatively normal. Bones are osteopenic. IMPRESSION: No change from the prior exam
--- NOTE | 2017-11-14 10:35 | Pulmonology Progress Note ---
Assessment/Plan Problems: (1) Acute on chronic respiratory failure (2) Aspiration pneumonia (3) Hematemesis (4) Chronic respiratory failure (5) Afib (6) Parkinson disease (7) Tracheostomy dependent (8) Feeding by G-tube (9) Anemia Assessment/Plan check sputum continue abx check cultures on Zosyn feeding started no bleeding check cxr in a few days d/w caregiver at the bed site. Subjective ROS Limited/Unobtainable: No Constitutional: Reports: no symptoms HEENT: Repors: no symptoms Respiratory: Reports: no symptoms Allergies: Coded Allergies: CODEINE (Verified Allergy, Unknown, 05/14/17) Objective Last 24 Hour Vital Signs Date Time Temp Pulse Resp B/P (MAP) Pulse Ox O2 Delivery O2 Flow Rate FiO2 11/14/17 08:00 98.1 80 20 110/64 99 T-piece 7.0 30 98.1 11/14/17 04:00 97.9 80 20 129/83 97 T-piece 7.0 30 97.9 11/14/17 04:00 7.0 30 11/14/17 03:37 82 11/14/17 01:10 98 T-piece 8.0 30 11/14/17 01:10 T-piece 8.0 30 11/14/17 00:00 97.7 82 24 131/65 96 T-piece 7.0 30 97.7 11/14/17 00:00 7.0 30 11/13/17 23:36 80 11/13/17 20:00 98.2 80 20 126/75 96 T-piece 7.0 30 98.2 11/13/17 20:00 7.0 30 11/13/17 19:32 78 11/13/17 19:08 T-piece 8.0 30 11/13/17 19:08 80 18 T-piece 8.0 30 11/13/17 19:08 97 T-piece 8.0 30 11/13/17 16:00 7.0 30 11/13/17 16:00 79 11/13/17 16:00 98.2 81 20 137/70 97 T-piece 7.0 30 98.2 11/13/17 14:03 T-piece 8.0 30 11/13/17 14:02 95 T-piece 8.0 30 11/13/17 12:00 97.9 76 22 130/63 97 T-piece 7.0 30 97.9 11/13/17 12:00 78 11/13/17 12:00 7.0 30 Intake and Output 11/13/17 11/14/17 19:00 07:00 Intake Total 1148.750 ml 1535 ml Output Total 1000 ml 900 ml Balance 148.750 ml 635 ml IV Total 813.750 ml 1085 ml Tube Feeding 135 ml 300 ml Other 200 ml 150 ml Output Urine Total 1000 ml 900 ml General Appearance: cachetic HEENT: status post trach Respiratory/Chest: chest wall non-tender, lungs clear Cardiovascular: normal peripheral pulses, normal rate Abdomen: normal bowel sounds, soft, non tender Genitourinary: normal external genitalia Extremities: no clubbing Skin: no ulcers 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 Complete 11/12/17 10:18 Sputum Gram Stain - Final Resulted 11/12/17 10:18 Sputum Culture - Preliminary Gram Negative Douglas Resulted 11/12/17 10:18 Urine,Clean Catch Urine Culture - Final Proteus Mirabilis Esbl Complete 11/12/17 11:30 Rectum VRE Culture - Final Enterococcus Faecalis - Vre Complete Laboratory Tests 11/14/17 03:50: White Blood Count 6.6, Red Blood Count 2.70L, Hemoglobin 8.8L, Hematocrit 25.6L , Mean Corpuscular Volume 95, Mean Corpuscular Hemoglobin 32.4H, Mean Corpuscular Hemoglobin Concent 34.2, Red Cell Distribution Width 14.4, Platelet Count 178, Mean Platelet Volume 8.0, Neutrophils (%) (Auto) 70.0, Lymphocytes (% ) (Auto) 16.3L, Monocytes (%) (Auto) 8.4, Eosinophils (%) (Auto) 4.5H, Basophils (%) (Auto) 0.9, Sodium Level 141, Potassium Level 3.7, Chloride Level 109H, Carbon Dioxide Level 26, Anion Gap 6, Blood Urea Nitrogen 16, Creatinine 0.9, Estimat Glomerular Filtration Rate , Glucose Level 101, Calcium Level 8.3L , Total Bilirubin 0.5, Aspartate Amino Transf (AST/SGOT) 16, Alanine Aminotransferase (ALT/SGPT) 11L, Alkaline Phosphatase 103, Pro-B-Type Natriuretic Peptide 689H, Total Protein 6.5, Albumin 2.3L, Globulin 4.2, Albumin /Globulin Ratio 0.5L Current Medications Medications (Trade) Dose Ordered Sig/Polo Route PRN Reason Start Time Stop Time Status Last Admin Dose Admin Acetaminophen (Tylenol) 650 mg Q4H PRN ORAL FEVER 11/12/17 12:45 12/12/17 12:44 Albuterol/ Ipratropium (Albuterol/ Ipratropium) 3 ml Q4H PRN HHN Shortness of Breath 11/12/17 12:45 11/17/17 12:44 Carbidopa/Levodopa (Sinemet 25/100) 1 tab BID GT 11/12/17 18:00 12/12/17 17:59 11/14/17 09:32 Dextrose (Dextrose 50%) 50 ml STAT PRN IV Hypoglycemia <60 mL/dL 11/12/17 12:45 12/12/17 12:44 Iron Sucrose 100 mg/Sodium Chloride 115 ml @ 460 mls/hr BEDTIME IV 11/13/17 21:00 11/17/17 21:14 11/13/17 20:51 Lorazepam (Ativan 2mg/ml 1ml) 2 mg Q2H PRN IV For Anxiety 11/12/17 12:45 11/19/17 12:44 Morphine Sulfate (Morphine Sulfate) 4 mg Q4H PRN IVP Severe Pain (Pain Scale 7-10) 11/12/17 12:45 11/19/17 12:44 Ondansetron HCl (Zofran) 4 mg Q6H PRN IVP Nausea & Vomiting 11/12/17 12:45 12/12/17 12:44 Pantoprazole (Protonix) 40 mg EVERY 12 HOURS IVP 11/12/17 21:00 12/12/17 20:59 11/14/17 09:32 Piperacillin Sod/ Tazobactam Sod 3.375 gm/Sodium Chloride 110 ml @ 27.5 mls/hr EVERY 8 HOURS IVPB 11/13/17 12:00 11/20/17 11:59 11/14/17 05:51 Polyethylene Glycol (Miralax) 17 gm DAILYPRN PRN ORAL Constipation 11/12/17 12:45 12/12/17 12:44 Sodium Chloride 1,000 ml @ 50 mls/hr Q20H IV 11/13/17 13:00 12/13/17 12:59 11/14/17 04:57 Vancomycin HCl (Vanco rx to dose) 1 ea DAILYPRN PRN MISC RX TO DOSE PROTOCOL 11/12/17 15:00 12/12/17 14:59 Vancomycin/Sodium Chloride 250 ml @ 166.667 mls/hr Q12HR IVPB 11/13/17 21:00 11/18/17 20:59 11/14/17 09:38 Kenneth Shah MD Nov 14, 2017 10:34
[2017-11-14 12:00] VITALS: BP 133/48
--- NOTE | 2017-11-14 14:42 | General Progress Note ---
Assessment/Plan Assessment/Plan Assessment (1) Tracheostomy status ICD Codes: Z93.0 - Tracheostomy status SNOMED: 20124456, 833998095 (2) BPH (benign prostatic hyperplasia) ICD Codes: N40.0 - Benign prostatic hyperplasia without lower urinary tract symptoms SNOMED: 900755506 (3) Parkinson disease ICD Codes: G20 - Parkinson's disease SNOMED: 07800188 (4) Dysphagia ICD Codes: R13.10 - Dysphagia, unspecified SNOMED: 12176133, 997738182 (5) Respiratory failure ICD Codes: J96.90 - Respiratory failure, unspecified, unspecified whether with hypoxia or hypercapnia SNOMED: 282588495 (6) Feeding by G-tube ICD Codes: Z93.1 - Gastrostomy status SNOMED: 272201580, 699323467 (7) Anemia ICD Codes: D64.9 - Anemia, unspecified SNOMED: 858033697 Assessment/Plan gtf fu H&H fu stool ob ppi BID GI procedures on hold Subjective Allergies: Coded Allergies: CODEINE (Verified Allergy, Unknown, 05/14/17) Subjective above noted non verbal Objective Last 24 Hour Vital Signs Date Time Temp Pulse Resp B/P (MAP) Pulse Ox O2 Delivery O2 Flow Rate FiO2 11/14/17 14:19 96 T-piece 8.0 30 11/14/17 14:18 T-piece 8.0 30 11/14/17 12:00 97.5 73 24 133/48 94 T-piece 7.0 30 97.5 11/14/17 08:04 T-piece 8.0 30 11/14/17 08:03 97 T-piece 8.0 30 11/14/17 08:02 76 20 T-piece 8.0 30 11/14/17 08:00 98.1 80 20 110/64 99 T-piece 7.0 30 98.1 11/14/17 07:30 75 11/14/17 04:00 97.9 80 20 129/83 97 T-piece 7.0 30 97.9 11/14/17 04:00 7.0 30 11/14/17 03:37 82 11/14/17 01:10 98 T-piece 8.0 30 11/14/17 01:10 T-piece 8.0 30 11/14/17 00:00 97.7 82 24 131/65 96 T-piece 7.0 30 97.7 11/14/17 00:00 7.0 30 11/13/17 23:36 80 11/13/17 20:00 98.2 80 20 126/75 96 T-piece 7.0 30 98.2 11/13/17 20:00 7.0 30 11/13/17 19:32 78 11/13/17 19:08 T-piece 8.0 30 11/13/17 19:08 80 18 T-piece 8.0 30 11/13/17 19:08 97 T-piece 8.0 30 11/13/17 16:00 7.0 30 11/13/17 16:00 79 11/13/17 16:00 98.2 81 20 137/70 97 T-piece 7.0 30 98.2 Intake and Output 11/13/17 11/14/17 19:00 07:00 Intake Total 1148.750 ml 1535 ml Output Total 1000 ml 900 ml Balance 148.750 ml 635 ml IV Total 813.750 ml 1085 ml Tube Feeding 135 ml 300 ml Other 200 ml 150 ml Output Urine Total 1000 ml 900 ml Laboratory Tests 11/14/17 03:50: White Blood Count 6.6, Red Blood Count 2.70L, Hemoglobin 8.8L, Hematocrit 25.6L , Mean Corpuscular Volume 95, Mean Corpuscular Hemoglobin 32.4H, Mean Corpuscular Hemoglobin Concent 34.2, Red Cell Distribution Width 14.4, Platelet Count 178, Mean Platelet Volume 8.0, Neutrophils (%) (Auto) 70.0, Lymphocytes (% ) (Auto) 16.3L, Monocytes (%) (Auto) 8.4, Eosinophils (%) (Auto) 4.5H, Basophils (%) (Auto) 0.9, Sodium Level 141, Potassium Level 3.7, Chloride Level 109H, Carbon Dioxide Level 26, Anion Gap 6, Blood Urea Nitrogen 16, Creatinine 0.9, Estimat Glomerular Filtration Rate , Glucose Level 101, Calcium Level 8.3L , Total Bilirubin 0.5, Aspartate Amino Transf (AST/SGOT) 16, Alanine Aminotransferase (ALT/SGPT) 11L, Alkaline Phosphatase 103, Pro-B-Type Natriuretic Peptide 689H, Total Protein 6.5, Albumin 2.3L, Globulin 4.2, Albumin /Globulin Ratio 0.5L Height (Feet): 6 Height (Inches): 0.00 Weight (Pounds): 222 Objective Debilitated Elderly man NCAT s/p trach Coarse BS RR soft , (+) GT no edema OBS JASPREET BLANCA Nov 14, 2017 14:42
--- NOTE | 2017-11-14 15:31 | Internal Med Progress Note ---
Subjective Date of Service: Nov 14, 2017 Physician Name Chris Yadav Attending Physician Sunil Castillo MD Current Medications Medications (Trade) Dose Ordered Sig/Polo Route PRN Reason Start Time Stop Time Status Last Admin Dose Admin Acetaminophen (Tylenol) 650 mg Q4H PRN ORAL FEVER 11/12/17 12:45 12/12/17 12:44 Albuterol/ Ipratropium (Albuterol/ Ipratropium) 3 ml Q4H PRN HHN Shortness of Breath 11/12/17 12:45 11/17/17 12:44 Carbidopa/Levodopa (Sinemet 25/100) 1 tab BID GT 11/12/17 18:00 12/12/17 17:59 11/14/17 09:32 Dextrose (Dextrose 50%) 50 ml STAT PRN IV Hypoglycemia <60 mL/dL 11/12/17 12:45 12/12/17 12:44 Iron Sucrose 100 mg/Sodium Chloride 115 ml @ 460 mls/hr BEDTIME IV 11/13/17 21:00 11/17/17 21:14 11/13/17 20:51 Lorazepam (Ativan 2mg/ml 1ml) 2 mg Q2H PRN IV For Anxiety 11/12/17 12:45 11/19/17 12:44 Morphine Sulfate (Morphine Sulfate) 4 mg Q4H PRN IVP Severe Pain (Pain Scale 7-10) 11/12/17 12:45 11/19/17 12:44 Ondansetron HCl (Zofran) 4 mg Q6H PRN IVP Nausea & Vomiting 11/12/17 12:45 12/12/17 12:44 Pantoprazole (Protonix) 40 mg EVERY 12 HOURS IVP 11/12/17 21:00 12/12/17 20:59 11/14/17 09:32 Piperacillin Sod/ Tazobactam Sod 3.375 gm/Sodium Chloride 110 ml @ 27.5 mls/hr EVERY 8 HOURS IVPB 11/13/17 12:00 11/20/17 11:59 11/14/17 05:51 Polyethylene Glycol (Miralax) 17 gm DAILYPRN PRN ORAL Constipation 11/12/17 12:45 12/12/17 12:44 Sodium Chloride 1,000 ml @ 50 mls/hr Q20H IV 11/13/17 13:00 12/13/17 12:59 11/14/17 04:57 Vancomycin HCl (Vanco rx to dose) 1 ea DAILYPRN PRN MISC RX TO DOSE PROTOCOL 11/12/17 15:00 12/12/17 14:59 Vancomycin/Sodium Chloride 250 ml @ 166.667 mls/hr Q12HR IVPB 11/13/17 21:00 11/18/17 20:59 11/14/17 09:38 Allergies: Coded Allergies: CODEINE (Verified Allergy, Unknown, 05/14/17) ROS Limited/Unobtainable: Yes Subjective 87 YO M admitted with hemoptysis. Cover for Int Med-Dr Castillo. SHILPI Objective Last Vital Signs Date Time Temp Pulse Resp B/P (MAP) Pulse Ox O2 Delivery O2 Flow Rate FiO2 11/14/17 14:19 96 T-piece 8.0 30 11/14/17 12:00 97.5 73 24 133/48 97.5 Laboratory Tests Test 11/14/17 03:50 White Blood Count 6.6 K/UL (4.8-10.8) Red Blood Count 2.70 M/UL (4.70-6.10) L Hemoglobin 8.8 G/DL (14.2-18.0) L Hematocrit 25.6 % (42.0-52.0) L Mean Corpuscular Volume 95 FL (80-99) Mean Corpuscular Hemoglobin 32.4 PG (27.0-31.0) H Mean Corpuscular Hemoglobin Concent 34.2 G/DL (32.0-36.0) Red Cell Distribution Width 14.4 % (11.6-14.8) Platelet Count 178 K/UL (150-450) Mean Platelet Volume 8.0 FL (6.5-10.1) Neutrophils (%) (Auto) 70.0 % (45.0-75.0) Lymphocytes (%) (Auto) 16.3 % (20.0-45.0) L Monocytes (%) (Auto) 8.4 % (1.0-10.0) Eosinophils (%) (Auto) 4.5 % (0.0-3.0) H Basophils (%) (Auto) 0.9 % (0.0-2.0) Sodium Level 141 MMOL/L (136-145) Potassium Level 3.7 MMOL/L (3.5-5.1) Chloride Level 109 MMOL/L (98-107) H Carbon Dioxide Level 26 MMOL/L (21-32) Anion Gap 6 mmol/L (5-15) Blood Urea Nitrogen 16 mg/dL (7-18) Creatinine 0.9 MG/DL (0.55-1.30) Estimat Glomerular Filtration Rate mL/min (>60) Glucose Level 101 MG/DL (74-106) Calcium Level 8.3 MG/DL (8.5-10.1) L Total Bilirubin 0.5 MG/DL (0.2-1.0) Aspartate Amino Transf (AST/SGOT) 16 U/L (15-37) Alanine Aminotransferase (ALT/SGPT) 11 U/L (12-78) L Alkaline Phosphatase 103 U/L (46-116) Pro-B-Type Natriuretic Peptide 689 pg/mL (0-125) H Total Protein 6.5 G/DL (6.4-8.2) Albumin 2.3 G/DL (3.4-5.0) L Globulin 4.2 g/dL Albumin/Globulin Ratio 0.5 (1.0-2.7) L Microbiology Date/Time Source Procedure Growth Status 11/12/17 10:31 Blood Blood Culture - Preliminary NO GROWTH AFTER 24 HOURS Resulted 11/12/17 10:20 Blood Blood Culture - Preliminary NO GROWTH AFTER 24 HOURS Resulted 11/12/17 11:30 Nasal Nares MRSA Culture - Final NO METHICILLIN RESISTANT STAPH AUREUS... Complete 11/12/17 10:18 Sputum Gram Stain - Final Resulted 11/12/17 10:18 Sputum Culture - Preliminary Gram Negative Douglas Resulted 11/12/17 10:18 Urine,Clean Catch Urine Culture - Final Proteus Mirabilis Esbl Complete 11/12/17 11:30 Rectum VRE Culture - Final Enterococcus Faecalis - Vre Complete Intake and Output 11/13/17 11/14/17 19:00 07:00 Intake Total 1148.750 ml 1535 ml Output Total 1000 ml 900 ml Balance 148.750 ml 635 ml IV Total 813.750 ml 1085 ml Tube Feeding 135 ml 300 ml Other 200 ml 150 ml Output Urine Total 1000 ml 900 ml Objective GENERAL: The patient is a well-developed and well-nourished white male, intubated and sedated. HEENT: Eyes, pupils equal and responsive to light and accommodation. Extraocular movements are intact. Tracheostomy is in place. CHEST: Trach; Coarse expiratory wheezes bilaterally without wheezes or rales. CARDIOVASCULAR: Regular rhythm and rate. S1 and S2 are normal without murmurs, rubs, or gallops. ABDOMEN: Soft, nontender, and nondistended. Positive bowel sounds. No evidence of hepatosplenomegaly. Currently, no rebound or guarding noted. EXTREMITIES: Negative for clubbing, cyanosis, or edema. RECTAL/GENITAL: Refused. NEUROLOGICAL: Unable to assess. Assessment/Plan Problem List: (1) Hemoptysis (2) Pneumonia Assessment & Plan: Continue vanco and zosyn per ID (3) Ventilator dependence (4) Atrial fibrillation (5) Tracheostomy dependent Assessment & Plan: See pulmonary note. (6) BPH (benign prostatic hyperplasia) (7) Parkinson disease Assessment & Plan: Continue sinemet (8) Esophageal stricture (9) Dysphagia Assessment & Plan: S/P PEG (10) UTI (urinary tract infection) Assessment & Plan: Gram neg douglas. Await culture results. Cont zosyn for now CHRIS YADAV Nov 14, 2017 15:31
[2017-11-14 16:00] VITALS: BP 111/54
[2017-11-14] MEDS: Albuterol/Ipratropium 3ml neb HHN PRN (16:03)
[2017-11-14 20:00] VITALS: BP 117/51
[2017-11-14] MEDS: Iron Sucrose 100 MG in NS 110 ML IV SCH (21:22)
[2017-11-15] VITALS: BP 121/65
[2017-11-15 04:00] VITALS: BP 126/61
[2017-11-15 05:21] LABS: BASOPHILS % (AUTO) 0.7 % (0.0-2.0); EOSINOPHILS % (AUTO) 4.6 % (0.0-3.0); HEMATOCRIT 27.3 % (42.0-52.0); HEMOGLOBIN 8.8 G/DL (14.2-18.0); LYMPHOCYTES % (AUTO) 18.6 % (20.0-45.0); MEAN CORPUSCULAR VOLUME 96 FL (80-99); MONOCYTES % (AUTO) 8.5 % (1.0-10.0); NEUTROPHILS % (AUTO) 67.5 % (45.0-75.0); PLATELET COUNT 171 K/UL (150-450); RED BLOOD COUNT 2.83 M/UL (4.70-6.10); RED CELL DISTRIBUTION WIDTH 15.2 % (11.6-14.8); WHITE BLOOD COUNT 7.3 K/UL (4.8-10.8)
[2017-11-15] MEDS: Zosyn 3.375gm q8h **Extended infusion IVPB SCH ×4 (05:40→14:14)
[2017-11-15 05:52] LABS: ALANINE AMINOTRANSFERASE 11 U/L (12-78); ALBUMIN 2.4 G/DL (3.4-5.0); ALBUMIN/GLOBULIN RATIO 0.6 (1.0-2.7); ALKALINE PHOSPHATASE 106 U/L (46-116); ANION GAP 6 mmol/L (5-15); ASPARTATE AMINO TRANSFERASE 14 U/L (15-37); BILIRUBIN,TOTAL 0.5 MG/DL (0.2-1.0); BLOOD UREA NITROGEN 10 mg/dL (7-18); CALCIUM 8.2 MG/DL (8.5-10.1); CARBON DIOXIDE 27 MMOL/L (21-32); CHLORIDE 112 MMOL/L (98-107); CREATININE 0.9 MG/DL (0.55-1.30); PHOSPHORUS 2.8 MG/DL (2.5-4.9); SODIUM 145 MMOL/L (136-145)
[2017-11-15 08:00] VITALS: BP 109/48
[2017-11-15] MEDS: Levodopa/Carbidopa 25/100 tab GT SCH ×2 (08:18→18:34)
[2017-11-15] MEDS: Pantoprazole Inj IVP SCH ×2 (08:18→21:06)
[2017-11-15] MEDS: Vancomycin 750mg/NS 250ml IVPB SCH (08:19)
--- NOTE | 2017-11-15 10:03 | Pulmonolgy Critical Care Note ---
Critical Care - Asmt/Plan Problems: (1) Acute on chronic respiratory failure (2) Aspiration pneumonia (3) Tracheostomy care (4) Tracheostomy status (5) Parkinson disease (6) Feeding by G-tube Respiratory: monitor respiratory rate, adjust FIO2, CXR Cardiac: continue to monitor HR/BP Renal: F/U I&O, check electrolytes Gastrointestinal: continue feedings/current rate Endocrine: monitor blood sugar, check HgA1C Hematologic: transfuse if hgb<8.5 Neurologic: PRN Ativan, PRN Morphine, keep patient comfortable Prophylaxis: Protonix, Heparin Notes Reviewed: imaging specialist, cardio, renal Discussed with: nurses, consultants, case hardenermanager msw - Objective Last 24 Hour Vital Signs Date Time Temp Pulse Resp B/P (MAP) Pulse Ox O2 Delivery O2 Flow Rate FiO2 11/15/17 08:00 98.4 79 18 109/48 100 T-piece 7.0 30 98.4 11/15/17 08:00 76 11/15/17 07:50 78 20 T-piece 8.0 30 11/15/17 07:50 96 T-piece 8.0 30 11/15/17 07:50 T-piece 8.0 30 11/15/17 04:00 7.0 30 11/15/17 04:00 80 11/15/17 04:00 98.2 83 24 126/61 99 T-piece 7.0 30 98.2 11/15/17 00:00 98.2 78 24 121/65 99 T-piece 7.0 30 98.2 11/15/17 00:00 7.0 30 11/15/17 00:00 82 11/14/17 23:42 99 T-piece 8.0 30 11/14/17 23:42 T-piece 8.0 30 11/14/17 20:00 7.0 30 11/14/17 20:00 97.9 94 24 117/51 99 T-piece 7.0 30 97.9 11/14/17 19:25 77 11/14/17 19:14 77 20 T-piece 8.0 30 11/14/17 19:14 T-piece 8.0 30 11/14/17 19:14 98 T-piece 8.0 30 11/14/17 16:04 75 20 98 T-piece 8.0 30 11/14/17 16:00 76 11/14/17 16:00 99.5 94 18 111/54 99 T-piece 7.0 30 99.5 11/14/17 16:00 7.0 30 11/14/17 14:19 96 T-piece 8.0 30 11/14/17 14:18 T-piece 8.0 30 11/14/17 12:00 7.0 30 11/14/17 12:00 97.5 73 24 133/48 94 T-piece 7.0 30 97.5 11/14/17 11:36 75 Status: awake Condition: critical Neck: full ROM Heart: HR/BP stable, HR/BP unstable Abdomen: soft, feeding tube Extremities: no C/C/E, edema Decubiti: location Micro: Microbiology Date/Time Source Procedure Growth Status 11/12/17 10:31 Blood Blood Culture - Preliminary NO GROWTH AFTER 48 HOURS Resulted 11/12/17 10:20 Blood Blood Culture - Preliminary NO GROWTH AFTER 48 HOURS Resulted 11/12/17 11:30 Nasal Nares MRSA Culture - Final NO METHICILLIN RESISTANT STAPH AUREUS... Complete 11/12/17 10:18 Sputum Gram Stain - Final Resulted 11/12/17 10:18 Sputum Culture - Preliminary Proteus Mirabilis Enterobacter Aerogenes Usual Upper Respiratory Joaquina Resulted 11/12/17 10:18 Urine,Clean Catch Urine Culture - Final Proteus Mirabilis Esbl Complete 11/12/17 11:30 Rectum VRE Culture - Final Enterococcus Faecalis - Vre Complete Critical Care - Subjective ROS Limited/Unobtainable: No Condition: critical FI02: 30 Sputum Amount: Large Fluids: d5 1/2 NS at 50 cc.hour Tube Feeding Amount: 45 I&O: Intake and Output 11/14/17 11/15/17 19:00 07:00 Intake Total 1050 ml 1960.000 ml Output Total 800 ml 750 ml Balance 250 ml 1210.000 ml Free Water 200 ml 150 ml IV Total 550 ml 1425.000 ml Tube Feeding 300 ml 385 ml Output Urine Total 800 ml 750 ml # Bowel Movements 1 1 CXR: bilateral infiltrate Labs: Laboratory Tests Test 11/14/17 14:00 11/14/17 19:55 11/15/17 03:40 Stool Occult Blood Pending Vancomycin Level Trough 18.7 ug/mL (5.0-12.0) H White Blood Count 7.3 K/UL (4.8-10.8) Red Blood Count 2.83 M/UL (4.70-6.10) L Hemoglobin 8.8 G/DL (14.2-18.0) L Hematocrit 27.3 % (42.0-52.0) L Mean Corpuscular Volume 96 FL (80-99) Mean Corpuscular Hemoglobin 31.0 PG (27.0-31.0) Mean Corpuscular Hemoglobin Concent 32.2 G/DL (32.0-36.0) Red Cell Distribution Width 15.2 % (11.6-14.8) H Platelet Count 171 K/UL (150-450) Mean Platelet Volume 7.9 FL (6.5-10.1) Neutrophils (%) (Auto) 67.5 % (45.0-75.0) Lymphocytes (%) (Auto) 18.6 % (20.0-45.0) L Monocytes (%) (Auto) 8.5 % (1.0-10.0) Eosinophils (%) (Auto) 4.6 % (0.0-3.0) H Basophils (%) (Auto) 0.7 % (0.0-2.0) Sodium Level 145 MMOL/L (136-145) Potassium Level 4.0 MMOL/L (3.5-5.1) Chloride Level 112 MMOL/L (98-107) H Carbon Dioxide Level 27 MMOL/L (21-32) Anion Gap 6 mmol/L (5-15) Blood Urea Nitrogen 10 mg/dL (7-18) Creatinine 0.9 MG/DL (0.55-1.30) Estimat Glomerular Filtration Rate mL/min (>60) Glucose Level 108 MG/DL (74-106) H Calcium Level 8.2 MG/DL (8.5-10.1) L Phosphorus Level 2.8 MG/DL (2.5-4.9) Magnesium Level 1.9 MG/DL (1.8-2.4) Total Bilirubin 0.5 MG/DL (0.2-1.0) Aspartate Amino Transf (AST/SGOT) 14 U/L (15-37) L Alanine Aminotransferase (ALT/SGPT) 11 U/L (12-78) L Alkaline Phosphatase 106 U/L (46-116) Total Protein 6.6 G/DL (6.4-8.2) Albumin 2.4 G/DL (3.4-5.0) L Globulin 4.2 g/dL Albumin/Globulin Ratio 0.6 (1.0-2.7) L Kenneth Shah MD Nov 15, 2017 10:03
[2017-11-15 12:00] VITALS: BP 123/53
--- NOTE | 2017-11-15 14:27 | Infectious Diseases Prog Note ---
Assessment/Plan Assessment/Plan ASSESSMENT: The patient is an 87-year-old male with: Mild leukocytosis, SP Afebrile. Bleeding from the trach ? pneumonia Scx : P Mirabilis and Enerobacter urinary tract infection. ESBL P Mirabilis Dysphagia status post PEG. Parkinson disease. CHF Hypertension. COPD. Status post trach. History of suprapubic catheter. Anemia. BPH. PLAN: change IV vancomycin and Zosyn d# 3 , change to Merrem d# 1 Monitor CBC. Monitor BMP. Monitor for cultures (urine, sputum) Monitor blood culture. Monitor chest x-ray. GI following for? upper gastrointestinal bleed. Subjective Allergies: Coded Allergies: CODEINE (Verified Allergy, Unknown, 05/14/17) Subjective afebrile Objective Vital Signs Last 24 Hour Vital Signs Date Time Temp Pulse Resp B/P (MAP) Pulse Ox O2 Delivery O2 Flow Rate FiO2 11/15/17 13:47 T-piece 8.0 30 11/15/17 13:46 97 T-piece 8.0 30 11/15/17 12:00 7.0 30 11/15/17 08:00 98.4 79 18 109/48 100 T-piece 7.0 30 98.4 11/15/17 08:00 76 11/15/17 08:00 7.0 30 11/15/17 07:50 78 20 T-piece 8.0 30 11/15/17 07:50 96 T-piece 8.0 30 11/15/17 07:50 T-piece 8.0 30 11/15/17 04:00 7.0 30 11/15/17 04:00 80 11/15/17 04:00 98.2 83 24 126/61 99 T-piece 7.0 30 98.2 11/15/17 00:00 98.2 78 24 121/65 99 T-piece 7.0 30 98.2 11/15/17 00:00 7.0 30 11/15/17 00:00 82 11/14/17 23:42 99 T-piece 8.0 30 11/14/17 23:42 T-piece 8.0 30 11/14/17 20:00 7.0 30 11/14/17 20:00 97.9 94 24 117/51 99 T-piece 7.0 30 97.9 11/14/17 19:25 77 11/14/17 19:14 77 20 T-piece 8.0 30 11/14/17 19:14 T-piece 8.0 30 11/14/17 19:14 98 T-piece 8.0 30 11/14/17 16:04 75 20 98 T-piece 8.0 30 11/14/17 16:00 76 11/14/17 16:00 99.5 94 18 111/54 99 T-piece 7.0 30 99.5 11/14/17 16:00 7.0 30 Height (Feet): 6 Height (Inches): 0.00 Weight (Pounds): 219 HEENT: atraumatic Respiratory/Chest: normal breath sounds Cardiovascular: normal rate Abdomen: no organomegaly Laboratory Tests Test 11/14/17 19:55 11/15/17 03:40 Vancomycin Level Trough 18.7 ug/mL (5.0-12.0) H White Blood Count 7.3 K/UL (4.8-10.8) Red Blood Count 2.83 M/UL (4.70-6.10) L Hemoglobin 8.8 G/DL (14.2-18.0) L Hematocrit 27.3 % (42.0-52.0) L Mean Corpuscular Volume 96 FL (80-99) Mean Corpuscular Hemoglobin 31.0 PG (27.0-31.0) Mean Corpuscular Hemoglobin Concent 32.2 G/DL (32.0-36.0) Red Cell Distribution Width 15.2 % (11.6-14.8) H Platelet Count 171 K/UL (150-450) Mean Platelet Volume 7.9 FL (6.5-10.1) Neutrophils (%) (Auto) 67.5 % (45.0-75.0) Lymphocytes (%) (Auto) 18.6 % (20.0-45.0) L Monocytes (%) (Auto) 8.5 % (1.0-10.0) Eosinophils (%) (Auto) 4.6 % (0.0-3.0) H Basophils (%) (Auto) 0.7 % (0.0-2.0) Sodium Level 145 MMOL/L (136-145) Potassium Level 4.0 MMOL/L (3.5-5.1) Chloride Level 112 MMOL/L (98-107) H Carbon Dioxide Level 27 MMOL/L (21-32) Anion Gap 6 mmol/L (5-15) Blood Urea Nitrogen 10 mg/dL (7-18) Creatinine 0.9 MG/DL (0.55-1.30) Estimat Glomerular Filtration Rate mL/min (>60) Glucose Level 108 MG/DL (74-106) H Calcium Level 8.2 MG/DL (8.5-10.1) L Phosphorus Level 2.8 MG/DL (2.5-4.9) Magnesium Level 1.9 MG/DL (1.8-2.4) Total Bilirubin 0.5 MG/DL (0.2-1.0) Aspartate Amino Transf (AST/SGOT) 14 U/L (15-37) L Alanine Aminotransferase (ALT/SGPT) 11 U/L (12-78) L Alkaline Phosphatase 106 U/L (46-116) Total Protein 6.6 G/DL (6.4-8.2) Albumin 2.4 G/DL (3.4-5.0) L Globulin 4.2 g/dL Albumin/Globulin Ratio 0.6 (1.0-2.7) L Current Medications Medications (Trade) Dose Ordered Sig/Polo Route PRN Reason Start Time Stop Time Status Last Admin Dose Admin Acetaminophen (Tylenol) 650 mg Q4H PRN ORAL FEVER 11/12/17 12:45 12/12/17 12:44 Albuterol/ Ipratropium (Albuterol/ Ipratropium) 3 ml Q4H PRN HHN Shortness of Breath 11/12/17 12:45 11/17/17 12:44 11/14/17 16:03 Carbidopa/Levodopa (Sinemet 25/100) 1 tab BID GT 11/12/17 18:00 12/12/17 17:59 11/15/17 08:18 Dextrose (Dextrose 50%) 50 ml STAT PRN IV Hypoglycemia <60 mL/dL 11/12/17 12:45 12/12/17 12:44 Iron Sucrose 100 mg/Sodium Chloride 115 ml @ 460 mls/hr BEDTIME IV 11/13/17 21:00 11/17/17 21:14 11/14/17 21:22 Lorazepam (Ativan 2mg/ml 1ml) 2 mg Q2H PRN IV For Anxiety 11/12/17 12:45 11/19/17 12:44 Morphine Sulfate (Morphine Sulfate) 4 mg Q4H PRN IVP Severe Pain (Pain Scale 7-10) 11/12/17 12:45 11/19/17 12:44 Ondansetron HCl (Zofran) 4 mg Q6H PRN IVP Nausea & Vomiting 11/12/17 12:45 12/12/17 12:44 Pantoprazole (Protonix) 40 mg EVERY 12 HOURS IVP 11/12/17 21:00 12/12/17 20:59 11/15/17 08:18 Piperacillin Sod/ Tazobactam Sod 3.375 gm/Sodium Chloride 110 ml @ 27.5 mls/hr EVERY 8 HOURS IVPB 11/13/17 12:00 11/20/17 11:59 11/15/17 14:14 Polyethylene Glycol (Miralax) 17 gm DAILYPRN PRN ORAL Constipation 11/12/17 12:45 12/12/17 12:44 Sodium Chloride 1,000 ml @ 50 mls/hr Q20H IV 11/13/17 13:00 12/13/17 12:59 11/15/17 02:01 Vancomycin HCl (Vanco rx to dose) 1 ea DAILYPRN PRN MISC RX TO DOSE PROTOCOL 11/12/17 15:00 12/12/17 14:59 Vancomycin/Sodium Chloride 250 ml @ 166.667 mls/hr Q12HR IVPB 11/13/17 21:00 11/18/17 20:59 11/15/17 08:19 Gwyn Veloz MD Nov 15, 2017 14:27
[2017-11-15] MEDS: Albuterol/Ipratropium 3ml neb HHN PRN (14:35)
--- NOTE | 2017-11-15 14:50 | General Progress Note ---
Assessment/Plan Assessment/Plan Assessment (1) Tracheostomy status ICD Codes: Z93.0 - Tracheostomy status SNOMED: 61879685, 223639482 (2) BPH (benign prostatic hyperplasia) ICD Codes: N40.0 - Benign prostatic hyperplasia without lower urinary tract symptoms SNOMED: 237911927 (3) Parkinson disease ICD Codes: G20 - Parkinson's disease SNOMED: 43688957 (4) Dysphagia ICD Codes: R13.10 - Dysphagia, unspecified SNOMED: 36661561, 510708961 (5) Respiratory failure ICD Codes: J96.90 - Respiratory failure, unspecified, unspecified whether with hypoxia or hypercapnia SNOMED: 042584103 (6) Feeding by G-tube ICD Codes: Z93.1 - Gastrostomy status SNOMED: 055914459, 459772461 (7) Anemia ICD Codes: D64.9 - Anemia, unspecified SNOMED: 822881024 Assessment/Plan gtf fu H&H fu stool ob ppi BID GI procedures on hold Subjective Allergies: Coded Allergies: CODEINE (Verified Allergy, Unknown, 05/14/17) Subjective above noted non verbal d/w RN (+) BM tolerating TF Objective Last 24 Hour Vital Signs Date Time Temp Pulse Resp B/P (MAP) Pulse Ox O2 Delivery O2 Flow Rate FiO2 11/15/17 14:45 84 22 100 T-piece 10.0 40 11/15/17 14:30 73 20 98 T-piece 8.0 30 11/15/17 13:47 T-piece 8.0 30 11/15/17 13:46 97 T-piece 8.0 30 11/15/17 12:00 7.0 30 11/15/17 08:00 98.4 79 18 109/48 100 T-piece 7.0 30 98.4 11/15/17 08:00 76 11/15/17 08:00 7.0 30 11/15/17 07:50 78 20 T-piece 8.0 30 11/15/17 07:50 96 T-piece 8.0 30 11/15/17 07:50 T-piece 8.0 30 11/15/17 04:00 7.0 30 11/15/17 04:00 80 11/15/17 04:00 98.2 83 24 126/61 99 T-piece 7.0 30 98.2 11/15/17 00:00 98.2 78 24 121/65 99 T-piece 7.0 30 98.2 11/15/17 00:00 7.0 30 11/15/17 00:00 82 11/14/17 23:42 99 T-piece 8.0 30 11/14/17 23:42 T-piece 8.0 30 11/14/17 20:00 7.0 30 11/14/17 20:00 97.9 94 24 117/51 99 T-piece 7.0 30 97.9 11/14/17 19:25 77 11/14/17 19:14 77 20 T-piece 8.0 30 11/14/17 19:14 T-piece 8.0 30 11/14/17 19:14 98 T-piece 8.0 30 11/14/17 16:04 75 20 98 T-piece 8.0 30 11/14/17 16:00 76 11/14/17 16:00 99.5 94 18 111/54 99 T-piece 7.0 30 99.5 11/14/17 16:00 7.0 30 Intake and Output 11/14/17 11/15/17 19:00 07:00 Intake Total 1050 ml 2077.500 ml Output Total 800 ml 750 ml Balance 250 ml 1327.500 ml Free Water 200 ml 150 ml IV Total 550 ml 1502.500 ml Tube Feeding 300 ml 425 ml Output Urine Total 800 ml 750 ml # Bowel Movements 1 1 Laboratory Tests 11/14/17 19:55: Vancomycin Level Trough 18.7H 11/15/17 03:40: White Blood Count 7.3, Red Blood Count 2.83L, Hemoglobin 8.8L, Hematocrit 27.3L , Mean Corpuscular Volume 96, Mean Corpuscular Hemoglobin 31.0, Mean Corpuscular Hemoglobin Concent 32.2, Red Cell Distribution Width 15.2H, Platelet Count 171, Mean Platelet Volume 7.9, Neutrophils (%) (Auto) 67.5, Lymphocytes (%) (Auto) 18.6L, Monocytes (%) (Auto) 8.5, Eosinophils (%) (Auto) 4.6H, Basophils (%) (Auto) 0.7, Sodium Level 145, Potassium Level 4.0, Chloride Level 112H, Carbon Dioxide Level 27, Anion Gap 6, Blood Urea Nitrogen 10, Creatinine 0.9, Estimat Glomerular Filtration Rate , Glucose Level 108H, Calcium Level 8.2L, Phosphorus Level 2.8, Magnesium Level 1.9, Total Bilirubin 0.5, Aspartate Amino Transf (AST/SGOT) 14L, Alanine Aminotransferase (ALT/SGPT) 11L, Alkaline Phosphatase 106, Total Protein 6.6, Albumin 2.4L, Globulin 4.2, Albumin/Globulin Ratio 0.6L Height (Feet): 6 Height (Inches): 0.00 Weight (Pounds): 219 Objective Debilitated Elderly man NCAT s/p trach Coarse BS RR soft , (+) GT no edema OBS JASPREET BLANCA Nov 15, 2017 14:50
--- NOTE | 2017-11-15 15:56 | Internal Med Progress Note ---
Subjective Date of Service: Nov 15, 2017 Physician Name Chris Yadav Attending Physician Sunil Castillo MD Current Medications Medications (Trade) Dose Ordered Sig/Polo Route PRN Reason Start Time Stop Time Status Last Admin Dose Admin Acetaminophen (Tylenol) 650 mg Q4H PRN ORAL FEVER 11/12/17 12:45 12/12/17 12:44 Albuterol/ Ipratropium (Albuterol/ Ipratropium) 3 ml Q4H PRN HHN Shortness of Breath 11/12/17 12:45 11/17/17 12:44 11/15/17 14:35 Carbidopa/Levodopa (Sinemet 25/100) 1 tab BID GT 11/12/17 18:00 12/12/17 17:59 11/15/17 08:18 Dextrose (Dextrose 50%) 50 ml STAT PRN IV Hypoglycemia <60 mL/dL 11/12/17 12:45 12/12/17 12:44 Iron Sucrose 100 mg/Sodium Chloride 115 ml @ 460 mls/hr BEDTIME IV 11/13/17 21:00 11/17/17 21:14 11/14/17 21:22 Lorazepam (Ativan 2mg/ml 1ml) 2 mg Q2H PRN IV For Anxiety 11/12/17 12:45 11/19/17 12:44 Meropenem 1000 mg/ Sodium Chloride 110 ml @ 220 mls/hr Q8HR@0000,0800,1600 IV 11/15/17 16:00 11/20/17 15:59 Morphine Sulfate (Morphine Sulfate) 4 mg Q4H PRN IVP Severe Pain (Pain Scale 7-10) 11/12/17 12:45 11/19/17 12:44 Ondansetron HCl (Zofran) 4 mg Q6H PRN IVP Nausea & Vomiting 11/12/17 12:45 12/12/17 12:44 Pantoprazole (Protonix) 40 mg EVERY 12 HOURS IVP 11/12/17 21:00 12/12/17 20:59 11/15/17 08:18 Polyethylene Glycol (Miralax) 17 gm DAILYPRN PRN ORAL Constipation 11/12/17 12:45 12/12/17 12:44 Sodium Chloride 1,000 ml @ 50 mls/hr Q20H IV 11/13/17 13:00 12/13/17 12:59 11/15/17 02:01 Allergies: Coded Allergies: CODEINE (Verified Allergy, Unknown, 05/14/17) ROS Limited/Unobtainable: Yes Subjective 87 YO M admitted with hemoptysis. Cover for Int Med-Dr Castillo. SHILPI Objective Last Vital Signs Date Time Temp Pulse Resp B/P (MAP) Pulse Ox O2 Delivery O2 Flow Rate FiO2 11/15/17 14:45 84 22 100 T-piece 10.0 40 11/15/17 12:00 98.2 123/53 98.2 Laboratory Tests Test 11/14/17 19:55 11/15/17 03:40 Vancomycin Level Trough 18.7 ug/mL (5.0-12.0) H White Blood Count 7.3 K/UL (4.8-10.8) Red Blood Count 2.83 M/UL (4.70-6.10) L Hemoglobin 8.8 G/DL (14.2-18.0) L Hematocrit 27.3 % (42.0-52.0) L Mean Corpuscular Volume 96 FL (80-99) Mean Corpuscular Hemoglobin 31.0 PG (27.0-31.0) Mean Corpuscular Hemoglobin Concent 32.2 G/DL (32.0-36.0) Red Cell Distribution Width 15.2 % (11.6-14.8) H Platelet Count 171 K/UL (150-450) Mean Platelet Volume 7.9 FL (6.5-10.1) Neutrophils (%) (Auto) 67.5 % (45.0-75.0) Lymphocytes (%) (Auto) 18.6 % (20.0-45.0) L Monocytes (%) (Auto) 8.5 % (1.0-10.0) Eosinophils (%) (Auto) 4.6 % (0.0-3.0) H Basophils (%) (Auto) 0.7 % (0.0-2.0) Sodium Level 145 MMOL/L (136-145) Potassium Level 4.0 MMOL/L (3.5-5.1) Chloride Level 112 MMOL/L (98-107) H Carbon Dioxide Level 27 MMOL/L (21-32) Anion Gap 6 mmol/L (5-15) Blood Urea Nitrogen 10 mg/dL (7-18) Creatinine 0.9 MG/DL (0.55-1.30) Estimat Glomerular Filtration Rate mL/min (>60) Glucose Level 108 MG/DL (74-106) H Calcium Level 8.2 MG/DL (8.5-10.1) L Phosphorus Level 2.8 MG/DL (2.5-4.9) Magnesium Level 1.9 MG/DL (1.8-2.4) Total Bilirubin 0.5 MG/DL (0.2-1.0) Aspartate Amino Transf (AST/SGOT) 14 U/L (15-37) L Alanine Aminotransferase (ALT/SGPT) 11 U/L (12-78) L Alkaline Phosphatase 106 U/L (46-116) Total Protein 6.6 G/DL (6.4-8.2) Albumin 2.4 G/DL (3.4-5.0) L Globulin 4.2 g/dL Albumin/Globulin Ratio 0.6 (1.0-2.7) L Intake and Output 11/14/17 11/15/17 19:00 07:00 Intake Total 1050 ml 2077.500 ml Output Total 800 ml 750 ml Balance 250 ml 1327.500 ml Free Water 200 ml 150 ml IV Total 550 ml 1502.500 ml Tube Feeding 300 ml 425 ml Output Urine Total 800 ml 750 ml # Bowel Movements 1 1 Objective GENERAL: The patient is a well-developed and well-nourished white male, intubated and sedated. HEENT: Eyes, pupils equal and responsive to light and accommodation. Extraocular movements are intact. Tracheostomy is in place. CHEST: Trach; Coarse expiratory wheezes bilaterally without wheezes or rales. CARDIOVASCULAR: Regular rhythm and rate. S1 and S2 are normal without murmurs, rubs, or gallops. ABDOMEN: Soft, nontender, and nondistended. Positive bowel sounds. No evidence of hepatosplenomegaly. Currently, no rebound or guarding noted. EXTREMITIES: Negative for clubbing, cyanosis, or edema. RECTAL/GENITAL: Refused. NEUROLOGICAL: Unable to assess. Assessment/Plan Problem List: (1) Hemoptysis (2) Pneumonia Assessment & Plan: Continue vanco and zosyn per ID (3) Ventilator dependence (4) Atrial fibrillation (5) Tracheostomy dependent Assessment & Plan: See pulmonary note. (6) BPH (benign prostatic hyperplasia) (7) Parkinson disease Assessment & Plan: Continue sinemet (8) Esophageal stricture (9) Dysphagia Assessment & Plan: S/P PEG (10) UTI (urinary tract infection) Assessment & Plan: ESBL proteus. Cont meropenem per ID Status: not improved CHRIS YADAV Nov 15, 2017 15:56
[2017-11-15 16:00] VITALS: BP 114/50
[2017-11-15] MEDS ORDERED: Meropenem 1 GM in NS 110 ML IVPB SCH (18:00)
[2017-11-15] MEDS: MEROPENEM IV SCH (18:34)
[2017-11-15] MEDS: NS IV SCH (18:34)
[2017-11-15] MEDS: Albuterol/Ipratropium 3ml neb HHN SCH (18:45)
[2017-11-15 20:00] VITALS: BP 112/61
[2017-11-15] MEDS: Iron Sucrose 100 MG in NS 110 ML IV SCH (21:06)
[2017-11-16] VITALS: BP 117/55
[2017-11-16] MEDS: MEROPENEM IV SCH (00:16)
[2017-11-16] MEDS: NS IV SCH (00:16)
[2017-11-16] MEDS: Albuterol/Ipratropium 3ml neb HHN SCH ×4 (01:07→18:38)
[2017-11-16 04:00] VITALS: BP 121/64
[2017-11-16 04:17] LABS: BASOPHILS % (AUTO) 1.1 % (0.0-2.0); EOSINOPHILS % (AUTO) 4.2 % (0.0-3.0); HEMATOCRIT 25.7 % (42.0-52.0); HEMOGLOBIN 8.3 G/DL (14.2-18.0); LYMPHOCYTES % (AUTO) 15.8 % (20.0-45.0); MEAN CORPUSCULAR VOLUME 96 FL (80-99); MONOCYTES % (AUTO) 10.6 % (1.0-10.0); NEUTROPHILS % (AUTO) 68.5 % (45.0-75.0); PLATELET COUNT 160 K/UL (150-450); RED BLOOD COUNT 2.68 M/UL (4.70-6.10); RED CELL DISTRIBUTION WIDTH 15.3 % (11.6-14.8); WHITE BLOOD COUNT 6.5 K/UL (4.8-10.8)
[2017-11-16 04:41] LABS: ALANINE AMINOTRANSFERASE 12 U/L (12-78); ALBUMIN 2.2 G/DL (3.4-5.0); ALBUMIN/GLOBULIN RATIO 0.6 (1.0-2.7); ALKALINE PHOSPHATASE 97 U/L (46-116); ANION GAP 8 mmol/L (5-15); ASPARTATE AMINO TRANSFERASE 13 U/L (15-37); BILIRUBIN,TOTAL 0.3 MG/DL (0.2-1.0); BLOOD UREA NITROGEN 7 mg/dL (7-18); CALCIUM 7.9 MG/DL (8.5-10.1); CARBON DIOXIDE 24 MMOL/L (21-32); CHLORIDE 110 MMOL/L (98-107); CREATININE 0.9 MG/DL (0.55-1.30); POTASSIUM 3.4 MMOL/L (3.5-5.1); SODIUM 142 MMOL/L (136-145)
[2017-11-16 08:00] VITALS: BP 121/57
[2017-11-16] MEDS ORDERED: Meropenem 1gm/NS 110ml IVPB ONE ×2 (08:00)
[2017-11-16] MEDS: Levodopa/Carbidopa 25/100 tab GT SCH ×2 (09:00→18:37)
[2017-11-16] MEDS: Pantoprazole Inj IVP SCH ×2 (09:00→21:20)
--- NOTE | 2017-11-16 10:44 | GI Progress Note ---
Assessment/Plan Problems: (1) Dysphagia ICD Codes: R13.10 - Dysphagia, unspecified SNOMED: 61611695, 035902188 (2) Esophageal stricture ICD Codes: K22.2 - Esophageal obstruction SNOMED: 71573969 (3) Parkinson disease ICD Codes: G20 - Parkinson's disease SNOMED: 79821652 (4) Feeding by G-tube ICD Codes: Z93.1 - Gastrostomy status SNOMED: 508019755, 916634535 (5) Abdominal distention ICD Codes: R14.0 - Abdominal distension (gaseous) SNOMED: 05154689 Status: stable Status Narrative Discussed with Dr. Herbert. Assessment/Plan OB stool positive, send additional H&H, downtrending GTFs per RD GT site care daily/prn prn transfusions ppi BID defer GI procedures at this this time fu labs Subjective Subjective limited Objective Last 24 Hour Vital Signs Date Time Temp Pulse Resp B/P (MAP) Pulse Ox O2 Delivery O2 Flow Rate FiO2 11/16/17 08:00 7.0 30 11/16/17 08:00 80 11/16/17 08:00 98.2 81 20 121/57 97 T-piece 7.0 30 98.2 11/16/17 07:00 73 20 99 T-piece 8.0 30 11/16/17 06:54 99 T-piece 8.0 30 11/16/17 06:54 T-piece 8.0 30 11/16/17 06:54 73 20 T-piece 8.0 30 11/16/17 06:52 73 20 99 T-piece 8.0 30 11/16/17 04:00 97.3 79 20 121/64 99 T-piece 7.0 30 97.3 11/16/17 04:00 75 11/16/17 04:00 7.0 30 11/16/17 01:13 77 22 99 T-piece 10.0 40 11/16/17 01:06 72 20 99 T-piece 8.0 30 11/16/17 01:05 T-piece 8.0 30 11/16/17 01:05 99 T-piece 8.0 30 11/16/17 00:00 98.1 82 20 117/55 99 T-piece 7.0 30 98.1 11/16/17 00:00 7.0 30 11/15/17 23:51 73 11/15/17 20:00 97.3 81 18 112/61 99 T-piece 7.0 30 97.3 11/15/17 20:00 7.0 30 11/15/17 19:37 83 11/15/17 18:58 81 22 99 T-piece 10.0 40 11/15/17 18:47 74 20 98 T-piece 8.0 30 11/15/17 18:46 98 T-piece 8.0 30 11/15/17 18:46 T-piece 8.0 30 11/15/17 18:46 74 20 T-piece 8.0 30 11/15/17 16:49 81 11/15/17 16:00 98.2 83 18 114/50 100 T-piece 7.0 30 98.2 11/15/17 16:00 7.0 30 11/15/17 14:45 84 22 100 T-piece 10.0 40 11/15/17 14:30 73 20 98 T-piece 8.0 30 11/15/17 13:47 T-piece 8.0 30 11/15/17 13:46 97 T-piece 8.0 30 11/15/17 12:00 80 11/15/17 12:00 7.0 30 11/15/17 12:00 98.2 84 16 123/53 100 T-piece 7.0 30 98.2 Intake and Output 11/15/17 11/16/17 19:00 07:00 Intake Total 983.334 ml 1532.5 ml Output Total 850 ml 700 ml Balance 133.334 ml 832.5 ml Free Water 100 ml IV Total 638.334 ml 872.5 ml Tube Feeding 245 ml 660 ml Output Urine Total 850 ml 700 ml Laboratory Tests Test 11/16/17 03:40 White Blood Count 6.5 K/UL (4.8-10.8) Red Blood Count 2.68 M/UL (4.70-6.10) L Hemoglobin 8.3 G/DL (14.2-18.0) L Hematocrit 25.7 % (42.0-52.0) L Mean Corpuscular Volume 96 FL (80-99) Mean Corpuscular Hemoglobin 30.8 PG (27.0-31.0) Mean Corpuscular Hemoglobin Concent 32.1 G/DL (32.0-36.0) Red Cell Distribution Width 15.3 % (11.6-14.8) H Platelet Count 160 K/UL (150-450) Mean Platelet Volume 7.9 FL (6.5-10.1) Neutrophils (%) (Auto) 68.5 % (45.0-75.0) Lymphocytes (%) (Auto) 15.8 % (20.0-45.0) L Monocytes (%) (Auto) 10.6 % (1.0-10.0) H Eosinophils (%) (Auto) 4.2 % (0.0-3.0) H Basophils (%) (Auto) 1.1 % (0.0-2.0) Sodium Level 142 MMOL/L (136-145) Potassium Level 3.4 MMOL/L (3.5-5.1) L Chloride Level 110 MMOL/L (98-107) H Carbon Dioxide Level 24 MMOL/L (21-32) Anion Gap 8 mmol/L (5-15) Blood Urea Nitrogen 7 mg/dL (7-18) Creatinine 0.9 MG/DL (0.55-1.30) Estimat Glomerular Filtration Rate mL/min (>60) Glucose Level 109 MG/DL (74-106) H Calcium Level 7.9 MG/DL (8.5-10.1) L Total Bilirubin 0.3 MG/DL (0.2-1.0) Aspartate Amino Transf (AST/SGOT) 13 U/L (15-37) L Alanine Aminotransferase (ALT/SGPT) 12 U/L (12-78) Alkaline Phosphatase 97 U/L (46-116) Pro-B-Type Natriuretic Peptide 1443 pg/mL (0-125) H Total Protein 6.2 G/DL (6.4-8.2) L Albumin 2.2 G/DL (3.4-5.0) L Globulin 4.0 g/dL Albumin/Globulin Ratio 0.6 (1.0-2.7) L Height (Feet): 6 Height (Inches): 0.00 Weight (Pounds): 218 General Appearance: no apparent distress Cardiovascular: normal rate Respiratory/Chest: other - mech vent Abdominal Exam: GT site - c/d/i Emma Ortiz N.P. Nov 16, 2017 10:44
--- NOTE | 2017-11-16 10:56 | Diagnostic Imaging Report ---
Indication: Dyspnea Comparison: 11/14/2017 A single view chest radiograph was obtained. Findings: Worsening interstitial edema demonstrated with prominent vascularity. Lung volumes are low. Basilar effusions are present. Bones are osteopenic. Tracheostomy is present. IMPRESSION: Worsening interstitial edema
--- NOTE | 2017-11-16 11:02 | Pulmonology Progress Note ---
Assessment/Plan Problems: (1) Acute on chronic respiratory failure (2) Aspiration pneumonia (3) Hematemesis (4) Chronic respiratory failure (5) Afib (6) Parkinson disease (7) Tracheostomy dependent (8) Feeding by G-tube (9) Anemia Assessment/Plan was febrie check sputum continue abx check cultures on Zosyn and vancomycin feeding started no bleeding check cxr in a few days d/w caregiver at the bed site. Subjective Constitutional: Reports: no symptoms HEENT: Repors: no symptoms Respiratory: Reports: no symptoms Allergies: Coded Allergies: CODEINE (Verified Allergy, Unknown, 05/14/17) Objective Last 24 Hour Vital Signs Date Time Temp Pulse Resp B/P (MAP) Pulse Ox O2 Delivery O2 Flow Rate FiO2 11/16/17 08:00 7.0 30 11/16/17 08:00 80 11/16/17 08:00 98.2 81 20 121/57 97 T-piece 7.0 30 98.2 11/16/17 07:00 73 20 99 T-piece 8.0 30 11/16/17 06:54 99 T-piece 8.0 30 11/16/17 06:54 T-piece 8.0 30 11/16/17 06:54 73 20 T-piece 8.0 30 11/16/17 06:52 73 20 99 T-piece 8.0 30 11/16/17 04:00 97.3 79 20 121/64 99 T-piece 7.0 30 97.3 11/16/17 04:00 75 11/16/17 04:00 7.0 30 11/16/17 01:13 77 22 99 T-piece 10.0 40 11/16/17 01:06 72 20 99 T-piece 8.0 30 11/16/17 01:05 T-piece 8.0 30 11/16/17 01:05 99 T-piece 8.0 30 11/16/17 00:00 98.1 82 20 117/55 99 T-piece 7.0 30 98.1 11/16/17 00:00 7.0 30 11/15/17 23:51 73 11/15/17 20:00 97.3 81 18 112/61 99 T-piece 7.0 30 97.3 11/15/17 20:00 7.0 30 11/15/17 19:37 83 11/15/17 18:58 81 22 99 T-piece 10.0 40 11/15/17 18:47 74 20 98 T-piece 8.0 30 11/15/17 18:46 98 T-piece 8.0 30 11/15/17 18:46 T-piece 8.0 30 11/15/17 18:46 74 20 T-piece 8.0 30 11/15/17 16:49 81 11/15/17 16:00 98.2 83 18 114/50 100 T-piece 7.0 30 98.2 11/15/17 16:00 7.0 30 11/15/17 14:45 84 22 100 T-piece 10.0 40 11/15/17 14:30 73 20 98 T-piece 8.0 30 11/15/17 13:47 T-piece 8.0 30 11/15/17 13:46 97 T-piece 8.0 30 11/15/17 12:00 80 11/15/17 12:00 7.0 30 11/15/17 12:00 98.2 84 16 123/53 100 T-piece 7.0 30 98.2 Intake and Output 11/15/17 11/16/17 19:00 07:00 Intake Total 983.334 ml 1532.5 ml Output Total 850 ml 700 ml Balance 133.334 ml 832.5 ml Free Water 100 ml IV Total 638.334 ml 872.5 ml Tube Feeding 245 ml 660 ml Output Urine Total 850 ml 700 ml General Appearance: WD/WN HEENT: normocephalic, atraumatic Respiratory/Chest: chest wall non-tender, normal breath sounds Cardiovascular: normal peripheral pulses, normal rate Abdomen: normal bowel sounds, soft, non tender Genitourinary: normal external genitalia Extremities: no cyanosis Laboratory Tests 11/16/17 03:40: White Blood Count 6.5, Red Blood Count 2.68L, Hemoglobin 8.3L, Hematocrit 25.7L , Mean Corpuscular Volume 96, Mean Corpuscular Hemoglobin 30.8, Mean Corpuscular Hemoglobin Concent 32.1, Red Cell Distribution Width 15.3H, Platelet Count 160, Mean Platelet Volume 7.9, Neutrophils (%) (Auto) 68.5, Lymphocytes (%) (Auto) 15.8L, Monocytes (%) (Auto) 10.6H, Eosinophils (%) (Auto ) 4.2H, Basophils (%) (Auto) 1.1, Sodium Level 142, Potassium Level 3.4L, Chloride Level 110H, Carbon Dioxide Level 24, Anion Gap 8, Blood Urea Nitrogen 7 , Creatinine 0.9, Estimat Glomerular Filtration Rate , Glucose Level 109H, Calcium Level 7.9L, Total Bilirubin 0.3, Aspartate Amino Transf (AST/SGOT) 13L, Alanine Aminotransferase (ALT/SGPT) 12, Alkaline Phosphatase 97, Pro-B-Type Natriuretic Peptide 1443H, Total Protein 6.2L, Albumin 2.2L, Globulin 4.0, Albumin/Globulin Ratio 0.6L Current Medications Medications (Trade) Dose Ordered Sig/Polo Route PRN Reason Start Time Stop Time Status Last Admin Dose Admin Acetaminophen (Tylenol) 650 mg Q4H PRN ORAL FEVER 11/12/17 12:45 12/12/17 12:44 Albuterol/ Ipratropium (Albuterol/ Ipratropium) 3 ml Q6HRT HHN 11/15/17 19:00 11/20/17 18:59 11/16/17 06:52 Carbidopa/Levodopa (Sinemet 25/100) 1 tab BID GT 11/12/17 18:00 12/12/17 17:59 11/16/17 09:00 Dextrose (Dextrose 50%) 50 ml STAT PRN IV Hypoglycemia <60 mL/dL 11/12/17 12:45 12/12/17 12:44 Iron Sucrose 100 mg/Sodium Chloride 115 ml @ 460 mls/hr BEDTIME IV 11/13/17 21:00 11/17/17 21:14 11/15/17 21:06 Lorazepam (Ativan 2mg/ml 1ml) 2 mg Q2H PRN IV For Anxiety 11/12/17 12:45 11/19/17 12:44 Meropenem 1000 mg/ Sodium Chloride 110 ml @ 220 mls/hr Q8HR@0000,0800,1600 IV 11/16/17 16:00 11/21/17 15:59 Morphine Sulfate (Morphine Sulfate) 4 mg Q4H PRN IVP Severe Pain (Pain Scale 7-10) 11/12/17 12:45 11/19/17 12:44 Ondansetron HCl (Zofran) 4 mg Q6H PRN IVP Nausea & Vomiting 11/12/17 12:45 12/12/17 12:44 Pantoprazole (Protonix) 40 mg EVERY 12 HOURS IVP 11/12/17 21:00 12/12/17 20:59 11/16/17 09:00 Polyethylene Glycol (Miralax) 17 gm DAILYPRN PRN ORAL Constipation 11/12/17 12:45 12/12/17 12:44 Sodium Chloride 1,000 ml @ 50 mls/hr Q20H IV 11/13/17 13:00 12/13/17 12:59 11/16/17 01:15 Kenneth Shah MD Nov 16, 2017 11:01
[2017-11-16 12:00] VITALS: BP 141/59
[2017-11-16 16:00] VITALS: BP 120/59
[2017-11-16] MEDS: Meropenem 1 GM in NS 110 ML IV SCH (16:16)
--- NOTE | 2017-11-16 18:05 | Infectious Diseases Prog Note ---
Assessment/Plan Assessment/Plan ASSESSMENT: The patient is an 87-year-old male with: Mild leukocytosis, SP Afebrile. Bleeding from the trach ? pneumonia Scx : P Mirabilis and Enerobacter urinary tract infection. ESBL P Mirabilis Dysphagia status post PEG. Parkinson disease. CHF Hypertension. COPD. Status post trach. History of suprapubic catheter. Anemia. BPH. PLAN: change Merrem d# 2 / 10 , upon DC will change to Invanz to complete the course 11/16 SP IV vancomycin and Zosyn d# 3 Monitor CBC. Monitor BMP Monitor blood culture. Monitor chest x-ray. GI following for? upper gastrointestinal bleed. Subjective Allergies: Coded Allergies: CODEINE (Verified Allergy, Unknown, 05/14/17) Subjective afebrile Objective Vital Signs Last 24 Hour Vital Signs Date Time Temp Pulse Resp B/P (MAP) Pulse Ox O2 Delivery O2 Flow Rate FiO2 11/16/17 16:00 98.3 82 21 120/59 99 T-piece 10.0 40 98.3 11/16/17 16:00 10.0 40 11/16/17 13:16 76 20 99 T-piece 8.0 30 11/16/17 13:09 T-piece 8.0 30 11/16/17 13:09 97 T-piece 8.0 30 11/16/17 13:05 76 20 97 T-piece 8.0 30 11/16/17 12:00 81 11/16/17 12:00 98.4 83 20 141/59 98 T-piece 7.0 30 98.4 11/16/17 12:00 7.0 30 11/16/17 08:00 7.0 30 11/16/17 08:00 80 11/16/17 08:00 98.2 81 20 121/57 97 T-piece 7.0 30 98.2 11/16/17 07:00 73 20 99 T-piece 8.0 30 11/16/17 06:54 99 T-piece 8.0 30 11/16/17 06:54 T-piece 8.0 30 11/16/17 06:54 73 20 T-piece 8.0 30 11/16/17 06:52 73 20 99 T-piece 8.0 30 11/16/17 04:00 97.3 79 20 121/64 99 T-piece 7.0 30 97.3 11/16/17 04:00 75 11/16/17 04:00 7.0 30 11/16/17 01:13 77 22 99 T-piece 10.0 40 11/16/17 01:06 72 20 99 T-piece 8.0 30 11/16/17 01:05 T-piece 8.0 30 11/16/17 01:05 99 T-piece 8.0 30 11/16/17 00:00 98.1 82 20 117/55 99 T-piece 7.0 30 98.1 11/16/17 00:00 7.0 30 11/15/17 23:51 73 11/15/17 20:00 97.3 81 18 112/61 99 T-piece 7.0 30 97.3 11/15/17 20:00 7.0 30 11/15/17 19:37 83 11/15/17 18:58 81 22 99 T-piece 10.0 40 11/15/17 18:47 74 20 98 T-piece 8.0 30 11/15/17 18:46 98 T-piece 8.0 30 11/15/17 18:46 T-piece 8.0 30 11/15/17 18:46 74 20 T-piece 8.0 30 Height (Feet): 6 Height (Inches): 0.00 Weight (Pounds): 218 HEENT: atraumatic Respiratory/Chest: no accessory muscle use Cardiovascular: regularly irregular Laboratory Tests Test 11/16/17 03:40 White Blood Count 6.5 K/UL (4.8-10.8) Red Blood Count 2.68 M/UL (4.70-6.10) L Hemoglobin 8.3 G/DL (14.2-18.0) L Hematocrit 25.7 % (42.0-52.0) L Mean Corpuscular Volume 96 FL (80-99) Mean Corpuscular Hemoglobin 30.8 PG (27.0-31.0) Mean Corpuscular Hemoglobin Concent 32.1 G/DL (32.0-36.0) Red Cell Distribution Width 15.3 % (11.6-14.8) H Platelet Count 160 K/UL (150-450) Mean Platelet Volume 7.9 FL (6.5-10.1) Neutrophils (%) (Auto) 68.5 % (45.0-75.0) Lymphocytes (%) (Auto) 15.8 % (20.0-45.0) L Monocytes (%) (Auto) 10.6 % (1.0-10.0) H Eosinophils (%) (Auto) 4.2 % (0.0-3.0) H Basophils (%) (Auto) 1.1 % (0.0-2.0) Sodium Level 142 MMOL/L (136-145) Potassium Level 3.4 MMOL/L (3.5-5.1) L Chloride Level 110 MMOL/L (98-107) H Carbon Dioxide Level 24 MMOL/L (21-32) Anion Gap 8 mmol/L (5-15) Blood Urea Nitrogen 7 mg/dL (7-18) Creatinine 0.9 MG/DL (0.55-1.30) Estimat Glomerular Filtration Rate mL/min (>60) Glucose Level 109 MG/DL (74-106) H Calcium Level 7.9 MG/DL (8.5-10.1) L Total Bilirubin 0.3 MG/DL (0.2-1.0) Aspartate Amino Transf (AST/SGOT) 13 U/L (15-37) L Alanine Aminotransferase (ALT/SGPT) 12 U/L (12-78) Alkaline Phosphatase 97 U/L (46-116) Pro-B-Type Natriuretic Peptide 1443 pg/mL (0-125) H Total Protein 6.2 G/DL (6.4-8.2) L Albumin 2.2 G/DL (3.4-5.0) L Globulin 4.0 g/dL Albumin/Globulin Ratio 0.6 (1.0-2.7) L Current Medications Medications (Trade) Dose Ordered Sig/Polo Route PRN Reason Start Time Stop Time Status Last Admin Dose Admin Acetaminophen (Tylenol) 650 mg Q4H PRN ORAL FEVER 11/12/17 12:45 12/12/17 12:44 Albuterol/ Ipratropium (Albuterol/ Ipratropium) 3 ml Q6HRT HHN 11/15/17 19:00 11/20/17 18:59 11/16/17 13:05 Carbidopa/Levodopa (Sinemet 25/100) 1 tab BID GT 11/12/17 18:00 12/12/17 17:59 11/16/17 09:00 Dextrose (Dextrose 50%) 50 ml STAT PRN IV Hypoglycemia <60 mL/dL 11/12/17 12:45 12/12/17 12:44 Iron Sucrose 100 mg/Sodium Chloride 115 ml @ 460 mls/hr BEDTIME IV 11/13/17 21:00 11/17/17 21:14 11/15/17 21:06 Lorazepam (Ativan 2mg/ml 1ml) 2 mg Q2H PRN IV For Anxiety 11/12/17 12:45 11/19/17 12:44 Meropenem 1 gm/ Sodium Chloride 110 ml @ 220 mls/hr Q8HR@0000,0800,1600 IV 11/16/17 16:00 11/21/17 15:59 11/16/17 16:16 Morphine Sulfate (Morphine Sulfate) 4 mg Q4H PRN IVP Severe Pain (Pain Scale 7-10) 11/12/17 12:45 11/19/17 12:44 Ondansetron HCl (Zofran) 4 mg Q6H PRN IVP Nausea & Vomiting 11/12/17 12:45 12/12/17 12:44 Pantoprazole (Protonix) 40 mg EVERY 12 HOURS IVP 11/12/17 21:00 12/12/17 20:59 11/16/17 09:00 Polyethylene Glycol (Miralax) 17 gm DAILYPRN PRN ORAL Constipation 11/12/17 12:45 12/12/17 12:44 Sodium Chloride 1,000 ml @ 50 mls/hr Q20H IV 11/13/17 13:00 12/13/17 12:59 11/16/17 01:15 Gwyn Veloz MD Nov 16, 2017 18:05
[2017-11-16 20:00] VITALS: BP 133/60
--- NOTE | 2017-11-16 20:14 | Internal Med Progress Note ---
Subjective Date of Service: Nov 16, 2017 Physician Name Chris Yadav Attending Physician Sunil Castillo MD Current Medications Medications (Trade) Dose Ordered Sig/Polo Route PRN Reason Start Time Stop Time Status Last Admin Dose Admin Acetaminophen (Tylenol) 650 mg Q4H PRN ORAL FEVER 11/12/17 12:45 12/12/17 12:44 Albuterol/ Ipratropium (Albuterol/ Ipratropium) 3 ml Q6HRT HHN 11/15/17 19:00 11/20/17 18:59 11/16/17 18:38 Carbidopa/Levodopa (Sinemet 25/100) 1 tab BID GT 11/12/17 18:00 12/12/17 17:59 11/16/17 18:37 Dextrose (Dextrose 50%) 50 ml STAT PRN IV Hypoglycemia <60 mL/dL 11/12/17 12:45 12/12/17 12:44 Iron Sucrose 100 mg/Sodium Chloride 115 ml @ 460 mls/hr BEDTIME IV 11/13/17 21:00 11/17/17 21:14 11/15/17 21:06 Lorazepam (Ativan 2mg/ml 1ml) 2 mg Q2H PRN IV For Anxiety 11/12/17 12:45 11/19/17 12:44 Meropenem 1 gm/ Sodium Chloride 110 ml @ 220 mls/hr Q8HR@0000,0800,1600 IV 11/16/17 16:00 11/21/17 15:59 11/16/17 16:16 Morphine Sulfate (Morphine Sulfate) 4 mg Q4H PRN IVP Severe Pain (Pain Scale 7-10) 11/12/17 12:45 11/19/17 12:44 Ondansetron HCl (Zofran) 4 mg Q6H PRN IVP Nausea & Vomiting 11/12/17 12:45 12/12/17 12:44 Pantoprazole (Protonix) 40 mg EVERY 12 HOURS IVP 11/12/17 21:00 12/12/17 20:59 11/16/17 09:00 Polyethylene Glycol (Miralax) 17 gm DAILYPRN PRN ORAL Constipation 11/12/17 12:45 12/12/17 12:44 Sodium Chloride 1,000 ml @ 50 mls/hr Q20H IV 11/13/17 13:00 12/13/17 12:59 11/16/17 01:15 Allergies: Coded Allergies: CODEINE (Verified Allergy, Unknown, 05/14/17) ROS Limited/Unobtainable: Yes Subjective 87 YO M admitted with hemoptysis. Cover for Int Med-Dr Castillo. SHILPI Objective Last Vital Signs Date Time Temp Pulse Resp B/P (MAP) Pulse Ox O2 Delivery O2 Flow Rate FiO2 11/16/17 18:49 78 22 96 T-piece 8.0 30 11/16/17 16:00 98.3 120/59 98.3 Laboratory Tests Test 11/16/17 03:40 White Blood Count 6.5 K/UL (4.8-10.8) Red Blood Count 2.68 M/UL (4.70-6.10) L Hemoglobin 8.3 G/DL (14.2-18.0) L Hematocrit 25.7 % (42.0-52.0) L Mean Corpuscular Volume 96 FL (80-99) Mean Corpuscular Hemoglobin 30.8 PG (27.0-31.0) Mean Corpuscular Hemoglobin Concent 32.1 G/DL (32.0-36.0) Red Cell Distribution Width 15.3 % (11.6-14.8) H Platelet Count 160 K/UL (150-450) Mean Platelet Volume 7.9 FL (6.5-10.1) Neutrophils (%) (Auto) 68.5 % (45.0-75.0) Lymphocytes (%) (Auto) 15.8 % (20.0-45.0) L Monocytes (%) (Auto) 10.6 % (1.0-10.0) H Eosinophils (%) (Auto) 4.2 % (0.0-3.0) H Basophils (%) (Auto) 1.1 % (0.0-2.0) Sodium Level 142 MMOL/L (136-145) Potassium Level 3.4 MMOL/L (3.5-5.1) L Chloride Level 110 MMOL/L (98-107) H Carbon Dioxide Level 24 MMOL/L (21-32) Anion Gap 8 mmol/L (5-15) Blood Urea Nitrogen 7 mg/dL (7-18) Creatinine 0.9 MG/DL (0.55-1.30) Estimat Glomerular Filtration Rate mL/min (>60) Glucose Level 109 MG/DL (74-106) H Calcium Level 7.9 MG/DL (8.5-10.1) L Total Bilirubin 0.3 MG/DL (0.2-1.0) Aspartate Amino Transf (AST/SGOT) 13 U/L (15-37) L Alanine Aminotransferase (ALT/SGPT) 12 U/L (12-78) Alkaline Phosphatase 97 U/L (46-116) Pro-B-Type Natriuretic Peptide 1443 pg/mL (0-125) H Total Protein 6.2 G/DL (6.4-8.2) L Albumin 2.2 G/DL (3.4-5.0) L Globulin 4.0 g/dL Albumin/Globulin Ratio 0.6 (1.0-2.7) L Intake and Output 11/15/17 11/16/17 19:00 07:00 Intake Total 983.334 ml 1532.5 ml Output Total 850 ml 700 ml Balance 133.334 ml 832.5 ml Free Water 100 ml IV Total 638.334 ml 872.5 ml Tube Feeding 245 ml 660 ml Output Urine Total 850 ml 700 ml Objective GENERAL: The patient is a well-developed and well-nourished white male, intubated and sedated. HEENT: Eyes, pupils equal and responsive to light and accommodation. Extraocular movements are intact. Tracheostomy is in place. CHEST: Trach; Coarse expiratory wheezes bilaterally without wheezes or rales. CARDIOVASCULAR: Regular rhythm and rate. S1 and S2 are normal without murmurs, rubs, or gallops. ABDOMEN: Soft, nontender, and nondistended. Positive bowel sounds. No evidence of hepatosplenomegaly. Currently, no rebound or guarding noted. EXTREMITIES: Negative for clubbing, cyanosis, or edema. RECTAL/GENITAL: Refused. NEUROLOGICAL: Unable to assess. Assessment/Plan Problem List: (1) Hemoptysis (2) Pneumonia Assessment & Plan: Continue vanco and zosyn per ID (3) Ventilator dependence (4) Atrial fibrillation (5) Tracheostomy dependent Assessment & Plan: See pulmonary note. (6) BPH (benign prostatic hyperplasia) (7) Parkinson disease Assessment & Plan: Continue sinemet (8) Esophageal stricture (9) Dysphagia Assessment & Plan: S/P PEG (10) UTI (urinary tract infection) Assessment & Plan: ESBL proteus. Cont meropenem per ID Status: not improved Assessment/Plan D/W at bedside CHRIS YADAV Nov 16, 2017 20:14
[2017-11-16] MEDS: Iron Sucrose 100 MG in NS 110 ML IV SCH (21:12)
--- NOTE | 2017-11-16 22:46 | Consultation ---
History of Present Illness General Date patient seen: Nov 15, 2017 Chief Complaint: General Complaint Referring physician: Dr. Castillo Reason for Consultation: dyspnea Present Illness HPI 87-year-old male who was brought to this hospital due to bleeding from his trach. the pt was agitated. the pt has cognitive impairment Allergies: Coded Allergies: CODEINE (Verified Allergy, Unknown, 05/14/17) Medication History Scheduled Amlodipine Besylate* (Amlodipine Besylate*), 10 MG GT DAILY, (Reported) Ascorbic Acid* (Vitamin C*), 500 MG GT DAILY, (Reported) Aspirin* (Aspir 81*), 81 MG ORAL DAILY, (Reported) Aspirin* (Aspir 81*), 81 MG GT DAILY, (Reported) Bacitracin Zinc* (Bacitracin Zinc*), 1 APPLIC TOPIC BID, (Reported) Carbidopa/Levodopa 25-100 Mg* (Sinemet 25-100 Mg Tablet*), 1 TAB GT BID, ( Reported) Carbidopa/Levodopa 25-100 Mg* (Sinemet 25-100 Mg Tablet*), 1 TAB GT BID, ( Reported) Cranberry Extract (Cranberry Juice Powder), 425 MG GT BID, (Reported) Famotidine (Pepcid Ac), 20 MG GT EVERY 12 HOURS, (Reported) Ferrous Sulfate (Ferrous Sulfate), 220 MG GT DAILY, (Reported) Glycopyrrolate (Robinul), 1 MG GT TID, (Reported) Ipratropium [place] 0.5MG/2.5ML (Ipratropium [place] 0.5MG/2.5ML), 0.5 MG HHN Q6H, (Reported) Losartan Potassium* (Cozaar*), 25 MG GT DAILY, (Reported) Multivitamins* (Multivitamins*), 1 TAB GT DAILY, (Reported) Nystatin* (Nystatin*), 1 APPLIC TOPIC THREE TIMES A DAY, (Reported) Omeprazole Magnesium (Prilosec), 20 MG GT DAILY, (Reported) Polyethylene Glycol 3350* (Miralax*), 17 GM GT DAILY, (Reported) Sennosides (Senokot), 8.6 MG GT HS, (Reported) Scheduled PRN Acetaminophen (Acetaminophen), 650 MG ORAL Q8H PRN for Prn Headache/Temp > 101, (Reported) Acetaminophen 160MG/5ML* (Acetaminophen*), 20.3 ML GT Q4HR PRN for Mild Pain ( Pain Scale 1-3), (Reported) Acetaminophen 160MG/5ML* (Acetaminophen*), 20.3 ML GT Q4HR PRN for Mild Pain/ Temp > 100.5, (Reported) Albuterol Sulfate* (Albuterol Sulfate Hhn*), 3 ML INH Q3HR PRN for Shortness of Breath, (Reported) Albuterol Sulfate* (Albuterol Sulfate Hhn*), 3 ML INH EVERY 2 HOURS PRN for Shortness of Breath, (Reported) Albuterol Sulfate* (Albuterol Sulfate Hhn*), 3 ML INH Q6H PRN for Bronchospasm, (Reported) Clonidine Hcl* (Catapres*), 0.1 MG GT EVERY 6 HOURS PRN for For High Blood Pressure, (Reported) Polyvinyl Alcohol (Liquitears), 1 DROP OP Q12HR PRN for Dry Eyes, (Reported) Patient History Limited by: medical condition History Provided By: Patient, Medical Record, PMD Healthcare decision maker ROSA COVINGTON Resuscitation status Do Not Resuscitate Advanced Directive on File Past Medical/Surgical History Past Medical/Surgical History: (1) Upper GI bleeding (2) Chronic respiratory failure (3) Hematemesis (4) Aspiration pneumonia (5) Atrial fibrillation (6) Hemoptysis (7) Pneumonia (8) Ventilator dependence (9) UTI (urinary tract infection) (10) Acute on chronic respiratory failure (11) Tracheostomy care (12) Jejunostomy tube leak (13) Anemia (14) Fecal impaction (15) Hypoalbuminemia (16) Abdominal distension (gaseous) (17) Esophageal stenosis (18) CHF (congestive heart failure) (19) Jejunostomy present (20) Constipation (21) Hypokalemia (22) Abdominal distention (23) Hypophosphatemia (24) Feeding by G-tube (25) Respiratory failure (26) Afib (27) Dysphagia (28) Esophageal stricture (29) Parkinson disease (30) BPH (benign prostatic hyperplasia) (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 Review of Systems Psychiatric: Reports: prior hx, anxiety, depressed feelings Physical Exam General Appearance: no apparent distress, alert, confused, agitated Last 24 Hour Vital Signs Date Time Temp Pulse Resp B/P (MAP) Pulse Ox O2 Delivery O2 Flow Rate FiO2 11/16/17 20:00 97.9 84 21 133/60 97 T-piece 7.0 30 97.9 11/16/17 20:00 7.0 30 11/16/17 19:00 79 11/16/17 18:49 78 22 96 T-piece 8.0 30 11/16/17 18:38 97 T-piece 8.0 30 11/16/17 18:38 78 24 97 T-piece 8.0 30 11/16/17 18:38 78 24 T-piece 8.0 30 11/16/17 18:38 T-piece 8.0 30 11/16/17 16:00 85 11/16/17 16:00 98.3 82 21 120/59 99 T-piece 10.0 40 98.3 11/16/17 16:00 10.0 40 11/16/17 13:16 76 20 99 T-piece 8.0 30 11/16/17 13:09 T-piece 8.0 30 11/16/17 13:09 97 T-piece 8.0 30 11/16/17 13:05 76 20 97 T-piece 8.0 30 11/16/17 12:00 81 11/16/17 12:00 98.4 83 20 141/59 98 T-piece 7.0 30 98.4 11/16/17 12:00 7.0 30 11/16/17 08:00 7.0 30 11/16/17 08:00 80 11/16/17 08:00 98.2 81 20 121/57 97 T-piece 7.0 30 98.2 11/16/17 07:00 73 20 99 T-piece 8.0 30 11/16/17 06:54 99 T-piece 8.0 30 11/16/17 06:54 T-piece 8.0 30 11/16/17 06:54 73 20 T-piece 8.0 30 11/16/17 06:52 73 20 99 T-piece 8.0 30 11/16/17 04:00 97.3 79 20 121/64 99 T-piece 7.0 30 97.3 11/16/17 04:00 75 11/16/17 04:00 7.0 30 11/16/17 01:13 77 22 99 T-piece 10.0 40 11/16/17 01:06 72 20 99 T-piece 8.0 30 11/16/17 01:05 T-piece 8.0 30 11/16/17 01:05 99 T-piece 8.0 30 11/16/17 00:00 98.1 82 20 117/55 99 T-piece 7.0 30 98.1 11/16/17 00:00 7.0 30 11/15/17 23:51 73 Intake and Output 11/15/17 11/16/17 19:00 07:00 Intake Total 983.334 ml 1532.5 ml Output Total 850 ml 700 ml Balance 133.334 ml 832.5 ml Free Water 100 ml IV Total 638.334 ml 872.5 ml Tube Feeding 245 ml 660 ml Output Urine Total 850 ml 700 ml Laboratory Tests Test 11/16/17 03:40 White Blood Count 6.5 K/UL (4.8-10.8) Red Blood Count 2.68 M/UL (4.70-6.10) L Hemoglobin 8.3 G/DL (14.2-18.0) L Hematocrit 25.7 % (42.0-52.0) L Mean Corpuscular Volume 96 FL (80-99) Mean Corpuscular Hemoglobin 30.8 PG (27.0-31.0) Mean Corpuscular Hemoglobin Concent 32.1 G/DL (32.0-36.0) Red Cell Distribution Width 15.3 % (11.6-14.8) H Platelet Count 160 K/UL (150-450) Mean Platelet Volume 7.9 FL (6.5-10.1) Neutrophils (%) (Auto) 68.5 % (45.0-75.0) Lymphocytes (%) (Auto) 15.8 % (20.0-45.0) L Monocytes (%) (Auto) 10.6 % (1.0-10.0) H Eosinophils (%) (Auto) 4.2 % (0.0-3.0) H Basophils (%) (Auto) 1.1 % (0.0-2.0) Sodium Level 142 MMOL/L (136-145) Potassium Level 3.4 MMOL/L (3.5-5.1) L Chloride Level 110 MMOL/L (98-107) H Carbon Dioxide Level 24 MMOL/L (21-32) Anion Gap 8 mmol/L (5-15) Blood Urea Nitrogen 7 mg/dL (7-18) Creatinine 0.9 MG/DL (0.55-1.30) Estimat Glomerular Filtration Rate mL/min (>60) Glucose Level 109 MG/DL (74-106) H Calcium Level 7.9 MG/DL (8.5-10.1) L Total Bilirubin 0.3 MG/DL (0.2-1.0) Aspartate Amino Transf (AST/SGOT) 13 U/L (15-37) L Alanine Aminotransferase (ALT/SGPT) 12 U/L (12-78) Alkaline Phosphatase 97 U/L (46-116) Pro-B-Type Natriuretic Peptide 1443 pg/mL (0-125) H Total Protein 6.2 G/DL (6.4-8.2) L Albumin 2.2 G/DL (3.4-5.0) L Globulin 4.0 g/dL Albumin/Globulin Ratio 0.6 (1.0-2.7) L Height (Feet): 6 Height (Inches): 0.00 Weight (Pounds): 218 Medications Current Medications Medications (Trade) Dose Ordered Sig/Polo Route PRN Reason Start Time Stop Time Status Last Admin Dose Admin Acetaminophen (Tylenol) 650 mg Q4H PRN ORAL FEVER 11/12/17 12:45 12/12/17 12:44 Albuterol/ Ipratropium (Albuterol/ Ipratropium) 3 ml Q6HRT HHN 11/15/17 19:00 11/20/17 18:59 11/16/17 18:38 Carbidopa/Levodopa (Sinemet 25/100) 1 tab BID GT 11/12/17 18:00 12/12/17 17:59 11/16/17 18:37 Dextrose (Dextrose 50%) 50 ml STAT PRN IV Hypoglycemia <60 mL/dL 11/12/17 12:45 12/12/17 12:44 Iron Sucrose 100 mg/Sodium Chloride 115 ml @ 460 mls/hr BEDTIME IV 11/13/17 21:00 11/17/17 21:14 11/16/17 21:12 Lorazepam (Ativan 2mg/ml 1ml) 2 mg Q2H PRN IV For Anxiety 11/12/17 12:45 11/19/17 12:44 Meropenem 1 gm/ Sodium Chloride 110 ml @ 220 mls/hr Q8HR@0000,0800,1600 IV 11/16/17 16:00 11/21/17 15:59 11/16/17 16:16 Morphine Sulfate (Morphine Sulfate) 4 mg Q4H PRN IVP Severe Pain (Pain Scale 7-10) 11/12/17 12:45 11/19/17 12:44 Ondansetron HCl (Zofran) 4 mg Q6H PRN IVP Nausea & Vomiting 11/12/17 12:45 12/12/17 12:44 Pantoprazole (Protonix) 40 mg EVERY 12 HOURS IVP 11/12/17 21:00 12/12/17 20:59 11/16/17 21:20 Polyethylene Glycol (Miralax) 17 gm DAILYPRN PRN ORAL Constipation 11/12/17 12:45 12/12/17 12:44 Sodium Chloride 1,000 ml @ 50 mls/hr Q20H IV 11/13/17 13:00 12/13/17 12:59 11/16/17 21:13 Assessment/Plan Assessment/Plan encephalopathy agitation cont current meds low dose Javed Nieto M.D. Nov 16, 2017 22:46
[2017-11-17] VITALS: BP 134/71
[2017-11-17] MEDS: Meropenem 1 GM in NS 110 ML IV SCH ×3 (00:16→20:47)
[2017-11-17] MEDS: Albuterol/Ipratropium 3ml neb HHN SCH ×4 (00:31→18:46)
[2017-11-17 04:00] VITALS: BP 120/60
[2017-11-17 05:22] LABS: BASOPHILS % (AUTO) 0.5 % (0.0-2.0); EOSINOPHILS % (AUTO) 5.2 % (0.0-3.0); HEMOGLOBIN 9.1 G/DL (14.2-18.0); LYMPHOCYTES % (AUTO) 18.2 % (20.0-45.0); MEAN CORPUSCULAR VOLUME 95 FL (80-99); NEUTROPHILS % (AUTO) 71.1 % (45.0-75.0); PLATELET COUNT 170 K/UL (150-450); RED BLOOD COUNT 2.84 M/UL (4.70-6.10); RED CELL DISTRIBUTION WIDTH 15.8 % (11.6-14.8); WHITE BLOOD COUNT 6.3 K/UL (4.8-10.8)
[2017-11-17 05:51] LABS: PHOSPHORUS 1.8 MG/DL (2.5-4.9)
[2017-11-17 06:07] LABS: ALANINE AMINOTRANSFERASE 15 U/L (12-78); ALBUMIN 2.2 G/DL (3.4-5.0); ALBUMIN/GLOBULIN RATIO 0.5 (1.0-2.7); ALKALINE PHOSPHATASE 100 U/L (46-116); ANION GAP 10 mmol/L (5-15); ASPARTATE AMINO TRANSFERASE 19 U/L (15-37); BILIRUBIN,TOTAL 0.4 MG/DL (0.2-1.0); BLOOD UREA NITROGEN 7 mg/dL (7-18); CALCIUM 8.3 MG/DL (8.5-10.1); CARBON DIOXIDE 22 MMOL/L (21-32); CHLORIDE 109 MMOL/L (98-107); CREATININE 0.8 MG/DL (0.55-1.30); POTASSIUM 3.8 MMOL/L (3.5-5.1); SODIUM 141 MMOL/L (136-145)
[2017-11-17 08:09] VITALS: BP 148/85
[2017-11-17] MEDS: Levodopa/Carbidopa 25/100 tab GT SCH ×2 (08:54→17:36)
[2017-11-17] MEDS: Pantoprazole Inj IVP SCH ×2 (08:54→23:00)
--- NOTE | 2017-11-17 11:15 | Pulmonolgy Critical Care Note ---
Critical Care - Asmt/Plan Problems: (1) Acute on chronic respiratory failure (2) Aspiration pneumonia (3) Tracheostomy care (4) Tracheostomy status (5) Parkinson disease (6) Feeding by G-tube Respiratory: monitor respiratory rate, adjust FIO2 Cardiac: continue to monitor HR/BP Renal: F/U I&O Infectious Disease: check cultures Gastrointestinal: continue feedings/current rate Endocrine: monitor blood sugar, check HgA1C Neurologic: PRN Ativan Prophylaxis: Protonix, Heparin Notes Reviewed: engine dynamometer tester, renal Discussed with: nurses, consultants, case repairerclinic business manager - Objective Last 24 Hour Vital Signs Date Time Temp Pulse Resp B/P (MAP) Pulse Ox O2 Delivery O2 Flow Rate FiO2 11/17/17 08:38 86 20 T-piece 8.0 30 11/17/17 08:37 86 20 99 T-piece 8.0 30 11/17/17 08:37 T-piece 8.0 30 11/17/17 08:20 82 22 96 T-piece 8.0 30 11/17/17 08:20 96 T-piece 8.0 30 11/17/17 08:09 98.4 87 22 148/85 98 T-piece 7.0 30 98.4 11/17/17 08:00 7.0 30 11/17/17 07:28 78 11/17/17 04:05 90 11/17/17 04:00 98.1 85 20 120/60 96 T-piece 7.0 30 98.1 11/17/17 04:00 7.0 30 11/17/17 00:42 85 20 97 T-piece 8.0 30 11/17/17 00:31 T-piece 8.0 30 11/17/17 00:31 96 T-piece 8.0 30 11/17/17 00:31 83 22 97 T-piece 8.0 30 11/17/17 00:00 98.1 79 21 134/71 97 T-piece 7.0 30 98.1 11/17/17 00:00 7.0 30 11/17/17 00:00 79 11/16/17 20:00 97.9 84 21 133/60 97 T-piece 7.0 30 97.9 11/16/17 20:00 7.0 30 11/16/17 19:00 79 11/16/17 18:49 78 22 96 T-piece 8.0 30 11/16/17 18:38 97 T-piece 8.0 30 11/16/17 18:38 78 24 97 T-piece 8.0 30 11/16/17 18:38 78 24 T-piece 8.0 30 11/16/17 18:38 T-piece 8.0 30 11/16/17 16:00 85 11/16/17 16:00 98.3 82 21 120/59 99 T-piece 10.0 40 98.3 11/16/17 16:00 10.0 40 11/16/17 13:16 76 20 99 T-piece 8.0 30 11/16/17 13:09 T-piece 8.0 30 11/16/17 13:09 97 T-piece 8.0 30 11/16/17 13:05 76 20 97 T-piece 8.0 30 11/16/17 12:00 81 11/16/17 12:00 98.4 83 20 141/59 98 T-piece 7.0 30 98.4 11/16/17 12:00 7.0 30 Condition: critical HEENT: atraumatic Heart: HR/BP stable, regular Abdomen: soft, non-tender, feeding tube Extremities: no C/C/E Critical Care - Subjective Condition: critical EKG Rhythm: Sinus Rhythm FI02: 30 Sputum Amount: Large Tube Feeding Amount: 55 I&O: Intake and Output 11/16/17 11/17/17 19:00 07:00 Intake Total 1630 ml 1475 ml Output Total 1000 ml 1100 ml Balance 630 ml 375 ml Free Water 50 ml IV Total 820 ml 815 ml Tube Feeding 660 ml 660 ml Other 100 ml Output Urine Total 1000 ml 1100 ml CXR: no change Labs: Laboratory Tests Test 11/17/17 03:45 White Blood Count 6.3 K/UL (4.8-10.8) Red Blood Count 2.84 M/UL (4.70-6.10) L Hemoglobin 9.1 G/DL (14.2-18.0) L Hematocrit 27.0 % (42.0-52.0) L Mean Corpuscular Volume 95 FL (80-99) Mean Corpuscular Hemoglobin 32.1 PG (27.0-31.0) H Mean Corpuscular Hemoglobin Concent 33.7 G/DL (32.0-36.0) Red Cell Distribution Width 15.8 % (11.6-14.8) H Platelet Count 170 K/UL (150-450) Mean Platelet Volume 7.8 FL (6.5-10.1) Neutrophils (%) (Auto) 71.1 % (45.0-75.0) Lymphocytes (%) (Auto) 18.2 % (20.0-45.0) L Monocytes (%) (Auto) 5.0 % (1.0-10.0) Eosinophils (%) (Auto) 5.2 % (0.0-3.0) H Basophils (%) (Auto) 0.5 % (0.0-2.0) Erythrocyte Sedimentation Rate 91 MM/HR (0-20) H Sodium Level 141 MMOL/L (136-145) Potassium Level 3.8 MMOL/L (3.5-5.1) Chloride Level 109 MMOL/L (98-107) H Carbon Dioxide Level 22 MMOL/L (21-32) Anion Gap 10 mmol/L (5-15) Blood Urea Nitrogen 7 mg/dL (7-18) Creatinine 0.8 MG/DL (0.55-1.30) Estimat Glomerular Filtration Rate mL/min (>60) Glucose Level 120 MG/DL (74-106) H Calcium Level 8.3 MG/DL (8.5-10.1) L Phosphorus Level 1.8 MG/DL (2.5-4.9) L Magnesium Level 1.9 MG/DL (1.8-2.4) Total Bilirubin 0.4 MG/DL (0.2-1.0) Aspartate Amino Transf (AST/SGOT) 19 U/L (15-37) Alanine Aminotransferase (ALT/SGPT) 15 U/L (12-78) Alkaline Phosphatase 100 U/L (46-116) C-Reactive Protein, Quantitative 2.1 mg/dL (0.00-0.90) H Total Protein 6.3 G/DL (6.4-8.2) L Albumin 2.2 G/DL (3.4-5.0) L Globulin 4.1 g/dL Albumin/Globulin Ratio 0.5 (1.0-2.7) L Kenneth Shah MD Nov 17, 2017 11:15
[2017-11-17 12:00] VITALS: BP 115/58
--- NOTE | 2017-11-17 12:45 | Diagnostic Imaging Report ---
APPROVED REPORT CPT Code: 89371 Present Symptoms Shortness of breath Risk Factors Bed Rest BILATERAL: Imaging reveals a patent deep venous system bilaterally. There is no evidence of thrombus within the femoral, popliteal or tibial segments. The greater saphenous veins are also within normal limits. Doppler indicates normal spontaneous flow within these segments.
[2017-11-17] MEDS ORDERED: Sodium Phosphate 30 MM in NS 275 ML IV ONE (13:00)
--- NOTE | 2017-11-17 14:20 | GI Progress Note ---
Assessment/Plan Problems: (1) Dysphagia ICD Codes: R13.10 - Dysphagia, unspecified SNOMED: 60771536, 709599662 (2) Esophageal stricture ICD Codes: K22.2 - Esophageal obstruction SNOMED: 04605927 (3) Parkinson disease ICD Codes: G20 - Parkinson's disease SNOMED: 11423244 (4) Feeding by G-tube ICD Codes: Z93.1 - Gastrostomy status SNOMED: 611832804, 305988346 (5) Abdominal distention ICD Codes: R14.0 - Abdominal distension (gaseous) SNOMED: 82263301 Status: unchanged Status Narrative Discussed with Dr. Herbert. Assessment/Plan OB stool positive, second uncollected GTFs per RD GT site care daily/prn monitor H&H, prn transfusions ppi BID defer GI procedures at this this time fu labs Subjective Subjective limited Objective Last 24 Hour Vital Signs Date Time Temp Pulse Resp B/P (MAP) Pulse Ox O2 Delivery O2 Flow Rate FiO2 11/17/17 13:02 100 T-piece 8.0 30 11/17/17 12:50 82 20 T-piece 8.0 30 11/17/17 12:50 T-piece 8.0 30 11/17/17 12:40 83 20 98 T-piece 8.0 30 11/17/17 12:00 98.2 81 22 115/58 98 T-piece 7.0 30 98.2 11/17/17 12:00 7.0 30 11/17/17 08:38 86 20 T-piece 8.0 30 11/17/17 08:37 86 20 99 T-piece 8.0 30 11/17/17 08:37 T-piece 8.0 30 11/17/17 08:20 82 22 96 T-piece 8.0 30 11/17/17 08:20 96 T-piece 8.0 30 11/17/17 08:09 98.4 87 22 148/85 98 T-piece 7.0 30 98.4 11/17/17 08:00 7.0 30 11/17/17 07:28 78 11/17/17 04:05 90 11/17/17 04:00 98.1 85 20 120/60 96 T-piece 7.0 30 98.1 11/17/17 04:00 7.0 30 11/17/17 00:42 85 20 97 T-piece 8.0 30 11/17/17 00:31 T-piece 8.0 30 11/17/17 00:31 96 T-piece 8.0 30 11/17/17 00:31 83 22 97 T-piece 8.0 30 11/17/17 00:00 98.1 79 21 134/71 97 T-piece 7.0 30 98.1 11/17/17 00:00 7.0 30 11/17/17 00:00 79 11/16/17 20:00 97.9 84 21 133/60 97 T-piece 7.0 30 97.9 11/16/17 20:00 7.0 30 11/16/17 19:00 79 11/16/17 18:49 78 22 96 T-piece 8.0 30 11/16/17 18:38 97 T-piece 8.0 30 11/16/17 18:38 78 24 97 T-piece 8.0 30 11/16/17 18:38 78 24 T-piece 8.0 30 11/16/17 18:38 T-piece 8.0 30 11/16/17 16:00 85 11/16/17 16:00 98.3 82 21 120/59 99 T-piece 10.0 40 98.3 11/16/17 16:00 10.0 40 Intake and Output 11/16/17 11/17/17 19:00 07:00 Intake Total 1630 ml 1475 ml Output Total 1000 ml 1100 ml Balance 630 ml 375 ml Free Water 50 ml IV Total 820 ml 815 ml Tube Feeding 660 ml 660 ml Other 100 ml Output Urine Total 1000 ml 1100 ml Laboratory Tests Test 11/17/17 03:45 White Blood Count 6.3 K/UL (4.8-10.8) Red Blood Count 2.84 M/UL (4.70-6.10) L Hemoglobin 9.1 G/DL (14.2-18.0) L Hematocrit 27.0 % (42.0-52.0) L Mean Corpuscular Volume 95 FL (80-99) Mean Corpuscular Hemoglobin 32.1 PG (27.0-31.0) H Mean Corpuscular Hemoglobin Concent 33.7 G/DL (32.0-36.0) Red Cell Distribution Width 15.8 % (11.6-14.8) H Platelet Count 170 K/UL (150-450) Mean Platelet Volume 7.8 FL (6.5-10.1) Neutrophils (%) (Auto) 71.1 % (45.0-75.0) Lymphocytes (%) (Auto) 18.2 % (20.0-45.0) L Monocytes (%) (Auto) 5.0 % (1.0-10.0) Eosinophils (%) (Auto) 5.2 % (0.0-3.0) H Basophils (%) (Auto) 0.5 % (0.0-2.0) Erythrocyte Sedimentation Rate 91 MM/HR (0-20) H Sodium Level 141 MMOL/L (136-145) Potassium Level 3.8 MMOL/L (3.5-5.1) Chloride Level 109 MMOL/L (98-107) H Carbon Dioxide Level 22 MMOL/L (21-32) Anion Gap 10 mmol/L (5-15) Blood Urea Nitrogen 7 mg/dL (7-18) Creatinine 0.8 MG/DL (0.55-1.30) Estimat Glomerular Filtration Rate mL/min (>60) Glucose Level 120 MG/DL (74-106) H Calcium Level 8.3 MG/DL (8.5-10.1) L Phosphorus Level 1.8 MG/DL (2.5-4.9) L Magnesium Level 1.9 MG/DL (1.8-2.4) Total Bilirubin 0.4 MG/DL (0.2-1.0) Aspartate Amino Transf (AST/SGOT) 19 U/L (15-37) Alanine Aminotransferase (ALT/SGPT) 15 U/L (12-78) Alkaline Phosphatase 100 U/L (46-116) C-Reactive Protein, Quantitative 2.1 mg/dL (0.00-0.90) H Total Protein 6.3 G/DL (6.4-8.2) L Albumin 2.2 G/DL (3.4-5.0) L Globulin 4.1 g/dL Albumin/Globulin Ratio 0.5 (1.0-2.7) L Height (Feet): 6 Height (Inches): 0.00 Weight (Pounds): 220 General Appearance: no apparent distress Cardiovascular: normal rate Respiratory/Chest: no respiratory distress Abdominal Exam: GT site - c/d/i Emma Ortiz N.P. Nov 17, 2017 14:20
[2017-11-17] MEDS ORDERED: Sterile Water Irrig 1000ml IRRIG ONE (15:35)
[2017-11-17] MEDS ORDERED: Tubing IV Secondary IV ONE (15:35)
[2017-11-17] MEDS ORDERED: 1/2 NS 1000ml IV ONE (15:35)
[2017-11-17] MEDS ORDERED: NS 275ml ONE (15:35)
[2017-11-17 16:04] VITALS: BP 133/89
--- NOTE | 2017-11-17 16:07 | Infectious Diseases Prog Note ---
Assessment/Plan Assessment/Plan ASSESSMENT: The patient is an 87-year-old male with: Mild leukocytosis, SP Afebrile. Bleeding from the trach ? pneumonia Scx : P Mirabilis and Enerobacter urinary tract infection. ESBL P Mirabilis Dysphagia status post PEG. Parkinson disease. CHF Hypertension. COPD. Status post trach. History of suprapubic catheter. Anemia. BPH. PLAN: change Merrem d# 3 / , upon DC will change to Invanz to complete the course 11/16 SP IV vancomycin and Zosyn d# 3 Monitor CBC. Monitor BMP Monitor blood culture. Monitor chest x-ray. GI fup Subjective Allergies: Coded Allergies: CODEINE (Verified Allergy, Unknown, 05/14/17) Subjective comfortable Objective Vital Signs Last 24 Hour Vital Signs Date Time Temp Pulse Resp B/P (MAP) Pulse Ox O2 Delivery O2 Flow Rate FiO2 11/17/17 13:02 100 T-piece 8.0 30 11/17/17 12:50 82 20 T-piece 8.0 30 11/17/17 12:50 T-piece 8.0 30 11/17/17 12:40 83 20 98 T-piece 8.0 30 11/17/17 12:00 98.2 81 22 115/58 98 T-piece 7.0 30 98.2 11/17/17 12:00 7.0 30 11/17/17 11:34 85 11/17/17 08:38 86 20 T-piece 8.0 30 11/17/17 08:37 86 20 99 T-piece 8.0 30 11/17/17 08:37 T-piece 8.0 30 11/17/17 08:20 82 22 96 T-piece 8.0 30 11/17/17 08:20 96 T-piece 8.0 30 11/17/17 08:09 98.4 87 22 148/85 98 T-piece 7.0 30 98.4 11/17/17 08:00 7.0 30 11/17/17 07:28 78 11/17/17 04:05 90 11/17/17 04:00 98.1 85 20 120/60 96 T-piece 7.0 30 98.1 11/17/17 04:00 7.0 30 11/17/17 00:42 85 20 97 T-piece 8.0 30 11/17/17 00:31 T-piece 8.0 30 11/17/17 00:31 96 T-piece 8.0 30 11/17/17 00:31 83 22 97 T-piece 8.0 30 11/17/17 00:00 98.1 79 21 134/71 97 T-piece 7.0 30 98.1 11/17/17 00:00 7.0 30 11/17/17 00:00 79 11/16/17 20:00 97.9 84 21 133/60 97 T-piece 7.0 30 97.9 11/16/17 20:00 7.0 30 11/16/17 19:00 79 11/16/17 18:49 78 22 96 T-piece 8.0 30 11/16/17 18:38 97 T-piece 8.0 30 11/16/17 18:38 78 24 97 T-piece 8.0 30 11/16/17 18:38 78 24 T-piece 8.0 30 11/16/17 18:38 T-piece 8.0 30 Height (Feet): 6 Height (Inches): 0.00 Weight (Pounds): 220 HEENT: anicteric Respiratory/Chest: no respiratory distress Cardiovascular: regular rhythm Abdomen: soft, non tender Laboratory Tests Test 11/17/17 03:45 White Blood Count 6.3 K/UL (4.8-10.8) Red Blood Count 2.84 M/UL (4.70-6.10) L Hemoglobin 9.1 G/DL (14.2-18.0) L Hematocrit 27.0 % (42.0-52.0) L Mean Corpuscular Volume 95 FL (80-99) Mean Corpuscular Hemoglobin 32.1 PG (27.0-31.0) H Mean Corpuscular Hemoglobin Concent 33.7 G/DL (32.0-36.0) Red Cell Distribution Width 15.8 % (11.6-14.8) H Platelet Count 170 K/UL (150-450) Mean Platelet Volume 7.8 FL (6.5-10.1) Neutrophils (%) (Auto) 71.1 % (45.0-75.0) Lymphocytes (%) (Auto) 18.2 % (20.0-45.0) L Monocytes (%) (Auto) 5.0 % (1.0-10.0) Eosinophils (%) (Auto) 5.2 % (0.0-3.0) H Basophils (%) (Auto) 0.5 % (0.0-2.0) Erythrocyte Sedimentation Rate 91 MM/HR (0-20) H Sodium Level 141 MMOL/L (136-145) Potassium Level 3.8 MMOL/L (3.5-5.1) Chloride Level 109 MMOL/L (98-107) H Carbon Dioxide Level 22 MMOL/L (21-32) Anion Gap 10 mmol/L (5-15) Blood Urea Nitrogen 7 mg/dL (7-18) Creatinine 0.8 MG/DL (0.55-1.30) Estimat Glomerular Filtration Rate mL/min (>60) Glucose Level 120 MG/DL (74-106) H Calcium Level 8.3 MG/DL (8.5-10.1) L Phosphorus Level 1.8 MG/DL (2.5-4.9) L Magnesium Level 1.9 MG/DL (1.8-2.4) Total Bilirubin 0.4 MG/DL (0.2-1.0) Aspartate Amino Transf (AST/SGOT) 19 U/L (15-37) Alanine Aminotransferase (ALT/SGPT) 15 U/L (12-78) Alkaline Phosphatase 100 U/L (46-116) C-Reactive Protein, Quantitative 2.1 mg/dL (0.00-0.90) H Total Protein 6.3 G/DL (6.4-8.2) L Albumin 2.2 G/DL (3.4-5.0) L Globulin 4.1 g/dL Albumin/Globulin Ratio 0.5 (1.0-2.7) L Current Medications Medications (Trade) Dose Ordered Sig/Polo Route PRN Reason Start Time Stop Time Status Last Admin Dose Admin Acetaminophen (Tylenol) 650 mg Q4H PRN ORAL FEVER 11/12/17 12:45 12/12/17 12:44 Albuterol/ Ipratropium (Albuterol/ Ipratropium) 3 ml Q6HRT HHN 11/15/17 19:00 11/20/17 18:59 11/17/17 12:49 Carbidopa/Levodopa (Sinemet 25/100) 1 tab BID GT 11/12/17 18:00 12/12/17 17:59 11/17/17 08:54 Dextrose (Dextrose 50%) 50 ml STAT PRN IV Hypoglycemia <60 mL/dL 11/12/17 12:45 12/12/17 12:44 Iron Sucrose 100 mg/Sodium Chloride 115 ml @ 460 mls/hr BEDTIME IV 11/13/17 21:00 11/17/17 21:14 11/16/17 21:12 Lorazepam (Ativan 2mg/ml 1ml) 2 mg Q2H PRN IV For Anxiety 11/12/17 12:45 11/19/17 12:44 Meropenem 1 gm/ Sodium Chloride 110 ml @ 220 mls/hr Q8HR@0000,0800,1600 IV 11/16/17 16:00 11/21/17 15:59 11/17/17 08:54 Morphine Sulfate (Morphine Sulfate) 4 mg Q4H PRN IVP Severe Pain (Pain Scale 7-10) 11/12/17 12:45 11/19/17 12:44 Ondansetron HCl (Zofran) 4 mg Q6H PRN IVP Nausea & Vomiting 11/12/17 12:45 12/12/17 12:44 Pantoprazole (Protonix) 40 mg EVERY 12 HOURS IVP 11/12/17 21:00 12/12/17 20:59 11/17/17 08:54 Polyethylene Glycol (Miralax) 17 gm DAILYPRN PRN ORAL Constipation 11/12/17 12:45 12/12/17 12:44 Sennosides (Senokot) 1 tab QHS GT 11/17/17 21:00 12/17/17 20:59 Sodium Chloride 1,000 ml @ 50 mls/hr Q20H IV 11/13/17 13:00 12/13/17 12:59 11/16/17 21:13 Sodium Phosphate 30 mm/Sodium Chloride 285 ml @ 47.5 mls/hr ONCE ONCE IV 11/17/17 13:00 11/17/17 18:59 11/17/17 13:06 Gwyn Veloz MD Nov 17, 2017 16:06
--- NOTE | 2017-11-17 17:38 | Internal Med Progress Note ---
Subjective Date of Service: Nov 17, 2017 Physician Name Chris Yadav Attending Physician Sunil Castillo MD Current Medications Medications (Trade) Dose Ordered Sig/Polo Route PRN Reason Start Time Stop Time Status Last Admin Dose Admin Acetaminophen (Tylenol) 650 mg Q4H PRN ORAL FEVER 11/12/17 12:45 12/12/17 12:44 Albuterol/ Ipratropium (Albuterol/ Ipratropium) 3 ml Q6HRT HHN 11/15/17 19:00 11/20/17 18:59 11/17/17 12:49 Carbidopa/Levodopa (Sinemet 25/100) 1 tab BID GT 11/12/17 18:00 12/12/17 17:59 11/17/17 08:54 Dextrose (Dextrose 50%) 50 ml STAT PRN IV Hypoglycemia <60 mL/dL 11/12/17 12:45 12/12/17 12:44 Iron Sucrose 100 mg/Sodium Chloride 115 ml @ 460 mls/hr BEDTIME IV 11/13/17 21:00 11/17/17 21:14 11/16/17 21:12 Lorazepam (Ativan 2mg/ml 1ml) 2 mg Q2H PRN IV For Anxiety 11/12/17 12:45 11/19/17 12:44 Meropenem 1 gm/ Sodium Chloride 110 ml @ 220 mls/hr Q8HR@0000,0800,1600 IV 11/16/17 16:00 11/21/17 15:59 11/17/17 08:54 Morphine Sulfate (Morphine Sulfate) 4 mg Q4H PRN IVP Severe Pain (Pain Scale 7-10) 11/12/17 12:45 11/19/17 12:44 Ondansetron HCl (Zofran) 4 mg Q6H PRN IVP Nausea & Vomiting 11/12/17 12:45 12/12/17 12:44 Pantoprazole (Protonix) 40 mg EVERY 12 HOURS IVP 11/12/17 21:00 12/12/17 20:59 11/17/17 08:54 Polyethylene Glycol (Miralax) 17 gm DAILYPRN PRN ORAL Constipation 11/12/17 12:45 12/12/17 12:44 Sennosides (Senokot) 1 tab QHS GT 11/17/17 21:00 12/17/17 20:59 Sodium Chloride 1,000 ml @ 50 mls/hr Q20H IV 11/13/17 13:00 12/13/17 12:59 11/17/17 17:00 Sodium Phosphate 30 mm/Sodium Chloride 285 ml @ 47.5 mls/hr ONCE ONCE IV 11/17/17 13:00 11/17/17 18:59 11/17/17 13:06 Allergies: Coded Allergies: CODEINE (Verified Allergy, Unknown, 05/14/17) ROS Limited/Unobtainable: Yes Subjective 87 YO M admitted with hemoptysis. Cover for Int Med-Dr Castillo. SHILPI Objective Last Vital Signs Date Time Temp Pulse Resp B/P (MAP) Pulse Ox O2 Delivery O2 Flow Rate FiO2 11/17/17 16:04 98.8 82 21 133/89 99 T-piece 7.0 30 98.8 Laboratory Tests Test 11/17/17 03:45 White Blood Count 6.3 K/UL (4.8-10.8) Red Blood Count 2.84 M/UL (4.70-6.10) L Hemoglobin 9.1 G/DL (14.2-18.0) L Hematocrit 27.0 % (42.0-52.0) L Mean Corpuscular Volume 95 FL (80-99) Mean Corpuscular Hemoglobin 32.1 PG (27.0-31.0) H Mean Corpuscular Hemoglobin Concent 33.7 G/DL (32.0-36.0) Red Cell Distribution Width 15.8 % (11.6-14.8) H Platelet Count 170 K/UL (150-450) Mean Platelet Volume 7.8 FL (6.5-10.1) Neutrophils (%) (Auto) 71.1 % (45.0-75.0) Lymphocytes (%) (Auto) 18.2 % (20.0-45.0) L Monocytes (%) (Auto) 5.0 % (1.0-10.0) Eosinophils (%) (Auto) 5.2 % (0.0-3.0) H Basophils (%) (Auto) 0.5 % (0.0-2.0) Erythrocyte Sedimentation Rate 91 MM/HR (0-20) H Sodium Level 141 MMOL/L (136-145) Potassium Level 3.8 MMOL/L (3.5-5.1) Chloride Level 109 MMOL/L (98-107) H Carbon Dioxide Level 22 MMOL/L (21-32) Anion Gap 10 mmol/L (5-15) Blood Urea Nitrogen 7 mg/dL (7-18) Creatinine 0.8 MG/DL (0.55-1.30) Estimat Glomerular Filtration Rate mL/min (>60) Glucose Level 120 MG/DL (74-106) H Calcium Level 8.3 MG/DL (8.5-10.1) L Phosphorus Level 1.8 MG/DL (2.5-4.9) L Magnesium Level 1.9 MG/DL (1.8-2.4) Total Bilirubin 0.4 MG/DL (0.2-1.0) Aspartate Amino Transf (AST/SGOT) 19 U/L (15-37) Alanine Aminotransferase (ALT/SGPT) 15 U/L (12-78) Alkaline Phosphatase 100 U/L (46-116) C-Reactive Protein, Quantitative 2.1 mg/dL (0.00-0.90) H Total Protein 6.3 G/DL (6.4-8.2) L Albumin 2.2 G/DL (3.4-5.0) L Globulin 4.1 g/dL Albumin/Globulin Ratio 0.5 (1.0-2.7) L Intake and Output 11/16/17 11/17/17 19:00 07:00 Intake Total 1630 ml 1475 ml Output Total 1000 ml 1100 ml Balance 630 ml 375 ml Free Water 50 ml IV Total 820 ml 815 ml Tube Feeding 660 ml 660 ml Other 100 ml Output Urine Total 1000 ml 1100 ml Objective GENERAL: The patient is a well-developed and well-nourished white male, intubated and sedated. HEENT: Eyes, pupils equal and responsive to light and accommodation. Extraocular movements are intact. Tracheostomy is in place. CHEST: Trach; Coarse expiratory wheezes bilaterally without wheezes or rales. CARDIOVASCULAR: Regular rhythm and rate. S1 and S2 are normal without murmurs, rubs, or gallops. ABDOMEN: Soft, nontender, and nondistended. Positive bowel sounds. No evidence of hepatosplenomegaly. Currently, no rebound or guarding noted. EXTREMITIES: Negative for clubbing, cyanosis, or edema. RECTAL/GENITAL: Refused. NEUROLOGICAL: Unable to assess. Assessment/Plan Problem List: (1) Hemoptysis (2) Pneumonia Assessment & Plan: Continue vanco and zosyn per ID (3) Ventilator dependence (4) Atrial fibrillation (5) Tracheostomy dependent Assessment & Plan: See pulmonary note. (6) BPH (benign prostatic hyperplasia) (7) Parkinson disease Assessment & Plan: Continue sinemet (8) Esophageal stricture (9) Dysphagia Assessment & Plan: S/P PEG (10) UTI (urinary tract infection) Assessment & Plan: ESBL proteus. Cont meropenem per ID Status: progressing Assessment/Plan D/W at bedside YADAVCHRIS Nov 17, 2017 17:38
--- NOTE | 2017-11-17 18:24 | General Progress Note ---
Assessment/Plan Assessment/Plan encephalopathy agitation cont current meds low dose Ativan Subjective Date patient seen: Nov 17, 2017 Neurologic/Psychiatric: Reports: anxiety, depressed, emotional problems Allergies: Coded Allergies: CODEINE (Verified Allergy, Unknown, 05/14/17) Subjective manager medicare in room Objective Last 24 Hour Vital Signs Date Time Temp Pulse Resp B/P (MAP) Pulse Ox O2 Delivery O2 Flow Rate FiO2 11/17/17 16:04 98.8 82 21 133/89 99 T-piece 7.0 30 98.8 11/17/17 16:00 7.0 30 11/17/17 15:16 83 11/17/17 13:02 100 T-piece 8.0 30 11/17/17 12:50 82 20 T-piece 8.0 30 11/17/17 12:50 T-piece 8.0 30 11/17/17 12:40 83 20 98 T-piece 8.0 30 11/17/17 12:00 98.2 81 22 115/58 98 T-piece 7.0 30 98.2 11/17/17 12:00 7.0 30 11/17/17 11:34 85 11/17/17 08:38 86 20 T-piece 8.0 30 11/17/17 08:37 86 20 99 T-piece 8.0 30 11/17/17 08:37 T-piece 8.0 30 11/17/17 08:20 82 22 96 T-piece 8.0 30 11/17/17 08:20 96 T-piece 8.0 30 11/17/17 08:09 98.4 87 22 148/85 98 T-piece 7.0 30 98.4 11/17/17 08:00 7.0 30 11/17/17 07:28 78 11/17/17 04:05 90 11/17/17 04:00 98.1 85 20 120/60 96 T-piece 7.0 30 98.1 11/17/17 04:00 7.0 30 11/17/17 00:42 85 20 97 T-piece 8.0 30 11/17/17 00:31 T-piece 8.0 30 11/17/17 00:31 96 T-piece 8.0 30 11/17/17 00:31 83 22 97 T-piece 8.0 30 11/17/17 00:00 98.1 79 21 134/71 97 T-piece 7.0 30 98.1 11/17/17 00:00 7.0 30 11/17/17 00:00 79 11/16/17 20:00 97.9 84 21 133/60 97 T-piece 7.0 30 97.9 11/16/17 20:00 7.0 30 11/16/17 19:00 79 11/16/17 18:49 78 22 96 T-piece 8.0 30 11/16/17 18:38 97 T-piece 8.0 30 11/16/17 18:38 78 24 97 T-piece 8.0 30 11/16/17 18:38 78 24 T-piece 8.0 30 11/16/17 18:38 T-piece 8.0 30 Intake and Output 11/16/17 11/17/17 19:00 07:00 Intake Total 1630 ml 1475 ml Output Total 1000 ml 1100 ml Balance 630 ml 375 ml Free Water 50 ml IV Total 820 ml 815 ml Tube Feeding 660 ml 660 ml Other 100 ml Output Urine Total 1000 ml 1100 ml Laboratory Tests 11/17/17 03:45: White Blood Count 6.3, Red Blood Count 2.84L, Hemoglobin 9.1L, Hematocrit 27.0L , Mean Corpuscular Volume 95, Mean Corpuscular Hemoglobin 32.1H, Mean Corpuscular Hemoglobin Concent 33.7, Red Cell Distribution Width 15.8H, Platelet Count 170, Mean Platelet Volume 7.8, Neutrophils (%) (Auto) 71.1, Lymphocytes (%) (Auto) 18.2L, Monocytes (%) (Auto) 5.0, Eosinophils (%) (Auto) 5.2H, Basophils (%) (Auto) 0.5, Erythrocyte Sedimentation Rate 91H, Sodium Level 141, Potassium Level 3.8, Chloride Level 109H, Carbon Dioxide Level 22, Anion Gap 10, Blood Urea Nitrogen 7, Creatinine 0.8, Estimat Glomerular Filtration Rate , Glucose Level 120H, Calcium Level 8.3L, Phosphorus Level 1.8L , Magnesium Level 1.9, Total Bilirubin 0.4, Aspartate Amino Transf (AST/SGOT) 19 , Alanine Aminotransferase (ALT/SGPT) 15, Alkaline Phosphatase 100, C-Reactive Protein, Quantitative 2.1H, Total Protein 6.3L, Albumin 2.2L, Globulin 4.1, Albumin/Globulin Ratio 0.5L Height (Feet): 6 Height (Inches): 0.00 Weight (Pounds): 220 General Appearance: no apparent distress, alert, confused Javed Will M.D. Nov 17, 2017 18:24
[2017-11-17 20:00] VITALS: BP 133/73
[2017-11-17] MEDS: Sennosides 8.6mg GT SCH (23:00)
[2017-11-17] MEDS: Iron Sucrose 100 MG in NS 110 ML IV SCH (23:00)
[2017-11-18] VITALS: BP 141/63
[2017-11-18] MEDS: Albuterol/Ipratropium 3ml neb HHN SCH ×4 (01:52→21:09)
[2017-11-18 04:00] VITALS: BP 136/67
[2017-11-18] MEDS: Meropenem 1 GM in NS 110 ML IV SCH ×3 (05:55→21:02)
[2017-11-18 05:56] LABS: BASOPHILS % (AUTO) 0.7 % (0.0-2.0); EOSINOPHILS % (AUTO) 6.8 % (0.0-3.0); HEMATOCRIT 27.3 % (42.0-52.0); HEMOGLOBIN 9.1 G/DL (14.2-18.0); LYMPHOCYTES % (AUTO) 19.7 % (20.0-45.0); MEAN CORPUSCULAR VOLUME 97 FL (80-99); MONOCYTES % (AUTO) 8.4 % (1.0-10.0); NEUTROPHILS % (AUTO) 64.4 % (45.0-75.0); PLATELET COUNT 161 K/UL (150-450); RED BLOOD COUNT 2.82 M/UL (4.70-6.10); RED CELL DISTRIBUTION WIDTH 16.5 % (11.6-14.8); WHITE BLOOD COUNT 6.2 K/UL (4.8-10.8)
[2017-11-18 06:13] LABS: ALANINE AMINOTRANSFERASE 15 U/L (12-78); ALBUMIN 2.2 G/DL (3.4-5.0); ALBUMIN/GLOBULIN RATIO 0.5 (1.0-2.7); ALKALINE PHOSPHATASE 103 U/L (46-116); ANION GAP 9 mmol/L (5-15); ASPARTATE AMINO TRANSFERASE 17 U/L (15-37); BILIRUBIN,TOTAL 0.2 MG/DL (0.2-1.0); BLOOD UREA NITROGEN 10 mg/dL (7-18); CARBON DIOXIDE 23 MMOL/L (21-32); CHLORIDE 108 MMOL/L (98-107); CREATININE 0.7 MG/DL (0.55-1.30); PHOSPHORUS 2.5 MG/DL (2.5-4.9); SODIUM 140 MMOL/L (136-145)
[2017-11-18 08:00] VITALS: BP 153/74
[2017-11-18] MEDS: Pantoprazole Inj IVP SCH ×2 (08:40→21:02)
[2017-11-18] MEDS: Levodopa/Carbidopa 25/100 tab GT SCH ×2 (08:40→17:37)
--- NOTE | 2017-11-18 11:08 | GI Progress Note ---
Assessment/Plan Problems: (1) Dysphagia ICD Codes: R13.10 - Dysphagia, unspecified SNOMED: 79494839, 508326294 (2) Esophageal stricture ICD Codes: K22.2 - Esophageal obstruction SNOMED: 66269191 (3) Parkinson disease ICD Codes: G20 - Parkinson's disease SNOMED: 11232661 (4) Feeding by G-tube ICD Codes: Z93.1 - Gastrostomy status SNOMED: 969336298, 611307086 (5) Abdominal distention ICD Codes: R14.0 - Abdominal distension (gaseous) SNOMED: 43173873 Status: unchanged Status Narrative Discussed with Dr. Herbert. Assessment/Plan OB stool positive, second uncollected GTFs per RD GT site care daily/prn monitor H&H, prn transfusions ppi BID defer GI procedures at this this time bowel regime fu labs Subjective Subjective limited Objective Last 24 Hour Vital Signs Date Time Temp Pulse Resp B/P (MAP) Pulse Ox O2 Delivery O2 Flow Rate FiO2 11/18/17 08:22 98 T-piece 8.0 30 11/18/17 08:22 T-piece 8.0 30 11/18/17 08:22 78 18 96 T-piece 8.0 30 11/18/17 08:00 7.0 30 11/18/17 08:00 73 11/18/17 08:00 97.2 75 22 153/74 98 T-piece 7.0 30 97.2 11/18/17 04:00 7.0 30 11/18/17 04:00 70 11/18/17 04:00 97.7 69 22 136/67 20 T-piece 7.0 30 97.7 11/18/17 02:02 78 20 98 T-piece 8.0 30 11/18/17 01:53 T-piece 8.0 30 11/18/17 01:52 98 T-piece 8.0 30 11/18/17 01:52 75 20 98 T-piece 8.0 30 11/18/17 00:00 7.0 30 11/18/17 00:00 98.1 79 22 141/63 99 T-piece 7.0 30 98.1 11/17/17 23:24 81 11/17/17 20:00 95 11/17/17 20:00 7.0 30 11/17/17 20:00 97.7 82 21 133/73 99 T-piece 7.0 30 97.7 11/17/17 19:14 80 11/17/17 19:08 84 20 98 T-piece 8.0 30 11/17/17 18:48 75 22 97 T-piece 8.0 30 11/17/17 18:48 T-piece 8.0 30 11/17/17 18:46 97 T-piece 8.0 30 11/17/17 16:04 98.8 82 21 133/89 99 T-piece 7.0 30 98.8 11/17/17 16:00 7.0 30 11/17/17 15:16 83 11/17/17 13:02 100 T-piece 8.0 30 11/17/17 12:50 82 20 T-piece 8.0 30 11/17/17 12:50 T-piece 8.0 30 11/17/17 12:40 83 20 98 T-piece 8.0 30 11/17/17 12:00 98.2 81 22 115/58 98 T-piece 7.0 30 98.2 11/17/17 12:00 7.0 30 11/17/17 11:34 85 Intake and Output 11/17/17 11/18/17 19:00 07:00 Intake Total 1707.5 ml 1792.5 ml Output Total 1000 ml 1150 ml Balance 707.5 ml 642.5 ml Free Water 150 ml 150 ml IV Total 897.5 ml 982.5 ml Tube Feeding 660 ml 660 ml Output Urine Total 1000 ml 1150 ml Laboratory Tests Test 11/18/17 04:10 White Blood Count 6.2 K/UL (4.8-10.8) Red Blood Count 2.82 M/UL (4.70-6.10) L Hemoglobin 9.1 G/DL (14.2-18.0) L Hematocrit 27.3 % (42.0-52.0) L Mean Corpuscular Volume 97 FL (80-99) Mean Corpuscular Hemoglobin 32.2 PG (27.0-31.0) H Mean Corpuscular Hemoglobin Concent 33.4 G/DL (32.0-36.0) Red Cell Distribution Width 16.5 % (11.6-14.8) H Platelet Count 161 K/UL (150-450) Mean Platelet Volume 7.7 FL (6.5-10.1) Neutrophils (%) (Auto) 64.4 % (45.0-75.0) Lymphocytes (%) (Auto) 19.7 % (20.0-45.0) L Monocytes (%) (Auto) 8.4 % (1.0-10.0) Eosinophils (%) (Auto) 6.8 % (0.0-3.0) H Basophils (%) (Auto) 0.7 % (0.0-2.0) Sodium Level 140 MMOL/L (136-145) Potassium Level 4.0 MMOL/L (3.5-5.1) Chloride Level 108 MMOL/L (98-107) H Carbon Dioxide Level 23 MMOL/L (21-32) Anion Gap 9 mmol/L (5-15) Blood Urea Nitrogen 10 mg/dL (7-18) Creatinine 0.7 MG/DL (0.55-1.30) Estimat Glomerular Filtration Rate mL/min (>60) Glucose Level 111 MG/DL (74-106) H Calcium Level 8.0 MG/DL (8.5-10.1) L Phosphorus Level 2.5 MG/DL (2.5-4.9) Magnesium Level 1.9 MG/DL (1.8-2.4) Total Bilirubin 0.2 MG/DL (0.2-1.0) Aspartate Amino Transf (AST/SGOT) 17 U/L (15-37) Alanine Aminotransferase (ALT/SGPT) 15 U/L (12-78) Alkaline Phosphatase 103 U/L (46-116) Total Protein 6.3 G/DL (6.4-8.2) L Albumin 2.2 G/DL (3.4-5.0) L Globulin 4.1 g/dL Albumin/Globulin Ratio 0.5 (1.0-2.7) L Height (Feet): 6 Height (Inches): 0.00 Weight (Pounds): 219 General Appearance: no apparent distress Cardiovascular: normal rate Respiratory/Chest: other - [facility] vent Abdominal Exam: GT site - c/d/i Emma Ortiz NTali Nov 18, 2017 11:08
[2017-11-18] MEDS ORDERED: Miralax 17gm pkt GT PRN (11:15)
--- NOTE | 2017-11-18 11:34 | Pulmonolgy Critical Care Note ---
Critical Care - Asmt/Plan Problems: (1) Acute on chronic respiratory failure (2) Aspiration pneumonia (3) Tracheostomy care (4) Tracheostomy status (5) Parkinson disease (6) Feeding by G-tube Respiratory: monitor respiratory rate, adjust FIO2 Cardiac: continue to monitor HR/BP Renal: F/U I&O Infectious Disease: check cultures Gastrointestinal: continue feedings/current rate Endocrine: monitor blood sugar, check HgA1C Neurologic: PRN Ativan Prophylaxis: Heparin Discussed with: nurses, consultants, bottle caserpolicy and planning manager - Objective Last 24 Hour Vital Signs Date Time Temp Pulse Resp B/P (MAP) Pulse Ox O2 Delivery O2 Flow Rate FiO2 11/18/17 08:22 98 T-piece 8.0 30 11/18/17 08:22 T-piece 8.0 30 11/18/17 08:22 78 18 96 T-piece 8.0 30 11/18/17 08:00 7.0 30 11/18/17 08:00 73 11/18/17 08:00 97.2 75 22 153/74 98 T-piece 7.0 30 97.2 11/18/17 04:00 7.0 30 11/18/17 04:00 70 11/18/17 04:00 97.7 69 22 136/67 20 T-piece 7.0 30 97.7 11/18/17 02:02 78 20 98 T-piece 8.0 30 11/18/17 01:53 T-piece 8.0 30 11/18/17 01:52 98 T-piece 8.0 30 11/18/17 01:52 75 20 98 T-piece 8.0 30 11/18/17 00:00 7.0 30 11/18/17 00:00 98.1 79 22 141/63 99 T-piece 7.0 30 98.1 11/17/17 23:24 81 11/17/17 20:00 95 11/17/17 20:00 7.0 30 11/17/17 20:00 97.7 82 21 133/73 99 T-piece 7.0 30 97.7 11/17/17 19:14 80 11/17/17 19:08 84 20 98 T-piece 8.0 30 11/17/17 18:48 75 22 97 T-piece 8.0 30 11/17/17 18:48 T-piece 8.0 30 11/17/17 18:46 97 T-piece 8.0 30 11/17/17 16:04 98.8 82 21 133/89 99 T-piece 7.0 30 98.8 11/17/17 16:00 7.0 30 11/17/17 15:16 83 11/17/17 13:02 100 T-piece 8.0 30 11/17/17 12:50 82 20 T-piece 8.0 30 11/17/17 12:50 T-piece 8.0 30 11/17/17 12:40 83 20 98 T-piece 8.0 30 11/17/17 12:00 98.2 81 22 115/58 98 T-piece 7.0 30 98.2 11/17/17 12:00 7.0 30 11/17/17 11:34 85 Status: obtunded Condition: critical HEENT: atraumatic Lungs: chest wall tender Heart: HR/BP unstable Abdomen: soft, non-tender, feeding tube Extremities: no C/C/E, edema Critical Care - Subjective ROS Limited/Unobtainable: No Interval Events: comfortable, awake, NAD, d/w at the bed site extensively about plan of care. FI02: 30 Sputum Amount: Large Secretions: small Tube Feeding Amount: 55 I&O: Intake and Output 11/17/17 11/18/17 19:00 07:00 Intake Total 1707.5 ml 1792.5 ml Output Total 1000 ml 1150 ml Balance 707.5 ml 642.5 ml Free Water 150 ml 150 ml IV Total 897.5 ml 982.5 ml Tube Feeding 660 ml 660 ml Output Urine Total 1000 ml 1150 ml CXR: CRISTHIAN Labs: Laboratory Tests Test 11/18/17 04:10 White Blood Count 6.2 K/UL (4.8-10.8) Red Blood Count 2.82 M/UL (4.70-6.10) L Hemoglobin 9.1 G/DL (14.2-18.0) L Hematocrit 27.3 % (42.0-52.0) L Mean Corpuscular Volume 97 FL (80-99) Mean Corpuscular Hemoglobin 32.2 PG (27.0-31.0) H Mean Corpuscular Hemoglobin Concent 33.4 G/DL (32.0-36.0) Red Cell Distribution Width 16.5 % (11.6-14.8) H Platelet Count 161 K/UL (150-450) Mean Platelet Volume 7.7 FL (6.5-10.1) Neutrophils (%) (Auto) 64.4 % (45.0-75.0) Lymphocytes (%) (Auto) 19.7 % (20.0-45.0) L Monocytes (%) (Auto) 8.4 % (1.0-10.0) Eosinophils (%) (Auto) 6.8 % (0.0-3.0) H Basophils (%) (Auto) 0.7 % (0.0-2.0) Sodium Level 140 MMOL/L (136-145) Potassium Level 4.0 MMOL/L (3.5-5.1) Chloride Level 108 MMOL/L (98-107) H Carbon Dioxide Level 23 MMOL/L (21-32) Anion Gap 9 mmol/L (5-15) Blood Urea Nitrogen 10 mg/dL (7-18) Creatinine 0.7 MG/DL (0.55-1.30) Estimat Glomerular Filtration Rate mL/min (>60) Glucose Level 111 MG/DL (74-106) H Calcium Level 8.0 MG/DL (8.5-10.1) L Phosphorus Level 2.5 MG/DL (2.5-4.9) Magnesium Level 1.9 MG/DL (1.8-2.4) Total Bilirubin 0.2 MG/DL (0.2-1.0) Aspartate Amino Transf (AST/SGOT) 17 U/L (15-37) Alanine Aminotransferase (ALT/SGPT) 15 U/L (12-78) Alkaline Phosphatase 103 U/L (46-116) Total Protein 6.3 G/DL (6.4-8.2) L Albumin 2.2 G/DL (3.4-5.0) L Globulin 4.1 g/dL Albumin/Globulin Ratio 0.5 (1.0-2.7) L Kenneth Shah MD Nov 18, 2017 11:34
[2017-11-18] MEDS ORDERED: 1/2 NS 1000ml IV ONE (11:36)
[2017-11-18] MEDS ORDERED: Tubing IV Secondary IV ONE (11:36)
[2017-11-18] MEDS ORDERED: NS 275ml ONE (11:36)
[2017-11-18 12:00] VITALS: BP 142/64
[2017-11-18 16:00] VITALS: BP 140/70
--- NOTE | 2017-11-18 16:05 | General Progress Note ---
Assessment/Plan Status Narrative encephalopathy agitation cont current meds low dose Ativan Assessment/Plan encephalopathy agitation cont current meds low dose Ativan Subjective Date patient seen: Nov 18, 2017 Neurologic/Psychiatric: Reports: anxiety, depressed, emotional problems Allergies: Coded Allergies: CODEINE (Verified Allergy, Unknown, 05/14/17) Subjective direct care worker in room Objective Last 24 Hour Vital Signs Date Time Temp Pulse Resp B/P (MAP) Pulse Ox O2 Delivery O2 Flow Rate FiO2 11/18/17 13:30 79 20 99 T-piece 8.0 30 11/18/17 13:21 98 T-piece 8.0 30 11/18/17 13:21 T-piece 8.0 30 11/18/17 13:21 83 18 98 T-piece 8.0 30 11/18/17 12:00 85 11/18/17 12:00 98.2 87 20 142/64 97 T-piece 7.0 30 98.2 11/18/17 12:00 7.0 30 11/18/17 08:32 75 20 98 T-piece 8.0 30 11/18/17 08:22 98 T-piece 8.0 30 11/18/17 08:22 T-piece 8.0 30 11/18/17 08:22 78 18 96 T-piece 8.0 30 11/18/17 08:00 7.0 30 11/18/17 08:00 73 11/18/17 08:00 97.2 75 22 153/74 98 T-piece 7.0 30 97.2 11/18/17 04:00 7.0 30 11/18/17 04:00 70 11/18/17 04:00 97.7 69 22 136/67 20 T-piece 7.0 30 97.7 11/18/17 02:02 78 20 98 T-piece 8.0 30 11/18/17 01:53 T-piece 8.0 30 11/18/17 01:52 98 T-piece 8.0 30 11/18/17 01:52 75 20 98 T-piece 8.0 30 11/18/17 00:00 7.0 30 11/18/17 00:00 98.1 79 22 141/63 99 T-piece 7.0 30 98.1 11/17/17 23:24 81 11/17/17 20:00 95 11/17/17 20:00 7.0 30 11/17/17 20:00 97.7 82 21 133/73 99 T-piece 7.0 30 97.7 11/17/17 19:14 80 11/17/17 19:08 84 20 98 T-piece 8.0 30 11/17/17 18:48 75 22 97 T-piece 8.0 30 11/17/17 18:48 T-piece 8.0 30 11/17/17 18:46 97 T-piece 8.0 30 Intake and Output 11/17/17 11/18/17 19:00 07:00 Intake Total 1707.5 ml 1792.5 ml Output Total 1000 ml 1150 ml Balance 707.5 ml 642.5 ml Free Water 150 ml 150 ml IV Total 897.5 ml 982.5 ml Tube Feeding 660 ml 660 ml Output Urine Total 1000 ml 1150 ml Laboratory Tests 11/18/17 04:10: White Blood Count 6.2, Red Blood Count 2.82L, Hemoglobin 9.1L, Hematocrit 27.3L , Mean Corpuscular Volume 97, Mean Corpuscular Hemoglobin 32.2H, Mean Corpuscular Hemoglobin Concent 33.4, Red Cell Distribution Width 16.5H, Platelet Count 161, Mean Platelet Volume 7.7, Neutrophils (%) (Auto) 64.4, Lymphocytes (%) (Auto) 19.7L, Monocytes (%) (Auto) 8.4, Eosinophils (%) (Auto) 6.8H, Basophils (%) (Auto) 0.7, Sodium Level 140, Potassium Level 4.0, Chloride Level 108H, Carbon Dioxide Level 23, Anion Gap 9, Blood Urea Nitrogen 10, Creatinine 0.7, Estimat Glomerular Filtration Rate , Glucose Level 111H, Calcium Level 8.0L, Phosphorus Level 2.5, Magnesium Level 1.9, Total Bilirubin 0.2, Aspartate Amino Transf (AST/SGOT) 17, Alanine Aminotransferase (ALT/SGPT) 15, Alkaline Phosphatase 103, Total Protein 6.3L, Albumin 2.2L, Globulin 4.1, Albumin/Globulin Ratio 0.5L Height (Feet): 6 Height (Inches): 0.00 Weight (Pounds): 219 Javed Will M.D. Nov 18, 2017 16:05
--- NOTE | 2017-11-18 17:56 | Cardiology Report ---
APPROVED REPORT EKG Measurement Heart [id number] [id number] Normal sinus rhythm Normal ECG
--- NOTE | 2017-11-18 18:29 | Internal Med Progress Note ---
Subjective Date of Service: Nov 18, 2017 Physician Name Chris Yadav Attending Physician Sunil Castillo MD Current Medications Medications (Trade) Dose Ordered Sig/Polo Route PRN Reason Start Time Stop Time Status Last Admin Dose Admin Acetaminophen (Tylenol) 650 mg Q4H PRN ORAL FEVER 11/12/17 12:45 12/12/17 12:44 Albuterol/ Ipratropium (Albuterol/ Ipratropium) 3 ml Q6HRT HHN 11/15/17 19:00 11/20/17 18:59 11/18/17 13:29 Carbidopa/Levodopa (Sinemet 25/100) 1 tab BID GT 11/12/17 18:00 12/12/17 17:59 11/18/17 17:37 Dextrose (Dextrose 50%) 50 ml STAT PRN IV Hypoglycemia <60 mL/dL 11/12/17 12:45 12/12/17 12:44 Lorazepam (Ativan 2mg/ml 1ml) 2 mg Q2H PRN IV For Anxiety 11/12/17 12:45 11/19/17 12:44 Meropenem 1 gm/ Sodium Chloride 110 ml @ 220 mls/hr Q8HR@0500,1300,2100 IV 11/18/17 05:00 11/23/17 04:59 11/18/17 13:15 Morphine Sulfate (Morphine Sulfate) 4 mg Q4H PRN IVP Severe Pain (Pain Scale 7-10) 11/12/17 12:45 11/19/17 12:44 Ondansetron HCl (Zofran) 4 mg Q6H PRN IVP Nausea & Vomiting 11/12/17 12:45 12/12/17 12:44 Pantoprazole (Protonix) 40 mg EVERY 12 HOURS IVP 11/12/17 21:00 12/12/17 20:59 11/18/17 08:40 Polyethylene Glycol (Miralax) 17 gm DAILYPRN PRN GT Constipation 11/18/17 11:15 12/18/17 11:14 11/18/17 17:38 Sennosides (Senokot) 1 tab QHS GT 11/17/17 21:00 12/17/17 20:59 11/17/17 23:00 Sodium Chloride 1,000 ml @ 50 mls/hr Q20H IV 11/13/17 13:00 12/13/17 12:59 11/18/17 12:26 Allergies: Coded Allergies: CODEINE (Verified Allergy, Unknown, 05/14/17) ROS Limited/Unobtainable: Yes Subjective 87 YO M admitted with hemoptysis. Cover for Int Dario-Dr Castillo. SHILPI Objective Last Vital Signs Date Time Temp Pulse Resp B/P (MAP) Pulse Ox O2 Delivery O2 Flow Rate FiO2 11/18/17 16:00 98.4 85 20 140/70 97 T-piece 7.0 30 98.4 Laboratory Tests Test 11/18/17 04:10 White Blood Count 6.2 K/UL (4.8-10.8) Red Blood Count 2.82 M/UL (4.70-6.10) L Hemoglobin 9.1 G/DL (14.2-18.0) L Hematocrit 27.3 % (42.0-52.0) L Mean Corpuscular Volume 97 FL (80-99) Mean Corpuscular Hemoglobin 32.2 PG (27.0-31.0) H Mean Corpuscular Hemoglobin Concent 33.4 G/DL (32.0-36.0) Red Cell Distribution Width 16.5 % (11.6-14.8) H Platelet Count 161 K/UL (150-450) Mean Platelet Volume 7.7 FL (6.5-10.1) Neutrophils (%) (Auto) 64.4 % (45.0-75.0) Lymphocytes (%) (Auto) 19.7 % (20.0-45.0) L Monocytes (%) (Auto) 8.4 % (1.0-10.0) Eosinophils (%) (Auto) 6.8 % (0.0-3.0) H Basophils (%) (Auto) 0.7 % (0.0-2.0) Sodium Level 140 MMOL/L (136-145) Potassium Level 4.0 MMOL/L (3.5-5.1) Chloride Level 108 MMOL/L (98-107) H Carbon Dioxide Level 23 MMOL/L (21-32) Anion Gap 9 mmol/L (5-15) Blood Urea Nitrogen 10 mg/dL (7-18) Creatinine 0.7 MG/DL (0.55-1.30) Estimat Glomerular Filtration Rate mL/min (>60) Glucose Level 111 MG/DL (74-106) H Calcium Level 8.0 MG/DL (8.5-10.1) L Phosphorus Level 2.5 MG/DL (2.5-4.9) Magnesium Level 1.9 MG/DL (1.8-2.4) Total Bilirubin 0.2 MG/DL (0.2-1.0) Aspartate Amino Transf (AST/SGOT) 17 U/L (15-37) Alanine Aminotransferase (ALT/SGPT) 15 U/L (12-78) Alkaline Phosphatase 103 U/L (46-116) Total Protein 6.3 G/DL (6.4-8.2) L Albumin 2.2 G/DL (3.4-5.0) L Globulin 4.1 g/dL Albumin/Globulin Ratio 0.5 (1.0-2.7) L Intake and Output 11/17/17 11/18/17 19:00 07:00 Intake Total 1707.5 ml 1792.5 ml Output Total 1000 ml 1150 ml Balance 707.5 ml 642.5 ml Free Water 150 ml 150 ml IV Total 897.5 ml 982.5 ml Tube Feeding 660 ml 660 ml Output Urine Total 1000 ml 1150 ml Objective GENERAL: The patient is a well-developed and well-nourished white male, intubated and sedated. HEENT: Eyes, pupils equal and responsive to light and accommodation. Extraocular movements are intact. Tracheostomy is in place. CHEST: Trach; Coarse expiratory wheezes bilaterally without wheezes or rales. CARDIOVASCULAR: Regular rhythm and rate. S1 and S2 are normal without murmurs, rubs, or gallops. ABDOMEN: Soft, nontender, and nondistended. Positive bowel sounds. No evidence of hepatosplenomegaly. Currently, no rebound or guarding noted. EXTREMITIES: Negative for clubbing, cyanosis, or edema. RECTAL/GENITAL: Refused. NEUROLOGICAL: Unable to assess. Assessment/Plan Problem List: (1) Hemoptysis (2) Pneumonia Assessment & Plan: Continue vanco and zosyn per ID (3) Ventilator dependence (4) Atrial fibrillation (5) Tracheostomy dependent Assessment & Plan: See pulmonary note. (6) BPH (benign prostatic hyperplasia) (7) Parkinson disease Assessment & Plan: Continue sinemet (8) Esophageal stricture (9) Dysphagia Assessment & Plan: S/P PEG (10) UTI (urinary tract infection) Assessment & Plan: ESBL proteus. Cont meropenem per ID Status: not improved CHRIS YADAV Nov 18, 2017 18:29
--- NOTE | 2017-11-18 19:51 | Infectious Diseases Prog Note ---
Assessment/Plan Assessment/Plan ASSESSMENT: The patient is an 87-year-old male with: Mild leukocytosis, SP Afebrile. Bleeding from the trach ? pneumonia Scx : P Mirabilis and Enerobacter urinary tract infection. ESBL P Mirabilis Dysphagia status post PEG. Parkinson disease. CHF Hypertension. COPD. Status post trach. History of suprapubic catheter. Anemia. BPH. PLAN: cont Merrem d# / , upon DC will change to Invanz to complete the course 11/16 SP IV vancomycin and Zosyn d# 3 Monitor CBC. Monitor BMP Monitor blood culture. Monitor chest x-ray. GI fup Subjective Constitutional: Denies: no symptoms, fever, chills, fatigue, anorexia, drenching sweats, other Allergies: Coded Allergies: CODEINE (Verified Allergy, Unknown, 05/14/17) Subjective comfortable Objective Vital Signs Last 24 Hour Vital Signs Date Time Temp Pulse Resp B/P (MAP) Pulse Ox O2 Delivery O2 Flow Rate FiO2 11/18/17 16:00 98.4 85 20 140/70 97 T-piece 7.0 30 98.4 11/18/17 16:00 81 11/18/17 16:00 7.0 30 11/18/17 13:30 79 20 99 T-piece 8.0 30 11/18/17 13:21 98 T-piece 8.0 30 11/18/17 13:21 T-piece 8.0 30 11/18/17 13:21 83 18 98 T-piece 8.0 30 11/18/17 12:00 85 11/18/17 12:00 98.2 87 20 142/64 97 T-piece 7.0 30 98.2 11/18/17 12:00 7.0 30 11/18/17 08:32 75 20 98 T-piece 8.0 30 11/18/17 08:22 98 T-piece 8.0 30 11/18/17 08:22 T-piece 8.0 30 11/18/17 08:22 78 18 96 T-piece 8.0 30 11/18/17 08:00 7.0 30 11/18/17 08:00 73 11/18/17 08:00 97.2 75 22 153/74 98 T-piece 7.0 30 97.2 11/18/17 04:00 7.0 30 11/18/17 04:00 70 11/18/17 04:00 97.7 69 22 136/67 20 T-piece 7.0 30 97.7 11/18/17 02:02 78 20 98 T-piece 8.0 30 11/18/17 01:53 T-piece 8.0 30 11/18/17 01:52 98 T-piece 8.0 30 11/18/17 01:52 75 20 98 T-piece 8.0 30 11/18/17 00:00 7.0 30 11/18/17 00:00 98.1 79 22 141/63 99 T-piece 7.0 30 98.1 11/17/17 23:24 81 11/17/17 20:00 95 11/17/17 20:00 7.0 30 11/17/17 20:00 97.7 82 21 133/73 99 T-piece 7.0 30 97.7 Height (Feet): 6 Height (Inches): 0.00 Weight (Pounds): 219 HEENT: anicteric Respiratory/Chest: no respiratory distress Cardiovascular: regularly irregular Abdomen: non distended Laboratory Tests Test 11/18/17 04:10 White Blood Count 6.2 K/UL (4.8-10.8) Red Blood Count 2.82 M/UL (4.70-6.10) L Hemoglobin 9.1 G/DL (14.2-18.0) L Hematocrit 27.3 % (42.0-52.0) L Mean Corpuscular Volume 97 FL (80-99) Mean Corpuscular Hemoglobin 32.2 PG (27.0-31.0) H Mean Corpuscular Hemoglobin Concent 33.4 G/DL (32.0-36.0) Red Cell Distribution Width 16.5 % (11.6-14.8) H Platelet Count 161 K/UL (150-450) Mean Platelet Volume 7.7 FL (6.5-10.1) Neutrophils (%) (Auto) 64.4 % (45.0-75.0) Lymphocytes (%) (Auto) 19.7 % (20.0-45.0) L Monocytes (%) (Auto) 8.4 % (1.0-10.0) Eosinophils (%) (Auto) 6.8 % (0.0-3.0) H Basophils (%) (Auto) 0.7 % (0.0-2.0) Sodium Level 140 MMOL/L (136-145) Potassium Level 4.0 MMOL/L (3.5-5.1) Chloride Level 108 MMOL/L (98-107) H Carbon Dioxide Level 23 MMOL/L (21-32) Anion Gap 9 mmol/L (5-15) Blood Urea Nitrogen 10 mg/dL (7-18) Creatinine 0.7 MG/DL (0.55-1.30) Estimat Glomerular Filtration Rate mL/min (>60) Glucose Level 111 MG/DL (74-106) H Calcium Level 8.0 MG/DL (8.5-10.1) L Phosphorus Level 2.5 MG/DL (2.5-4.9) Magnesium Level 1.9 MG/DL (1.8-2.4) Total Bilirubin 0.2 MG/DL (0.2-1.0) Aspartate Amino Transf (AST/SGOT) 17 U/L (15-37) Alanine Aminotransferase (ALT/SGPT) 15 U/L (12-78) Alkaline Phosphatase 103 U/L (46-116) Total Protein 6.3 G/DL (6.4-8.2) L Albumin 2.2 G/DL (3.4-5.0) L Globulin 4.1 g/dL Albumin/Globulin Ratio 0.5 (1.0-2.7) L Current Medications Medications (Trade) Dose Ordered Sig/Polo Route PRN Reason Start Time Stop Time Status Last Admin Dose Admin Acetaminophen (Tylenol) 650 mg Q4H PRN ORAL FEVER 11/12/17 12:45 12/12/17 12:44 Albuterol/ Ipratropium (Albuterol/ Ipratropium) 3 ml Q6HRT HHN 11/15/17 19:00 11/20/17 18:59 11/18/17 13:29 Carbidopa/Levodopa (Sinemet 25/100) 1 tab BID GT 11/12/17 18:00 12/12/17 17:59 11/18/17 17:37 Dextrose (Dextrose 50%) 50 ml STAT PRN IV Hypoglycemia <60 mL/dL 11/12/17 12:45 12/12/17 12:44 Lorazepam (Ativan 2mg/ml 1ml) 2 mg Q2H PRN IV For Anxiety 11/12/17 12:45 11/19/17 12:44 Meropenem 1 gm/ Sodium Chloride 110 ml @ 220 mls/hr Q8HR@0500,1300,2100 IV 11/18/17 05:00 11/23/17 04:59 11/18/17 13:15 Morphine Sulfate (Morphine Sulfate) 4 mg Q4H PRN IVP Severe Pain (Pain Scale 7-10) 11/12/17 12:45 11/19/17 12:44 Ondansetron HCl (Zofran) 4 mg Q6H PRN IVP Nausea & Vomiting 11/12/17 12:45 12/12/17 12:44 Pantoprazole (Protonix) 40 mg EVERY 12 HOURS IVP 11/12/17 21:00 12/12/17 20:59 11/18/17 08:40 Polyethylene Glycol (Miralax) 17 gm DAILYPRN PRN GT Constipation 11/18/17 11:15 12/18/17 11:14 11/18/17 17:38 Sennosides (Senokot) 1 tab QHS GT 11/17/17 21:00 12/17/17 20:59 11/17/17 23:00 Sodium Chloride 1,000 ml @ 50 mls/hr Q20H IV 11/13/17 13:00 12/13/17 12:59 11/18/17 12:26 Gwyn Veloz MD Nov 18, 2017 19:51
[2017-11-18 20:00] VITALS: BP 113/60
[2017-11-18] MEDS: Sennosides 8.6mg GT SCH (21:02)
[2017-11-19] VITALS: BP 147/67
[2017-11-19] MEDS: Albuterol/Ipratropium 3ml neb HHN SCH ×3 (01:31→14:05)
[2017-11-19 04:00] VITALS: BP 120/74
[2017-11-19] MEDS: Meropenem 1 GM in NS 110 ML IV SCH ×2 (04:59→13:37)
[2017-11-19 05:19] LABS: BASOPHILS % (AUTO) 0.7 % (0.0-2.0); EOSINOPHILS % (AUTO) 4.7 % (0.0-3.0); HEMATOCRIT 28.2 % (42.0-52.0); HEMOGLOBIN 9.5 G/DL (14.2-18.0); LYMPHOCYTES % (AUTO) 17.3 % (20.0-45.0); MEAN CORPUSCULAR VOLUME 97 FL (80-99); MONOCYTES % (AUTO) 7.6 % (1.0-10.0); NEUTROPHILS % (AUTO) 69.7 % (45.0-75.0); PLATELET COUNT 157 K/UL (150-450); RED BLOOD COUNT 2.91 M/UL (4.70-6.10); RED CELL DISTRIBUTION WIDTH 16.5 % (11.6-14.8); WHITE BLOOD COUNT 8.3 K/UL (4.8-10.8)
[2017-11-19 05:32] LABS: ALANINE AMINOTRANSFERASE 20 U/L (12-78); ALBUMIN 2.3 G/DL (3.4-5.0); ALBUMIN/GLOBULIN RATIO 0.6 (1.0-2.7); ALKALINE PHOSPHATASE 107 U/L (46-116); ANION GAP 6 mmol/L (5-15); ASPARTATE AMINO TRANSFERASE 19 U/L (15-37); BILIRUBIN,TOTAL 0.3 MG/DL (0.2-1.0); BLOOD UREA NITROGEN 11 mg/dL (7-18); CARBON DIOXIDE 25 MMOL/L (21-32); CHLORIDE 107 MMOL/L (98-107); CREATININE 0.8 MG/DL (0.55-1.30); POTASSIUM 3.9 MMOL/L (3.5-5.1); SODIUM 138 MMOL/L (136-145)
[2017-11-19 08:00] VITALS: BP 140/74
[2017-11-19] MEDS: Pantoprazole Inj IVP SCH (09:23)
[2017-11-19] MEDS: Levodopa/Carbidopa 25/100 tab GT SCH (09:24)
[2017-11-19] MEDS ORDERED: INVANZ1 G1 IM (11:48)
--- NOTE | 2017-11-19 11:49 | Pulmonolgy Critical Care Note ---
Critical Care - Asmt/Plan Problems: (1) Acute on chronic respiratory failure (2) Aspiration pneumonia (3) Tracheostomy care (4) Tracheostomy status (5) Parkinson disease (6) Feeding by G-tube Respiratory: monitor respiratory rate, adjust FIO2, CXR Cardiac: stop pressors, continue to monitor HR/BP Renal: F/U I&O Infectious Disease: check cultures Gastrointestinal: hold feedings Endocrine: monitor blood sugar, continue sliding scale insulin Hematologic: monitor H/H, transfuse if hgb<8.5 Neurologic: PRN Ativan, keep patient comfortable Prophylaxis: Heparin Notes Reviewed: retail leasing agent, renal Discussed with: nurses, consultants, employment case managermanager clinical services - Objective Last 24 Hour Vital Signs Date Time Temp Pulse Resp B/P (MAP) Pulse Ox O2 Delivery O2 Flow Rate FiO2 11/19/17 08:11 80 22 98 T-piece 8.0 30 11/19/17 08:01 83 22 97 T-piece 8.0 30 11/19/17 08:00 97.7 79 16 140/74 98 T-piece 8.0 30 97.7 11/19/17 08:00 8.0 30 11/19/17 08:00 79 11/19/17 07:59 T-piece 8.0 30 11/19/17 07:58 97 T-piece 8.0 30 11/19/17 04:00 98.1 74 24 120/74 94 T-piece 7.0 30 98.1 11/19/17 04:00 7.0 30 11/19/17 04:00 7.0 30 11/19/17 04:00 75 11/19/17 02:06 T-piece 8.0 30 11/19/17 02:06 83 20 98 T-piece 8.0 30 11/19/17 02:05 97 T-piece 8.0 30 11/19/17 01:32 82 18 98 T-piece 8.0 30 11/19/17 00:00 7.0 30 11/19/17 00:00 82 11/19/17 00:00 98.2 80 24 147/67 98 T-piece 7.0 30 98.2 11/18/17 21:58 81 20 98 T-piece 8.0 30 11/18/17 21:09 98 T-piece 8.0 30 11/18/17 20:00 7.0 30 4/11/18 20:00 97.4 82 24 113/60 98 T-piece 7.0 30 97.4 11/18/17 20:00 83 11/18/17 19:00 85 18 98 T-piece 8.0 30 11/18/17 19:00 T-piece 8.0 30 11/18/17 16:00 98.4 85 20 140/70 97 T-piece 7.0 30 98.4 11/18/17 16:00 81 11/18/17 16:00 7.0 30 11/18/17 13:30 79 20 99 T-piece 8.0 30 11/18/17 13:21 98 T-piece 8.0 30 11/18/17 13:21 T-piece 8.0 30 11/18/17 13:21 83 18 98 T-piece 8.0 30 11/18/17 12:00 85 11/18/17 12:00 98.2 87 20 142/64 97 T-piece 7.0 30 98.2 11/18/17 12:00 7.0 30 Status: awake Condition: critical, improving Neck: full ROM Heart: HR/BP stable Abdomen: soft, active bowel sounds Extremities: no C/C/E Decubiti: location Critical Care - Subjective ROS Limited/Unobtainable: No Condition: critical EKG Rhythm: Sinus Rhythm FI02: 30 Sputum Amount: Moderate Tube Feeding Amount: 55 I&O: Intake and Output 11/18/17 11/19/17 19:00 07:00 Intake Total 1340 ml 1570 ml Output Total 1550 ml 1500 ml Balance -210 ml 70 ml IV Total 660 ml 820 ml Tube Feeding 660 ml 660 ml Other 20 ml 90 ml Output Urine Total 1550 ml 1500 ml CXR: no change Labs: Laboratory Tests Test 11/19/17 04:10 White Blood Count 8.3 K/UL (4.8-10.8) Red Blood Count 2.91 M/UL (4.70-6.10) L Hemoglobin 9.5 G/DL (14.2-18.0) L Hematocrit 28.2 % (42.0-52.0) L Mean Corpuscular Volume 97 FL (80-99) Mean Corpuscular Hemoglobin 32.7 PG (27.0-31.0) H Mean Corpuscular Hemoglobin Concent 33.7 G/DL (32.0-36.0) Red Cell Distribution Width 16.5 % (11.6-14.8) H Platelet Count 157 K/UL (150-450) Mean Platelet Volume 7.9 FL (6.5-10.1) Neutrophils (%) (Auto) 69.7 % (45.0-75.0) Lymphocytes (%) (Auto) 17.3 % (20.0-45.0) L Monocytes (%) (Auto) 7.6 % (1.0-10.0) Eosinophils (%) (Auto) 4.7 % (0.0-3.0) H Basophils (%) (Auto) 0.7 % (0.0-2.0) Sodium Level 138 MMOL/L (136-145) Potassium Level 3.9 MMOL/L (3.5-5.1) Chloride Level 107 MMOL/L (98-107) Carbon Dioxide Level 25 MMOL/L (21-32) Anion Gap 6 mmol/L (5-15) Blood Urea Nitrogen 11 mg/dL (7-18) Creatinine 0.8 MG/DL (0.55-1.30) Estimat Glomerular Filtration Rate mL/min (>60) Glucose Level 115 MG/DL (74-106) H Calcium Level 8.0 MG/DL (8.5-10.1) L Total Bilirubin 0.3 MG/DL (0.2-1.0) Aspartate Amino Transf (AST/SGOT) 19 U/L (15-37) Alanine Aminotransferase (ALT/SGPT) 20 U/L (12-78) Alkaline Phosphatase 107 U/L (46-116) Pro-B-Type Natriuretic Peptide 1024 pg/mL (0-125) H Total Protein 6.4 G/DL (6.4-8.2) Albumin 2.3 G/DL (3.4-5.0) L Globulin 4.1 g/dL Albumin/Globulin Ratio 0.6 (1.0-2.7) L Kenneth Shah MD Nov 19, 2017 11:49
[2017-11-19 12:00] VITALS: BP 116/57
--- NOTE | 2017-11-19 13:00 | Diagnostic Imaging Report ---
Indication: Dyspnea Comparison: 11/16/2017 A single view chest radiograph was obtained. Findings: Pulmonary vascularity is prominent with interstitial edema appearing similar lead to the prior occasion. There is likely atelectasis at the lung bases. There may be small bilateral pleural effusions. There is a smallbore tracheostomy noted projected over the mid chest. Esophageal stent noted. IMPRESSION: Pulmonary edema. No significant change.
[2017-11-19 16:00] VITALS: BP 131/65
[2017-11-19] MEDS ORDERED: NS 275ml ONE (16:59)
[2017-11-19] MEDS ORDERED: 1/2 NS 1000ml IV ONE (16:59)
--- NOTE | 2017-11-19 17:40 | Internal Med Progress Note ---
Subjective Date of Service: Nov 19, 2017 Physician Name Chris Yadav Attending Physician Sunil Castillo MD Current Medications Medications (Trade) Dose Ordered Sig/Polo Route PRN Reason Start Time Stop Time Status Last Admin Dose Admin Acetaminophen (Tylenol) 650 mg Q4H PRN ORAL FEVER 11/12/17 12:45 12/12/17 12:44 Albuterol/ Ipratropium (Albuterol/ Ipratropium) 3 ml Q6HRT HHN 11/15/17 19:00 11/20/17 18:59 11/19/17 14:05 Carbidopa/Levodopa (Sinemet 25/100) 1 tab BID GT 11/12/17 18:00 12/12/17 17:59 11/19/17 09:24 Dextrose (Dextrose 50%) 50 ml STAT PRN IV Hypoglycemia <60 mL/dL 11/12/17 12:45 12/12/17 12:44 Meropenem 1 gm/ Sodium Chloride 110 ml @ 220 mls/hr Q8HR@0500,1300,2100 IV 11/18/17 05:00 11/23/17 04:59 11/19/17 13:37 Ondansetron HCl (Zofran) 4 mg Q6H PRN IVP Nausea & Vomiting 11/12/17 12:45 12/12/17 12:44 Pantoprazole (Protonix) 40 mg EVERY 12 HOURS IVP 11/12/17 21:00 12/12/17 20:59 11/19/17 09:23 Polyethylene Glycol (Miralax) 17 gm DAILYPRN PRN GT Constipation 11/18/17 11:15 12/18/17 11:14 11/18/17 17:38 Sennosides (Senokot) 1 tab QHS GT 11/17/17 21:00 12/17/17 20:59 11/18/17 21:02 Sodium Chloride 1,000 ml @ 50 mls/hr Q20H IV 11/13/17 13:00 12/13/17 12:59 11/19/17 09:24 Allergies: Coded Allergies: CODEINE (Verified Allergy, Unknown, 05/14/17) ROS Limited/Unobtainable: Yes Subjective 87 YO M admitted with hemoptysis. Cover for Int Med-Dr Castillo. SHILPI Objective Last Vital Signs Date Time Temp Pulse Resp B/P (MAP) Pulse Ox O2 Delivery O2 Flow Rate FiO2 11/19/17 16:00 98.1 79 16 131/65 96 T-piece 8.0 30 98.1 Laboratory Tests Test 11/19/17 04:10 White Blood Count 8.3 K/UL (4.8-10.8) Red Blood Count 2.91 M/UL (4.70-6.10) L Hemoglobin 9.5 G/DL (14.2-18.0) L Hematocrit 28.2 % (42.0-52.0) L Mean Corpuscular Volume 97 FL (80-99) Mean Corpuscular Hemoglobin 32.7 PG (27.0-31.0) H Mean Corpuscular Hemoglobin Concent 33.7 G/DL (32.0-36.0) Red Cell Distribution Width 16.5 % (11.6-14.8) H Platelet Count 157 K/UL (150-450) Mean Platelet Volume 7.9 FL (6.5-10.1) Neutrophils (%) (Auto) 69.7 % (45.0-75.0) Lymphocytes (%) (Auto) 17.3 % (20.0-45.0) L Monocytes (%) (Auto) 7.6 % (1.0-10.0) Eosinophils (%) (Auto) 4.7 % (0.0-3.0) H Basophils (%) (Auto) 0.7 % (0.0-2.0) Sodium Level 138 MMOL/L (136-145) Potassium Level 3.9 MMOL/L (3.5-5.1) Chloride Level 107 MMOL/L (98-107) Carbon Dioxide Level 25 MMOL/L (21-32) Anion Gap 6 mmol/L (5-15) Blood Urea Nitrogen 11 mg/dL (7-18) Creatinine 0.8 MG/DL (0.55-1.30) Estimat Glomerular Filtration Rate mL/min (>60) Glucose Level 115 MG/DL (74-106) H Calcium Level 8.0 MG/DL (8.5-10.1) L Total Bilirubin 0.3 MG/DL (0.2-1.0) Aspartate Amino Transf (AST/SGOT) 19 U/L (15-37) Alanine Aminotransferase (ALT/SGPT) 20 U/L (12-78) Alkaline Phosphatase 107 U/L (46-116) Pro-B-Type Natriuretic Peptide 1024 pg/mL (0-125) H Total Protein 6.4 G/DL (6.4-8.2) Albumin 2.3 G/DL (3.4-5.0) L Globulin 4.1 g/dL Albumin/Globulin Ratio 0.6 (1.0-2.7) L Intake and Output 11/18/17 11/19/17 19:00 07:00 Intake Total 1340 ml 1570 ml Output Total 1550 ml 1500 ml Balance -210 ml 70 ml IV Total 660 ml 820 ml Tube Feeding 660 ml 660 ml Other 20 ml 90 ml Output Urine Total 1550 ml 1500 ml Objective GENERAL: The patient is a well-developed and well-nourished white male, intubated and sedated. HEENT: Eyes, pupils equal and responsive to light and accommodation. Extraocular movements are intact. Tracheostomy is in place. CHEST: Trach; Coarse expiratory wheezes bilaterally without wheezes or rales. CARDIOVASCULAR: Regular rhythm and rate. S1 and S2 are normal without murmurs, rubs, or gallops. ABDOMEN: Soft, nontender, and nondistended. Positive bowel sounds. No evidence of hepatosplenomegaly. Currently, no rebound or guarding noted. EXTREMITIES: Negative for clubbing, cyanosis, or edema. RECTAL/GENITAL: Refused. NEUROLOGICAL: Unable to assess. Assessment/Plan Problem List: (1) Hemoptysis (2) Pneumonia Assessment & Plan: Continue vanco and zosyn per ID (3) Ventilator dependence (4) Atrial fibrillation (5) Tracheostomy dependent Assessment & Plan: See pulmonary note. (6) BPH (benign prostatic hyperplasia) (7) Parkinson disease Assessment & Plan: Continue sinemet (8) Esophageal stricture (9) Dysphagia Assessment & Plan: S/P PEG (10) UTI (urinary tract infection) Assessment & Plan: ESBL proteus. Cont meropenem per ID Status: not improved CHRIS YADAV Nov 19, 2017 17:40
--- NOTE | 2017-11-19 17:50 | Infectious Diseases Prog Note ---
Assessment/Plan Assessment/Plan ASSESSMENT: The patient is an 87-year-old male with: Mild leukocytosis, SP Afebrile. Bleeding from the trach, SP ? pneumonia Scx : P Mirabilis and Enerobacter 11/19 CXR: Pulmonary edema. No significant change. urinary tract infection. ESBL P Mirabilis Dysphagia status post PEG. Parkinson disease. CHF Hypertension. COPD. Status post trach. History of suprapubic catheter. Anemia. BPH. PLAN: cont Merrem d# 5 / , upon DC will change to Invanz to complete the course 11/16 SP IV vancomycin and Zosyn d# 3 Monitor CBC. Monitor BMP Monitor chest x-ray. GI fup Subjective Allergies: Coded Allergies: CODEINE (Verified Allergy, Unknown, 05/14/17) Subjective comfortable Objective Vital Signs Last 24 Hour Vital Signs Date Time Temp Pulse Resp B/P (MAP) Pulse Ox O2 Delivery O2 Flow Rate FiO2 11/19/17 16:00 98.1 79 16 131/65 96 T-piece 8.0 30 98.1 11/19/17 16:00 78 11/19/17 16:00 8.0 30 11/19/17 14:15 79 20 98 T-piece 8.0 30 11/19/17 14:05 75 22 97 T-piece 8.0 30 11/19/17 14:02 T-piece 8.0 30 11/19/17 14:01 97 T-piece 8.0 30 11/19/17 12:00 97.5 77 22 116/57 98 T-piece 8.0 30 97.5 11/19/17 12:00 8.0 30 11/19/17 12:00 62 11/19/17 08:11 80 22 98 T-piece 8.0 30 11/19/17 08:01 83 22 97 T-piece 8.0 30 11/19/17 08:00 97.7 79 16 140/74 98 T-piece 8.0 30 97.7 11/19/17 08:00 8.0 30 11/19/17 08:00 79 11/19/17 07:59 T-piece 8.0 30 11/19/17 07:58 97 T-piece 8.0 30 11/19/17 04:00 98.1 74 24 120/74 94 T-piece 7.0 30 98.1 11/19/17 04:00 7.0 30 11/19/17 04:00 7.0 30 11/19/17 04:00 75 11/19/17 02:06 T-piece 8.0 30 11/19/17 02:06 83 20 98 T-piece 8.0 30 11/19/17 02:05 97 T-piece 8.0 30 11/19/17 01:32 82 18 98 T-piece 8.0 30 11/19/17 00:00 7.0 30 11/19/17 00:00 82 11/19/17 00:00 98.2 80 24 147/67 98 T-piece 7.0 30 98.2 11/18/17 21:58 81 20 98 T-piece 8.0 30 11/18/17 21:09 98 T-piece 8.0 30 11/18/17 20:00 7.0 30 11/18/17 20:00 97.4 82 24 113/60 98 T-piece 7.0 30 97.4 11/18/17 20:00 83 11/18/17 19:00 85 18 98 T-piece 8.0 30 11/18/17 19:00 T-piece 8.0 30 Height (Feet): 6 Height (Inches): 0.00 Weight (Pounds): 222 HEENT: anicteric Respiratory/Chest: no respiratory distress Cardiovascular: regular rhythm Abdomen: no organomegaly Laboratory Tests Test 11/19/17 04:10 White Blood Count 8.3 K/UL (4.8-10.8) Red Blood Count 2.91 M/UL (4.70-6.10) L Hemoglobin 9.5 G/DL (14.2-18.0) L Hematocrit 28.2 % (42.0-52.0) L Mean Corpuscular Volume 97 FL (80-99) Mean Corpuscular Hemoglobin 32.7 PG (27.0-31.0) H Mean Corpuscular Hemoglobin Concent 33.7 G/DL (32.0-36.0) Red Cell Distribution Width 16.5 % (11.6-14.8) H Platelet Count 157 K/UL (150-450) Mean Platelet Volume 7.9 FL (6.5-10.1) Neutrophils (%) (Auto) 69.7 % (45.0-75.0) Lymphocytes (%) (Auto) 17.3 % (20.0-45.0) L Monocytes (%) (Auto) 7.6 % (1.0-10.0) Eosinophils (%) (Auto) 4.7 % (0.0-3.0) H Basophils (%) (Auto) 0.7 % (0.0-2.0) Sodium Level 138 MMOL/L (136-145) Potassium Level 3.9 MMOL/L (3.5-5.1) Chloride Level 107 MMOL/L (98-107) Carbon Dioxide Level 25 MMOL/L (21-32) Anion Gap 6 mmol/L (5-15) Blood Urea Nitrogen 11 mg/dL (7-18) Creatinine 0.8 MG/DL (0.55-1.30) Estimat Glomerular Filtration Rate mL/min (>60) Glucose Level 115 MG/DL (74-106) H Calcium Level 8.0 MG/DL (8.5-10.1) L Total Bilirubin 0.3 MG/DL (0.2-1.0) Aspartate Amino Transf (AST/SGOT) 19 U/L (15-37) Alanine Aminotransferase (ALT/SGPT) 20 U/L (12-78) Alkaline Phosphatase 107 U/L (46-116) Pro-B-Type Natriuretic Peptide 1024 pg/mL (0-125) H Total Protein 6.4 G/DL (6.4-8.2) Albumin 2.3 G/DL (3.4-5.0) L Globulin 4.1 g/dL Albumin/Globulin Ratio 0.6 (1.0-2.7) L Current Medications Medications (Trade) Dose Ordered Sig/Polo Route PRN Reason Start Time Stop Time Status Last Admin Dose Admin Acetaminophen (Tylenol) 650 mg Q4H PRN ORAL FEVER 11/12/17 12:45 12/12/17 12:44 Albuterol/ Ipratropium (Albuterol/ Ipratropium) 3 ml Q6HRT HHN 11/15/17 19:00 11/20/17 18:59 11/19/17 14:05 Carbidopa/Levodopa (Sinemet 25/100) 1 tab BID GT 11/12/17 18:00 12/12/17 17:59 11/19/17 09:24 Dextrose (Dextrose 50%) 50 ml STAT PRN IV Hypoglycemia <60 mL/dL 11/12/17 12:45 12/12/17 12:44 Meropenem 1 gm/ Sodium Chloride 110 ml @ 220 mls/hr Q8HR@0500,1300,2100 IV 11/18/17 05:00 11/23/17 04:59 11/19/17 13:37 Ondansetron HCl (Zofran) 4 mg Q6H PRN IVP Nausea & Vomiting 11/12/17 12:45 12/12/17 12:44 Pantoprazole (Protonix) 40 mg EVERY 12 HOURS IVP 11/12/17 21:00 12/12/17 20:59 11/19/17 09:23 Polyethylene Glycol (Miralax) 17 gm DAILYPRN PRN GT Constipation 11/18/17 11:15 12/18/17 11:14 11/18/17 17:38 Sennosides (Senokot) 1 tab QHS GT 11/17/17 21:00 12/17/17 20:59 11/18/17 21:02 Sodium Chloride 1,000 ml @ 50 mls/hr Q20H IV 11/13/17 13:00 12/13/17 12:59 11/19/17 09:24 Gwyn Veloz MD Nov 19, 2017 17:50
--- NOTE | 2017-11-19 22:52 | General Progress Note ---
Assessment/Plan Assessment/Plan encephalopathy agitation cont current meds low dose Ativan Subjective Date patient seen: Nov 19, 2017 Neurologic/Psychiatric: Reports: anxiety, depressed Allergies: Coded Allergies: CODEINE (Verified Allergy, Unknown, 05/14/17) Subjective home day care provider in room Objective Last 24 Hour Vital Signs Date Time Temp Pulse Resp B/P (MAP) Pulse Ox O2 Delivery O2 Flow Rate FiO2 11/19/17 16:00 98.1 79 16 131/65 96 T-piece 8.0 30 98.1 11/19/17 16:00 78 11/19/17 16:00 8.0 30 11/19/17 14:15 79 20 98 T-piece 8.0 30 11/19/17 14:05 75 22 97 T-piece 8.0 30 11/19/17 14:02 T-piece 8.0 30 11/19/17 14:01 97 T-piece 8.0 30 11/19/17 12:00 97.5 77 22 116/57 98 T-piece 8.0 30 97.5 11/19/17 12:00 8.0 30 11/19/17 12:00 62 11/19/17 08:11 80 22 98 T-piece 8.0 30 11/19/17 08:01 83 22 97 T-piece 8.0 30 11/19/17 08:00 97.7 79 16 140/74 98 T-piece 8.0 30 97.7 11/19/17 08:00 8.0 30 11/19/17 08:00 79 11/19/17 07:59 T-piece 8.0 30 11/19/17 07:58 97 T-piece 8.0 30 11/19/17 04:00 98.1 74 24 120/74 94 T-piece 7.0 30 98.1 11/19/17 04:00 7.0 30 11/19/17 04:00 7.0 30 11/19/17 04:00 75 11/19/17 02:06 T-piece 8.0 30 11/19/17 02:06 83 20 98 T-piece 8.0 30 11/19/17 02:05 97 T-piece 8.0 30 11/19/17 01:32 82 18 98 T-piece 8.0 30 11/19/17 00:00 7.0 30 11/19/17 00:00 82 11/19/17 00:00 98.2 80 24 147/67 98 T-piece 7.0 30 98.2 Intake and Output 11/18/17 11/19/17 19:00 07:00 Intake Total 1340 ml 1570 ml Output Total 1550 ml 1500 ml Balance -210 ml 70 ml IV Total 660 ml 820 ml Tube Feeding 660 ml 660 ml Other 20 ml 90 ml Output Urine Total 1550 ml 1500 ml Laboratory Tests 11/19/17 04:10: White Blood Count 8.3, Red Blood Count 2.91L, Hemoglobin 9.5L, Hematocrit 28.2L , Mean Corpuscular Volume 97, Mean Corpuscular Hemoglobin 32.7H, Mean Corpuscular Hemoglobin Concent 33.7, Red Cell Distribution Width 16.5H, Platelet Count 157, Mean Platelet Volume 7.9, Neutrophils (%) (Auto) 69.7, Lymphocytes (%) (Auto) 17.3L, Monocytes (%) (Auto) 7.6, Eosinophils (%) (Auto) 4.7H, Basophils (%) (Auto) 0.7, Sodium Level 138, Potassium Level 3.9, Chloride Level 107, Carbon Dioxide Level 25, Anion Gap 6, Blood Urea Nitrogen 11, Creatinine 0.8, Estimat Glomerular Filtration Rate , Glucose Level 115H, Calcium Level 8.0L, Total Bilirubin 0.3, Aspartate Amino Transf (AST/SGOT) 19, Alanine Aminotransferase (ALT/SGPT) 20, Alkaline Phosphatase 107, Pro-B-Type Natriuretic Peptide 1024H, Total Protein 6.4, Albumin 2.3L, Globulin 4.1, Albumin/Globulin Ratio 0.6L Height (Feet): 6 Height (Inches): 0.00 Weight (Pounds): 222 Javed Will M.D. Nov 19, 2017 22:51
--- NOTE | 2017-11-20 14:39 | Discharge Summary ---
Discharge Summary Discharge Summary Discharge Summary DATE OF ADMISSION: 11/12/2017 DATE OF DISCHARGE: 11/19/2017 ATTENDING: Dr. Sunil Castillo CONSULTANTS: Dr. Kenneth Will BRIEF HOSPITAL COURSE: Patient is an 87-year-old white male who presented to ED due to hemoptysis. He is a resident of [facility] and has chronic respiratory failure on trach and vent. According to the staff at [facility], patient was noted to have increased bleeding around the tracheostomy site. He has medical history significant for respiratory failure, hypertension, atrial fibrillation, dysphagia on G-tube, esophageal stricture, Parkinson's disease, and BPH. On evaluation at ED, he had leukocytosis, WBC of 11.5, hemoglobin was 9.2 and hematocrit was 29. Urinalysis showed urine WBC 15-20, urine RBC 60-80, 3+ leukocyte esterase and negative nitrite. He had a chest x-ray that showed interstitial and patchy bilateral opacities. He was admitted for evaluation of hemoptysis, pneumonia and urine infection. He was pancultured and was followed by infectious disease specialist. He was started on IV vancomycin and Zosyn. Urine culture with growth of ESBL, he was given meropenem. He was given tracheostomy care. Hemoglobin was stable. Patient had anemia, however there was no overt active evidence of GI bleed. He was given Protonix twice a day. Stool OB was positive however, defer GI procedures for now. KUB was unremarkable. He was given bowel regimen. He was agitated and had cognitive impairment, he was placed on low dose Ativan. Antibiotic was transitioned to Invanz, he was eventually discharged back to [facility]. FINAL DIAGNOSES: Hemoptysis and pneumonia Urinary tract infection with ESBL Acute on chronic Respiratory failure on vent Esophageal stricture Dysphagia on PEG BPH Parkinson's disease Atrial fibrillation COPD Anemia History of suprapubic catheter CHF DISPOSITION: Patient was discharged back to [place] DISCHARGE MEDICATIONS: Refer to Discharge Medication List. Continue with Invanz for 5 more days I have been assigned to dictate discharge summary on this account, and I was not involved in the patient's management. Monse Ybarra NP Nov 20, 2017 14:39
== END 2017-11-19 17:00 | DRG 177 ==
LOC: EDBD 10:10 → EMR 10:39 → 2W 11:49 → EDBEDREQ 12:12
DX: J69.0 Pneumonitis due to inhalation of food and vomit (principal); J96.20 Acute and chronic respiratory failure, unspecified whether with hypoxia or hypercapnia; G93.40 Encephalopathy, unspecified; R04.2 Hemoptysis; N39.0 Urinary tract infection, site not specified; J44.0 Chronic obstructive pulmonary disease with (acute) lower respiratory infection; Z99.11 Dependence on respirator [ventilator] status; D64.9 Anemia, unspecified; Z93.1 Gastrostomy status; Z93.0 Tracheostomy status; R13.10 Dysphagia, unspecified; B96.4 Proteus (mirabilis) (morganii) as the cause of diseases classified elsewhere; I48.91 Unspecified atrial fibrillation; I10 Essential (primary) hypertension; G20 Parkinson's disease; N40.0 Benign prostatic hyperplasia without lower urinary tract symptoms; K22.2 Esophageal obstruction
CPT/HCPCS: 36415; 71045; 74018; 80053; 80069; 80202; 81003; 82150; 82270; 82550; 82553; 83540; 83550; 83605; 83690; 83735; 83880; 84100; 84484; 85025; 85610; 85651; 85730; 86140; 86850; 86900; 86901; 87040; 87070; 87081; 87086; 87181; 87205; 93005; 93970; 94640; 94664; 94760; 99285; J7620; J8499